=== PATIENT | female | born 1965 | race Caucasian/White ===

== ENCOUNTER 2024-09-11 14:14 | Inpatient (IN) | payer BC, SELFPAY ==
[2024-09-11 14:38] VITALS: BP 150/80; PULSE 87; RESP 18; TEMP 37.1; O2SAT 97; BMI 34.3
--- NOTE | 2024-09-11 16:43 | ED.ABDPAIN ---
HPI - Abdominal Pain General Time Seen by Provider: 16:43 Date Seen: 09/11/24 Chief Complaint: Abdominal Pain Stated Complaint: L side abdominal/back pain Time Seen by Provider: 09/11/24 16:42 Source: patient and RN notes reviewed Mode of arrival: ambulatory Limitations: no limitations History of Present Illness HPI narrative: This 58-year-old female is coming in with complaint of left lower quadrant abdominal pain that has worsened since yesterday. She feels bloated, feels like it is gas but is not really passing any gas. She has been able to produce some small amount of stool but not normal caliber as she usually would. She had a colonoscopy at age 51, was given a 10 year interval. She has tried Gas-X, Excedrin, none of these have provided any relief. She feels nauseated but no vomiting, only had a banana today. Her appetite is definitely diminished. She has felt chills at times but is not had any fever. Has had normal urination. She did Google her symptoms and diverticulitis did come up. She has no history of kidney stones. MD elicited complaint: abdominal pain Related Data Home Medications ?Medication ?Instructions ?Recorded ?Confirmed atorvastatin .ROUTE 09/11/24 exemestane 25 mg tablet (Aromasin) 25 mg PO DAILY 09/11/24 09/11/24 omeprazole .ROUTE 09/11/24 sertraline 100 mg tablet 100 mg PO DAILY 09/11/24 09/11/24 Allergies Allergy/AdvReac Type Severity Reaction Status Date / Time No Known Drug Allergies Allergy Verified 09/11/24 19:10 Review of Systems Status of ROS Reports: 6 or more systems reviewed and unremarkable except as noted in History and below [facility] Medical History (Updated 09/11/24 @ 21:10 by Francia Isabel MD) Hyperlipidemia ?E78.5 - Hyperlipidemia, unspecified (ICD-10) Morbid obesity ?E66.01 - Morbid (severe) obesity due to excess calories (ICD-10) Pre-diabetes ?R73.03 - Prediabetes (ICD-10) Metabolic syndrome ?E88.810 - Metabolic syndrome (ICD-10) Social History What is your current living situation?: I presently have a place to live Problems where you live: no known problems Problems where you live details: none In the past 12 months, utilities in danger of being shut off: no In past 12 months, lack of transportation kept you from medical appts, meetings, work, or getting things needed for daily living: no In the past 12 mos, have been you worried that your food would run out before you had money to buy more?: never true In the past 12 mos, the food you bought just didn't last and you didn't have money to buy more?: never true Highest level of school completed/degree received: Master's degree Smoking Status: Never smoker How often do you have a drink containing alcohol: monthly or less AUDIT-C Alcohol total score: 1 Non-prescribed substance use: denies use Caffeine: Yes (a cup a day) How often does anyone, including family, friends and others, physically hurt you: never How often does anyone, including family, friends and others, insult or talk down to you: never How often does anyone, including family, friends and others, threaten you with harm: never How often does anyone, including family, friends and others, scream or curse at you: never service: No Exam Const: Vital Signs, click to edit/add: Vital Signs - 24 hr 09/11/24 14:38 09/11/24 17:00 09/11/24 18:00 Temperature 98.7 F Pulse Rate 98 Pulse Rate [Right Pulse Oximeter] 87 Pulse Rate [Right Radial] Respiratory Rate 18 16 Blood Pressure 115/69 Blood Pressure [Le ft Arm] Blood Pressure [Ri ght Upper Arm] 150/80 H Pulse Oximetry 97 98 89 Oxygen Delivery Me thod Room Air Room Air 09/11/24 19:05 Temperature Pulse Rate Pulse Rate [Right Pulse Oximeter] Pulse Rate [Right Radial] 82 Respiratory Rate 20 Blood Pressure Blood Pressure [Le ft Arm] 127/67 Blood Pressure [Ri ght Upper Arm] Pulse Oximetry 93 Oxygen Delivery Me thod Room Air This 58-year-old female is alert and interactive, does seem uncomfortable. She is lying on her right side, is able to roll over onto her back. Sclera clear, able to speak in complete sentences. Lungs clear to auscultation, no wheezing or crackles. CV regular rate and rhythm, no murmur. Abdomen does seem distended, do hear an occasional bowel sounds but are certainly sounds hypoactive. She has left lower quadrant tenderness with some rebound and guarding but do not feel underlying mass. No inguinal mass or adenopathy noted. Documenting provider has reviewed patient's vital signs: yes Course Course ED Course: Patient is having left lower quadrant abdominal pain, diminished bowel output, nausea and decreased appetite. I agree that diverticulitis is high on the differential. Will place an IV, give her Zofran and Toradol for symptom control. Will proceed with CT abdomen pelvis with IV contrast and full complement of labs. Will also include urinalysis. Reevaluation(s) Time of Reevaluation #1: 18:21 Reevaluation #1: Have reviewed with patient this CT findings and discussion was surgeon. Pain is improved but she still has some discomfort. We discussed using morphine. She is aware antibiotics will be ordered. Will have her NPO, will start IV fluids. Consultations Consultation #1: General surgeon Dr. Davis has been consulted on this patient, she did review images and chart. Is requesting patient be admitted to the hospitalist service, she will see the patient in the morning. We agreed on ertapenem. She would like patient NPO at this time. Will order IV fluids. Time: 18:02 Consultation #2: Have let Dr. Isabel know about this patient. She will need to call me back as she was it in with another patient. Time: 18:23 Vital Signs Vital signs: Initial Vital Signs Temperature 98.7 F 09/11/24 14:38 Temperature Source Temporal Artery Scan 09/11/24 14:38 Pulse Rate 87 09/11/24 14:38 Pulse Rhythm Regular 09/11/24 14:38 Respiratory Rate 18 09/11/24 14:38 Blood Pressure 150/80 H 09/11/24 14:38 Blood Pressure Mean 103 09/11/24 14:38 Blood Pressure Position Sitting 09/11/24 14:38 Pulse Oximetry 97 09/11/24 14:38 Oxygen Delivery Method Room Air 09/11/24 14:38 Vital Signs Temperature 98.7 F 09/11/24 14:38 Pulse Rate 87 09/11/24 14:38 Respiratory Rate 18 09/11/24 14:38 Blood Pressure 150/80 H 09/11/24 14:38 Pulse Oximetry 97 09/11/24 14:38 Oxygen Delivery Method Room Air 09/11/24 14:38 Temperature 99.1 F 09/12/24 00:10 Pulse Rate 93 09/12/24 00:10 Respiratory Rate 20 09/11/24 19:05 Blood Pressure 103/69 09/12/24 00:10 Pulse Oximetry 89 09/12/24 00:10 Oxygen Delivery Method Room Air 09/12/24 00:10 Medications Administered Medications: Generic Name Dose Route Start Last Admin Trade Name Freq PRN Reason Stop Dose Admin Enoxaparin Sodium 40 mg 09/11/24 21:00 09/11/24 21:40 Enoxaparin 40 Mg/0.4 Ml Inj SUBCUT Not Given HS LEON Lactated Ringer's 1,000 mls @ 125 mls/hr 09/11/24 18:25 09/11/24 23:34 Lactated Ringers 1000 Ml IV 125 mls/hr .Q8H LEON Administration Ketorolac Tromethamine 30 mg 09/11/24 20:07 09/11/24 23:34 Ketorolac 30 Mg/Ml Inj IVP 09/16/24 20:06 30 mg Q6H PRN Administration Abdominal Distention Sodium Chloride 5 ml 09/11/24 21:00 09/11/24 21:40 Sodium Chloride 0.9 % (Flush) 10 Ml Syringe IVF Not Given BID LEON Discontinued Medications Generic Name Dose Route Start Last Admin Trade Name Freq PRN Reason Stop Dose Admin Ertapenem 1 gm/ Sodium 100 mls @ 200 mls/hr 09/11/24 18:17 09/11/24 22:48 Chloride IVPB 09/11/24 18:18 Infused ONCE ONE Infusion Ketorolac Tromethamine 15 mg 09/11/24 16:49 09/11/24 17:12 Ketorolac 15 Mg/Ml Inj IVP 09/11/24 16:50 15 mg ONCE ONE Administration Morphine Sulfate 2 mg 09/11/24 18:24 09/11/24 18:34 Morphine 2 Mg/Ml Inj IVP 09/11/24 18:25 2 mg ONCE ONE Administration Ondansetron HCl 4 mg 09/11/24 16:49 09/11/24 17:12 Ondansetron 2 Mg/Ml Inj IVP 09/11/24 16:50 4 mg ONCE ONE Administration MDM - Abdominal Pain Lab Data Attestation: I reviewed the patient's lab results. Labs: Lab Results 09/11/24 09/11/24 Range/Units 17:20 18:00 WBC 16.09 H (4.50-11.00) K/uL RBC 4.76 (4.00-5.20) m/uL Hgb 13.7 (12.0-16.0) gm/dL Hct 42.6 (33.0-51.0) % MCV 90 (80-100) fL MCH 29 (26-34) pg MCHC 32 (32-36) gm/dL RDW Coeff of Roberta 14.2 (11.5-15.5) % Plt Count 221 (140-440) K/uL Neut % (Auto) 85.4 H (42.0-72.0) % Lymph % (Auto) 8.1 L (20-44) % [place] % (Auto) 5.7 (0.0-11.0) % Eos % (Auto) 0.5 (0.0-7.0) % Baso % (Auto) 0.1 (0.0-3.0) % Neut # (Auto) 13.70 H (1.7-7.0) K/uL Lymph # (Auto) 1.30 (0.90-2.90) K/uL [place] # (Auto) 0.90 (0.00-0.90) K/UL Eos # (Auto) 0.10 (0.00-0.50) K/uL Baso # (Auto) 0.00 (0.00-0.30) K/uL Abs Immat Gran (auto) 0.00 (0.00-0.30) K/uL Imm/Tot Granulo (auto) 0.2 % Sodium 134 L (135-149) mmol/L Potassium 4.3 (3.6-5.1) mmol/L Chloride 103 (96-114) mmol/L Carbon Dioxide 22 (20-32) mmol/L Anion Gap 9 (7-15) mEq/L BUN 16 (7-30) mg/dL Creatinine 0.8 (0.5-1.5) mg/dL Estimated Creat Clear 67.00 Estimated GFR 86 ml/min Glucose 111 (60-115) mg/dL Lactate 1.5 (0.5-1.9) mmol/L Calcium 9.4 (8.4-10.6) mg/dL Total Bilirubin 1.3 (0.1-1.5) mg/dL AST 28 (12-35) U/L ALT 45 H (4-35) U/L Alkaline Phosphatase 101 (40-150) U/L C-Reactive Protein 4.2 H (0.5-1.0) mg/dL Total Protein 7.5 (6.0-8.3) g/dL Albumin 4.5 (3.3-5.0) g/dL Triglycerides 412 H (40-149) mg/dL Cholesterol 186 (90-199) mg/dL LDL Cholesterol, Calc 69 (<100) mg/dL HDL Cholesterol 35 L (>=50) mg/dL Urine Color Yellow (Yellow) Urine Appearance Clear (Clear) Urine pH 5.0 (5.0-8.5) Ur Specific [place] <= 1.005 (1.000-1.030) Urine Protein Negative (Negative) Urine Glucose (UA) Negative (Negative) Urine Ketones Negative (Negative) Urine Blood Negative (Negative) Urine Nitrite Negative (Negative) Urine Bilirubin Negative (Negative) Urine Urobilinogen 0.2 (0.2-1.0) Ur Leukocyte Esterase Negative (Negative) Urine RBC 0-2 (0-2) Urine WBC 0-2 (0-5) Ur Squamous Epith Cells None (None-Few) Urine Bacteria None (None) Imaging Data CT scan - abdomen: Attestation: I have reviewed the pertinent imaging results. Radiologist's impression: Patient: DESHAUN CINTRON Facility:?[facility] Patient ID:?[id number] Site Patient ID:?[id number]. Site :?[id number] Study:?CT-Abdomen/Pelvis W/ 98CC ISOVUE 370-09/11/2024 5:27:45 PM Ordering Physician:?Andry Louie Final Report: INDICATION: Left lower quadrant pain. History of breast cancer.. COMPARISON: None. TECHNIQUE: CT of the abdomen and pelvis with intravenous contrast. Multiplanar axial, coronal, and sagittal reformats were reconstructed. Contrast: 98 mL Isovue 370. FINDINGS: Lung bases: Normal. Liver: Hepatic steatosis and hepatomegaly. The right lobe of the liver measures 23 centimeters in length. Gallbladder and bile ducts: Normal gallbladder. No bile duct dilation. Pancreas: Normal. Spleen: Well-circumscribed macrolobular low-dose density splenic lesion without any adjacent hyperemia. Measures about 5 x 5 x 5 cm. Adrenal glands: Normal. Kidneys: Normal parenchyma. No cyst or solid mass. No calculi. No urinary tract dilation. Urinary bladder: Normal. Pelvis: No cyst or mass. Vessels: Widely patent mesenteric arteries and veins. Bowel: Severely inflamed diverticulum in the proximal sigmoid colon. There is segmental wall thickening. There is substantial adjacent edema and peritoneal thickening without phlegmon or abscess. There is an immediately adjacent free air without intraperitoneal free air. Overall the diverticular burden is moderate to heavy no other dilated or inflamed small bowel or colon. There is a moderate hiatal hernia without any inflammation. Normal appendix. Moderate stool burden. Lymph nodes: No adenopathy. Peritoneum: No ascites. Abdominal wall: Diastasis recti with small fat containing umbilical hernia. No bowel containing hernia. Bones: No fractures. No focal worrisome bone lesions. IMPRESSION: 1. Acute diverticulitis of the proximal sigmoid colon with micro perforation and no abscess. 2. Hepatic steatosis and hepatomegaly. 3. There is a splenic lesion without any features of an abscess or primary / metastatic malignancy. Further imaging workup is generally not fruitful. Please note that all CT scans at this facility use dose modulation, iterative reconstruction, and/or weight-based dosing when appropriate to reduce radiation dose to as low as reasonably achievable. Dictated by Kim Isidro MD @ 09/11/2024 5:53:26 PM (Electronic Signature) Discharge Plan Discharge Clinical Impression: Perforation of sigmoid colon due to diverticulitis Patient Disposition: Admitted As Observation
--- NOTE | 2024-09-11 16:49 | CRLHL7_ITS ---
For Patients: As a result of the Century Cures Act, medical imaging exams and procedure reports are released immediately into your electronic medical record. You may view this report before your referring provider. If you have questions, please contact your health care provider. INDICATION: Left lower quadrant pain. History of breast cancer.. COMPARISON: None. TECHNIQUE: CT of the abdomen and pelvis with intravenous contrast. Multiplanar axial, coronal, and sagittal reformats were reconstructed. Contrast: 98 mL Isovue 370. FINDINGS: Lung bases: Normal. Liver: Hepatic steatosis and hepatomegaly. The right lobe of the liver measures 23 centimeters in length. Gallbladder and bile ducts: Normal gallbladder. No bile duct dilation. Pancreas: Normal. Spleen: Well-circumscribed macrolobular low-dose density splenic lesion without any adjacent hyperemia. Measures about 5 x 5 x 5 cm. Adrenal glands: Normal. Kidneys: Normal parenchyma. No cyst or solid mass. No calculi. No urinary tract dilation. Urinary bladder: Normal. Pelvis: No cyst or mass. Vessels: Widely patent mesenteric arteries and veins. Bowel: Severely inflamed diverticulum in the proximal sigmoid colon. There is segmental wall thickening. There is substantial adjacent edema and peritoneal thickening without phlegmon or abscess. There is an immediately adjacent free air without intraperitoneal free air. Overall the diverticular burden is moderate to heavy no other dilated or inflamed small bowel or colon. There is a moderate hiatal hernia without any inflammation. Normal appendix. Moderate stool burden. Lymph nodes: No adenopathy. Peritoneum: No ascites. Abdominal wall: Diastasis recti with small fat containing umbilical hernia. No bowel containing hernia. Bones: No fractures. No focal worrisome bone lesions. IMPRESSION: 1. Acute diverticulitis of the proximal sigmoid colon with micro perforation and no abscess. 2. Hepatic steatosis and hepatomegaly. 3. There is a splenic lesion without any features of an abscess or primary / metastatic malignancy. Further imaging workup is generally not fruitful. Please note that all CT scans at this facility use dose modulation, iterative reconstruction, and/or weight-based dosing when appropriate to reduce radiation dose to as low as reasonably achievable. Dictated by Kim Isidro MD @ 09/11/2024 5:53:26 PM (Electronically Signed)
[2024-09-11 17:00] VITALS: O2SAT 98
[2024-09-11] MEDS: KETOROLAC 15 MG/ML inj IVP (17:12)
[2024-09-11] MEDS: ONDANSETRON 2 MG/ML inj 4 MG IVP (17:12)
[2024-09-11 17:26] LABS: Lactate* 1.5 mmol/L (0.5-1.9)
[2024-09-11 17:35] LABS: Basophils Percent Auto 0.1 % (0.0-3.0); Eosinophils Percent Auto 0.5 % (0.0-7.0); Hematocrit 42.6 % (33.0-51.0); Hemoglobin* 13.7 gm/dL (12.0-16.0); Immature Granulocytes Pct Auto 0.2 %; Lymphocytes Percent Auto 8.1 % (20-44); Mean Corpuscular HGB Conc 32 gm/dL (32-36); Mean Corpuscular Hemoglobin 29 pg (26-34); Mean Corpuscular Volume 90 fL (80-100); Monocytes Percent Auto 5.7 % (0.0-11.0); Neutrophils Percent Auto 85.4 % (42.0-72.0); Platelet Count* 221 K/uL (140-440); RDW Coefficient of Variation % 14.2 % (11.5-15.5); Red Blood Count 4.76 m/uL (4.00-5.20); White Blood Count* 16.09 K/uL (4.50-11.00)
[2024-09-11 18:00] VITALS: BP 115/69; PULSE 98; RESP 16; O2SAT 89
[2024-09-11 18:06] LABS: Slide Review Reflex No
[2024-09-11 18:14] LABS: Albumin* 4.5 g/dL (3.3-5.0); Chloride* 103 mmol/L (96-114); Sodium* 134 mmol/L (135-149)
[2024-09-11 18:15] LABS: Potassium* 4.3 mmol/L (3.6-5.1)
[2024-09-11 18:17] LABS: Anion Gap 9 mEq/L (7-15); Bilirubin Total* 1.3 mg/dL (0.1-1.5); Carbon Dioxide* 22 mmol/L (20-32); Creatinine* 0.8 mg/dL (0.5-1.5); Estimated Glomerular Filt Rate 86 ml/min; Total Protein* 7.5 g/dL (6.0-8.3)
[2024-09-11 18:18] LABS: Alanine Aminotransferase* 45 U/L (4-35); Alkaline Phosphatase* 101 U/L (40-150); Aspartate Amino Transferase* 28 U/L (12-35); Blood Urea Nitrogen* 16 mg/dL (7-30); Calcium* 9.4 mg/dL (8.4-10.6); Glucose* 111 mg/dL (60-115)
[2024-09-11 18:20] LABS: C Reactive Protein* 4.2 mg/dL (0.5-1.0)
[2024-09-11 18:33] LABS: Appearance Urine Clear (Clear); Bilirubin Urine Negative (Negative); Blood Urine Negative (Negative); Color Urine Yellow (Yellow); Glucose Urine Negative (Negative); Ketones Urine Negative (Negative); Leukocyte Esterase Urine Negative (Negative); Nitrite Urine Negative (Negative); Protein Urine Negative (Negative); Specific Gravity Urine <= 1.005 (1.000-1.030); Urobilinogen Urine 0.2 (0.2-1.0)
[2024-09-11] MEDS: LACTATED RINGERS 1000 ML 1,000 ML 125 ML IV ×2 (18:33→23:34)
[2024-09-11] MEDS: MORPHINE 2 MG/ML inj IVP (18:34)
[2024-09-11] MEDS: ERTAPENEM 1 GM in 0.9 % SODIUM CHLORIDE Mini-bag 100 ML IVPB (18:34)
[2024-09-11 18:59] LABS: RBC Urine 0-2 (0-2); WBC Urine 0-2 (0-5)
[2024-09-11 19:05] VITALS: BP 127/67; PULSE 82; RESP 20; O2SAT 93
--- NOTE | 2024-09-11 20:11 | P.IMHP_ITS ---
Hospitalist- H&P: HPI History of Present Illness Date Seen: 09/11/24 Chief complaint: L side abdominal/back pain Narrative: ADMISSION HISTORY AND PHYSICAL - HOSPITALIST Chief Complaint: 2 days of abdominal pain HPI: 58-year-old white female presents with 2 days of abdominal pain. It started as a generalized gas discomfort and has increased to the point of unable to stay at home or alleviate her pain with [id number] products. She denies fever, reports chills. No vomiting. Mild nausea. Denies blood in her stool. She has had a history of breast cancer, prediabetes, hyperlipidemia, obesity. She had a colonoscopy about 7 years ago and this was negative and she was told she was good for 10 years. The ER called after her CT revealed severely inflamed diverticulum in the proximal sigmoid colon. There is segmental wall thickening and substantial adjacent edema and peritoneal thickening without phlegmon or abscess. There is an immediately adjacent free air without intraperitoneal free air. She is seen and [facility] and followed by [facility] ER COURSE: CT. Labs. Antiemetic. Pain control. Lactated Ringer's. Surgery consult. Ertapenem 1 g. CODE STATUS: FULL CODE EMERGENCY CONTACT PLAN: Max Collazo Rel To Pat Cell I've updated the PFSH, medications and allergies in the Expanse tabs. INVESTIGATIONS: LABS/MICRO/ECG/IMAGING Hemodynamically stable. On room air. Afebrile. White blood cell count is 16.09, 85% neutrophils. Sodium is 134, glucose is 111. Renal function is normal. Liver function appears normal with only a mild bump in her ALT. Bilirubin is normal. C reactive protein is elevated at 4.2 Urine shows a well-hydrated specimen. No evidence of infection. IMPRESSION: 1. Acute diverticulitis of the proximal sigmoid colon with micro perforation and no abscess. 2. Hepatic steatosis and hepatomegaly. 3. There is a splenic lesion without any features of an abscess or primary metastatic malignancy. Further imaging workup is generally not fruitful. REVIEW OF SYSTEMS: 12-point ROS completed with patient and negative unless otherwise stated in HPI or below. PHYSICAL EXAM: CONSTITUTIONAL: Conversive, good historian. A/O. Knows setting and context. GENERAL: Well-developed and above ideal body weight, in no respiratory distress. VITAL SIGNS: see record. HEENT: Sclerae are anicteric. No petechiae. CARDIAC: rhythm is regular. There is no S3 or rub. No harsh murmurs. Extremities show trace edema with symmetrical pulses. PULM: good air entry with no wheeze. ABDOMEN: Obese. Mildly tender to palpation in the left lower quadrant. NEURO: Speech is fluent. A brief neurologic exam is negative. SKIN: No rashes, petechiae, concerning changes PSYCHIATRIC: Euthymic. ADMIT TO MEDSURG: FLOOR CARE DVT: Lovenox GI: PO intake Time spent: Today I spent 75 minutes seeing the patient, discussing the patient with ER staff, reviewing Expanse and EPIC notes/diagnostics, discussing the care plan with our care time that includes social work, PT/OT, pharmacy, RT, senior care and documenting my impressions and plan in the medical record. MEDICAL NECESSITY FOR HOSPITALIZATION Anticipated midnights in the hospital: 2 Admitting diagnosis: Severe sigmoid diverticulitis, microperforation without abscess Risk of morbidity and mortality: high Acuity is characterized as high and reflected in: The severity of her presentation with pain, chills, elevated white blood cell count and evidence of microperforation. She will be kept NPO and have a surgery consult in the morning. She will require IV antibiotics for 7-10 days. Given her history of cancer, obesity, pre diabetes/metabolic syndrome this often leads to increased healing time and risk of complication if surgery is indicated. This patient will require hospital services as outlined in the assessment and plan in order to stabilize and be safely discharged to a lower level of care. Because of the risk and acuity as described above, this patient cannot be managed at a lower level of care. LENGTH OF STAY: 2 IP ? Anticipated LOS>2 midnights due to acuity of clinical presentation requiring inpatient level of care [facility] Medical History (Updated 09/11/24 @ 21:10 by Francia Isabel MD) Hyperlipidemia ?E78.5 - Hyperlipidemia, unspecified (ICD-10) Morbid obesity ?E66.01 - Morbid (severe) obesity due to excess calories (ICD-10) Pre-diabetes ?R73.03 - Prediabetes (ICD-10) Metabolic syndrome ?E88.810 - Metabolic syndrome (ICD-10) Social History What is your current living situation?: I presently have a place to live Problems where you live: no known problems Problems where you live details: none In the past 12 months, utilities in danger of being shut off: no In past 12 months, lack of transportation kept you from medical appts, meetings, work, or getting things needed for daily living: no In the past 12 mos, have been you worried that your food would run out before you had money to buy more?: never true In the past 12 mos, the food you bought just didn't last and you didn't have money to buy more?: never true Highest level of school completed/degree received: Master's degree Smoking Status: Never smoker How often do you have a drink containing alcohol: monthly or less AUDIT-C Alcohol total score: 1 Non-prescribed substance use: denies use Caffeine: Yes (a cup a day) How often does anyone, including family, friends and others, physically hurt you : never How often does anyone, including family, friends and others, insult or talk down to you: never How often does anyone, including family, friends and others, threaten you with harm: never How often does anyone, including family, friends and others, scream or curse at you: never service: No Meds Home Medications and Allergies Home Medications ?Medication ?Instructions ?Recorded ?Confirmed ?Type atorvastatin .ROUTE 09/11/24 History exemestane 25 mg tablet (Aromasin) 25 mg PO DAILY 09/11/24 09/11/24 History omeprazole .ROUTE 09/11/24 History sertraline 100 mg tablet 100 mg PO DAILY 09/11/24 09/11/24 History Allergies Allergy/AdvReac Type Severity Reaction Status Date / Time No Known Drug Allergies Allergy Verified 09/11/24 19:10 Exam Const: Vital Signs, click to edit/add: Vital Signs - 24 hr 09/11/24 14:38 09/11/24 17:00 09/11/24 18:00 Temperature 98.7 F Pulse Rate 98 Pulse Rate [Right Pulse Oximeter] 87 Pulse Rate [Right Radial] Respiratory Rate 18 16 Blood Pressure 115/69 Blood Pressure [Le ft Arm] Blood Pressure [Ri ght Upper Arm] 150/80 H Pulse Oximetry 97 98 89 Oxygen Delivery Me thod Room Air Room Air 09/11/24 19:05 Temperature Pulse Rate Pulse Rate [Right Pulse Oximeter] Pulse Rate [Right Radial] 82 Respiratory Rate 20 Blood Pressure Blood Pressure [Le ft Arm] 127/67 Blood Pressure [Ri ght Upper Arm] Pulse Oximetry 93 Oxygen Delivery Me thod Room Air Hospitalist - H&P: Result Labs Labs: Short CBC 09/11/24 Range/Units 17:20 WBC 16.09 H (4.50-11.00) K/uL Hgb 13.7 (12.0-16.0) gm/dL Hct 42.6 (33.0-51.0) % Plt Count 221 (140-440) K/uL BMP 09/11/24 17:20 Sodium 134 L Potassium 4.3 Chloride 103 Carbon Dioxide 22 BUN 16 Creatinine 0.8 Glucose 111 Calcium 9.4 Liver Function 09/11/24 Range/Units 17:20 Total Bilirubin 1.3 (0.1-1.5) mg/dL AST 28 (12-35) U/L ALT 45 H (4-35) U/L Alkaline Phosphatase 101 (40-150) U/L Albumin 4.5 (3.3-5.0) g/dL Urine 09/11/24 Range/Units 18:00 Urine Color Yellow (Yellow) Urine Appearance Clear (Clear) Urine pH 5.0 (5.0-8.5) Ur Specific [place] <= 1.005 (1.000-1.030) Urine Protein Negative (Negative) Urine Glucose (UA) Negative (Negative) Assessment and Plan Assessment and plan (1) Perforation of sigmoid colon due to diverticulitis: Problem comment: -1st dose of ertapenem 6:30 p.m. 09/11 in the ED -Dr. Davis to evaluate in the morning -NPO with LR at 125 mL an hour -antiemetics and pain management Status: Acute (2) Metabolic syndrome: Problem comment: -checking A1c and lipid profile -have not ordered but could consider bedside glucose monitoring -metabolic syndrome does confer increased healing time and risk of complication if surgery is indicated. Status: Acute (3) Pre-diabetes: Problem comment: -as above Status: Acute (4) Hyperlipidemia: Problem comment: -can continue low-dose atorvastatin Status: Acute (5) Morbid obesity: Problem comment: -as above Status: Acute
[2024-09-11 21:16] LABS: Cholesterol* 186 mg/dL (90-199)
[2024-09-11 21:17] LABS: HDL Cholesterol* 35 mg/dL (>=50); LDL Cholesterol Calculated 69 mg/dL (<100)
[2024-09-11 21:21] LABS: Triglycerides* 412 mg/dL (40-149)
[2024-09-11] MEDS: KETOROLAC 30 MG/ML inj IVP (23:34)
[2024-09-12] VITALS (8 sets, daily range): BP systolic 96–118; BP diastolic 53–73; PULSE 82–93; RESP 16–18; TEMP 36.5–37.3; O2SAT 89–93
[2024-09-12 04:33] LABS: Hemoglobin A1C* 6.1 % (0-5.6)
[2024-09-12 06:39] LABS: Basophils Absolute Auto 0.01 K/uL (0.00-0.30); Basophils Percent Auto 0.1 % (0.0-3.0); Eosinophils Absolute Auto 0.09 K/uL (0.00-0.50); Eosinophils Percent Auto 0.9 % (0.0-7.0); Hematocrit 37.6 % (33.0-51.0); Hemoglobin* 12.1 gm/dL (12.0-16.0); Immature Granulocytes Abs Auto 0.01 K/uL (0.00-0.30); Immature Granulocytes Pct Auto 0.1 %; Lymphocytes Percent Auto 14.2 % (20-44); Mean Corpuscular HGB Conc 32 gm/dL (32-36); Mean Corpuscular Hemoglobin 29 pg (26-34); Mean Corpuscular Volume 91 fL (80-100); Monocytes Percent Auto 7.2 % (0.0-11.0); Neutrophils Percent Auto 77.5 % (42.0-72.0); Platelet Count* 189 K/uL (140-440); RDW Coefficient of Variation % 14.4 % (11.5-15.5); Red Blood Count 4.13 m/uL (4.00-5.20); White Blood Count* 9.56 K/uL (4.50-11.00)
[2024-09-12 06:47] LABS: Slide Review Reflex No
--- NOTE | 2024-09-12 06:52 | PC.NURSE ---
End of shift [id number] ? Pt alert, oriented, pleasant. Up independent in room. Reported pain in abdomen as 3/10, given medication per MAR with pt reporting pain to be well managed. Observed to sleep during shift. Tolerating RA and NPO diet. Appears to be resting comfortably at end of shift in bed with call light within reach. ?
[2024-09-12 06:56] LABS: Albumin* 3.6 g/dL (3.3-5.0); Chloride* 104 mmol/L (96-114)
[2024-09-12 06:57] LABS: Potassium* 4.2 mmol/L (3.6-5.1); Sodium* 136 mmol/L (135-149)
[2024-09-12 06:59] LABS: Estimated Glomerular Filt Rate 66 ml/min
[2024-09-12 07:00] LABS: Alanine Aminotransferase* 36 U/L (4-35); Alkaline Phosphatase* 74 U/L (40-150); Anion Gap 6 mEq/L (7-15); Aspartate Amino Transferase* 21 U/L (12-35); Bilirubin Total* 1.2 mg/dL (0.1-1.5); Blood Urea Nitrogen* 16 mg/dL (7-30); Calcium* 8.4 mg/dL (8.4-10.6); Carbon Dioxide* 26 mmol/L (20-32); Glucose* 118 mg/dL (60-115); Lipase* 64 U/L (23-300); Total Protein* 6.3 g/dL (6.0-8.3)
[2024-09-12 07:07] LABS: INR 1.19 (0.91-1.10); Prothrombin Time 15.8 Seconds
[2024-09-12 07:15] LABS: C Reactive Protein* 12.7 mg/dL (0.5-1.0)
[2024-09-12] MEDS: LACTATED RINGERS 1000 ML 1,000 ML 125 ML IV (08:14)
--- NOTE | 2024-09-12 09:07 | CRLHL7_ITS ---
For Patients: As a result of the Century Cures Act, medical imaging exams and procedure reports are released immediately into your electronic medical record. You may view this report before your referring provider. If you have questions, please contact your health care provider. INDICATION: PICC line. TECHNIQUE: Chest 1 views. COMPARISON: None. FINDINGS: Cardiovascular and mediastinum: Heart size and vasculature are normal in caliber and appearance. Right PICC with tip in the superior cavoatrial junction. Lungs and pleural spaces: Low lung volumes. No sign of infiltrate or mass. No sign of pleural effusion. No pneumothorax. Bones and soft tissues: No significant findings. IMPRESSION: Right PICC with tip in the superior cavoatrial junction. Dictated by Azar Flores MD @ 09/12/2024 6:54:23 PM (Electronically Signed)
[2024-09-12] MEDS: SERTRALINE 100 MG TABLET 200 MG PO (09:20)
--- NOTE | 2024-09-12 10:12 | PM.IMPN1 ---
Progress Note: A&P Assessment and plan (1) Perforation of sigmoid colon due to diverticulitis: Problem details: - 1st dose of ertapenem 1830 09/11 in the ED - Dr. Davis of general surgery following - slowly advancing diet on 09/12 - continue antiemetics and pain management, increase ambulation Status: Acute (2) Metabolic syndrome: Problem details: - hyperlipidemia, BMI 34 - A1C 6.1 c/w prediabetes, increasing risk of complication if surgery was indicated Status: Acute (3) Hyperlipidemia: Problem details: - continue low-dose atorvastatin Status: Acute Plan - slowly advance diet, continue to monitor for any worsening symptoms while advancing po intake - follow BP closely (lower than baseline this morning) - if tolerating p.o. intake with stable labs, possibly home tomorrow with a PICC line and IV ertapenem, close general surgery follow-up - patient agrees to plan of care, updated at bedside, questions answered Subjective Date Seen: 09/12/24 Interval history: Conchis was admitted last night with severe diverticulitis and microperforation on imaging. She had severe pain with guarding on exam, white blood count of 16 with 85% PMNs. IV ertapenem initiated. Overnight, her pain has improved. Her white count has improved to 9, continues to have a significant PMN predominance (77%). Tmax 99.1, BP on the lower side (98/71 this morning). Dr. Davis of general surgery is also following. Initiating liquids and will advance to a soft low-fiber diet if tolerated. Comorbidities include metabolic syndrome, A1c this morning of 6.1 Exam Narrative: Exam Narrative: GEN: Alert HEENT: EOMIs bilaterally, no scleral icterus CV: RRR, No concerning murmurs R: LCTA bilaterally without concerning wheezing Ab: Mild distention, + tenderness to palpation without guarding, hypoactive bowel sounds Ext: wwp, no concerning edema Skin: No concerning skin lesions or rashes on exposed skin Neuro: Nonfocal Psych: Appropriate Const: Vital Signs, click to edit/add: Vital Signs - 24 hr 09/11/24 14:38 09/11/24 17:00 09/11/24 18:00 Temperature 98.7 F Pulse Rate 98 Pulse Rate [Right Pulse Oximeter] 87 Pulse Rate [Right Radial] Respiratory Rate 18 16 Blood Pressure 115/69 Blood Pressure [Le ft Arm] Blood Pressure [Ri ght Upper Arm] 150/80 H Pulse Oximetry 97 98 89 Oxygen Delivery Me thod Room Air Room Air 09/11/24 19:05 09/12/24 00:10 09/12/24 05:57 Temperature 99.1 F 98.4 F Pulse Rate Pulse Rate [Right Pulse Oximeter] Pulse Rate [Right Radial] 82 93 86 Respiratory Rate 20 16 Blood Pressure Blood Pressure [Le ft Arm] 127/67 103/69 112/73 Blood Pressure [Ri ght Upper Arm] Pulse Oximetry 93 89 89 Oxygen Delivery Me thod Room Air Room Air Room Air 09/12/24 08:45 Temperature 97.7 F Pulse Rate Pulse Rate [Right Pulse Oximeter] Pulse Rate [Right Radial] 86 Respiratory Rate 18 Blood Pressure Blood Pressure [Le ft Arm] 98/71 Blood Pressure [Ri ght Upper Arm] Pulse Oximetry 93 Oxygen Delivery Me thod Room Air Labs Labs: Laboratory Results - last 24 hr 09/11/24 09/11/24 09/11/24 17:20 18:00 21:01 WBC 16.09 H RBC 4.76 Hgb 13.7 Hct 42.6 MCV 90 MCH 29 MCHC 32 RDW Coeff of Roberta 14.2 Plt Count 221 Neut % (Auto) 85.4 H Lymph % (Auto) 8.1 L Daniels % (Auto) 5.7 Eos % (Auto) 0.5 Baso % (Auto) 0.1 Neut # (Auto) 13.70 H Lymph # (Auto) 1.30 Daniels # (Auto) 0.90 Eos # (Auto) 0.10 Baso # (Auto) 0.00 Abs Immat Gran (auto) 0.00 Imm/Tot Granulo (auto) 0.2 INR Sodium 134 L Potassium 4.3 Chloride 103 Carbon Dioxide 22 Anion Gap 9 BUN 16 Creatinine 0.8 Estimated Creat Clear 67.00 Estimated GFR 86 Glucose 111 Hemoglobin A1c 6.1 H Lactate 1.5 Calcium 9.4 Total Bilirubin 1.3 AST 28 ALT 45 H Alkaline Phosphatase 101 C-Reactive Protein 4.2 H Total Protein 7.5 Albumin 4.5 Triglycerides 412 H Cholesterol 186 LDL Cholesterol, Calc 69 HDL Cholesterol 35 L Lipase Urine Color Yellow Urine Appearance Clear Urine pH 5.0 Ur Specific Wilber <= 1.005 Urine Protein Negative Urine Glucose (UA) Negative Urine Ketones Negative Urine Blood Negative Urine Nitrite Negative Urine Bilirubin Negative Urine Urobilinogen 0.2 Ur Leukocyte Esterase Negative Urine RBC 0-2 Urine WBC 0-2 Ur Squamous Epith Cells None Urine Bacteria None Lab Acknowledgement Test Added 09/12/24 06:27 WBC 9.56 RBC 4.13 Hgb 12.1 Hct 37.6 MCV 91 MCH 29 MCHC 32 RDW Coeff of Roberta 14.4 Plt Count 189 Neut % (Auto) 77.5 H Lymph % (Auto) 14.2 L Daniels % (Auto) 7.2 Eos % (Auto) 0.9 Baso % (Auto) 0.1 Neut # (Auto) 7.40 H Lymph # (Auto) 1.40 Daniels # (Auto) 0.70 Eos # (Auto) 0.09 Baso # (Auto) 0.01 Abs Immat Gran (auto) 0.01 Imm/Tot Granulo (auto) 0.1 INR 1.19 H Sodium 136 Potassium 4.2 Chloride 104 Carbon Dioxide 26 Anion Gap 6 L BUN 16 Creatinine 1.0 Estimated Creat Clear 53.60 Estimated GFR 66 Glucose 118 H Hemoglobin A1c Lactate Calcium 8.4 Total Bilirubin 1.2 AST 21 ALT 36 H Alkaline Phosphatase 74 C-Reactive Protein 12.7 H Total Protein 6.3 Albumin 3.6 Triglycerides Cholesterol LDL Cholesterol, Calc HDL Cholesterol Lipase 64 Urine Color Urine Appearance Urine pH Ur Specific Wilber Urine Protein Urine Glucose (UA) Urine Ketones Urine Blood Urine Nitrite Urine Bilirubin Urine Urobilinogen Ur Leukocyte Esterase Urine RBC Urine WBC Ur Squamous Epith Cells Urine Bacteria Lab Acknowledgement
[2024-09-12] MEDS: ACETAMINOPHEN 325 MG TABLET PO (10:38)
--- NOTE | 2024-09-12 11:00 | P.GSCN_ITS ---
History of Present Illness Consult details Date Seen: 09/12/24 Consult date: 09/12/24 Narrative: Patient presented to the emergency department last night with worsening left- sided abdominal pain. She says that the pain started about 2 days ago, but then increased in severity to where she felt like she needed to come in. She has never had pain like this before. She has never had surgery in her abdomen before. Since being admitted her pain is improved, ?but she still feels a dull ache?. She is feeling hungry this morning. She denies any nausea or vomiting. She has continued to pass gas. Her last bowel movement was yesterday. She had a colonoscopy last 7 years ago, which was normal with recommended follow-up in 10 years. Denies a family history of colon cancer. She does state that a great grandmother had a history of diverticulitis. No fevers at home. She does have a vacation to [place] planned for this Thursday. She is going with her and kids for 1 week. Review of Systems Status of ROS: Reports: 10 or more systems reviewed and unremarkable except as noted in History and below [facility] Medical History (Updated 09/11/24 @ 21:10 by Francia Isabel MD) Hyperlipidemia ?E78.5 - Hyperlipidemia, unspecified (ICD-10) Morbid obesity ?E66.01 - Morbid (severe) obesity due to excess calories (ICD-10) Pre-diabetes ?R73.03 - Prediabetes (ICD-10) Metabolic syndrome ?E88.810 - Metabolic syndrome (ICD-10) Social History What is your current living situation?: I presently have a place to live Problems where you live: no known problems Problems where you live details: none In the past 12 months, utilities in danger of being shut off: no In past 12 months, lack of transportation kept you from medical appts, meetings, work, or getting things needed for daily living: no In the past 12 mos, have been you worried that your food would run out before you had money to buy more?: never true In the past 12 mos, the food you bought just didn't last and you didn't have money to buy more?: never true Highest level of school completed/degree received: Master's degree Smoking Status: Never smoker How often do you have a drink containing alcohol: monthly or less AUDIT-C Alcohol total score: 1 Non-prescribed substance use: denies use Caffeine: Yes (a cup a day) How often does anyone, including family, friends and others, physically hurt you : never How often does anyone, including family, friends and others, insult or talk down to you: never How often does anyone, including family, friends and others, threaten you with harm: never How often does anyone, including family, friends and others, scream or curse at you: never service: No Meds Home Medications and Allergies Home Medications ?Medication ?Instructions ?Recorded ?Confirmed ?Type atorvastatin .ROUTE 09/11/24 History exemestane 25 mg tablet (Aromasin) 25 mg PO DAILY 09/11/24 09/11/24 History omeprazole .ROUTE 09/11/24 History sertraline 100 mg tablet 100 mg PO DAILY 09/11/24 09/11/24 History Allergies Allergy/AdvReac Type Severity Reaction Status Date / Time No Known Drug Allergies Allergy Verified 09/11/24 19:10 Exam Narrative: Exam Narrative: General: Alert and oriented, no acute distress. Nontoxic Respiratory: Equal breath rise bilaterally, maintained on room air CV: Regular rhythm and rate Abdomen: Soft, some tenderness to deep palpation left side with no guarding or rebound. Nondistended. Const: Vital Signs, click to edit/add: Vital Signs - 24 hr 09/11/24 14:38 09/11/24 17:00 09/11/24 18:00 Temperature 98.7 F Pulse Rate 98 Pulse Rate [Right Pulse Oximeter] 87 Pulse Rate [Right Radial] Respiratory Rate 18 16 Blood Pressure 115/69 Blood Pressure [Le ft Arm] Blood Pressure [Ri ght Upper Arm] 150/80 H Pulse Oximetry 97 98 89 Oxygen Delivery Me thod Room Air Room Air 09/11/24 19:05 09/12/24 00:10 09/12/24 05:57 Temperature 99.1 F 98.4 F Pulse Rate Pulse Rate [Right Pulse Oximeter] Pulse Rate [Right Radial] 82 93 86 Respiratory Rate 20 16 Blood Pressure Blood Pressure [Le ft Arm] 127/67 103/69 112/73 Blood Pressure [Ri ght Upper Arm] Pulse Oximetry 93 89 89 Oxygen Delivery Me thod Room Air Room Air Room Air 09/12/24 08:45 09/12/24 09:00 Temperature 97.7 F Pulse Rate Pulse Rate [Right Pulse Oximeter] Pulse Rate [Right Radial] 86 86 Respiratory Rate 18 18 Blood Pressure Blood Pressure [Le ft Arm] 98/71 Blood Pressure [Ri ght Upper Arm] Pulse Oximetry 93 Oxygen Delivery Me thod Room Air Results Labs Labs: Abnormal lab results 09/11/24 09/12/24 Range/Units 17:20 06:27 WBC 16.09 H (4.50-11.00) K/uL Neut % (Auto) 85.4 H 77.5 H (42.0-72.0) % Lymph % (Auto) 8.1 L 14.2 L (20-44) % Neut # (Auto) 13.70 H 7.40 H (1.7-7.0) K/uL INR 1.19 H (0.91-1.10) Sodium 134 L (135-149) mmol/L Anion Gap 6 L (7-15) mEq/L Glucose 118 H (60-115) mg/dL Hemoglobin A1c 6.1 H (0-5.6) % ALT 45 H 36 H (4-35) U/L C-Reactive Protein 4.2 H 12.7 H (0.5-1.0) mg/dL Triglycerides 412 H (40-149) mg/dL HDL Cholesterol 35 L (>=50) mg/dL Diabetes panel 09/11/24 09/12/24 Range/Units 17:20 06:27 Sodium 134 L 136 (135-149) mmol/L Potassium 4.3 4.2 (3.6-5.1) mmol/L Chloride 103 104 (96-114) mmol/L Carbon Dioxide 22 26 (20-32) mmol/L BUN 16 16 (7-30) mg/dL Creatinine 0.8 1.0 (0.5-1.5) mg/dL Glucose 111 118 H (60-115) mg/dL Hemoglobin A1c 6.1 H (0-5.6) % Calcium 9.4 8.4 (8.4-10.6) mg/dL AST 28 21 (12-35) U/L ALT 45 H 36 H (4-35) U/L Alkaline Phosphatase 101 74 (40-150) U/L Total Protein 7.5 6.3 (6.0-8.3) g/dL Albumin 4.5 3.6 (3.3-5.0) g/dL Triglycerides 412 H (40-149) mg/dL HDL Cholesterol 35 L (>=50) mg/dL Calcium panel 09/11/24 09/12/24 Range/Units 17:20 06:27 Calcium 9.4 8.4 (8.4-10.6) mg/dL Albumin 4.5 3.6 (3.3-5.0) g/dL Pituitary panel 09/11/24 09/12/24 Range/Units 17:20 06:27 Sodium 134 L 136 (135-149) mmol/L Potassium 4.3 4.2 (3.6-5.1) mmol/L Chloride 103 104 (96-114) mmol/L Carbon Dioxide 22 26 (20-32) mmol/L BUN 16 16 (7-30) mg/dL Creatinine 0.8 1.0 (0.5-1.5) mg/dL Glucose 111 118 H (60-115) mg/dL Calcium 9.4 8.4 (8.4-10.6) mg/dL Adrenal panel 09/11/24 09/12/24 Range/Units 17:20 06:27 Sodium 134 L 136 (135-149) mmol/L Potassium 4.3 4.2 (3.6-5.1) mmol/L Chloride 103 104 (96-114) mmol/L Carbon Dioxide 22 26 (20-32) mmol/L BUN 16 16 (7-30) mg/dL Creatinine 0.8 1.0 (0.5-1.5) mg/dL Glucose 111 118 H (60-115) mg/dL Calcium 9.4 8.4 (8.4-10.6) mg/dL Total Bilirubin 1.3 1.2 (0.1-1.5) mg/dL AST 28 21 (12-35) U/L ALT 45 H 36 H (4-35) U/L Alkaline Phosphatase 101 74 (40-150) U/L Total Protein 7.5 6.3 (6.0-8.3) g/dL Albumin 4.5 3.6 (3.3-5.0) g/dL All other labs normal. Imaging Abdomen CT scan report/results: report reviewed and image reviewed Progress Note:A&P Assessment and plan (1) Perforation of sigmoid colon due to diverticulitis: Status: Acute Assessment and Plan: Patient presents with 1st episode of diverticulitis, complicated by local perforation of the sigmoid colon. She was admitted and started on IV ertapenem. Today she reports some improvement in her symptoms. Her leukocytosis has normalized (16--9). Vital signs stable overnight, afebrile. Okay to advance diet as tolerated to soft, low-fiber. Recommend patient continue on IV ertapenem. This will likely be continued as an outpatient, so okay for PICC line placement today. I did nutrition counselor the patient regarding her upcoming trip to [place] on Thursday, would recommend rescheduling. At this time the patient is still deciding what to do. At this time no recommendations for emergent surgical intervention. Patient will need a colonoscopy done as an outpatient. Surgery to continue to follow, please call with any acute clinical changes.
--- NOTE | 2024-09-12 16:00 | PC.NURSE ---
End of Shift: Patient pleasant and cooperative, A&O. VSS, afebrile. SpO2 maintained above 90% on RA. Patient reports pain in her abdomen and a headache this shift, managed with PRN medication, see MAR. ADAT, tolerating well. Independent in room.
[2024-09-12] MEDS: ERTAPENEM 1 GM in 0.9 % SODIUM CHLORIDE Mini-bag 100 ML IVPB (18:21)
[2024-09-12] MEDS: SODIUM CHLORIDE 0.9 % (FLUSH) 10 ML SYRINGE 5 ML IVF (18:22)
--- NOTE | 2024-09-12 22:44 | PC.NURSE ---
Pt alert and oriented. VS WNL. Pt had complaints of pain at a 1; no intervention at this time. Pt up independently in room. Pt on a regular diet and tolerating well. Pt had a PIIC line placed this evening.?
[2024-09-13 03:40] VITALS: BP 101/50; PULSE 86; RESP 16; TEMP 36.5; O2SAT 90
[2024-09-13] MEDS: OMEPRAZOLE 20 MG CAPSULE DR PO (06:24)
--- NOTE | 2024-09-13 06:46 | PC.NURSE ---
End of shift summary: Pt has been A&O, afebrile and VSS with exception to softer BPs (90s/50s to low 100s/50s). Pt is asymptomatic and independent with a steady gait. Denies any abd pain but reports a mild headache, declined pain meds overnight. RUE PICC is C/D/I. PIV removed from right hand. She denies nausea or dizziness. Pt was advanced to a low fiber diet yesterday & tolerating it well. She is hoping to discharge home today. On IV Ertapenem. ?
[2024-09-13 07:20] LABS: Albumin* 3.9 g/dL (3.3-5.0); Chloride* 106 mmol/L (96-114)
[2024-09-13 07:21] LABS: Potassium* 4.1 mmol/L (3.6-5.1); Sodium* 139 mmol/L (135-149)
[2024-09-13 07:23] LABS: Bilirubin Total* 0.8 mg/dL (0.1-1.5); Creatinine* 0.9 mg/dL (0.5-1.5); Est. Creatinine Clearance* 59.55; Estimated Glomerular Filt Rate 75 ml/min
[2024-09-13 07:24] LABS: Alanine Aminotransferase* 36 U/L (4-35); Alkaline Phosphatase* 77 U/L (40-150); Anion Gap 7 mEq/L (7-15); Aspartate Amino Transferase* 23 U/L (12-35); Basophils Absolute Auto 0.02 K/uL (0.00-0.30); Basophils Percent Auto 0.2 % (0.0-3.0); Blood Urea Nitrogen* 13 mg/dL (7-30); Calcium* 8.6 mg/dL (8.4-10.6); Carbon Dioxide* 26 mmol/L (20-32); Eosinophils Absolute Auto 0.15 K/uL (0.00-0.50); Eosinophils Percent Auto 1.6 % (0.0-7.0); Glucose* 116 mg/dL (60-115); Hematocrit 39.7 % (33.0-51.0); Hemoglobin* 12.6 gm/dL (12.0-16.0); Immature Granulocytes Abs Auto 0.02 K/uL (0.00-0.30); Immature Granulocytes Pct Auto 0.2 %; Lymphocytes Percent Auto 18.6 % (20-44); Mean Corpuscular HGB Conc 32 gm/dL (32-36); Mean Corpuscular Hemoglobin 29 pg (26-34); Mean Corpuscular Volume 92 fL (80-100); Monocytes Percent Auto 6.3 % (0.0-11.0); Neutrophils Percent Auto 73.1 % (42.0-72.0); Platelet Count* 210 K/uL (140-440); RDW Coefficient of Variation % 14.5 % (11.5-15.5); Red Blood Count 4.33 m/uL (4.00-5.20); White Blood Count* 9.38 K/uL (4.50-11.00)
[2024-09-13 07:26] LABS: Slide Review Reflex No
[2024-09-13 08:00] VITALS: BP 115/62; PULSE 87; PULSE 89; RESP 16; TEMP 36.7; O2SAT 92
[2024-09-13 08:05] LABS: C Reactive Protein* 16.4 mg/dL (0.5-1.0)
[2024-09-13] MEDS: SERTRALINE 100 MG TABLET 200 MG PO (09:02)
--- NOTE | 2024-09-13 09:20 | PM.DS1 ---
DS: Providers Provider Date Seen: 09/13/24 Date of admission: 09/11/24 19:55 Primary care physician: Not a Local Provider Admitting Clinician: Francia Isabel MD Attending Physician on discharge: Meagan Mota MD Date of Discharge: 09/13/24 DS: Diagnosis Discharge Diagnosis (1) Perforation of sigmoid colon due to diverticulitis: Status: Acute Problem details: - 1st dose of ertapenem 09/11 in the ED - Dr. Davis of General Surgery followed during stay - slowly advanced diet during stay - was able to tolerate a soft diet well on hospital day 2, WBC stable - mild elevation in CRP but overall feeling better and requesting d/c home - will return to hospital for daily IV Ertapenem and repeat labs later this week (2) Metabolic syndrome: Status: Acute Problem details: - hyperlipidemia, BMI 34 - A1C 6.1 c/w prediabetes, increasing risk of complications (3) Hyperlipidemia: Status: Acute Problem details: - continue low-dose atorvastatin DS: Summary Hospital Course Hospital Course: Yesenia was admitted to the hospital on 09/11/2024 for 1st presentation of diverticulitis, + microperforation on admission CT. Admitted for IVFs, IV abx, and bowel rest. Slowly advanced diet and requesting d/c home on hospital day 2; will return for daily IV antibiotics. Seen by Dr. Davis of General Surgery during stay, did not require any surgical intervention. She will see Dr. Davis in outpatient f/u. Comorbidities (above), stable. Appropriate for d/c home on 09/13/24. Status at Discharge Functional status at discharge: independent ambulation Overall status at discharge: patient is progressing back to baseline Time Spent with Patient Time attestation: Total time spent providing and/or coordinating discharge services: Time spent: Greater than 30 minutes Exam Narrative: Exam Narrative: GEN: Alert and oriented, walking in room and breathing comfortably, speaking in full sentences HEENT: EOMIs bilaterally, no scleral icterus Ab: Less tenderness to palpation, less distension Skin: No concerning skin lesions or rashes on exposed skin Neuro: Nonfocal Psych: Appropriate Const: Vital Signs, click to edit/add: Vital Signs - 24 hr 09/12/24 11:49 09/12/24 15:27 09/12/24 18:56 Temperature 98.8 F 98.2 F 99.2 F Pulse Rate [Pulse Oximeter] 82 91 90 Respiratory Rate 18 18 18 Blood Pressure [Le ft Arm] 104/60 109/72 118/60 Pulse Oximetry 90 92 91 Oxygen Delivery Me thod Room Air Room Air Room Air 09/12/24 23:50 09/12/24 23:50 09/13/24 03:40 Temperature 98.6 F 97.7 F Pulse Rate [Pulse Oximeter] 90 90 86 Respiratory Rate 16 16 16 Blood Pressure [Le ft Arm] 96/53 L 101/50 L Pulse Oximetry 92 90 Oxygen Delivery Me thod Room Air Room Air DS: Data Data Completed and Pending Labs on day of discharge: Labs from last 24 hours 09/13/24 06:42 WBC 9.38 RBC 4.33 Hgb 12.6 Hct 39.7 MCV 92 MCH 29 MCHC 32 RDW Coeff of Roberta 14.5 Plt Count 210 Neut % (Auto) 73.1 H Lymph % (Auto) 18.6 L [place] % (Auto) 6.3 Eos % (Auto) 1.6 Baso % (Auto) 0.2 Neut # (Auto) 6.90 Lymph # (Auto) 1.70 [place] # (Auto) 0.60 Eos # (Auto) 0.15 Baso # (Auto) 0.02 Abs Immat Gran (auto) 0.02 Imm/Tot Granulo (auto) 0.2 Sodium 139 Potassium 4.1 Chloride 106 Carbon Dioxide 26 Anion Gap 7 BUN 13 Creatinine 0.9 Estimated Creat Clear 59.55 Estimated GFR 75 Glucose 116 H Calcium 8.6 Total Bilirubin 0.8 AST 23 ALT 36 H Alkaline Phosphatase 77 C-Reactive Protein 16.4 H Total Protein 7.0 Albumin 3.9 Discharge Plan Discharge Disposition: Home, Self-Care Date of Admission: 09/11/24 19:55 Attending Provider on Discharge: Meagan Mota Primary Care Provider: Provider,Not a Local Condition: Improved Anticipated Discharge Date/Time: 09/13/24 08:25 Discharge Medications: New ertapenem 1 gram Recon Soln 1 g IVPB Q24H Qty: 5 0RF amoxicillin-pot clavulanate 875-125 mg tablet 1 tab PO Q12H 15 Days Qty: 30 0RF Continued sertraline 100 mg tablet 100 mg PO DAILY exemestane [Aromasin] 25 mg tablet 25 mg PO DAILY Rx Instructions: must administer after a meal atorvastatin 20 mg tablet 20 mg PO DAILY alendronate 70 mg tablet 70 mg PO omeprazole 20 mg capsule,delayed release(DR/EC) 20 mg PO DAILY Held metformin 500 mg tablet extended release 24 hr 500 mg PO DAILY Hold Instructions: restart when eating and drinking normally (likely one week) Discharge Orders: Discharge Order (Routine); Ordered 09/13/24 Ordered By: Meagan Mota Patient Education: Amoxicillin/Clavulanate Potassium (By mouth), Ertapenem (By injection) Additional Instructions: IV antibiotics until Thursday, start oral antibiotics (Amoxicillin-Clavulanate, brand name Augmentin) twice/day on Thursday. Make sure you are taking a probiotic daily (Lithuanian yogurt, Kombucha, sauerkraut, probiotic powder or pill are good options) while on antibiotics. Blood will be done with your infusion or Thursday. Low fiber/soft diet for the next 1-2 weeks, slowly advance and add in more fiber as tolerated. Infusion times/locations Thursday Med/Surg @10:00 [facility] @ 8:30 with Lab draw Thursday [facility] @8:30 Thursday Med/Surg @0600 with PICC removal Activity Level: Activity as Tolerated Discharge Diet: Low Fiber Follow Up Appointments: Latricia Davis MD [Staff Physician] - 09/29/24 1:00 pm ([facility] for follow-up.) Provider,Not a Local [Primary Care Provider] - Forms: Cash Check Card Info Instructions
[2024-09-13] MEDS: SODIUM CHLORIDE 0.9 % (FLUSH) 10 ML SYRINGE 5 ML IVF (09:31)
--- NOTE | 2024-09-13 10:08 | NUTR.NU ---
RDN with diet education related to new diverticulitis. Patient admitted with abdominal pain in the setting of Perforation of sigmoid colon due to diverticulitis. Current weight 200lb 4..8oz; height 5ft 4in; BMI 34.4 kg/m2. Current diet is low fiber/surgical soft. Patient has been able to tolerated solid foods. Anticipating discharge home later today. RDN visited with patient and . Offered diet education related to diverticulitis, patient and accepted. Patient was provided diet education on a low fiber diet. Discussed foods to include and foods to avoid until MD recommends advancing to high fiber diet. Education also provided on gradually increasing fiber and following a high fiber diet (25-35 grams/day) long-term. Recommended she follow a high-fiber diet life-long. Verbal and written information as well as sample menus provided on both diets from [facility]. Patient verbalized understanding. RDN's contact information was provided and patient was encouraged to contact RDN with questions.
--- NOTE | 2024-09-13 10:29 | P.GSPN_ITS ---
Subjective Subjective Date Seen: 09/13/24 Interval history: Patient says she is doing well this morning. Pain is much improved, but still present when she pushes on the area. She has not needed pain medicine since the night of her admission. No nausea. She is tolerating a diet without difficulty. Passing gas and had a small bowel movement. She is planning on going to [place] on Thursday for vacation for a week with her family. Exam Narrative: Exam Narrative: General: Alert and oriented, no acute distress Abdomen: Soft, nondistended, tender to palpation left lower quadrant with some mild guarding, no rebound. No signs of peritonitis. Const: Vital Signs, click to edit/add: Vital Signs - 24 hr 09/12/24 11:49 09/12/24 15:27 09/12/24 18:56 Temperature 98.8 F 98.2 F 99.2 F Pulse Rate [Pulse Oximeter] 82 91 90 Respiratory Rate 18 18 18 Blood Pressure [Le ft Arm] 104/60 109/72 118/60 Pulse Oximetry 90 92 91 Oxygen Delivery Me thod Room Air Room Air Room Air 09/12/24 23:50 09/12/24 23:50 09/13/24 03:40 Temperature 98.6 F 97.7 F Pulse Rate [Pulse Oximeter] 90 90 86 Respiratory Rate 16 16 16 Blood Pressure [Le ft Arm] 96/53 L 101/50 L Pulse Oximetry 92 90 Oxygen Delivery Me thod Room Air Room Air Labs/Imaging Labs Labs: No leukocytosis. CRP is trending up (12-16) Imaging Imaging: No new imaging Progress Note:A&P Assessment and plan (1) Perforation of sigmoid colon due to diverticulitis: Status: Acute Assessment and Plan: Patient presents with 1st episode of diverticulitis, complicated by local perforation of the sigmoid colon. Patient has had improvement of her symptoms and is tolerating a soft, low-fiber diet. Her leukocytosis has resolved. Her CRP has been trending up (7--12--16). Vital signs stable and afebrile. On examination she still has some tenderness left lower quadrant but no signs of peritonitis. Patient is okay to discharge today with a plan for continued IV antibiotics. She is unfortunately planning on leaving for [place] this Thursday. Would recommend she continue with IV antibiotics leading up to her trip and then transition to oral antibiotics. Will have her follow up with me at the [facility] on 09/29/2023, once she is back. Would also recommend that she have a check of her CRP this or Thursday to ensure that it is trending down. Patient does understand the risks of travel including, but not limited to worsening of her symptoms and possible need for emergency evaluation.
[2024-09-13 11:00] VITALS: BP 115/62; PULSE 79; RESP 18; TEMP 36.7; O2SAT 94
[2024-09-13] MEDS: ERTAPENEM 1 GM in 0.9 % SODIUM CHLORIDE Mini-bag 100 ML IVPB (12:55)
== END 2024-09-13 14:03 | disposition home or self-care (01) | DRG 244 ==
LOC: ED 18:54 → MEDSURG 19:00
PROVIDERS: Family Medicine; Admitting Provider Family Medicine; Emergency Provider Family Medicine; Visit Provider Family Medicine
DX: K57.20 Diverticulitis of large intestine with perforation and abscess without bleeding (principal); E66.01 Morbid (severe) obesity due to excess calories; E88.810 Metabolic syndrome; Z68.34 Body mass index [BMI] 34.0-34.9, adult; E78.5 Hyperlipidemia, unspecified; Z85.3 Personal history of malignant neoplasm of breast; K76.0 Fatty (change of) liver, not elsewhere classified; Z79.84 Long term (current) use of oral hypoglycemic drugs
CPT/HCPCS: 36415; 36573; 74177; 80053; 80061; 81001; 82962; 83036; 83605; 83690; 85025; 85610; 86140; 93005; 94761; 99284; 99285; A4221; A9270; C1751; J1335; J1885; J2270; J2405; J7120; Q9967

== ENCOUNTER 2024-09-17 04:57 | Outpatient (RCR) | payer BC, SELFPAY ==
[2024-09-14 10:04] VITALS: BP 104/60; PULSE 77; RESP 16; TEMP 36.6; O2SAT 96
[2024-09-14] MEDS: ERTAPENEM 1 GM in 0.9 % SODIUM CHLORIDE 100 ml 100 ML IVPB (10:13)
--- OUTSIDE RECORDS SUMMARY | 2024-09-15 08:29 | XMS_ITS | Clinical Summary ---
Author Organization [facility] Address [address] [place] [address]. [place] [address] Care Team Providers Care Delivery Person Name Role Phone Cassidy Lindo MD Primary Care Provider [phone] Cassidy Lindo MD Unavailable [phone] Tracy Hsieh RN Unavailable [phone] Constance Henry PA-C Unavailable Allergies Active Allergy Reactions Criticality Noted Date Comments No Known Drug Allergy 12/25/2003 Medications multivitamin w/minerals (THERA-VIT-M) tablet Take 1 tablet by mouth daily Active aspirin 81 MG tablet Take 81 mg by mouth daily Active cetirizine (ZYRTEC) 10 MG tabletIndicatio ns:Allergic state, sequela Take 1 tablet (10 mg) by mouth daily 0 Active azelastine (ASTELIN) 0.1 % nasal sprayIndication s:Seasonal allergic rhinitis due to other allergic trigger Purcell 1 spray into both nostrils 2 times daily 30 mL 11 3 Active olopatadine (PATANOL) 0.1 % ophthalmic solutionIndicat ions:Allergic conjunctivitis, bilateral Place 1 drop into both eyes 2 times daily 5 mL 3 3 Active omeprazole (PRILOSEC) [address] capsuleIndicati ons:Esophageal dysphagia TAKE 1 CAPSULE DAILY 90 capsule 3 4 Active atorvastatin (LIPITOR) 20 MG tabletIndicatio ns:Hyperlipidem ia LDL goal <130 TAKE 1 TABLET DAILY (LAST REFILL UNTIL VISIT) 90 tablet 3 4 Active alendronate (FOSAMAX) 70 MG tabletIndicatio ns:Ductal carcinoma in situ of left breast Take 1 tablet (70 mg) by mouth every 7 days. 24 tablet 3 4 Active metFORMIN (GLUCOPHAGE XR) 500 MG 24 hr tabletIndicatio ns:Prediabetes Take 1 tablet (500 mg) by mouth daily (with dinner). 90 tablet 4 4 Active exemestane (AROMASIN) 25 MG tabletIndicatio ns:Ductal carcinoma in situ of left breast Take 1 tablet (25 mg) by mouth daily. 90 tablet 2 4 Active sertraline (ZOLOFT) 100 MG tabletIndicatio ns:Anxiety Take 1 tablet (100 mg) by mouth daily. TAKE 1 TABLET DAILY (LAST REFILL UNTIL VISIT) 90 tablet 2 4 Active sertraline (ZOLOFT) 100 MG tabletIndicatio ns:Anxiety Take 1 tablet (100 mg) by mouth daily. TAKE 1 TABLET DAILY (LAST REFILL UNTIL VISIT) 90 tablet 2 4 08/30/20 24 Discontinu ed(Reorder (No AVS)) exemestane (AROMASIN) 25 MG tabletIndicatio ns:Ductal carcinoma in situ of left breast Take 1 tablet (25 mg) by mouth daily. 30 tablet 4 08/23/20 24 Discontinu ed(Reorder (No AVS)) Active Problems Problem Noted Date Diagnosed Date Morbid obesity 02/18/2023 Hyperlipidemia LDL goal <130 08/20/2020 Family history of diabetes mellitus 08/20/2020 Esophageal dysphagia 08/20/2020 Ductal carcinoma in situ (DCIS) of left breast 0 10/21/2019 Overview (10/21/2019): Added automatically from request for surgery [id number] DCIS (ductal carcinoma in situ) 10/19/2019 Overview (07/17/2020): joshua Sandoval-SHIMA- Darryl- 08/15 Anxiety 06/16/2018 Fatty liver 09/14/2017 Splenic cyst, acquired 09/14/2017 Overview (12/29/2018): 3 cm GERD (gastroesophageal reflux disease) 1 CARDIOVASCULAR SCREENING; LDL GOAL LESS THAN 160 10/24/2009 Allergic state Overview (06/14/2015): Problem list name updated by automated process. 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 [place] [address] [facility] [facility] [address] [place] [address] Constance Henry PA-C Encounter for screening mammogram for breast cancer Discharge Disposition: Home or Self Care 09/05/2024 Travel 09/04/2024 Travel 08/30/2024 10:00 AM DIRECTOR ATHLETIC Virtual Visit [address] [address] Cassidy Lindo MD Anxiety 08/23/2024 3:30 PM DIRECTOR ATHLETIC Oncology Visit [address] [facility] [place] [address] Constance Henry PA-C Ductal carcinoma in situ of left breast (Primary Dx); Aromatase inhibitor use; Encounter for screening mammogram for breast cancer 08/23/2024 Travel 07/22/2024 MyC Medical Advice [address] [address] Cassidy Lindo MD 07/22/2024 MyC Refill [address] [address] Cassidy Lindo MD Refill Request 07/19/2024 Refill [facility] [address] [place] [address] [facility] [place] [address] Constance Henry PA-C Medication Refill 07/12/2024 6:10 PM CDT E-Visit [address] [address] Cassidy Lindo MD Depression (Entered automatically based on... 07/12/2024 MyC Medical Advice [address] [address] Cassidy Lindo MD Medication Question 06/29/2024 1:30 PM CDT Office Visit [address] [address] Cassidy Lindo MD Routine general medical examination at a health care facility (Primary Dx); Hyperlipidemia LDL goal <130; Morbid obesity (H); Anxiety; Ductal carcinoma in situ (DCIS) of left breast; Fatty liver; Prediabetes; Ductal carcinoma in situ of left breast 06/29/2024 Travel from Last 3 Months Immunizations Name Administration Dates Next Due COVID-19 12+ (Pfizer) 06/29/2024,09/30/2023 COVID-19 Bivalent 18+ (Moderna) 02/18/2023 COVID-19 Monovalent 18+ (Moderna) 12/06/2020, COVID-19 Monovalent Booster 18+ (Moderna) 09/09/2021 Influenza Vaccine 18-64 (Flublok) 2020,08/13/2020,10/24/2019, 018 Influenza Vaccine >6 months,quad, PF 09/30/2023 Influenza Vaccine Trivalent (FluBlok) 06/29/2024 Influenza,INJ,MDCK,PF,Quad >6mo(Flucelvax) 08/02/2022,09/09/2021 TD,PF 7+ (Tenivac) 12/13/2002 TDAP Vaccine (Adacel) 05/15/2017 Td (Adult), Adsorbed 12/13/2002,07/28/1994 Family History Medical History Relation Comments Hyperlipidemia Father Hypertension Father Lipids Father Diabetes Maternal Grandmother Hypertension Mother Lipids Mother Colon Cancer No family hx of Relation Status Comments Brother Alive Daughter Alive Father Alive Maternal Grandfather Maternal Grandmother Mother Alive Paternal Grandfather Paternal Grandmother Sister Alive Son Alive Social History Tobacco Use Types Packs/Day Years Used Date Smoking Tobacco: Never Smokeless Tobacco: Never Tobacco Cessation:Counseling Given: Not Answered Alcohol Use Standard Drinks/Week Comments Yes 0 (1 standard drink = 0.6 oz pur e alcohol) couple per month Social Connection and Isolation Panel [NHANES] A nswer Date Recorded Frequency of Communication with Friends and Fami ly Not on file 06/29/2024 How often do you get together with friends or re latives? Once a week 06/29/2024 Attends [employer] Services Not on file 06/29 Active Member of Clubs or Organizations Not on f ile 06/29/2024 Attends Club or Organization Meetings Not on angela e 06/29/2024 Marital Status Not on file 06/29/2024 AUDIT-C Answer Date Recorded Q1: How often do you have a drink containing alc ohol? Monthly or less 02/18/2023 Q2: How many drinks containi ng alcohol do you have on a typical day when you are drinking? 1 or 2 02/18/2023 Q3: How often do you have si x or more drinks on one occasion? Never 02/18/2023 PHQ-2 Answer Date Recorded PHQ-2 Score 0 06/29/2024 [facility] [place] of Occupat ional Health - Occupational Stress Questionnaire Answer Date Recorded Do you feel stress - tense, restless, nervous, or anxious, or unable to sleep at night because your mind is troubled all the time - these days? To some extent 06/29/2024 Exercise Vital Sign Answer Date Recorde d On average, how many days pe r week do you engage in moderate to strenuous exercise (like a brisk walk)? 3 days 06/29/2024 On average, how many minutes do you engage in exercise at this level? 30 min 06/29/2024 Adolescent Education Answer Date Record ed Getting School Help Needed Not on file 06/12 Food Insecurity Answer Date Recorded Within the past 12 months, d id you worry that your food would run out before you got money to buy more? No 06/29/2024 Within the past 12 months, d id the food you bought just not last and you didn t have money to get more? No 06/29/2024 Housing Stability Answer Date Recorded Do you have housing? (Yuliana encinas is defined as stable permanent housing and does not include staying ouside in a car, in a tent, in an abandoned building, in an overnight care home, or couch-surfing.) Yes 06/29/2024 Are you worried about losing your housing? No 06/29/2024 Financial Resource Strain Answer Date R ecorded Within the past 12 months, h ave you or your family members you live with been unable to get utilities (heat, electricity) when it was really needed? No 06/29/2024 Transportation Needs Answer Date Record ed Within the past 12 months, h as lack of transportation kept you from medical appointments, getting your medicines, non-medical meetings or appointments, work, or from getting things that you need? No 06/29/2024 Interpersonal Safety Answer Date Record ed Do you feel physically and e motionally safe where you currently live? Yes 06/29/2024 Within the past 12 months, h ave you been hit, slapped, kicked or otherwise physically hurt by someone? No 06/29/2024 Within the past 12 months, h ave you been humiliated or emotionally abused in other ways by your partner or ex-partner? No 06/29/2024 Education Answer Date Recorded What is the highest level of school you have completed or the highest degree you have received? 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 Not on file Last Filed Vital Signs Vital Sign Reading Time Taken Comments Blood Pressure 130/84 08/23/2024 3:33 PM DIRECTOR ATHLETIC Pulse 88 08/23/2024 3:33 PM DIRECTOR ATHLETIC Temperature 36.4 C (97.6 F) 08/23/2024 3:33 PM DIRECTOR ATHLETIC Respiratory Rate 16 08/23/2024 3:33 PM DIRECTOR ATHLETIC Oxygen Saturation 96% 08/23/2024 3:33 PM DIRECTOR ATHLETIC Inhaled Oxygen Concentration - - Weight 91 kg (200 lb 9.6 oz) 08/23/2024 3:33 PM DIRECTOR ATHLETIC Height 162.6 cm (5' 4) 08/23/2024 3:33 PM DIRECTOR ATHLETIC Body Mass Index 34.43 08/23/2024 3:33 PM DIRECTOR ATHLETIC Plan of Treatment Upcoming Encounters Date Type Department Care Team (Late st Contact Info) Description 10/24/2024 5:00 PM DIRECTOR ATHLETIC Ancillary Procedure [facility] [address] [facility] [address] [place] [address] Constance Henry PA-C [address] [place] [address] 02/17/2025 8:15 AM CDT Lab [facility] [address] [place] [phone] 02/21/2025 11:20 AM CDT Oncology Visit [facility] [id number] [place] [address] [address] [facility] [place] [phone] Chata Mosqueda MD [address] [place] [address] Health Maintenance Due Date Last Done Comments CT COLONOGRAPHY 1966 FIT 1966 FLEX SIG 1966 sDNA (Cologuard) 1966 Pneumococcal Vaccine: 50+ Years (1 of 1 - PCV) 2016 ZOSTER IMMUNIZATION (1 of 2) 2016 PHQ-2 (once per calendar year) 2024 06/29/2024, 06/29/2024, 09/30/2023, Additional history exists ANNUAL REVIEW OF HM ORDERS 06/29/202506/29, 02/18/2023, 05/15/2021, Additional history exists LIPID 06/29/2025 06/29/2024, 06/0 03/2023, 01/01/2022, Additional history exists YEARLY PREVENTIVE VISIT 06/29/2025 06/29/20, 02/18/2023, 01/01/2022, Additional history exists MAMMO SCREENING 09/05/2026 09/05/2024, 07/16, 10/25/2021, Additional history exists DTAP/TDAP/TD IMMUNIZATION (2 - Td or Tdap) 05/15/2027 05/15/2017, 12/13/2002, 12/13/2002, Additional history exists GLUCOSE 06/29/2027 06/29/2024, 06/0 03/2023, 01/01/2022, Additional history exists HPV TEST 02/19/2028 02/18/2023, 100 11/2017, 12/30/2013 PAP 02/19/2028 02/18/2023, 100 11/2017, 12/30/2013, Additional history exists COLONOSCOPY 07/13/2028 07/13/2018, 07/13/2018 COLORECTAL CANCER SCREENING 07/13/2028 ADVANCE CARE PLANNING 06/29/2029 06/29/2024, 022 RSV VACCINE (1 - 1-dose 75+ series) 2041 HEPATITIS C SCREENING Completed 01/01/2022 HIV SCREENING Completed 01/01/2022 COVID-19 Vaccine Completed 06/29/2024, , 02/18/2023, Additional history exists INFLUENZA VACCINE Completed 06/29/2024, , 08/02/2022, Additional history exists HEPATITIS B IMMUNIZATION Discontinued HPV IMMUNIZATION Aged Out No longer e ligible based on patient's age to complete this topic MENINGITIS IMMUNIZATION Aged Out No l onger eligible based on patient's age to complete this topic RSV MONOCLONAL ANTIBODY Aged Out No l onger eligible based on patient's age to complete this topic Procedures Procedure Name Priority Date/Time Associated Diagnosis Comments MA SCREENING BILATERAL W/ SAÚL Routine 09/05/2024 10:09 AM DIRECTOR ATHLETIC Encounter for screening mammogram for breast cancer LDL CHOLESTEROL DIRECT Routine 06/29/2024 2:39 PM CDT Hyperlipidemia LDL goal <130 CBC WITH PLATELETS Routine 06/29/2024 2: 39 PM CDT Morbid obesity (H) COMPREHENSIVE METABOLIC PANEL Routine 06/29/2024 2:39 PM CDT Morbid obesity (H) Anxiety Ductal carcinoma in situ (DCIS) of left breast Fatty liver Prediabetes Ductal carcinoma in situ of left breast HEMOGLOBIN A1C Routine 06/29/2024 2:39 PM CDT Prediabetes LIPID REFLEX TO DIRECT LDL PANEL Routine 06/29/2024 2:39 PM CDT Hyperlipidemia LDL goal <130 GYNECOLOGIC CYTOLOGY Routine 02/18/2023 8:45 AM CDT Cervical cancer screening HPV HIGH RISK TYPES DNA CERVICAL Routine 02/18/2023 8:45 AM CDT Cervical cancer screening HIV ANTIGEN ANTIBODY COMBO Routine 01/01/2022 9:40 AM CDT Screening for HIV (human immunodeficiency virus) HEPATITIS C SCREEN REFLEX TO HCV RNA QUANT AND GENOTYPE Routine 01/01/2022 9:40 AM CDT Need for hepatitis C screening test COLONOSCOPY Routine 07/13/2018 11:53 AM CDT from Last 3 Months or Most Recently Relevant to Health Maintenance Results * MA Screen Bilateral w/Saúl (09/05/2024 10:09 AM DIRECTOR ATHLETIC) Anatomical Region Laterality Modality Breast Bilateral Mammography Impressions 09/05/2024 10:21 AM DIRECTOR ATHLETIC IMPRESSION: ACR BI-RADS Category 2: Benign BREAST CANCER SCREENING RECOMMENDATION: Routine yearly mammography beginning at age 40 or as discussed with your provider. The results and recommendations of this examination will be communicated to the patient. Todd Blanc MD Narrative 09/05/2024 10:21 AM DIRECTOR ATHLETIC BILATERAL FULL FIELD DIGITAL SCREENING MAMMOGRAM WITH TOMOSYNTHESIS Performed on: 09/05/24 Compared to: 08/04/2023, 10/25/2021, and 10/05/2020 Technique: This study was evaluated with the assistance of Computer-Aided Detection. Breast Tomosynthesis was used in interpretation. Findings: There are scattered areas of fibroglandular density. There are post-surgical changes in the left breast. There is no radiographic evidence of malignancy. Constance Chappell PA-C [facility] MAMMOGRAPHY ORDERABLES Final Result * (ABNORMAL) Lipid panel reflex to direct LDL Non-fasting (06/29/2024 2:39 PM CDT) Cholesterol 167 <200 mg/dL 06/30/2024 4:06 AM CDT [facility] Triglycerides 402(H) <150 mg/dL 06/30/2024 4:06 AM CDT [facility] Direct Measure HDL 30(L) >=50 mg/dL 06/30/2024 4:06 AM CDT [facility] LDL Cholesterol Calculated 06/30/2024 4:06 AM CDT [facility] Comment:Cannot estimate LDL when triglyceride exceeds 400 mg/dL Non HDL Cholesterol 137(H) <130 mg/dL 06/30/2024 4:06 AM CDT [facility] Patient Fasting > 8hrs? Unknown 06/30/2024 4:06 AM CDT [facility] Blood STRUCTURE OF RIGHT HAND / Unknown Venipuncture / Unknown 06/29/2024 2:39 PM CDT 06/29/2024 2:45 PM CDT Narrative [facility] - 06/30/2024 4:06 AM CDT Cholesterol Desirable: < 200 mg/dL Borderline High: 200 - 239 mg/dL High: >= 240 mg/dL Triglycerides Normal: < 150 mg/dL Borderline High: 150 - 199 mg/dL High: 200-499 mg/dL Very High: >= 500 mg/dL Direct Measure HDL Female: >= 50 mg/dL Male: >= 40 mg/dL LDL Cholesterol Desirable: < 100 mg/dL Above Desirable: 100 - 129 mg/dL Borderline High: 130 - 159 mg/dL High: 160 - 189 mg/dL Very High: >= 190 mg/dL Non HDL Cholesterol Desirable: < 130 mg/dL Above Desirable: 130 - 159 mg/dL Borderline High: 160 - 189 mg/dL High: 190 - 219 mg/dL Very High: >= 220 mg/dL Cassidy Lindo MD LAB - BLOOD ORDERABLES Final Re sult Performing Organization Address City/[facility] Co de Phone Number LABORATORY [facility] [address] [facility], [address] [place] [address] * LDL cholesterol direct (06/29/2024 2:39 PM CDT) LDL Cholesterol Direct 87 <100 mg/dL 06/30/2024 4:19 AM CDT [facility] Comment: Age 2-19 years: Desirable: < 110 mg/dL Borderline High: 110-129 mg/dL High: >= 130 mg/dL Age 20 years and older: Desirable: < 100 mg/dL Above Desirable: 100-129 mg/dL Borderline High: 130-159 mg/dL High: 160-189 mg/dL Very High: >= 190 mg/dL Blood STRUCTURE OF RIGHT HAND / Unknown Venipuncture / Unknown 06/29/2024 2:39 PM CDT 06/29/2024 2:45 PM CDT Cassidy Lindo MD LAB - BLOOD ORDERABLES Final Re sult Performing Organization Address City/[facility]/ZIP Co de Phone Number LABORATORY [facility] [address] [facility], [address] [place] [address] * (ABNORMAL) Hemoglobin A1c (06/29/2024 2:39 PM CDT) Estimated Average Glucose 137(H) <117 mg/dL 06/29/2024 2:50 PM CDT [facility] Hemoglobin A1C 6.4(H) 0.0 - 5.6 % 06/29/2024 2:50 PM CDT [facility] Comment: Normal <5.7% Prediabetes 5.7-6.4% Diabetes 6.5% or higher Note: Adopted from ADA consensus guidelines. Blood STRUCTURE OF RIGHT HAND / Unknown Venipuncture / Unknown 06/29/2024 2:39 PM CDT 06/29/2024 2:45 PM CDT us Cassidy Lindo MD LAB - BLOOD ORDERABLES Final Re sult [facility]ORATORY [facility] [place] [facility] [address] [facility] (no room number, 1st floor of clinic) [place] [address], [facility] * (ABNORMAL) Comprehensive metabolic panel (BMP + Alb, Alk Phos, ALT, AST, Total. Bili, TP) (06/29/2024 2:39 PM CDT) Sodium 137 135 - 145 mmol/L 06/30/2024 4:06 AM CDT [facility] Potassium 4.1 3.4 - 5.3 mmol/L 06/30/2024 4:06 AM CDT [facility] Carbon Dioxide (CO2) 21(L) 22 - 29 mmol/L 06/30/2024 4:06 AM CDT [facility] Anion Gap 13 7 - 15 mmol/L 06/30/2024 4:06 AM CDT [facility] Urea Nitrogen 17.1 6.0 - 20.0 mg/dL 06/30/2024 4:06 AM CDT [facility] Creatinine 0.92 0.51 - 0.95 mg/dL 06/30/2024 4:06 AM CDT [facility] GFR Estimate 72 >60 mL/min/1.7 3m2 06/30/2024 4:06 AM CDT [facility] Comment:eGFR calculated usin 2020 CKD-EPI equation. Calcium 9.5 8.8 - 10.4 mg/dL 06/30/2024 4:06 AM CDT [facility] Comment:Reference intervals for this test were updated on 03/29/2024 to reflect our healthy population more accurately. There may be differences in the flagging of prior results with similar values performed with this method. Those prior results can be interpreted in the context of the updated reference intervals. Chloride 103 98 - 107 mmol/L 06/30/2024 4:06 AM CDT [facility] Glucose 91 70 - 99 mg/dL 06/30/2024 4:06 AM CDT [facility] Alkaline Phosphatase 96 40 - 150 U/L 06/30/2024 4:06 AM CDT [facility] AST 32 0 - 45 U/L 06/30/2024 4:06 AM CDT [facility] ALT 51(H) 0 - 50 U/L 06/30/2024 4:06 AM CDT [facility] Protein Total 7.3 6.4 - 8.3 g/dL 06/30/2024 4:06 AM CDT [facility] Albumin 4.4 3.5 - 5.2 g/dL 06/30/2024 4:06 AM CDT [facility] Bilirubin Total 0.8 <=1.2 mg/dL 06/30/2024 4:06 AM CDT [facility] Patient Fasting > 8hrs? Unknown 06/30/2024 4:06 AM CDT [facility] Blood STRUCTURE OF RIGHT HAND / Unknown Venipuncture / Unknown 06/29/2024 2:39 PM CDT 06/29/2024 2:45 PM CDT us Cassidy Lindo MD LAB - BLOOD ORDERABLES Final Re sult [facility] [address] [facility], [address] [place] [address], [facility] * CBC with platelets (06/29/2024 2:39 PM CDT) WBC Count 8.7 4.0 - 11.0 10e3/uL 06/29/2024 2:47 PM CDT [facility] RBC Count 4.65 3.80 - 5.20 10e6/uL 06/29/2024 2:47 PM CDT [facility] Hemoglobin 14.0 11.7 - 15.7 g/dL 06/29/2024 2:47 PM CDT [facility] Hematocrit 42.5 35.0 - 47.0 % 06/29/2024 2:47 PM CDT [facility] MCV 91 78 - 100 fL 06/29/2024 2:47 PM CDT [facility] MCH 30.1 26.5 - 33.0 pg 06/29/2024 2:47 PM CDT [facility] MCHC 32.9 31.5 - 36.5 g/dL 06/29/2024 2:47 PM CDT [facility] RDW 14.1 10.0 - 15.0 % 06/29/2024 2:47 PM CDT [facility] Platelet Count 227 150 - 450 10e3/uL 06/29/2024 2:47 PM CDT [facility] Blood STRUCTURE OF RIGHT HAND / Unknown Venipuncture / Unknown 06/29/2024 2:39 PM CDT 06/29/2024 2:45 PM CDT us Cassidy Lindo MD LAB - BLOOD ORDERABLES Final Re sult CR LABORATORY [facility] [place] [facility] [address] [facility] (no room number, 1st floor of clinic) [place] [address], [facility] * Pap Screen with HPV - recommended age 30 - 65 years (02/18/2023 8:45 AM CDT) Interpretation Negative for Intraepithelial Lesion or Malignancy (NILM) 02/23/2023 9:16 AM CDT [facility] Comment Papanicolaou Test Limitations: Cervical cytology is a screening test with limited sensitivity, and regular screening is critical for cancer prevention. Pap tests are primarily effective for the diagnosis/prevent ion of squamous cell carcinoma, not adenocarcinoma or other cancers. 02/23/2023 9:16 AM CDT [facility] Specimen Adequacy Satisfactory for evaluation, endocerv/transfor mation zone component absent, atrophy 02/23/2023 9:16 AM CDT [facility] Clinical Information post-menopausal 02/23/2023 9:16 AM CDT [facility] Reflex Testing Yes regardless of result 02/23/2023 9:16 AM CDT [facility] Previous Abnormal? No 02/23/2023 9:16 AM CDT [facility] Performing Labs The technical component of this testing was completed at [facility] 02/23/2023 9:16 AM CDT [facility] Brushing CERVIX UTERI STRUCTURE / Unknown 02/18/2023 8:45 AM CDT 02/18/2023 9:11 AM CDT us Cassidy Lindo MD LAB - DAVY AP Final Result [facility] Specialty Lab [address] [facility], [address] [place] [phone], [facility] [phone] * HPV High Risk Types DNA Cervical (02/18/2023 8:45 AM CDT) Other HR HPV Negative Negative 02/24/2023 3:33 PM CDT [facility] HPV16 DNA Negative Negative 02/24/2023 3:33 PM CDT [facility] HPV18 DNA Negative Negative 02/24/2023 3:33 PM CDT [facility] FINAL DIAGNOSIS This patient's sample is negative for HPV DNA. This test was developed and its performance characteristics determined by the [facility], [facility]. It has not been cleared or approved by the FDA. The laboratory is regulated under CLIA as qualified to perform high-complexity testing. This test is used for clinical purposes. It should not be regarded as investigational or for research. METHODOLOGY: The Marlene Alyssa 4800 system uses automated extraction, simultaneous amplification of HPV (L1 region) and beta-globin, followed by real time detection of fluorescent labeled HPV and beta globin using specific oligonucleotide probes. The test specifically identifies types HPV 16 DNA and HPV 18 DNA while concurrently detecting the rest of the high risk types (31, 33, 35, 39, 45, 51, 52, 56, 58, 59, 66 or 68). COMMENTS: This test is not intended for use as a screening device for woman under age 30 with normal cervical cytology. Results should be correlated with cytologic and histologic findings. Close clinical followup is recommended. 02/24/2023 3:33 PM CDT [facility] Brushing CERVIX UTERI STRUCTURE / Unknown Non-blood Collection / Unknown 02/18/2023 8:45 AM CDT 02/24/2023 8:02 AM CDT Cassidy Lindo MD LAB - BLOOD ORDERABLES Final Re sult Performing Organization Address City/[facility] [facility]/ZIP Co de Phone Number MOLECULAR DIAGNOSTICS [facility] 500 [facility], Room [address] [address], [facility] [phone] * HIV Antigen Antibody Combo (01/01/2022 9:40 AM CDT) HIV Antigen Antibody Combo Nonreactive Nonreactive 01/01/2022 11:11 PM CDT SPECIALTY CORE/PROT/EN DO Comment:HIV-1 p24 Ag & HIV-1 /HIV-2 Ab Not Detected Blood BLOOD SPECIMEN / Unknown Venipuncture / Unknown 01/01/2022 9:40 AM CDT 01/01/2022 9:40 AM CDT Cassidy Lindo MD LAB - BLOOD ORDERABLES Final Re sult Performing Organization Address City/[facility]/ZIP Co de Phone Number SPECIALTY CORE/PROT/ENDO Specialty Core/Prot/Endo 500 [facility], Room [address] [phone] * Hepatitis C Screen Reflex to HCV RNA Quant and Genotype (01/01/2022 9:40 AM CDT) Hepatitis C Antibody Nonreactive Nonreactive 01/01/2022 11:11 PM CDT UM SPECIALTY CORE/PROT/EN DO Blood BLOOD SPECIMEN / Unknown Venipuncture / Unknown 01/01/2022 9:40 AM CDT 01/01/2022 9:40 AM CDT Narrative UM SPECIALTY CORE/PROT/ENDO - 01/01/2022 11:11 PM CDT Assay performance characteristics have not been established for newborns, infants, and children. us Cassidy Lindo MD LAB - BLOOD ORDERABLES Final Re sult UM SPECIALTY CORE/PROT/ENDO UM Specialty Core/Prot/Endo 500 [facility], [address], [place] [address], [facility] [phone] * COLONOSCOPY (07/13/2018 11:53 AM CDT) COLONOSCOPY [facility] Patient Name: Yesenia Collazo Procedure Date: 07/13/2018 11:53 AM Date of : 1965 Admit Type: Outpatient Age: 52 Gender: Female Attending MD: Ramon Mascorro MD Total Sedation Time: 14_minutes continuous bedside 1:1 Instrument Name: 216 - Pediatric Colonoscope Procedure: Colonoscopy Indications: Screening for colorectal malignant neoplasm Providers: Ramon Mascorro MD (Doctor) Referring MD: Cassidy Umana MD (Referring MD) Medicines: Midazolam 2 mg IV, Fentanyl 100 micrograms IV Complications: No immediate complications. Procedure: Pre-Anesthesia Assessment: - Prior to the procedure, a History and Physical was performed, and patient medications and allergies were reviewed. The patient is competent. The risks and benefits of the procedure and the sedation options and risks were discussed with the patient. All questions were answered and informed consent was obtained. Patient identification and proposed procedure were verified by the physician in the procedure room. Mental Status Examination: alert and oriented. Airway Examination: normal oropharyngeal airway and neck mobility. Respiratory Examination: clear to auscultation. CV Examination: normal. Prophylactic Antibiotics: The patient does not require prophylactic antibiotics. Prior Anticoagulants: The patient has taken no previous anticoagulant or antiplatelet agents. ASA Grade Assessment: I - A normal, healthy patient. After reviewing the risks and benefits, the patient was deemed in satisfactory condition to undergo the procedure. The anesthesia plan was to use moderate sedation / analgesia (conscious sedation). Immediately prior to administration of medications, the patient was re-assessed for adequacy to receive sedatives. The heart rate, respiratory rate, oxygen saturations, blood pressure, adequacy of pulmonary ventilation, and response to care were monitored throughout the procedure. The physical status of the patient was re-assessed after the procedure. After obtaining informed consent, the colonoscope was passed under direct vision. Throughout the procedure, the patient's blood pressure, pulse, and oxygen saturations were monitored continuously. The Olympus Pediatric Colonoscope, Model # [id number]-H190DL, Endora # 216, SN # [id number] was introduced through the anus and advanced to the cecum, identified by appendiceal orifice and ileocecal valve. The colonoscopy was performed without difficulty. The patient tolerated the procedure well. The quality of the bowel preparation was good. Findings: The perianal and digital rectal examinations were normal. Many medium-mouthed diverticula were found in the sigmoid colon. The exam was otherwise without abnormality on direct and retroflexion views. Impression: - Diverticulosis in the sigmoid colon. - The examination was otherwise normal on direct and retroflexion views. - No specimens collected. Recommendation: - Repeat colonoscopy in 10 years for screening purposes. Procedure Code(s): --- Professional --- G0121, Colorectal cancer screening; colonoscopy on individual not meeting criteria for high risk Diagnosis Code(s): --- Professional --- Z12.11, Encounter for screening for malignant neoplasm of colon CPT copyright 2017 [employer]. All rights reserved. The codes documented in this report are preliminary and upon prosthodontist/educator review may be revised to meet current compliance requirements. Electronically signed by Ramon Mascorro MD __ Ramon Mascorro MD 07/13/2018 12:19:21 PM I was physically present for the entire viewing portion of the exam. Ramon Mascorro MD Number of Addenda: 0 Note Initiated On: 07/13/2018 11:53 AM Procedure Date: 07/13/2018 11:53:48 AM Scope Withdrawal Time: 0 hours 6 minutes 9 seconds Total Procedure Duration: 0 hours 12 minutes 5 seconds Estimated Blood Loss: Scope In: 12:03:49 PM Scope Out: 12:15:54 PM RADIOLOGY RESULTS 07/13/2018 11:5 3 AM CDT Cassidy Lindo MD PROCEDURES Final Result Performing Organization Address City/State/[facility] Co de Phone Number RADIOLOGY RESULTS from Last 3 Months or Most Recently Relevant to Health Maintenance Insurance BCBS OUT OF STATE BCBS OUT OF STATE Advance Directives For more information, please contact: [phone] * Full Code (Latest Code Status on File) Date Activated Date Inactivated Comments 10/22/2016 9:51 AM 11/02/2019 10:00 AM * Full Code Date Activated Date Inactivated Comments 10/21/2016 11:45 PM 10/22/2016 9:51 AM Care Teams Delivery Person Relationship Specialty [place] [address] [place] [address] PCP - General Family Practice 06/28/18 [place] [address] [place] [address] Assigned PCP 06/27/18 Tracy Hsieh, RN Specialty Vehicle Fuel Systems Converter Hematology & Oncology 11/02/23 Constance Henry PA-C [address] [place] [address] [phone] Assigned Cancer Care Provider 09/05/24
--- OUTSIDE RECORDS SUMMARY | 2024-09-15 08:30 | XMS_ITS | Referral Summary ---
Author Organization [place] Address [address] [place] [address] Care Team Providers Care Clinical Exercise Physiologist Name Role Phone Cassidy Lindo MD Primary Care Provider [phone] Cassidy Lindo MD Unavailable [phone] Tracy Hsieh RN Unavailable [phone] Constance Henry PA-C Unavailable Encounters Date Type Department Care Team Description 09/05/2024 Travel 09/05/2024 9:47 AM PRESS MACHINE FEEDER - 09/05/2024 11:59 PM PRESS MACHINE FEEDER Hospital Encounter [facility] [place] [address], [address] [place] [address] Constance Henry PA-C Encounter for screening mammogram for breast cancer Discharge Disposition: Home or Self Care 09/04/2024 Travel 08/30/2024 10:00 AM PRESS MACHINE FEEDER Virtual Visit [address] [phone] Cassidy Lindo MD Anxiety 08/23/2024 Travel 08/23/2024 3:30 PM PRESS MACHINE FEEDER Oncology Visit [facility] [address] 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 [address] [facility] [place] [place] [address] Constance Henry PA-C Medication Refill 07/12/2024 6:10 PM CDT E-Visit [address] [address] Cassidy Lindo MD Depression (Entered automatically based on... 07/12/2024 [facility] [address] [address] Cassidy Lindo MD Medication Question 06/29/2024 Travel 06/29/2024 1:30 PM CDT Office Visit [address] [address] Cassidy Lindo MD Routine general medical examination at a health care facility (Primary Dx); Hyperlipidemia LDL goal <130; Morbid obesity (H); Anxiety; Ductal carcinoma in situ (DCIS) of left breast; Fatty liver; Prediabetes; Ductal carcinoma in situ of left breast from Last 3 Months Allergies Active Allergy Reactions Criticality Noted Date [...] allergic rhinitis due to other allergic trigger [place] 1 spray into both nostrils 2 times [...] (10/21/2019): Added automatically from request for surgery [id number] DCIS (ductal carcinoma in situ) 10/19/2019 Overview (07/17/2020): inashleeet to LoriELOISE Andrews- 08/15 Anxiety 06/16/2018 Fatty liver 09/14/2017 Splenic [...] sciatica 07/05/2018 08/13/2018 Chest pain 10/21/2016 09/30/2023 Immunizations Name Administration Dates Next Due COVID-19 12+ (Pfizer) 06/29/2024,09/30/2023 COVID-19 Bivalent 18+ (Moderna) 02/18/2023 COVID-19 Monovalent 18+ (Moderna) 12/06/2020, COVID-19 Monovalent Booster 18+ (Moderna) 09/09/2021 Influenza Vaccine 18-64 (Flublok) 2020,08/13/2020,10/24/2019, 018 Influenza Vaccine >6 months,quad, PF 09/30/2023 Influenza Vaccine Trivalent (FluBlok) 06/29/2024 Influenza,INJ,MDCK,PF,Quad >6mo(Flucelvax) 08/02/2022,09/09/2021 TD,PF 7+ (Tenivac) 12/13/2002 TDAP Vaccine (Adacel) 05/15/2017 Td (Adult), Adsorbed 12/13/2002,07/28/1994 Social History Tobacco Use Types Packs/Day Years [...] re latives? Once a week 06/29/2024 Attends [employer] Services Not on file 06/29 Active Member [...] Answer Date Recorded PHQ-2 Score 0 06/29/2024 [facility] Occup[facility] ional [facility] - Occupational Stress [...] in an abandoned building, in an overnight fci, or couch-surfing.) Yes 06/29/2024 Are you worried [...] degree (e.g., MA, MS, Jose Guadalupe, MEd, UTILITY SPRAY OPERATOR, DENISSE) 10/24/2019 Comments No Sex and Gender Information Value Date Recorded Sex Assigned at Female 09/19/2019 11:34 AM PRESS MACHINE FEEDER Legal Sex Female 3:19 AM PRESS MACHINE FEEDER Gender Identity Female 09/19/2019 11:34 AM PRESS MACHINE FEEDER Sexual Orientation Straight 09/19/2019 11 :34 AM PRESS MACHINE FEEDER 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 Not on file Last Filed Vital Signs Vital Sign Reading Time Taken Comments Blood Pressure 130/84 08/23/2024 3:33 PM PRESS MACHINE FEEDER Pulse 88 08/23/2024 3:33 PM PRESS MACHINE FEEDER Temperature 36.4 C (97.6 F) 08/23/2024 3:33 PM PRESS MACHINE FEEDER Respiratory Rate 16 08/23/2024 3:33 PM PRESS MACHINE FEEDER Oxygen Saturation 96% 08/23/2024 3:33 PM PRESS MACHINE FEEDER Inhaled Oxygen Concentration - - Weight 91 kg (200 lb 9.6 oz) 08/23/2024 3:33 PM PRESS MACHINE FEEDER Height 162.6 cm (5' 4) 08/23/2024 3:33 PM PRESS MACHINE FEEDER Body Mass Index 34.43 08/23/2024 3:33 PM PRESS MACHINE FEEDER Plan of Treatment Upcoming Encounters Date Type Department Care Team (Late st Contact Info) Description 10/24/2024 5:00 PM PRESS MACHINE FEEDER Ancillary Procedure [facility] [address] [facility] [address] [place] [address] Constance Henry PA-C [address] [place], [place] [phone] 02/17/2025 8:15 AM CDT Lab [facility] [address] [place] [phone] 02/21/2025 11:20 AM CDT Oncology [facility] [place] [address] [place] [address] [address] [facility] [place] [phone] Chata Mosqueda MD [address] [place], [place] [phone] Procedures Procedure Name Priority Date/Time Associated Diagnosis Comments MA SCREENING BILATERAL W/ SAÚL Routine 09/05/2024 10:09 AM PRESS MACHINE FEEDER Encounter for screening mammogram for breast cancer [...] MA Screen Bilateral w/Saúl (09/05/2024 10:09 AM PRESS MACHINE FEEDER) Anatomical Region Laterality Modality Breast Bilateral Mammography Impressions 09/05/2024 10:21 AM PRESS MACHINE FEEDER IMPRESSION: ACR BI-RADS Category 2: Benign BREAST CANCER SCREENING RECOMMENDATION: Routine yearly mammography beginning at age 40 or as discussed with your provider. The results and recommendations of this examination will be communicated to the patient. Todd Blanc MD Narrative 09/05/2024 10:21 AM PRESS MACHINE FEEDER BILATERAL FULL FIELD DIGITAL SCREENING MAMMOGRAM WITH TOMOSYNTHESIS Performed on: 09/05/24 Compared to: 08/04/2023, 10/25/2021, and 10/05/2020 Technique: This study was evaluated with the assistance of Computer-Aided Detection. Breast Tomosynthesis was used in interpretation. Findings: There are scattered areas of fibroglandular density. There are post-surgical changes in the left breast. There is no radiographic evidence of malignancy. us Constance Chappell PA-C IMG MAMMOGRAPHY ORDERABLES Final Result * (ABNORMAL) Lipid [...] 219 mg/dL Very High: >= 220 mg/dL us Cassidy Lindo MD LAB - BLOOD ORDERABLES Final Re sult LABORATORY [facility] 500 [facility], [address] * LDL cholesterol direct (06/29/2024 2:39 PM CDT) Pathologist [facility] LDL Cholesterol Direct 87 <100 mg/dL 06/30/2024 [...] ORDERABLES Final Re sult Performing Organization Address [facility] de Phone Number LABORATORY [facility] [address] [facility], [address] * (ABNORMAL) Hemoglobin A1c (06/29/2024 2:39 PM CDT) [facility] Estimated Average Glucose 137(H) <117 mg/dL 06/29/2024 [...] BLOOD ORDERABLES Final Re sult CR LABORATORY [facility] [address] [facility] Lab (no room number, 1st floor of clinic) [place] [address], [facility] [[email or web address]] * (ABNORMAL) Comprehensive metabolic panel (BMP + [...] BLOOD ORDERABLES Final Re sult [facility] LABORATORY [facility] [address] [facility], [address] [place] [address] * CBC with platelets (06/29/2024 2:39 PM [...] CDT 06/29/2024 2:45 PM CDT us Cassidy Lnido MD LAB - BLOOD ORDERABLES Final Re sult CR LABORATORY [facility] [address] [facility] Lab (no room number, 1st floor of clinic) [place] [address], [facility] [[email or web address]] * Pap Screen with HPV - recommended [...] component of this testing was completed at [facility] 02/23/2023 9:16 AM CDT SPECIALTY LABS Brushing CERVIX UTERI STRUCTURE / Unknown 02/18/2023 8:45 AM CDT 02/18/2023 9:11 AM CDT us Cassidy Lindo MD LAB - BEAKER AP Final Result SPECIALTY LABS Specialty Lab [address] [facility] [address], [address] [place] [address], [facility] [[email or web address]] [phone] * HPV High Risk Types DNA Cervical (02/18/2023 8:45 AM CDT) Other HR HPV Negative Negative 02/24/2023 3:33 PM CDT MOLECULAR DIAGNOSTICS HPV16 DNA Negative Negative 02/24/2023 3:33 PM CDT MOLECULAR DIAGNOSTICS HPV18 DNA Negative Negative 02/24/2023 3:33 PM CDT MOLECULAR DIAGNOSTICS FINAL DIAGNOSIS This patient's sample is negative for HPV DNA. This test was developed and its performance characteristics determined by the [facility], Molecular Diagnostics Laboratory. It has not been [...] 8:45 AM CDT 02/24/2023 8:02 AM CDT us Cassidy Lindo MD LAB - BLOOD ORDERABLES Final Re sult MOLECULAR DIAGNOSTICS Molecular Diagnostics [address] [facility] [address], [address] [place] [address], [facility] [[email or web address]] [phone] * HIV Antigen Antibody Combo (01/01/2022 9:40 AM CDT) Pathologist [facility] HIV Antigen Antibody Combo Nonreactive Nonreactive 01/01/2022 11:11 PM CDT UM SPECIALTY CORE/PROT/EN DO Comment:HIV-1 p24 Ag & HIV-1 /HIV-2 Ab Not Detected Blood BLOOD SPECIMEN / Unknown Venipuncture / Unknown 01/01/2022 9:40 AM CDT 01/01/2022 9:40 AM CDT Cassidy Lindo MD LAB - BLOOD ORDERABLES Final Re sult UM SPECIALTY CORE/PROT/ENDO UM Specialty Core/Prot/Endo 500 [facility], Room [address] [phone] * Hepatitis C Screen Reflex to HCV RNA Quant and Genotype (01/01/2022 9:40 AM CDT) Pathologist [facility] Hepatitis C Antibody Nonreactive Nonreactive 01/01/2022 11:11 [...] UM SPECIALTY CORE/PROT/ENDO UM Specialty Core/Prot/Endo [address] [facility], Room [address] [phone] * COLONOSCOPY (07/13/2018 11:53 AM CDT) COLONOSCOPY [facility] Patient Name: Yesenia Collazo Procedure Date: 07/13/2018 [...] # [id number]-H190DL, Endora # 216, SN # [id number] was introduced through the anus and advanced [...] malignant neoplasm of colon CPT copyright 2017 [employer]. All rights reserved. The codes documented in this report are preliminary and upon flipping machine operator review may be revised to meet current [...] CDT Cassidy Lindo MD PROCEDURES Final Result RADIOLOGY RESULTS from Last 3 Months or Most Recently Relevant to Health Maintenance Insurance [facility] OUT OF STATE BCBS OUT OF STATE Advance Directives For more information, please contact: [phone] * Full Code (Latest Code Status on File) Date Activated Date Inactivated Comments 10/22/2016 9:51 AM 11/02/2019 10:00 AM * Full Code Date Activated Date Inactivated Comments 10/21/2016 11:45 PM 10/22/2016 9:51 AM Care Teams Clinical Exercise Physiologist Relationship Specialty [place] [address] [place] [address] PCP - General Family Practice 06/28/18 [place] [address] [place] [address] Assigned PCP 06/27/18 Tracy Hsieh, RN Specialty Sap Ppm Consultant Hematology & Oncology 11/02/23 Constance Henry PA-C [address] [place] [address] Assigned Cancer Care Provider 09/05/24
--- OUTSIDE RECORDS SUMMARY | 2024-09-15 08:30 | XMS_ITS | Encounter Summary ---
Author Organization [place] Address [address] [place] [address]. [place] [address] Care Team Providers Care Youth Probation Officer Name Role Phone Cassidy Lindo MD Primary Care Provider [phone] Cassidy Lindo MD Unavailable [phone] Tracy Hsieh RN Unavailable [phone] Constance HenryC Unavailable Encounter Details Date Type Department Care Team (Latest Contact Info) Description 09/05/2024 Travel Social History Tobacco Use Types Packs/Day Years Used Date Smoking Tobacco: Never Smokeless Tobacco: Never Alcohol Use Standard Drinks/Week Comments Yes 0 (1 standard drink = 0.6 oz pur e alcohol) couple per month Social Connection and Isolation Panel [NHANES] A nswer Date Recorded Frequency of Communication with Friends and Fami ly Not on file 06/29/2024 How often do you get together with friends or re latives? Once a week 06/29/2024 Attends Gnosticism Services Not on file 06/29 Active Member [...] Answer Date Recorded PHQ-2 Score 0 06/29/2024 [facility] of Occupat ional Health - Occupational Stress [...] in an abandoned building, in an overnight mcc, or couch-surfing.) Yes 06/29/2024 Are you worried [...] degree (e.g., MA, MS, Jose Guadalupe, MEd, TRAINING DIRECTOR, DENISSE) 10/24/2019 Comments No Sex and Gender Information Value Date Recorded Sex Assigned at Female 09/19/2019 11:34 AM TUCKPOINTER Legal Sex Female 3:19 AM TUCKPOINTER Gender Identity Female 09/19/2019 11:34 AM TUCKPOINTER Sexual Orientation Straight 09/19/2019 11 :34 AM TUCKPOINTER 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 [place] [address] [place] [address] [address] [facility] [place] [place] [phone] Chata Mosqueda MD [address] [place] [address] [phone] documented as of this encounter Visit Diagnoses Not on filedocumented in this encounter Additional Health Concerns Assessment Noted Time PHQ-9 Depression Total Score: 1 06/29/20 24 1:25 PM CDT documented as of this encounter Care Teams Youth Probation Officer Relationship Specialty Start Date End Date [place] [address] [place] [address] PCP - General Family Practice 06/28/18 [place] [address] [place] [address] Assigned PCP 06/27/18 Tracy Hsieh, RN Specialty Metal Base Blocker Hematology & Oncology 11/02/23 Constance Henry PA-C [address] [place] [address] Assigned Cancer Care Provider 09/05/24 documented as of this encounter
--- OUTSIDE RECORDS SUMMARY | 2024-09-15 08:30 | XMS_ITS | Encounter Summary ---
Author Organization [place] Address [address] [place] [address]. [place] [address] Care Team Providers Care Digital Retoucher Name Role Phone Cassidy Lindo MD Primary Care Provider [phone] Cassidy Lindo MD Unavailable [phone] Tracy Hsieh RN Unavailable [phone] Encounter Details Date Type Department Care Team (Latest Contact Info) Description 09/04/2024 Travel Social History Tobacco Use Types Packs/Day [...] re latives? Once a week 06/29/2024 Attends Nondenominational Services Not on file 06/29 Active Member [...] Answer Date Recorded PHQ-2 Score 0 06/29/2024 [facility] of Occupat ional Health - Occupational Stress [...] Answer Date Recorded Do you have housing? (Housin g is defined as stable permanent housing and does not include staying ouside in a car, in a tent, in an abandoned building, in an overnight custodial, or couch-surfing.) Yes 06/29/2024 Are you worried [...] degree (e.g., MA, MS, Jose Guadalupe, MEd, MANAGER INSURANCE, DENISSE) 10/24/2019 Comments No Sex and Gender Information Value Date Recorded Sex Assigned at Female 09/19/2019 11:34 AM UNIT REACTOR OPERATOR Legal Sex Female 3:19 AM UNIT REACTOR OPERATOR Gender Identity Female 09/19/2019 11:34 AM UNIT REACTOR OPERATOR Sexual Orientation Straight 09/19/2019 11 :34 AM UNIT REACTOR OPERATOR 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 Not on file documented as of this encounter Plan of Treatment Upcoming Encounters Date Type Department Care Team (Late st Contact Info) Description 10/24/2024 5:00 PM UNIT REACTOR OPERATOR Ancillary Procedure [facility] [address] [facility] [address] [place] [address] Constance Henry, PAHalC [address] [place] [address]70855 02/17/2025 8:15 AM CDT Lab [facility] [address] [place] [phone] 02/21/2025 11:20 AM CDT Oncology Visit [facility] [address] [place] [address] [facility] [place] [phone] Chata Mosqueda MD [address] [place] [phone] documented as of this encounter Visit Diagnoses Not on filedocumented in this encounter Additional Health Concerns Assessment Noted Time PHQ-9 Depression Total Score: 1 06/29/20 24 1:25 PM CDT documented as of this encounter Care Teams Digital Retoucher Relationship Specialty Start [place] [address] [place] [address] PCP - General Family Practice 06/28/18 [place] [address] [place] [address] Assigned PCP 06/27/18 Tracy Hsieh RN Specialty Corporate Receptionist Hematology & Oncology 11/02/23 documented as of this encounter
--- OUTSIDE RECORDS SUMMARY | 2024-09-15 08:30 | XMS_ITS | Encounter Summary ---
Author Organization [facility] Address [address] [place] [address] Care Team Providers Care Aerophysics Engineer Name Role Phone Cassidy Lindo MD Primary Care Provider [phone] Cassidy Lindo MD Unavailable [phone] Tracy Hsieh RN Unavailable [phone] Reason for Referral * Diagnostic Imaging Dexa (Routine) - Pending Review Specialty Diagnoses / Procedures Referred By Mika roberts Referred To Contact Radiology. Diagnoses Aromatase inhibitor use Procedures DX Bone Density Constance Henry PA-C [address] [place] [address] Phone: tel: fax: Referral ID Status Reason Start Date Expiration Date V isits Requested Visits Authorized [id number] Pending Review 08/23/2024 08/23/2025 1 1 IDING JUDGE * Diagnostic Imaging Mammo (Routine) - Pending Review Specialty Diagnoses / Procedures Referred By Mika roberts Referred To Contact Radiology. Diagnoses Encounter for screening mammogram for breast cancer Procedures MA Screen Bilateral w/Saúl Constance Henry PA-C [address] [place] [address] Phone: tel: fax: Referral ID Status Reason Start Date Expiration Date V isits Requested Visits Authorized [id number] Pending Review 08/23/2024 08/23/2025 1 1 IDING JUDGE Reason for Visit * Reason Comments Oncology Clinic Visit Ductal carcinoma i n situ (DCIS) of left breastDCIS (ductal carcinoma in situ) Encounter Details Date Type Department Care Team (Latest Contact Info) Description 08/23/2024 3:30 PM PRESIDING JUDGE Oncology Visit [facility] [address] [place] [address] [facility] [place] [phone] Constance Henry PA-C [address] [place] [address] Ductal carcinoma in situ of left breast (Primary Dx); Aromatase inhibitor use; Encounter for screening mammogram for breast cancer Social History Tobacco Use Types Packs/Day Years [...] re latives? Once a week 06/29/2024 Attends [employer] Not on file 06/29 Active Member [...] Answer Date Recorded PHQ-2 Score 0 06/29/2024 [facility] [place] of Occupat ional [facility] - Occupational Stress Questionnaire Answer Date Recorded [...] Answer Date Recorded Do you have housing? 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 Not on file documented as of this encounter Last Filed Vital Signs Vital Sign Reading Time Taken Comments Blood Pressure 130/84 08/23/2024 3:33 PM PRESIDING JUDGE Pulse 88 08/23/2024 3:33 PM PRESIDING JUDGE Temperature 36.4 C (97.6 F) 08/23/2024 3:33 PM PRESIDING JUDGE Respiratory Rate 16 08/23/2024 3:33 PM PRESIDING JUDGE Oxygen Saturation 96% 08/23/2024 3:33 PM PRESIDING JUDGE Inhaled Oxygen Concentration - - Weight 91 kg (200 lb 9.6 oz) 08/23/2024 3:33 PM PRESIDING JUDGE Height 162.6 cm (5' 4) 08/23/2024 3:33 PM PRESIDING JUDGE Body Mass Index 34.43 08/23/2024 3:33 PM PRESIDING JUDGE documented in this encounter Progress Notes * Constance Henry PA-C - 08/23/2024 3:30 PM CST Oncology/Hematology Visit Note Aug 23, 2024 Reason for visit: Follow-up DCIS Oncology HPI: Yesenia Collazo is a 58 year old female with history of left- sided DCIS, ER/GA positive, diagnosed in spring 2019. She underwent left-sided lumpectomy and radiation therapy, which finished in August 2020. She initially started on anastrozole, then switched over to exemestane. Screening mammogram in July 2023 was negative. Last DEXA scan was June 2022 with normal bone density. She has not seen her clinic in 2 years. She is here today for follow-up. Interval History: Yesenia is here unaccompanied. She continues on exemestane and she is tolerating this pretty well. She still has hot flashes, but manageable. She does not have the joint pains that she had with the anastrozole. Appetite has been okay. No headache, vision changes, vomiting or significant joint pain. She is currently being treated for sinusitis with intermittent cough, currentlyin antibiotics. No other complaints today. Review of Systems: See interval hx. Denies fevers, chills, CASTILLO, dizziness, changes in vision, CP, SOB, abdominal pain, N/V, diarrhea, changes in urination, bleeding, bruising. PMHx and Social Hx reviewed per N(i)². Medications: Current Outpatient Medications Medication Sig Dispense Refill alendronate (FOSAMAX) 70 MG tablet Take 1 tablet (70 mg) by mouth every 7 days. 24 tablet 3 aspirin 81 MG tablet Take 81 mg by mouth daily atorvastatin (LIPITOR) 20 MG tablet TAKE 1 TABLET DAILY (LAST REFILL UNTIL VISIT) 90 tablet 3 azelastine (ASTELIN) 0.1 % nasal spray [place] 1 spray into both nostrils 2 times daily 30 mL 11 cetirizine (ZYRTEC) 10 MG tablet Take 1 tablet (10 mg) by mouth daily metFORMIN (GLUCOPHAGE XR) 500 MG 24 hr tablet Take 1 tablet (500 mg) by mouth daily (with dinner). 90 tablet 4 multivitamin w/minerals (THERA-VIT-M) tablet Take 1 tablet by mouth daily olopatadine (PATANOL) 0.1 % ophthalmic solution Place 1 drop into both eyes 2 times daily 5 mL 3 omeprazole (PRILOSEC) [address] capsule TAKE 1 CAPSULE DAILY 90 capsule 3 sertraline (ZOLOFT) 100 MG tablet Take 1 tablet (100 mg) by mouth daily. TAKE 1 TABLET DAILY (LAST REFILL UNTIL VISIT) 90 tablet 2 exemestane (AROMASIN) 25 MG tablet Take 1 tablet (25 mg) by mouth daily. 30 tablet 0 Allergies Allergen Reactions No Known Drug Allergy EXAM: BP 130/84 Pulse 88 Temp 97.6 ??F (36.4 ??C) (Temporal) Resp 16 Ht 1.626 m (5' 4) Wt 91 kg (200 lb 9.6 oz) LMP 10/04/2013 SpO2 96% BMI 34.43 kg/m?? GENERAL: Female, in no acute distress. Alert and oriented x3. HEENT: Normocephalic, atraumatic. PERRL, oropharynx clear with no sores or thrush. LYMPH NODES: No palpable axillary lymphadenopathy appreciated. CV: RRR, No murmurs, gallops, or rubs. LUNGS: Clear to auscultation bilaterally. BREAST: Bilateral breasts were examined. Left breast is a little firmer, lumpectomy scar is noted. No lumps, bumps, skin changes, puckering, nipple discharge. Right breast unremarkable. ABDOMEN: Soft, nontender and nondistended. Bowel sounds heard x4. No apparent hepatosplenomegaly. EXTREMITIES: No clubbing, cyanosis, or edema. SKIN: No rash PSYCH: Calm and cooperative Labs: n/a Imaging: PENDING Impression/Plan: Yesenia Collazo is a 58 year old female with DCIS of the left breast s/p lumpectomy, radiation therapy, anastrozole, but now switched to exemestane. DCIS: Diagnosed in spring 2019, ER/GA positive, s/p left-sided lumpectomy, radiation therapy, whichfinished in August 2020. She initially started on anastrozole in March 2020, but this was discontinued due to severe joint aches. She was started on exemestane and she is tolerating this much better. She continues to have some hot flashes, but tolerable. Last mammogram was a year ago and last DEXAscan was over 2 years ago, she is due for both, I will order. No clinical concerns for recurrence on exam today. She will establish care with new breast oncologist with Dr. Andrews's departure. I reviewed labs from June 2024 and no concerns. -Continue exemestane, new Rx sent to pharmacy -Mammogram and DEXA scan next available -Dr. Mosqueda in 6 months Bone health: DEXA scan in June 2022 with normal bone density. She is overdue, this is now ordered. She is on Fosamax. Chart documentation with [employer] Voice recognition Software. Although reviewed after completion, some words and grammatical errors may remain. 20 minutes spent on the date of the encounter doing chart review, review of test results, interpretation of tests, patient visit, and documentation Constance Cohen PA-C Hematology/Oncology [facility] IDING JUDGE documented in this encounter Nursing Notes * Selin Harper CMA - 08/23/2024 3:30 PM CST Oncology Rooming Note August 23, 2024 3:36 PM Yesenia Collazo is a 58 year old female who presents for: Chief Complaint Patient presents with Oncology Clinic Visit Ductal carcinoma in situ (DCIS) of left breast DCIS (ductal carcinoma in situ) Initial Vitals: BP 130/84 Pulse 88 Temp 97.6 ??F (36.4 ??C) (Temporal) Resp 16 Ht 1.626 m (5' 4) Wt 91 kg (200 lb 9.6 oz) LMP 10/04/2013 SpO2 96% BMI 34.43 kg/m?? Estimated body massindex is 34.43 kg/m?? as calculated from the following: Height as of this encounter: 1.626 m (5' 4). Weight as of this encounter: 91 kg (200 lb 9.6 oz). Body surface area is 2.03 meters squared. No Pain (0) Comment: Data Unavailable Patient's last menstrual period was 10/04/2013. Allergies reviewed: Yes Medications reviewed: Yes Medications: MEDICATION REFILLS NEEDED TODAY. Provider was notified. Pharmacy name entered into N(i)²: [id number] - [place], [place] - [address] [facility] [address] [facility] - [facility], [place] - [address] [place] [address] Frailty Screening: Is the patient here for a new oncology consult visit in cancer care? 2. No Clinical concerns: f/u Selin Harper CMA IDING JUDGE documented in this encounter Plan of Treatment Upcoming Encounters Date Type Department Care Team (Late st Contact Info) Description 10/24/2024 5:00 PM PRESIDING JUDGE Ancillary Procedure [address] [place] [address] Constance Henry, PAHalC [address] [place] [phone] 02/17/2025 8:15 AM CDT Lab [facility] [address] [place] [address] 02/21/2025 11:20 AM CDT Oncology Visit [facility] [address] [address] [facility] [place] [place] [phone] Chata Mosqueda MD [address] [place] [address] Scheduled Orders Name Type Priority Associated Diagnoses Orde r Schedule DX Bone Density Imaging Routine Aromatase inhibitor use Expected: 09/06/2024 (Approximate), Expires: 08/22/2025 documented as of this encounter Results * MA Screen Bilateral w/Saúl (09/05/2024 10:09 AM PRESIDING JUDGE) Anatomical Region Laterality Modality Breast Bilateral Mammography Impressions 09/05/2024 10:21 AM PRESIDING JUDGE IMPRESSION: ACR BI-RADS Category 2: Benign BREAST CANCER SCREENING RECOMMENDATION: Routine yearly mammography beginning at age 40 or as discussed with your provider. The results and recommendations of this examination will be communicated to the patient. Todd Blanc MD Narrative 09/05/2024 10:21 AM PRESIDING JUDGE BILATERAL FULL FIELD DIGITAL SCREENING MAMMOGRAM WITH [...] Chappell PA-C [facility] MAMMOGRAPHY ORDERABLES Final Result documented in this encounter Visit Diagnoses Diagnosis Ductal carcinoma in situ of left breast- Primary Carcinoma in situ of breast Aromatase inhibitor use Use of aromatase inhibitors Encounter for screening mammogram for breast cancer Encounter for screening mammogram for breast cancer documented in this encounter Additional Health Concerns Assessment Noted Time PHQ-9 Depression Total Score: 1 06/29/20 24 1:25 PM CDT documented as of this encounter Care Teams Aerophysics Engineer Relationship Specialty [place] [address] [place] [address] PCP - General Family Practice 06/28/18 [place] [address] [place] [address] Assigned PCP 06/27/18 Tracy Hsieh, RN Specialty Recreational Specialist Hematology & Oncology 11/02/23 documented as of this encounter
--- OUTSIDE RECORDS SUMMARY | 2024-09-15 08:30 | XMS_ITS | Encounter Summary ---
Author Organization [facility] Address [address] [place] [address]. [place] [address] Care Team Providers Care Transport Aide Name Role Phone Cassidy Lindo MD Primary Care Provider [phone] Cassidy Lindo MD Unavailable [phone] Tracy Hsieh RN Unavailable [phone] Reason for Visit * Reason Comments Recheck Medication Encounter Details Date Type Department Care Team (Late st Contact Info) Description 08/30/2024 10:00 AM ENDODONTICS DENTIST Virtual Visit [address] [phone] Cassidy Lindo MD [address] [place] [phone] Anxiety Social History Tobacco Use Types Packs/Day Years [...] re latives? Once a week 06/29/2024 Attends Denominational Services Not on file 06/29 Active Member [...] Answer Date Recorded PHQ-2 Score 0 06/29/2024 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 How would you like to obtain your AVS? MyChart If the video visit is dropped, the invitation should be resent by: Text to cell phone: [phone] Will anyone else be joining your video visit? No Assessment & Plan Anxiety Refills per epicare Continue - sertraline (ZOLOFT) 100 MG tablet Dispense: 90 tablet; Refill: 2 FUTURE APPOINTMENTS: - Follow-up visit in 4 months for diabetic check See Patient Instructions Subjective Yesenia is a 58 year old, presenting for the following health issues: she was seen for her annualvisit in June and her stress and anxiety were not well controlled with 50 mg of sertraline. She had this increased to 100 mg per day and had some side effects initially but feels now that those are gone and she is doing well. Her anxiety is better controlled. She would like to continue with this. Recheck Medication 08/30/2024 9:53 AM Additional Questions Roomed by Apoorva History of Present Illness Mental Health Follow-up: Patient presents to follow-up on Anxiety. Patient's anxiety since last visit has been: Better The patient is not having other symptoms associated with anxiety. Any significant life events: No Patient is not feeling anxious or having panic attacks. Patient has no concerns about alcohol or drug use. She eats 2-3 servings of fruits and vegetables daily.She consumes 0 sweetened beverage(s) daily.Sheexercises with enough effort to increase her heart rate 30 to 60 minutes per day. She exercises with enough effort to increase her heart rate 3 or less days per week. She is taking medications regularly. Past Medical History: Diagnosis Date Allergy, unspecified not elsewhere classified Benign mole 1966 left breast mole - about 2 by 3 cm and dark brown and rough ( no change since ) Cancer (H) 09/17/2019 DCIS Ductal carcinoma in situ (DCIS) of left breast 10/19/2019 Fatty liver 2017 FIB-4 score 2022 1.03 Gastro-oesophageal reflux disease omeprazole better than famotidine Osteopenia 2021 fosamax started at this time Splenic cyst, acquired 2018 3 cm Past Surgical History: Procedure Laterality Date COLONOSCOPY N/A 07/13/2018 rpt 10 yrs. Surgeon: Ramon Mascorro MD; Location: GI DILATION AND CURETTAGE, HYSTEROSCOPY DIAGNOSTIC, COMBINED 11/09/2013 Procedure: COMBINED DILATION AND CURETTAGE, HYSTEROSCOPY DIAGNOSTIC; HYSTEROSCOPY, DILATION, CURETTAGE; Surgeon: Whitney Stevens MD; Location: [facility] ESOPHAGOSCOPY, GASTROSCOPY, DUODENOSCOPY (EGD), COMBINED N/A 04/16/2021 Procedure: ESOPHAGOGASTRODUODENOSCOPY, WITH biopsies; Surgeon: Ramon Mascorro MD; Location: GI LUMPECTOMY BREAST Left 11/16/2019 Procedure: REEXCISION LEFT BREAST LUMPECTOMY MARGIN; Surgeon: Xena Camara MD; Location: RHOR LUMPECTOMY BREAST WITH SEED LOCALIZATION Left 11/02/2019 Procedure: LEFT BREAST SEED LOCALIZED LUMPECTOMY; Surgeon: Xena Camara MD; Location: OR MEDICATIONS: Current Outpatient Medications Medication Sig Dispense Refill alendronate (FOSAMAX) 70 MG tablet Take 1 tablet (70 mg) by mouth every 7 days. 24 tablet 3 aspirin 81 MG tablet Take 81 mg by mouth daily atorvastatin (LIPITOR) 20 MG tablet TAKE 1 TABLET DAILY (LAST REFILL UNTIL VISIT) 90 tablet 3 azelastine (ASTELIN) 0.1 % nasal spray [place] 1 spray into both nostrils 2 times daily 30 mL 11 cetirizine (ZYRTEC) 10 MG tablet Take 1 tablet (10 mg) by mouth daily exemestane (AROMASIN) 25 MG tablet Take 1 tablet (25 mg) by mouth daily. 90 tablet 2 metFORMIN (GLUCOPHAGE XR) 500 MG 24 hr [...] (LAST REFILL UNTIL VISIT) 90 tablet 2 No current facility-administered medications for this visit. SOCIAL HISTORY: Social History Tobacco Use Smoking status: Never Smokeless tobacco: Never Substance Use Topics Alcohol use: Yes Comment: couple per month Family History Problem Relation Age of Onset Hypertension Mother Lipids Mother Hypertension Father Lipids Father Hyperlipidemia Father Diabetes Maternal Grandmother Colon Cancer No family hx of Review of Systems Constitutional, HEENT, cardiovascular, pulmonary, gi and gu systems are negative, except as otherwise noted. Objective Vitals: No vitals were obtained today due to virtual visit. Physical Exam GENERAL: alert and no distress EYES: Eyes grossly normal to inspection. No discharge or erythema, or obvious scleral/conjunctival abnormalities. RESP: No audible wheeze, cough, or visible cyanosis. SKIN: Visible skin clear. No significant rash, abnormal pigmentation or lesions. NEURO: Cranial nerves grossly intact. Mentation and speech appropriate for age. PSYCH: Appropriate affect, tone, and pace of words Office Visit on 06/29/2024 Component Date Value Ref Range Status Cholesterol 06/29/2024 167 <200 mg/dL Final Triglycerides 06/29/2024 402 (H) <150 mg/dL Final Direct Measure HDL 06/29/2024 30 (L) >=50 mg/dL Final LDL Cholesterol Calculated 06/29/2024 Final Cannot estimate LDL when triglyceride exceeds 400 mg/dL Non HDL Cholesterol 06/29/2024 137 (H) <130 mg/dL Final Patient Fasting > 8hrs? 06/29/2024 Unknown Final Estimated Average Glucose 06/29/2024 137 (H) <117 mg/dL Final Hemoglobin A1C 06/29/2024 6.4 (H) 0.0 - 5.6 % Final Normal <5.7% Prediabetes 5.7-6.4% Diabetes 6.5% or higher Note: Adopted from ADA consensus guidelines. Sodium 06/29/2024 137 135 - 145 mmol/L Final Potassium 06/29/2024 4.1 3.4 - 5.3 mmol/L Final Carbon Dioxide (CO2) 06/29/2024 21 (L) 22 - 29 mmol/L Final Anion Gap 06/29/2024 13 7 - 15 mmol/L Final Urea Nitrogen 06/29/2024 17.1 6.0 - 20.0 mg/dL Final Creatinine 06/29/2024 0.92 0.51 - 0.95 mg/dL Final GFR Estimate 06/29/2024 72 >60 mL/min/1.73m2 Final eGFR calculated using 2020 CKD-EPI equation. Calcium 06/29/2024 9.5 8.8 - 10.4 mg/dL Final Reference intervals for this test were updated on 03/29/2024 to reflect our healthy population more accurately. There may be differences in the flagging of prior results with similar values performed with this method. Those prior results can be interpreted in the context of the updated reference intervals. Chloride 06/29/2024 103 98 - 107 mmol/L Final Glucose 06/29/2024 91 70 - 99 mg/dL Final Alkaline Phosphatase 06/29/2024 96 40 - 150 U/L Final AST 06/29/2024 32 0 - 45 U/L Final ALT 06/29/2024 51 (H) 0 - 50 U/L Final Protein Total 06/29/2024 7.3 6.4 - 8.3 g/dL Final Albumin 06/29/2024 4.4 3.5 - 5.2 g/dL Final Bilirubin Total 06/29/2024 0.8 <=1.2 mg/dL Final Patient Fasting > 8hrs? 06/29/2024 Unknown Final WBC Count 06/29/2024 8.7 4.0 - 11.0 10e3/uL Final RBC Count 06/29/2024 4.65 3.80 - 5.20 10e6/uL Final Hemoglobin 06/29/2024 14.0 11.7 - 15.7 g/dL Final Hematocrit 06/29/2024 42.5 35.0 - 47.0 % Final MCV 06/29/2024 91 78 - 100 fL Final MCH 06/29/2024 30.1 26.5 - 33.0 pg Final MCHC 06/29/2024 32.9 31.5 - 36.5 g/dL Final RDW 06/29/2024 14.1 10.0 - 15.0 % Final Platelet Count 06/29/2024 227 150 - 450 10e3/uL Final LDL Cholesterol Direct 06/29/2024 87 <100 mg/dL Final Age 2-19 years: Desirable: < 110 mg/dL Borderline High: 110-129 mg/dL High: >= 130 mg/dL Age 20 years and older: Desirable: < 100 mg/dL Above Desirable: 100-129 mg/dL Borderline High: 130-159 mg/dL High: 160-189 mg/dL Very High: >= 190 mg/dL Video-Visit Details Type of service: Video Visit Originating Location (pt. Location): Home Distant Location (provider location): On-site Platform used for Video Visit: [facility] Signed Electronically by: Cassidy Lindo MD DONTICS DENTIST documented in this encounter Plan of Treatment Upcoming Encounters Date Type Department Care Team (Late st Contact Info) Description 10/24/2024 5:00 PM ENDODONTICS DENTIST Ancillary Procedure [address] [place] [address] Constance Henry, PASumit [address] [place] [address] 02/17/2025 8:[address] [facility] [address] [place] [phone] 02/21/2025 11:20 AM CDT Oncology Visit [facility] [place] [address] [facility] [place] [address] Chata Mosqueda MD [address] [place] [address] documented as of this encounter Visit Diagnoses Diagnosis Anxiety Anxiety state, unspecified documented in this encounter Additional Health Concerns Assessment Noted Time PHQ-9 Depression Total Score: 1 06/29/20 1:25 PM CDT documented as of this encounter Care Teams Transport Aide Relationship Specialty [place] [address] [place] [address] PCP - General Family Practice 06/28/18 [place] [address] [place] [address] Assigned PCP 06/27/18 Tracy Hsieh RN Specialty Environmental Engineering Intern Hematology & Oncology 11/02/23 documented as of this encounter
--- OUTSIDE RECORDS SUMMARY | 2024-09-15 08:30 | XMS_ITS | Encounter Summary ---
Author Organization [facility] Address [address] [place] [address] Care Team Providers Care Dynamite Cartridge Crimper Name Role Phone Cassidy Lindo MD Primary Care Provider [phone] Cassidy Lindo MD Unavailable [phone] Tracy Hsieh RN Unavailable [phone] Constance Henry PA-C Unavailable Reason for Referral * Diagnostic Imaging Mammo (Routine) - Pending Review Specialty Diagnoses / Procedures Referred By Mika roberts Referred To Contact Radiology. Diagnoses Encounter for screening mammogram for breast cancer Procedures MA Screen Bilateral w/Saúl Constance Henry PA-C [address] [place] [address] Phone: tel: fax: Referral ID Status Reason Start Date Expiration Date V isits Requested Visits Authorized [id number] Pending Review 08/23/2024 08/23/2025 1 1 ETICS DEMONSTRATOR Reason for Visit * Diagnostic Imaging Mammo (Routine) - Pending Review Specialty Diagnoses / Procedures Referred By Contmykel roberts Referred To Contact Radiology. Diagnoses Encounter for screening mammogram for breast cancer Procedures MA Screen Bilateral w/Saúl Constance Henry PA-C [address] [place] [address] Phone: tel: fax: Referral ID Status Reason Start Date Expiration Date V isits Requested Visits Authorized [id number] Pending Review 08/23/2024 08/23/2025 1 1 Encounter Details Date Type Department Care Team (Latest Contact Info) Description 09/05/2024 9:47 AM COSMETICS DEMONSTRATOR - 09/05/2024 11:59 PM [facility] Hospital Encounter [facility] [address], [address] [place] [address] Constance Henry PA-C [address] [place], [place] [phone] Encounter for screening mammogram for breast cancer Discharge Disposition: Home or Self Care Social History Tobacco Use Types Packs/Day Years [...] re latives? Once a week 06/29/2024 Attends Mosque Services Not on file 06/29 Active Member [...] Answer Date Recorded PHQ-2 Score 0 06/29/2024 [facility] Occupat ional Health - Occupational Stress [...] in an abandoned building, in an overnight detention, or couch-surfing.) Yes 06/29/2024 Are you worried [...] degree (e.g., MA, MS, Jose Guadalupe, MEd, LUMBER TYING MACHINE OPERATOR, DENISSE) 10/24/2019 Comments No Sex and Gender Information Value Date Recorded Sex Assigned at Female 09/19/2019 11:34 AM COSMETICS DEMONSTRATOR Legal Sex Female 3:19 AM COSMETICS DEMONSTRATOR Gender Identity Female 09/19/2019 11:34 AM COSMETICS DEMONSTRATOR Sexual Orientation Straight 09/19/2019 11 :34 AM COSMETICS DEMONSTRATOR 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 24 tablet 3 06/29/2024 aspirin 81 MG tablet Take 81 mg by mouth daily atorvastatin (LIPITOR) 20 MG tabletIndications :Hyperlipidemia LDL goal <130 TAKE 1 TABLET DAILY (LAST REFILL UNTIL VISIT) 90 tablet 3 05/03/2024 azelastine (ASTELIN) 0.1 % nasal sprayIndications: Seasonal allergic rhinitis due to other allergic trigger [place] 1 spray into both nostrils 2 times daily 30 mL 11 02/18/2023 cetirizine (ZYRTEC) 10 MG tabletIndications :Allergic state, sequela Take 1 tablet (10 mg) by mouth daily 10/24/2019 exemestane (AROMASIN) 25 MG tabletIndications :Ductal carcinoma in situ of left breast Take 1 tablet (25 mg) by mouth daily. 90 tablet 2 08/23/2024 metFORMIN (GLUCOPHAGE XR) 500 MG 24 hr tabletIndications :Prediabetes Take 1 tablet (500 mg) by mouth daily (with dinner). 90 tablet 4 06/29/2024 multivitamin w/minerals (THERA-VIT-M) tablet Take 1 tablet by mouth daily olopatadine (PATANOL) 0.1 % ophthalmic solutionIndicatio ns:Allergic conjunctivitis, bilateral Place 1 drop into both eyes 2 times daily 5 mL 3 02/18/2023 omeprazole (PRILOSEC) [address] capsuleIndication s:Esophageal dysphagia TAKE 1 CAPSULE DAILY 90 capsule 3 05/03/2024 sertraline (ZOLOFT) 100 MG tabletIndications :Anxiety Take 1 tablet (100 mg) by mouth daily. TAKE 1 TABLET DAILY (LAST REFILL UNTIL VISIT) 90 tablet 2 08/30/2024 documented as of this encounter Plan of Treatment Upcoming Encounters Date Type Department Care Team (Late st Contact Info) Description 10/24/2024 5:00 PM COSMETICS DEMONSTRATOR Ancillary Procedure [facility] [address] [place] [address] Constance Henry PA-C [address] [place] [address] 02/17/2025 8:15 AM CDT Lab [facility] [address] [place] [address] 02/21/2025 11:20 AM CDT Oncology Visit [facility] [place] [address] [facility] [address] [facility] [place] [phone] Chata Mosqueda MD [address] [place] [address] documented as of this encounter Procedures Procedure Name Priority Date/Time Associated Diagnosis Comments MA SCREENING BILATERAL W/ SAÚL Routine 09/05/2024 10:09 AM COSMETICS DEMONSTRATOR Encounter for screening mammogram for breast cancer documented in this encounter Results * MA Screen Bilateral w/Saúl (09/05/2024 10:09 AM COSMETICS DEMONSTRATOR) Anatomical Region Laterality Modality Breast Bilateral Mammography Impressions 09/05/2024 10:21 AM COSMETICS DEMONSTRATOR IMPRESSION: ACR BI-RADS Category 2: Benign BREAST CANCER SCREENING RECOMMENDATION: Routine yearly mammography beginning at age 40 or as discussed with your provider. The results and recommendations of this examination will be communicated to the patient. Todd Blanc MD Narrative 09/05/2024 10:21 AM COSMETICS DEMONSTRATOR BILATERAL FULL FIELD DIGITAL SCREENING MAMMOGRAM WITH [...] documented in this encounter Visit Diagnoses Diagnosis Encounter for screening mammogram for breast cancer documented in this encounter Additional Health Concerns Assessment Noted Time PHQ-9 Depression Total Score: 1 06/29/20 24 1:25 PM CDT documented as of this encounter Care Teams Dynamite Cartridge Crimper Relationship Specialty [place] [address] [place] [address] PCP - General Family Practice 06/28/18 [place] [address] [place] [address] Assigned PCP 06/27/18 Tracy Hsieh, RN Specialty Configuration Management Architect Hematology & Oncology 11/02/23 Constance Henry PA-C [address] [place] [phone] Assigned Cancer Care Provider 09/05/24 documented as of this encounter
--- OUTSIDE RECORDS SUMMARY | 2024-09-15 08:30 | XMS_ITS | Encounter Summary ---
Author Organization [facility] Address [address] [place] [address]. [place] [address] Care Team Providers Care Bit Setter Name Role Phone Cassidy Lindo MD Primary Care Provider [phone] Cassidy Lindo MD Unavailable [phone] Renetta Lal Unavailable Unavailable Berlin Andrews MD Unavailable Unav ailable Xena Camara MD Unavailable [phone] Tracy Hsieh RN Unavailable [phone] Constance Henry PA-C Unavailable Encounter Details Date Type Department Care Team (Late st Contact Info) Description 01/09/2020 MyC Medical Advice [facility] [address] [place] [address] [address] [facility] [place] [phone] Jailene Aggarwal Social History Tobacco Use Types Packs/Day Years Used Date Smoking Tobacco: Never Smokeless Tobacco: Never Alcohol Use Standard Drinks/Week Comments Yes 0 (1 standard drink = 0.6 oz pur e alcohol) couple per month Social Connection and Isolat ion Panel [NHANES] Answer Date Recorded Frequency of Communication w ith Friends and Family Twice a week 10/24/2019 Frequency of Social Gatherin gs with Friends and Family Once a week 10/24/2019 Attends Congregation Services More than 4 times per year 10/24/2019 Active Member of Clubs or Organizations Yes 10/24/2019 Attends Club or Organization Meetings More than 4 times per year 10/24/2019 Marital Status 10/24/2019 AUDIT-C Answer Date Recorded Q1: How often do you have a drink containing alc ohol? Monthly or less 10/24/2019 Q2: How many drinks containi ng alcohol do you have on a typical day when you are drinking? 1 or 2 10/24/2019 Q3: How often do you have si x or more drinks on one occasion? Never 10/24/2019 Overall Financial Resource Strain (CARDIA) Answe r Date Recorded How hard is it for you to pa y for the very basics like food, housing, medical care, and heating? Not hard at all 10/24/2019 PHQ-2 Answer Date Recorded PHQ-2 Score 0 09/21/2018 [facility] [place] of Occupat ional Health - Occupational Stress Questionnaire Answer Date Recorded Feeling of Stress Only a little 10/24/2019 Exercise Vital Sign Answer Date Recorde d Days of Exercise per Week 2 days 2019 Minutes of Exercise per Session 30 min 10/24/2019 Hunger Vital Sign Answer Date Recorded Within the past 12 months, y ou worried that your food would run out before you got the money to buy more. Never true 10/24/19 20 Within the past 12 months, t he food you bought just didn't last and you didn't have money to get more. Never true 10/24/2019 PRAPARE - Transportation Answer Date Re corded In the past 12 months, has l ack of transportation kept you from medical appointments or from getting medications? No 10/15 In the past 12 months, has l ack of transportation kept you from meetings, work, or from getting things needed for daily living? No 10/24/2019 Education Answer Date Recorded What is the highest level of school you have completed or the highest degree you have received? 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 No / Unsure 01/11/2020 8:24 AM CDT documented as of this encounter Plan of Treatment Upcoming Encounters Date Type Department Care Team (Late st Contact Info) Description 10/24/2024 5:00 PM PRESIDENT Ancillary Procedure [facility] [address] [facility] [address] [place] [address] Constance Henry PA-C [address] [place] [address] 02/17/2025 8:15 AM CDT Lab [facility] [address] [place] [address] 02/21/2025 11:20 AM CDT Oncology Visit [facility] [address] [facility] [address] [facility] [place] [phone] Chata Mosqueda MD [address] [place] [address] documented as of this encounter Visit Diagnoses Not on filedocumented in this encounter Additional Health Concerns Infection Onset Date Last Indicated Resolved Time Rule Out COVID-19 06/11/2020 06/11/2020 06/12/2020 3:31 PM CDT documented as of this encounter Care Teams Bit Setter Relationship Specialty [place] [address] [place] [address] PCP - General Family Practice 06/28/18 [place] [address] [place] [address] Assigned PCP 06/27/18 Renetta Lal Personal Advocate & Liaison (PAL) Family Practice 10/24/19 08/13/20 Berlin Andrews MD Assigned Cancer Care Provider 07/06/20 01/04/24 Xena Camara MD [facility] [address] [facility] [address] [place] [address] Assigned Surgical Provider 07/06/20 04/20/21 Tracy Hsieh, RN Specialty Miller Supervisor Hematology & Oncology 11/02/23 Constance Henry, MARITZAC [address] [place] [phone] Assigned Cancer Care Provider 09/05/24 documented as of this encounter
--- OUTSIDE RECORDS SUMMARY | 2024-09-15 08:30 | XMS_ITS | Encounter Summary ---
Author Organization [facility] Address [address] [place] [address]. [place] [address] Care Team Providers Care Spareribs Trimmer Name Role Phone Clinic - [facility] Primary Care Provider Cassidy Lindo MD Primary Care Provider [phone] Cassidy Lindo MD Unavailable Cassidy Lindo MD Unavailable [phone] Renetta Lal Unavailable Unavailable Berlin Andrews MD Unavailable Unav ailable Xena Camara MD Unavailable [phone] Tracy Hsieh RN Unavailable [phone] Constance Henry PA-C Unavailable Reason for Visit * Reason Onset Date Comments MyChart Communication 06/22/2018 Encounter Details Date Type Department Care Team (Latest Contact Info) Description 06/22/2018 MyC Medical Advice [facility] [address] [place] [phone] [place] [address] [place] [address] MyChart Communication Social History Tobacco Use Types Packs/Day Years Used Date Smoking Tobacco: Never Smokeless Tobacco: Never Alcohol Use Standard Drinks/Week Comments Yes 0 (1 standard drink = 0.6 oz pur e alcohol) couple per month Comments No Sex and Gender Information Value Date Recorded Sex Assigned at Female 09/19/2019 11:34 AM BUTCHER ALL ROUND Legal Sex Female 3:19 AM BUTCHER ALL ROUND Gender Identity Female 09/19/2019 11:34 AM BUTCHER ALL ROUND Sexual Orientation Straight 09/19/2019 11 :34 AM BUTCHER ALL ROUND 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 Not on file documented as of this encounter Plan of Treatment Upcoming Encounters Date Type Department Care Team (Late st Contact Info) Description 10/24/2024 5:00 PM BUTCHER ALL ROUND Ancillary Procedure [facility] [address] [facility] [address] [place] [address] Constance Henry PA-C [address] [place] [address] 02/17/2025 8:15 AM CDT Lab [facility] [address] [place] [phone] 02/21/2025 11:20 AM CDT Oncology Visit [facility] [address] [facility] [place] [address] Chata Mosqueda MD [address] [place] [address] documented as of this encounter Visit Diagnoses Not on filedocumented in this encounter Additional Health Concerns Infection Onset Date Last Indicated Resolved Time Rule Out COVID-19 06/11/2020 06/11/2020 06/12/2020 3:31 PM CDT documented as of this encounter Care Teams Spareribs Trimmer Relationship Specialty Start Date End Date Clinic - [facility] [address] [place] [address] PCP - General 05/14/17 06/27/18 [place] [address] [place] [address] PCP - General Family Practice 06/28/18 [place] [address] [place] [address] PCP - Assigned PCP 06/27/18 11/16/18 [place] [address] [place] [address] Assigned PCP 06/27/18 Renetta Lal Personal Advocate & Liaison (PAL) [facility] 10/24/19 08/13/20 Berlin Andrews MD Assigned Cancer Care Provider 07/06/20 01/04/24 Xena Camara MD [facility], [place] [address] [facility] [address] [place], [place] [address] Assigned Surgical Provider 07/06/20 04/20/21 Tracy Hsieh, RN Specialty Ditching Machine Operator Hematology & Oncology 11/02/23 Constance Henry, PAHalC [address] [place] [address] Assigned Cancer Care Provider 09/05/24 documented as of this encounter
--- OUTSIDE RECORDS SUMMARY | 2024-09-15 08:30 | XMS_ITS ---
Author Organization [place] Address [address] [place] [address]. [place] [address] Care Team Providers Care Spring Coiler Name Role Phone Cassidy Lindo MD Primary Care Provider [phone] Cassidy Lindo MD Unavailable [phone] Tracy Hsieh RN Unavailable [phone] Constance Henry PA-C Unavailable Active Problems Problem Noted Date Diagnosed Date Morbid obesity 02/18/2023 Hyperlipidemia LDL goal <130 08/20/2020 Family history of diabetes mellitus 08/20/2020 Esophageal dysphagia 08/20/2020 Ductal carcinoma in situ (DCIS) of left breast 0 10/21/2019 Overview (10/21/2019): Added automatically from request for surgery [id number] DCIS (ductal carcinoma in situ) 10/19/2019 Overview (07/17/2020): joshua Andrews- 08/15 Anxiety 06/16/2018 Fatty liver 09/14/2017 Splenic cyst, acquired 09/14/2017 Overview (12/29/2018): 3 cm GERD (gastroesophageal reflux disease) 1 CARDIOVASCULAR SCREENING; LDL GOAL LESS THAN 160 10/24/2009 Allergic state Overview (06/14/2015): Problem list name updated by automated process. Provider to review Current Oncology Plans No current plan information found. Past Plans No past plan information found. Radiation Treatments * No radiation treatments are documented for this patient in [facility]. Treatments may have been administered in another system. Treatment Summaries DCIS (ductal carcinoma in situ)* Cancer Treatment Plan and Summary - Breast Provided by [facility] [place] General Information Patient Name Yesenia Collazo Patient 1965 Patient phone [phone] (home) [phone] (work) Email [email or web address] Care Team Primary Care Provider Cassidy Lindo Surgeon Dr. Alonzo Camara MD Radiation Oncologist Dr. Collette Arriaga DO Medical Oncologist Dr. Joshua Andrews MD Other Providers Cancer Diagnosis Information Diagnosis DCIS (ductal carcinoma in situ) Diagnosis Date 10/18/2019- Core biopsy left breast Staging Information pTis (DCIS) pNX pM Estrogen POSITIVE Progesterone POSITIVE HER2 N/A Familial Cancer Risk Assessment Genetic Counseling Not indicated Treatment Summary Surgery 11/02/2019- Left breast lumpectomy 11/16/2019- Re-excision lumpectomy Pathology Ductal carcinoma in situ. Size (Extent) of DCIS (Millimeters): Estimated size 15 mm. Nuclear Grade: Intermediate and focal high nuclear grade. Margins: Negative. Distance to closest margins if negative (millimeters): 1 mm from posterior margin, 9 mm from inferior margin, and 10 mm or greater from remaining margins. Regional Lymph Nodes: No regional lymph nodes found or submitted Final pathology after re-excision- Breast, left, new posterior margin: Negative for residual intraductal carcinoma. [facility] Radiation Therapy [place] 5256 cGy in 20 of 20 fractions 01/24/2020- 02/22/2020 Treatment Ongoing Anastrozole 1 mg oral daily Calcium/Vitamin D-1200 mg/1000 international unit(s) daily while on Anastrozole Bone density 04/09/2020- Normal bone density Follow-up Care Plan Persistent symptoms or side effects at completion of treatment These symptoms may include, but not limited to: fatigue, numbness/tingling, psychosocial, menopause symptoms, pain, memory/concentrationissues. Additional provider notes, if applicable Your follow up care plan is designed to inform you and your primary care provider the recommended and suggested follow up, cancer screening and routine health maintenance that is needed to maintain optimal health. Possible late and/or prison effects that someone with this type of cancer and treatment may experience: bone effects heart effects fertility effects memory and concentration pain lymphedema nervous system changes If you would like to discuss specific late and/or watermelon harvesting supervisor effects related to your treatment, please use the following website to make an appointment in the Cancer Survivor Program: [email or web address]-services OR call These symptoms should be brought to the attention of your provider: 1. Anything that represents a brand new symptom; 2. Anything that represents a persistent symptom; 3. Anything that you are worried about that might be related to your cancer coming back. Coordinating Provider When/How Often Primary Care Provider Please continue to see your primary care provider for all general health carerecommended for a patient your age, including cancer screening tests. Any symptoms should be brought to the attention of your provider. Medical Oncologist Every 3 to 6 months for the first 3 years, every 6 months for years 4 and 5, andannually thereafter Radiation Oncologist As directed Surgeon As directed Other See eye doctor and dentist routinely Cancer Surveillance or Other Recommended Related Tests Test What/When/How Often Mammogram Once a year; not indicated routinely for patients with bilateral mastectomies Bone Density Every 2 years if on an aromatase inhibitor or as indicated by your provider Breast MRI As indicated by provider Pelvic exam Yearly Cancer survivors may experience issues with the areas listed below. If you have any concerns in these or other areas, please speak with your providers or nurses to find out how you can get help with them. Anxiety or depression Emotional and mental health Fatigue Fertility Financial advice or assistance Insurance Lymphedema Memory or concentration loss Parenting Physical functioning School or work Sexual functioning Stopping smoking Weight changes Other A number of lifestyle/behaviors can affect your ongoing health, including the risk for the cancer coming back or developing another cancer. Discuss these recommendations with your provider or nurse: Alcohol use Diet Physical activity Sun screen use Tobacco use/cessation Weight management (loss/gain) For those unpredictable events in life: Advanced Directive- Link to the short form https://www.honoringchoices.org/auxvvv-bzth-duagkiwepb/nepali/16-azlcwxpmgi-gdn kjeseu-6-xlptj-fillable/file Here are some resources in survivorship that I hope you find helpful, as well as your Treatment Summary. I will follow up in a week or 2 for discussion/review. Thank you, Yesenia, I appreciate yourtime and look forward to our discussion. Best regards, Julien Camara RN, OCN, CBCN Getting support One of the keys to moving forward after cancer is getting the support you and your family need as you adjust to the changes cancer brings. Talk with your healthcare team, get the help you need. You can also connect with other cancer survivors and find support from groups like these: [place] Cancer Society, . CancerCare, 714-012-LGLU (4673) National Cancer Drexel, 275-1-PVEOKV (864-427-6843) Online Resources [place] Association for Cancer Research: www.aacr.org [place] for Cancer Research- Food Facts Association of Cancer Online Resources: www.acor.org Breast Cancer specific: fireflysisterhood.org Cancer Care, Inc.: www.cancercare.org [place] Society of Clinical Oncologists (ASCO): www.cancer.net Cancer Survivors Network ([place] Cancer Society): www.acscsn.org From Cancer Patient to Cancer Survivor: Lost in Transition Life After Cancer Treatment (National Cancer Drexel): www.cancer.gov/cancertopics/coping/xxlh-diobi-ovrufugqq Live Strong: www.livestrong.org [facility] Cancer Center: mskcc.org (herbal facts) National Coalition for Cancer Survivorship: www.canceradvocacy.org Patient Advocate Foundation: www.patientadvocate.org People Living With Cancer: www.uicc.org/membership/zkompa-cvudww-koyrsg-plwc MHealth www.mhealth.org/care/overarching-care/bqjbgl-ukhg-jieze/support-services Phone Resources [place] Cancer Society: National Cancer D[place]el: National Coalition for Cancer Survivorship: 9-416-GBPE-YES (697-985-4652) Patient Advocate Foundation: Books After Cancer Treatment: Heal Faster, Better, Stronger (2006, 2nd Ed. 2015) by Tracy Gray Cancer Fitness: Exercise Programs for Patients and Survivors (2003) by Ashlie Adame Eating Well, Staying Well During and After Cancer (2003, 2nd Ed. 2010) by the [place] Cancer Society LiveStrong: Inspirational Stories from Cancer Survivors-from Diagnosis to Treatment and Beyond (2004) by Jens Penn Picking up the Pieces: Moving Forward After Surviving Cancer (2006) by Kyra Lucero and Ce Emmanuel The Cancer Survivor's Guide: The Essential Handbook to Life After Cancer (2005) by Zachary Hurtado and Rianna Morillo Nutrition After Cancer: The Role of Diet in Cancer Survivorship (2001) by the [place] for Cancer Research Anticancer: A New Way of Life (2007, 2nd Ed. 2011) by Jeffery Gardner Everyone's guide to Cancer Survivorship: A Road Map to Better Health (2010) by Stevie Kumari Teach only Love: Twelve Principles of Attitudinal Healing (1999) by Ja Grider MD Happiness in a Storm (2004) by Kelsea Nagel MD Hope in the Face of Cancer (2002) by Le Coates MD Healing Hope: Through and Beyond Cancer (2018) by Kelsea Nagel MD A number of lifestyle/behaviors can affect your ongoing health, including the risk for the cancer coming back or developing another cancer. Discuss these recommendations with your provider or nurse: Alcohol use: No more than 1 alcoholic beverage/day for women and no more than 2 alcoholic beverages/day for men. Diet: Recommend diet high in fruits, vegetables, whole grains and low in fats, sugars, and red and processed meats. Physical activity: Recommend 150 minutes of moderate intensity exercise per week and strength/resistance exercise at least 2 times per week. Sun safety: Recommend sunscreen with a minimum SPF of 30, reapply every 2 hours when outside for prolonged periods of time. Consider using hats, shirts with sleeves, and avoiding direct sun during peak times (generally 10 am- 2 pm). Avoid tanning beds. Tobacco use/cessation: Recommend avoiding tobacco use. Weight management (loss/gain): Recommend a body mass index (BMI) of 18.5-24.9. If not within this range, recommend seeing a ed physicians to discuss way to get into this range with diet changes. This Survivorship Care Plan is a cancer treatment summary and follow up plan and is provided to youto keep with your health care records and to share with your primary care provider or any of your other providers. 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
--- OUTSIDE RECORDS SUMMARY | 2024-09-15 08:30 | XMS_ITS | Encounter Summary ---
Author Organization [facility] Address [address] [place] [address]. [place] [address] Care Team Providers Care Email Marketing Coordinator Name Role Phone Cassidy Lindo MD Primary Care Provider [phone] Cassidy Lindo MD Unavailable [phone] [place] Andrews MD Unavailable Unav ailable Tracy Hsieh RN Unavailable [phone] Constance Henry PA-C Unavailable Encounter Details Date Type Department Care Team (Late st Contact Info) Description 11/28/2022 [facility] Medical Advice [facility] [address] [facility] [place] [place] [address] Tracy Hsieh, RN Social History Tobacco Use Types Packs/Day Years Used Date Smoking Tobacco: Never Smokeless Tobacco: Never Alcohol Use Standard Drinks/Week Comments Yes 0 (1 standard drink = 0.6 oz pur e alcohol) couple per month Humiliation, Afraid, Rape, and Kick questionnair e Answer Date Recorded Within the last year, have y ou been afraid of your partner or ex-partner? No 08/06/2021 Within the last year, have y ou been humiliated or emotionally abused in other ways by your partner or ex-partner? No Within the last year, have y ou been kicked, hit, slapped, or otherwise physically hurt by your partner or ex-partner? No 08/06/2021 Within the last year, have y ou been raped or forced to have any kind of sexual activity by your partner or ex-partner? No 08/06/2021 Social Connection and Isolat ion Panel [NHANES] Answer Date Recorded In a typical week, how many times do you talk on the phone with family, friends, or neighbors? Once a week 01/01/2022 How often do you get togethe r with friends or relatives? Once a week 01/01/2022 How often do you attend [facility] or adventist services? More than 4 times per year 01/01/2022 Do you belong to any clubs o r organizations such as mormonism groups, unions, fraternal or athletic groups, or school groups? No 01/01/2022 Attends Club or Organization Meetings Not on angela e 01/01/2022 Are you , , di vorced, , never , or living with a partner? 01/01/2022 AUDIT-C Answer Date Recorded Q1: How often do you have a drink containing alc ohol? Monthly or less 01/01/2022 Q2: How many drinks containi ng alcohol do you have on a typical day when you are drinking? 1 or 2 01/01/2022 Q3: How often do you have si x or more drinks on one occasion? Never 01/01/2022 Overall Financial Resource Strain (CARDIA) Answe r Date Recorded How hard is it for you to pa y for the very basics like food, housing, medical care, and heating? Not hard at all 01/01/2022 PHQ-2 Answer Date Recorded PHQ-2 Score 0 01/01/2022 [facility] of Occupat ional Health - Occupational Stress Questionnaire Answer Date Recorded Do you feel stress - tense, restless, nervous, or anxious, or unable to sleep at night because your mind is troubled all the time - these days? Not at all 01/01/2022 Exercise Vital Sign Answer Date Recorde d On average, how many days pe r week do you engage in moderate to strenuous exercise (like a brisk walk)? 4 days 01/01/2022 On average, how many minutes do you engage in exercise at this level? 30 min 01/01/2022 Hunger Vital Sign Answer Date Recorded Within the past 12 months, y ou worried that your food would run out before you got the money to buy more. Never true 01/02/20 22 Within the past 12 months, t he food you bought just didn't last and you didn't have money to get more. Never true 01/01/2022 PRAPARE - Transportation Answer Date Re corded In the past 12 months, has l ack of transportation kept you from medical appointments or from getting medications? No 12/14 In the past 12 months, has l ack of transportation kept you from meetings, work, or from getting things needed for daily living? No 01/01/2022 Housing Stability Vital Sign Answer Luis e Recorded In the last 12 months, was t here a time when you were not able to pay the mortgage or rent on time? No 01/01/2022 In the last 12 months, how many places have you lived? 1 01/01/2022 In the last 12 months, was t here a time when you did not have a steady place to sleep or slept in a mcfp (including now)? No 01/01/2022 Education Answer Date Recorded What is the highest level of school you have completed or the highest degree you have received? 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 [address] [place] [address] [facility] [place] [place] [address] Chata Mosqueda MD [address] [place] [address] [phone] documented as of this encounter Visit Diagnoses Not on filedocumented in this encounter Additional Health Concerns Assessment Noted Time PHQ-9 Depression Total Score: 1 08/14/20 20 7:02 AM ASSOCIATE PROFESSOR OF MUSICOLOGY documented as of this encounter Care Teams Email Marketing Coordinator Relationship Specialty [place] [address] [place] [address] PCP - General Family Practice 06/28/18 [place] [address] [place] [address] Assigned PCP 06/27/18 [place] [address] [place] [address] Assigned Cancer Care Provider 07/06/20 01/04/24 Tracy Hsieh, RN Specialty Stitch Bonder Machine Operator Helper Hematology & Oncology 11/02/23 Constance Henry PA-C [address] [place] [address] Assigned Cancer Care Provider 09/05/24 documented as of this encounter
--- OUTSIDE RECORDS SUMMARY | 2024-09-15 08:30 | XMS_ITS | Encounter Summary ---
Author Organization [facility] Address [address] [place] [address]. [place] [address] Care Team Providers Care Risk Advisor Name Role Phone Cassidy Lindo MD Primary Care Provider [phone] Cassidy Lindo MD Unavailable Tracy Hsieh RN Unavailable [phone] Encounter Details Date Type Department Care Team (Latest Contact Info) Description 08/23/2024 Travel Social History Tobacco Use Types Packs/Day [...] re latives? Once a week 06/29/2024 Attends [employer] Services Not on file 06/29 Active Member [...] Answer Date Recorded PHQ-2 Score 0 06/29/2024 [facility] of Occupat ional Health - Occupational Stress [...] in an abandoned building, in an overnight group home, or couch-surfing.) Yes 06/29/2024 Are you [...] degree (e.g., MA, MS, Jose Guadalupe, MEd, STEAM FINISHER, DENISSE) 10/24/2019 Comments No Sex and Gender Information Value Date Recorded Sex Assigned at Female 09/19/2019 11:34 AM PRODUCTION HARDENER Legal Sex Female 3:19 AM PRODUCTION HARDENER Gender Identity Female 09/19/2019 11:34 AM PRODUCTION HARDENER Sexual Orientation Straight 09/19/2019 11 :34 AM PRODUCTION HARDENER 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 Not on file documented as of this encounter Plan of Treatment Upcoming Encounters Date Type Department Care Team (Late st Contact Info) Description 10/24/2024 5:00 PM PRODUCTION HARDENER Ancillary Procedure [facility] [address] [facility] [address] [place] [address] Constance Henry, PAHalC [address] [place] [address] 418195 02/17/2025 8:15 AM CDT Lab [facility] [address] [place] [phone] 02/21/2025 11:20 AM CDT Oncology Visit [facility] [place] [address] [place] [address] [facility] [place] [phone] Chata Mosqueda MD [address] [place] [address] 038005 documented as of this encounter Visit Diagnoses Not on filedocumented in this encounter Additional Health Concerns Assessment Noted Time PHQ-9 Depression Total Score: 1 06/29/20 24 1:25 PM CDT documented as of this encounter Care Teams Risk Advisor Relationship Specialty [place] [address] [place] [address] PCP - General Family Practice 06/28/18 [place] [address] [place] [address] Assigned PCP 06/27/18 Tracy Hsieh RN Specialty Wirer Maintenance Hematology & Oncology 11/02/23 documented as of this encounter
--- OUTSIDE RECORDS SUMMARY | 2024-09-15 08:30 | XMS_ITS | Encounter Summary ---
Author Organization [place] Address [address] [place] [address]. [place] [address] Care Team Providers Care Airborne Operations Manager Name Role Phone Cassidy Lindo MD Primary Care Provider [phone] Cassidy Lindo MD Unavailable [phone] Renetta Lal Unavailable Unavailable [place] Andrews MD Unavailable Unav ailable Xena Camara MD Unavailable [phone] Tracy Hsieh RN Unavailable [phone] Constance Henry PA-C Unavailable Encounter Details Date Type Department Care Team (Late st Contact Info) Description 11/10/2019 [facility] Medical Advice [facility] [address] [place] [address] [place] [address] [place] [address] Social History Tobacco Use Types Packs/Day Years [...] and Family Once a week 10/24/2019 Attends Sabianist Services More than 4 times per year [...] Answer Date Recorded PHQ-2 Score 0 09/21/2018 [facility] of Occupat ional Health - Occupational Stress [...] degree (e.g., MA, MS, Jose Guadalupe, MEd, VISUAL MANAGER, DENISSE) 10/24/2019 Comments No Sex and Gender Information Value Date Recorded Sex Assigned at Female 09/19/2019 11:34 AM AIRCRAFT TECHNICIAN Legal Sex Female 3:19 AM AIRCRAFT TECHNICIAN Gender Identity Female 09/19/2019 11:34 AM AIRCRAFT TECHNICIAN Sexual Orientation Straight 09/19/2019 11 :34 AM AIRCRAFT TECHNICIAN 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 Dinora Morrison CMA RAFT TECHNICIAN documented in this encounter Plan of Treatment Upcoming Encounters Date Type Department Care Team (Late st Contact Info) Description 10/24/2024 5:00 PM AIRCRAFT TECHNICIAN Ancillary Procedure [facility] [address] [facility] [address] [place] [address] Constance Henry PA-C [address] [place] [address] [phone] 02/17/2025 8:15 AM CDT Lab [facility] [address] [place] [phone] 02/21/2025 11:20 AM CDT Oncology Visit [facility] [place] [address] [place] [address] [facility] [place] [place] [phone] Chata Mosqueda MD [address] [place] [address] 069245 documented as of this encounter Visit Diagnoses Not on filedocumented in this encounter Additional Health Concerns Infection Onset Date Last Indicated Resolved Time Rule Out COVID-19 06/11/2020 06/11/2020 06/12/2020 3:31 PM CDT documented as of this encounter Care Teams Airborne Operations Manager Relationship Specialty [place] [address] [place] [address] PCP - General Family Practice 06/28/18 [place] [address] [place] [address] Assigned PCP 06/27/18 Renetta Lal Personal Advocate & Liaison (PAL) Family Practice 10/24/19 08/13/20 Berlin Andrews MD Assigned Cancer Care Provider 07/06/20 01/04/24 Xena Camara MD [facility] [address] [address] Assigned Surgical Provider 07/06/20 04/20/21 Tracy Hsieh, RN Specialty Mailing Manager Hematology & Oncology 11/02/23 Constance Henry, PAHalC [address] [place], [place] 7[address] Assigned Cancer Care Provider 09/05/24 documented as of this encounter
--- OUTSIDE RECORDS SUMMARY | 2024-09-15 08:30 | XMS_ITS | Encounter Summary ---
Author Organization [facility] Address [address] [place] [address]. [place] [address] Care Team Providers Care International Trade Specialist Name Role Phone Cassidy Lindo MD Primary Care Provider [phone] Cassidy Lindo MD Unavailable [phone] Renetta Lal Unavailable Unavailable Berlin Andrews MD Unavailable Unav ailable Xena Camara MD Unavailable [phone] Tracy Hsieh RN Unavailable [phone] Constance Henry PA-C Unavailable Encounter Details Date Type Department Care Team (Late st Contact Info) Description 08/03/2020 MyC Medical Advice [facility] [address] [place] [phone] Lamar Buchanan, RN Social History Tobacco Use Types Packs/Day [...] and Family Once a week 10/24/2019 Attends Synagogue Services More than 4 times per year [...] Answer Date Recorded PHQ-2 Score 0 09/21/2018 [facility] of Occupat ional Health - Occupational Stress [...] degree (e.g., MA, MS, Jose Guadalupe, MEd, CHIEF MEDICAL DIRECTOR, DENISSE) 10/24/2019 Comments No Sex and Gender Information Value Date Recorded Sex Assigned at Female 09/19/2019 11:34 AM FIELD CARE ADVOCATE Legal Sex Female 3:19 AM FIELD CARE ADVOCATE Gender Identity Female 09/19/2019 11:34 AM FIELD CARE ADVOCATE Sexual Orientation Straight 09/19/2019 11 :34 AM FIELD CARE ADVOCATE 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 [address] [place] [address] Constance Henry PA-C [address] [place] [address] 02/17/2025 8:15 AM CDT Lab [facility] [address] [place] [phone] 02/21/2025 11:20 AM CDT Oncology [facility] [place] [address] [place] [address] [facility] [place] [phone] Chata Mosqueda MD [address] [place] [address] documented as of this encounter Visit Diagnoses Not on filedocumented in this encounter Care Teams International Trade Specialist Relationship Specialty [place] [address] [place] [address] PCP - General Family Practice 06/28/18 [place] [address] [place] [address] Assigned PCP 06/27/18 Renetta Lal Personal Advocate & Liaison (PAL) Family Practice 10/24/19 08/13/20 Berlin Andrews MD Assigned Cancer Care Provider 07/06/20 01/04/24 Xena Camara MD [facility] [address] [facility] [address] [place] [address] Assigned Surgical Provider 07/06/20 04/20/21 Tracy Hsieh RN Specialty Commercial Center Manager Hematology & Oncology 11/02/23 Constance Henry, MARITZAC [address] [place] [id number] Assigned Cancer Care Provider 09/05/24 documented as of this encounter
[2024-09-15 08:40] VITALS: BP 102/66; PULSE 79; RESP 16; TEMP 36.2; O2SAT 96
[2024-09-15] MEDS: ERTAPENEM 1 GM in 0.9 % SODIUM CHLORIDE Mini-bag 100 ML IVPB (08:50)
[2024-09-15] MEDS: SODIUM CHLORIDE 0.9 % (FLUSH) 10 ML SYRINGE IVF ×2 (08:50→09:22)
--- OUTSIDE RECORDS SUMMARY | 2024-09-16 07:35 | XMS_ITS | Clinical Summary ---
Author Organization [facility] Address [address] [place] [address]. [place] [address] Care Team Providers Care Net Applications Developer Name Role Phone Cassidy Lindo MD Primary Care Provider [phone] Cassidy Lindo MD Unavailable [phone] Tracy Hsieh RN Unavailable [phone] Constance Henry PA-C Unavailable Allergies Active Allergy [...] allergic rhinitis due to other allergic trigger [place] 1 spray into both nostrils 2 times [...] (10/21/2019): Added automatically from request for surgery [id number] DCIS (ductal carcinoma in situ) 10/19/2019 Overview [...] Department Care Team Description 09/05/2024 9:47 AM PARKING WORKER - 09/05/2024 11:59 PM PARKING WORKER Hospital Encounter [facility] [address] [facility] [place] [address] Constance Henry PA-C Encounter for screening mammogram for breast cancer Discharge Disposition: Home or Self Care 09/05/2024 Travel 09/04/2024 Travel 08/30/2024 10:00 AM PARKING WORKER Virtual Visit [address] [address] Cassidy Lindo MD Anxiety 08/23/2024 3:30 PM PARKING WORKER Oncology Visit [address] [facility] [place] [address] Constance Henry PA-C 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 07/12/2024 MyC Medical Advice [address] [address] Cassidy Lindo MD Medication Question 06/29/2024 1:30 PM CDT Office Visit [address] [address] Cassidy Lindo MD Routine general medical examination [...] re latives? Once a week 06/29/2024 Attends Congregational Services Not on file 06/29 Active Member [...] Answer Date Recorded PHQ-2 Score 0 06/29/2024 [facility] of Occupat ional Health - Occupational Stress [...] in an abandoned building, in an overnight fpc, or couch-surfing.) Yes 06/29/2024 Are you worried [...] degree (e.g., MA, MS, Jose Guadalupe, MEd, BRUSHER MACHINE, DENISSE) 10/24/2019 Comments No Sex and Gender Information Value Date Recorded Sex Assigned at Female 09/19/2019 11:34 AM PARKING WORKER Legal Sex Female 3:19 AM PARKING WORKER Gender Identity Female 09/19/2019 11:34 AM PARKING WORKER Sexual Orientation Straight 09/19/2019 11 :34 AM PARKING WORKER 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 Not on file Last Filed Vital Signs Vital Sign Reading Time Taken Comments Blood Pressure 130/84 08/23/2024 3:33 PM PARKING WORKER Pulse 88 08/23/2024 3:33 PM PARKING WORKER Temperature 36.4 C (97.6 F) 08/23/2024 3:33 PM PARKING WORKER Respiratory Rate 16 08/23/2024 3:33 PM PARKING WORKER Oxygen Saturation 96% 08/23/2024 3:33 PM PARKING WORKER Inhaled Oxygen Concentration - - Weight 91 kg (200 lb 9.6 oz) 08/23/2024 3:33 PM PARKING WORKER Height 162.6 cm (5' 4) 08/23/2024 3:33 PM PARKING WORKER Body Mass Index 34.43 08/23/2024 3:33 PM PARKING WORKER Plan of Treatment Upcoming Encounters Date Type Department Care Team (Late st Contact Info) Description 10/24/2024 5:00 PM PARKING WORKER Ancillary Procedure [facility] [address] [facility] [address] [place] [address] Constance Henry PA-C [address] [place] [address] 02/17/2025 8:15 AM CDT Lab [facility] [address] [place] [phone] 02/21/2025 11:20 AM CDT Oncology Visit [facility] [place] [address] [place] [address] [address] [facility] [place] [phone] Chata Mosqueda MD [address] [place] [address] Health Maintenance Due Date Last Done [...] BILATERAL W/ SAÚL Routine 09/05/2024 10:09 AM PARKING WORKER Encounter for screening mammogram for breast cancer [...] MA Screen Bilateral w/Saúl (09/05/2024 10:09 AM PARKING WORKER) Anatomical Region Laterality Modality Breast Bilateral Mammography Impressions 09/05/2024 10:21 AM PARKING WORKER IMPRESSION: ACR BI-RADS Category 2: Benign BREAST CANCER SCREENING RECOMMENDATION: Routine yearly mammography beginning at age 40 or as discussed with your provider. The results and recommendations of this examination will be communicated to the patient. Todd Blanc MD Narrative 09/05/2024 10:21 AM PARKING WORKER BILATERAL FULL FIELD DIGITAL SCREENING MAMMOGRAM WITH [...] ORDERABLES Final Re sult Performing Organization Address City/[facility] Co de Phone Number LABORATORY [facility] [address] [facility], [address] [place] [address] * LDL cholesterol direct (06/29/2024 2:39 [...] ORDERABLES Final Re sult Performing Organization Address City/[facility]/ZIP Co de Phone Number LABORATORY [facility] [address] [facility], [address] [place] [address] * (ABNORMAL) Hemoglobin A1c (06/29/2024 2:39 [...] BLOOD ORDERABLES Final Re sult CR LABORATORY [facility] [address] [facility] Lab (no room number, 1st floor of clinic) [place] [address], [facility] * (ABNORMAL) Comprehensive metabolic panel (BMP + [...] BLOOD ORDERABLES Final Re sult [facility] LABORATORY [facility] [address] [facility], [address] [place] [address], [facility] * CBC with platelets (06/29/2024 2:39 PM [...] BLOOD ORDERABLES Final Re sult CR LABORATORY [facility] [place] [facility] [address] [facility] (no room number, 1st floor of clinic) [place] [address], [facility] * Pap Screen with HPV - recommended [...] component of this testing was completed at [facility] 02/23/2023 9:16 AM CDT SPECIALTY LABS Brushing CERVIX UTERI STRUCTURE / Unknown 02/18/2023 8:45 AM CDT 02/18/2023 9:11 AM CDT us Cassiyd Lindo MD LAB - DAVY AP Final Result SPECIALTY LABS Specialty Lab [address] [facility], Room [address] [place] [address], [facility] [phone] * HPV High Risk Types DNA Cervical (02/18/2023 8:45 AM CDT) Other HR HPV Negative Negative 02/24/2023 3:33 PM CDT [facility] DIAGNOSTICS HPV16 DNA Negative Negative 02/24/2023 3:33 PM CDT MOLECULAR DIAGNOSTICS HPV18 DNA Negative Negative 02/24/2023 3:33 PM CDT MOLECULAR DIAGNOSTICS FINAL DIAGNOSIS This patient's sample is negative for HPV DNA. This test was developed and its performance characteristics determined by the [facility], Molecular Diagnostics Laboratory. It has not [...] ORDERABLES Final Re sult Performing Organization Address City/[facility]/ZIP Co de Phone Number MOLECULAR DIAGNOSTICS [facility] [address] [facility], [address] [address], [facility] [phone] * HIV Antigen Antibody Combo (01/01/2022 9:40 AM CDT) HIV Antigen Antibody Combo Nonreactive Nonreactive 01/01/2022 11:11 PM CDT SPECIALTY CORE/PROT/EN DO Comment:HIV-1 p24 Ag & HIV-1 /HIV-2 Ab Not Detected Blood BLOOD SPECIMEN / Unknown Venipuncture / Unknown 01/01/2022 9:40 AM CDT 01/01/2022 9:40 AM CDT Cassidy Lindo MD LAB - BLOOD ORDERABLES Final Re sult Performing Organization Address City/[facility]/ZIP Co de Phone Number SPECIALTY CORE/PROT/ENDO Specialty Core/Prot/Endo [address] [facility], Room [address] [phone] * Hepatitis C Screen Reflex to HCV [...] UM SPECIALTY CORE/PROT/ENDO [facility] Specialty Core/Prot/Endo [address] [facility], [address] [address], [facility] [phone] * COLONOSCOPY (07/13/2018 11:53 AM CDT) COLONOSCOPY [...] # [id number], [place] # [id number], SN # [id number] was introduced through the anus and advanced [...] malignant neoplasm of colon CPT copyright 2017 [employer]. All rights reserved. The codes documented in this report are preliminary and upon frame table operator review may be revised to meet [...] MD PROCEDURES Final Result Performing Organization Address City/State/[facility] Co de Phone Number RADIOLOGY RESULTS from Last 3 Months or Most Recently Relevant to Health Maintenance Insurance BCBS OUT OF STATE BCBS OUT OF STATE Advance Directives For more information, please contact: [phone] * Full Code (Latest Code Status on File) Date Activated Date Inactivated Comments 10/22/2016 9:51 AM 11/02/2019 10:00 AM * Full Code Date Activated Date Inactivated Comments 10/21/2016 11:45 PM 10/22/2016 9:51 AM Care Teams Net Applications Developer Relationship Specialty [place] [address] [place] [address] PCP - General Family Practice 06/28/18 [place] [address] [place] [address] Assigned PCP 06/27/18 Tracy Hsieh, RN Specialty Casting And Pasting Supervisor Hematology & Oncology 11/02/23 Constance Henry PA-C [address] [place] [address] [phone] Assigned Cancer Care Provider 09/05/24
--- OUTSIDE RECORDS SUMMARY | 2024-09-16 07:36 | XMS_ITS | Encounter Summary ---
Author Organization [facility] Address [address] [place] [address]. [place] [address] Care Team Providers Care Office 365 Consultant Name Role Phone Cassidy Lindo MD Primary Care Provider [phone] Cassidy Lindo MD Unavailable [phone] Tracy Hsieh RN Unavailable [phone] Constance HenryC Unavailable Encounter Details Date Type [...] re latives? Once a week 06/29/2024 Attends [employer] Not on file 06/29 Active Member [...] Answer Date Recorded PHQ-2 Score 0 06/29/2024 [facility] of Occupat ional Health - Occupational [...] in an abandoned building, in an overnight senior living, or couch-surfing.) Yes 06/29/2024 Are you worried [...] degree (e.g., MA, MS, Jose Guadalupe, MEd, SIGNAL WORKER HELPER, DENISSE) 10/24/2019 Comments No Sex and Gender Information Value Date Recorded Sex Assigned at Female 09/19/2019 11:34 AM FAGOT HEATER Legal Sex Female 3:19 AM FAGOT HEATER Gender Identity Female 09/19/2019 11:34 AM FAGOT HEATER Sexual Orientation Straight 09/19/2019 11 :34 AM FAGOT HEATER 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 Not on file documented as of this encounter Plan of Treatment Upcoming Encounters Date Type Department Care Team (Late st Contact Info) Description 10/24/2024 5:00 PM FAGOT HEATER Ancillary Procedure [facility] [address] [facility] [address] [place] [address] Constance Henry PA-C [address] [place] [address] 02/17/2025 8:15 AM CDT Lab [facility] [address] [place] [phone] 02/21/2025 11:20 AM CDT Oncology Visit [facility] [place] [address] [place] [address] [address] [facility] [place] [phone] Chata Mosqueda MD [address] [place] [phone] documented as of this encounter Visit Diagnoses Not on filedocumented in this encounter Additional Health Concerns Assessment Noted Time PHQ-9 Depression Total Score: 1 06/29/20 24 1:25 PM CDT documented as of this encounter Care Teams Office 365 Consultant Relationship Specialty Start Date End [place] [address] [place] [address] PCP - General Family Practice 06/28/18 [place] [address] [place] [address] Assigned PCP 06/27/18 Tracy Hsieh, RN Specialty Windshield Technician Hematology & Oncology 11/02/23 Constance Henry PA-C [address] [place] [address] Assigned Cancer Care Provider 09/05/24 documented as of this encounter
--- OUTSIDE RECORDS SUMMARY | 2024-09-16 07:36 | XMS_ITS | Encounter Summary ---
Author Organization [facility] Address [address] [place] [address] Care Team Providers Care Diesel Engine Operator Name Role Phone Cassidy Lindo MD Primary Care Provider [phone] Cassidy Lindo MD Unavailable [phone] Tracy Hsieh RN Unavailable [phone] Constance Henry PA-C Unavailable Reason for Referral * Diagnostic Imaging Mammo (Routine) - Pending Review Specialty Diagnoses / Procedures Referred By Mika roberts Referred To Contact Radiology. Diagnoses Encounter for screening mammogram for breast cancer Procedures MA Screen Bilateral w/Saúl Constance Henry PA-C [address] [place] [address] Phone: tel: fax: Referral ID Status Reason Start Date Expiration Date V isits Requested Visits Authorized [id number] Pending Review 08/23/2024 08/23/2025 1 1 S CATALOGUER Reason for Visit * Diagnostic Imaging Mammo (Routine) - Pending Review Specialty Diagnoses / Procedures Referred By Contmykel roberts Referred To Contact Radiology. Diagnoses Encounter for screening mammogram for breast cancer Procedures MA Screen Bilateral w/Saúl Constance Henry PA-C [address] [place] [address] Phone: tel: fax: Referral ID Status Reason Start Date Expiration Date V isits Requested Visits Authorized [id number] Pending Review 08/23/2024 08/23/2025 1 1 Encounter Details Date Type Department Care Team (Latest Contact Info) Description 09/05/2024 9:47 AM PARTS CATALOGUER - 09/05/2024 11:59 PM [facility] Hospital Encounter [facility] [address] [place] [address] Constance Henry PA-C [address] [place], [place] [address] Encounter for screening mammogram for breast cancer [...] re latives? Once a week 06/29/2024 Attends [employer] Services Not on file 06/29 Active Member [...] Date Recorded PHQ-2 Score 0 06/29/2024 [facility] of Occupat ional Health - Occupational Stress [...] an abandoned building, in an overnight senior care, or couch-surfing.) Yes 06/29/2024 Are you worried [...] degree (e.g., MA, MS, Jose Guadalupe, MEd, CARTOGRAPHY/MAPPING TECHNICIAN, DENISSE) 10/24/2019 Comments No Sex and Gender Information Value Date Recorded Sex Assigned at Female 09/19/2019 11:34 AM PARTS CATALOGUER Legal Sex Female 3:19 AM PARTS CATALOGUER Gender Identity Female 09/19/2019 11:34 AM PARTS CATALOGUER Sexual Orientation Straight 09/19/2019 11 :34 AM PARTS CATALOGUER Occupation Industry Job Start Date Job End [...] allergic rhinitis due to other allergic trigger [place] 1 spray into both nostrils 2 times [...] st Contact Info) Description 10/24/2024 5:00 PM PARTS CATALOGUER Ancillary Procedure [facility] [address] [place] [address] Constance Henry PA-C [address] [place] [address] 02/17/2025 8:15 AM CDT Lab [facility] [address] [place] [address] 02/21/2025 11:20 AM CDT Oncology Visit [facility] [place] [address] [place] [address] [facility] [place] [phone] Chata Mosqueda MD [address] [place] [address] documented as of this encounter Procedures Procedure Name Priority Date/Time Associated Diagnosis Comments MA SCREENING BILATERAL W/ SAÚL Routine 09/05/2024 10:09 AM PARTS CATALOGUER Encounter for screening mammogram for breast cancer documented in this encounter Results * MA Screen Bilateral w/Saúl (09/05/2024 10:09 AM PARTS CATALOGUER) Anatomical Region Laterality Modality Breast Bilateral Mammography Impressions 09/05/2024 10:21 AM PARTS CATALOGUER IMPRESSION: ACR BI-RADS Category 2: Benign BREAST CANCER SCREENING RECOMMENDATION: Routine yearly mammography beginning at age 40 or as discussed with your provider. The results and recommendations of this examination will be communicated to the patient. Todd Blanc MD Narrative 09/05/2024 10:21 AM PARTS CATALOGUER BILATERAL FULL FIELD DIGITAL SCREENING MAMMOGRAM WITH [...] documented as of this encounter Care Teams Diesel Engine Operator Relationship Specialty [place] [address] [place] [address] PCP - General Family Practice 06/28/18 [place] [address] [place] [address] Assigned PCP 06/27/18 Tracy Hsieh, RN Specialty Emergency Planning And Response Manager Hematology & Oncology 11/02/23 Constance Henry PA-C [address] [place] [address] Assigned Cancer Care Provider 09/05/24 documented as of this encounter
--- OUTSIDE RECORDS SUMMARY | 2024-09-16 07:36 | XMS_ITS | Encounter Summary ---
Author Organization [facility] Address [address] [place] [address]. [place] [address] Care Team Providers Care Housekeeping And Laundry Team Leader Name Role Phone Cassidy Lindo MD Primary Care Provider [phone] Cassidy Lindo MD Unavailable [phone] Renetta Lal Unavailable Unavailable Berlin Andrews MD Unavailable Unav ailable Xena Camara MD Unavailable [phone] Tracy Hsieh RN Unavailable [phone] Constance Henry PA-C Unavailable Encounter Details Date Type Department Care Team (Late st Contact Info) Description 01/09/[address] [facility] [place] [address] [place] [address] [address] [facility] [place] [phone] Jailene Aggarwal Social History Tobacco Use Types [...] and Family Once a week 10/24/2019 Attends Worship Services More than 4 times per year [...] Answer Date Recorded PHQ-2 Score 0 09/21/2018 [facility] [place] of Occupat ional Health - Occupational Stress [...] degree (e.g., MA, MS, Jose Guadalupe, MEd, WHOLESALE ACCOUNT EXECUTIVE, DENISSE) 10/24/2019 Comments No Sex and Gender Information Value Date Recorded Sex Assigned at Female 09/19/2019 11:34 AM COTTON BUYER Legal Sex Female 3:19 AM COTTON BUYER Gender Identity Female 09/19/2019 11:34 AM COTTON BUYER Sexual Orientation Straight 09/19/2019 11 :34 AM COTTON BUYER Occupation Industry Job Start Date Job End [...] st Contact Info) Description 10/24/2024 5:00 PM COTTON BUYER Ancillary Procedure [facility] [address] [facility] [address] [place] [address] Constance Henry PA-C [address] [place] [phone] 02/17/2025 8:15 AM CDT Lab [facility] Laboratory [address] [place] [address] 02/21/2025 11:20 AM CDT Oncology Visit [facility] [place] [address] [place] [address] [facility] [place] [address] Chata Mosqueda MD [address] [place] [address] documented as of this encounter Visit Diagnoses Not on filedocumented in this encounter Additional Health Concerns Infection Onset Date Last Indicated Resolved Time Rule Out COVID-19 06/11/2020 06/11/2020 06/12/2020 3:31 PM CDT documented as of this encounter Care Teams Housekeeping And Laundry Team Leader Relationship Specialty [place] [address] [place] [address] PCP - General Family Practice 06/28/18 [place] [address] [place] [address] Assigned PCP 06/27/18 Renetta Lal Personal Advocate & Liaison (PAL) Family Practice 10/24/19 08/13/20 [place] Andrews MD Assigned Cancer Care Provider 07/06/20 01/04/24 Xena Camara MD [facility] [address] [facility] [address] [place] [address] Assigned Surgical Provider 07/06/20 04/20/21 Tracy Hsieh, RN Specialty Sausage Tier Hematology & Oncology 11/02/23 Constance Henry, MARITZAC [address] [place] [address] [phone] Assigned Cancer Care Provider 09/05/24 documented as of this encounter
--- OUTSIDE RECORDS SUMMARY | 2024-09-16 07:36 | XMS_ITS | Encounter Summary ---
Author Organization [facility] Address [address] [place] [address]. [place] [address] Care Team Providers Care Field Mechanic/Site Lead Name Role Phone Clinic - [facility] Primary Care Provider Cassidy Lindo MD Primary Care Provider [phone] Cassidy Lindo MD Unavailable [phone] Cassidy Lindo MD Unavailable [phone] Renetta Lal Unavailable Unavailable Berlin Andrews MD Unavailable Unav ailable Xena Camara MD Unavailable [phone] Tracy Hsieh RN Unavailable [phone] Constance Henry PA-C Unavailable Reason for Visit * Reason Onset Date Comments MyChart Communication 06/22/2018 Encounter Details Date Type Department Care Team (Latest Contact Info) Description 06/22/2018 MyC Medical Advice [facility] [address] [place] [phone] [place] [address] [place] [address] MyChart Communication Social History Tobacco Use Types Packs/Day Years Used Date Smoking Tobacco: Never Smokeless Tobacco: Never Alcohol Use Standard Drinks/Week Comments Yes 0 (1 standard drink = 0.6 oz pur e alcohol) couple per month Comments No Sex and Gender Information Value Date Recorded Sex Assigned at Female 09/19/2019 11:34 AM INSTRUMENT TECHNOLOGIST Legal Sex Female 3:19 AM INSTRUMENT TECHNOLOGIST Gender Identity Female 09/19/2019 11:34 AM INSTRUMENT TECHNOLOGIST Sexual Orientation Straight 09/19/2019 11 :34 AM INSTRUMENT TECHNOLOGIST 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 Not on file documented as of this encounter Plan of Treatment Upcoming Encounters Date Type Department Care Team (Late st Contact Info) Description 10/24/2024 5:00 PM INSTRUMENT TECHNOLOGIST Ancillary Procedure [facility] [address] [facility] [address] [place] [address] Constance Henry PA-C [address] [place] [address] 02/17/2025 8:15 AM CDT Lab [facility] [address] [place] [phone] 02/21/2025 11:20 AM CDT Oncology Visit [facility] [address] [facility] [place] [address] Chata Mosqueda MD [address] [place] [address] documented as of this encounter Visit Diagnoses Not on filedocumented in this encounter Additional Health Concerns Infection Onset Date Last Indicated Resolved Time Rule Out COVID-19 06/11/2020 06/11/2020 06/12/2020 3:31 PM CDT documented as of this encounter Care Teams Field Mechanic/Site Lead Relationship Specialty Start Date End Date Clinic - [facility] [address] [place] [address] PCP - General 05/14/17 06/27/18 [place] [address] [place] [address] PCP - General Family Practice 06/28/18 [place] [address] [place] [address] PCP - Assigned PCP 06/27/18 11/16/18 [place] [address] [place] [address] Assigned PCP 06/27/18 Renetta Lal Personal Advocate & Liaison (PAL) [facility] Practice 10/24/19 08/13/20 Berlin Andrews MD Assigned Cancer Care Provider 07/06/20 01/04/24 Xena Camara MD SURGICAL CONSULTS, [place] [address] [facility] [address] [place], [place] [address] Assigned Surgical Provider 07/06/20 04/20/21 Tracy Hsieh, RN Specialty Escrow Clerk Hematology & Oncology 11/02/23 Constance Henry, PAHalC [address] [place] [address] Assigned Cancer Care Provider 09/05/24 documented as of this encounter
--- OUTSIDE RECORDS SUMMARY | 2024-09-16 07:36 | XMS_ITS | Referral Summary ---
Author Organization [facility] Address [address] [place] [address] Care Team Providers Care Finished Cloth Checker Name Role Phone Cassidy Lindo MD Primary Care Provider [phone] Cassidy Lindo MD Unavailable [phone] Tracy Hsieh RN Unavailable [phone] Constance Henry PA-C Unavailable Encounters Date Type Department Care Team Description 09/05/2024 Travel 09/05/2024 9:47 AM PRODUCT MGR - 09/05/2024 11:59 PM PRODUCT MGR Hospital Encounter [facility] Breast [place] [address] [facility], [address] [place] [phone] Constance Henry PA-C Encounter for screening mammogram for breast cancer Discharge Disposition: Home or Self Care 09/04/2024 Travel 08/30/2024 10:00 AM PRODUCT MGR Virtual Visit [address] [phone] Cassidy Lindo MD Anxiety 08/23/2024 Travel 08/23/2024 3:30 PM PRODUCT MGR Oncology Visit [facility] [address] [facility] [place] [place] [address] Constance Henry PA-C 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 07/12/2024 [facility] Advice [address] [address] Cassidy Lindo MD Medication Question 06/29/2024 Travel 06/29/2024 1:30 PM CDT Office Visit [address] [address] Cassidy Lindo MD Routine general medical examination [...] allergic rhinitis due to other allergic trigger [place] 1 spray into both nostrils 2 times [...] (10/21/2019): Added automatically from request for surgery [id number] DCIS (ductal carcinoma in situ) 10/19/2019 Overview [...] re latives? Once a week 06/29/2024 Attends [employer] Not on file 06/29 Active Member [...] Answer Date Recorded PHQ-2 Score 0 06/29/2024 [facility] Occupat ional Health - Occupational [...] in an abandoned building, in an overnight jail, or couch-surfing.) Yes 06/29/2024 Are you worried [...] degree (e.g., MA, MS, Jose Guadalupe, MEd, MARINE ENGINEER [employer], DENISSE) 10/24/2019 Comments No Sex and Gender Information Value Date Recorded Sex Assigned at Female 09/19/2019 11:34 AM PRODUCT MGR Legal Sex Female 3:19 AM PRODUCT MGR Gender Identity Female 09/19/2019 11:34 AM PRODUCT MGR Sexual Orientation Straight 09/19/2019 11 :34 AM PRODUCT MGR 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 Not on file Last Filed Vital Signs Vital Sign Reading Time Taken Comments Blood Pressure 130/84 08/23/2024 3:33 PM PRODUCT MGR Pulse 88 08/23/2024 3:33 PM PRODUCT MGR Temperature 36.4 C (97.6 F) 08/23/2024 3:33 PM PRODUCT MGR Respiratory Rate 16 08/23/2024 3:33 PM PRODUCT MGR Oxygen Saturation 96% 08/23/2024 3:33 PM PRODUCT MGR Inhaled Oxygen Concentration - - Weight 91 kg (200 lb 9.6 oz) 08/23/2024 3:33 PM PRODUCT MGR Height 162.6 cm (5' 4) 08/23/2024 3:33 PM PRODUCT MGR Body Mass Index 34.43 08/23/2024 3:33 PM PRODUCT MGR Plan of Treatment Upcoming Encounters Date Type Department Care Team (Late st Contact Info) Description 10/24/2024 5:00 PM PRODUCT MGR Ancillary Procedure [facility] [address] [facility] [address] [place] [address] Constance Henry PA-C [address] [place], [place] [address] 02/17/2025 8:15 AM CDT Lab [facility] [address] [place] [phone] 02/21/2025 11:20 AM CDT Oncology Visit [facility] [place] [id number] [place] [address] [address] [facility] [place] [phone] Chata Mosqueda MD [address] [place], [place] [phone] Procedures Procedure Name Priority Date/Time Associated Diagnosis Comments MA SCREENING BILATERAL W/ SAÚL Routine 09/05/2024 10:09 AM PRODUCT MGR Encounter for screening mammogram for breast cancer [...] MA Screen Bilateral w/Saúl (09/05/2024 10:09 AM PRODUCT MGR) Anatomical Region Laterality Modality Breast Bilateral Mammography Impressions 09/05/2024 10:21 AM PRODUCT MGR IMPRESSION: ACR BI-RADS Category 2: Benign BREAST CANCER SCREENING RECOMMENDATION: Routine yearly mammography beginning at age 40 or as discussed with your provider. The results and recommendations of this examination will be communicated to the patient. Todd Blanc MD Narrative 09/05/2024 10:21 AM PRODUCT MGR BILATERAL FULL FIELD DIGITAL SCREENING MAMMOGRAM WITH [...] - BLOOD ORDERABLES Final Re sult LAB[facility]ORY [facility] [address] [facility], [address] * LDL cholesterol direct (06/29/2024 2:39 PM CDT) Pathologist [facility] LDL Cholesterol Direct 87 <100 mg/dL 06/30/2024 [...] ORDERABLES Final Re sult Performing Organization Address [facility] de Phone Number [facility] [address] [facility], [address] * (ABNORMAL) Hemoglobin A1c (06/29/2024 2:39 PM CDT) [facility] Estimated Average Glucose 137(H) <117 mg/dL 06/29/2024 [...] BLOOD ORDERABLES Final Re sult CR LABORATORY [facility] [address] [facility] (no room number, 1st floor of clinic) [place] [address], [facility] * (ABNORMAL) Comprehensive metabolic panel (BMP + [...] BLOOD ORDERABLES Final Re sult [facility] LABORATORY [facility] [address] [facility], Room [address] [place] [address] * CBC with platelets (06/29/2024 2:39 PM [...] BLOOD ORDERABLES Final Re sult CR LAB[facility]ATORY [facility] [address] [facility] (no room number, 1st floor of clinic) [place] [address], [facility] * Pap Screen with HPV - recommended [...] component of this testing was completed at [facility] 02/23/2023 9:16 AM CDT SPECIALTY LABS Brushing CERVIX UTERI STRUCTURE / Unknown 02/18/2023 8:45 AM CDT 02/18/2023 9:11 AM CDT us Cassidy Lindo MD LAB - BEAKER AP Final Result SPECIALTY LABS Specialty Lab [address] [facility] [address], Room [address] [place] [address], [facility] [phone] * HPV High Risk Types DNA Cervical (02/18/2023 8:45 AM CDT) Other HR HPV Negative Negative 02/24/2023 3:33 PM CDT MOLE[facility] DIAGNOSTICS HPV16 DNA Negative Negative 02/24/2023 3:33 PM CDT MOLECULAR DIAGNOSTICS HPV18 DNA Negative Negative 02/24/2023 3:33 PM CDT MOLECULAR DIAGNOSTICS FINAL DIAGNOSIS This patient's sample is negative for HPV DNA. This test was developed and its performance characteristics determined by the [facility] Molecular Diagnostics Laboratory. It has not [...] Re sult MOLECULAR DIAGNOSTICS Molecular Diagnostics [address] [facility] [address], [address] [place] [address], [facility] [phone] * HIV Antigen Antibody Combo (01/01/2022 9:40 AM CDT) Pathologist [facility] HIV Antigen Antibody Combo Nonreactive Nonreactive 01/01/2022 11:11 PM CDT [facility] SPECIALTY CORE/PROT/EN DO Comment:HIV-1 p24 Ag & HIV-1 /HIV-2 Ab Not Detected Blood BLOOD SPECIMEN / Unknown Venipuncture / Unknown 01/01/2022 9:40 AM CDT 01/01/2022 9:40 AM CDT Cassidy Lindo MD LAB - BLOOD ORDERABLES Final Re sult [facility] SPECIALTY CORE/PROT/ENDO [facility] Specialty Core/Prot/Endo [address] [facility], Room [address] [phone] * Hepatitis C Screen Reflex to HCV RNA Quant and Genotype (01/01/2022 9:40 AM CDT) Pathologist [facility] Hepatitis C Antibody Nonreactive Nonreactive 01/01/2022 11:11 [...] UM SPECIALTY CORE/PROT/ENDO [facility] Specialty Core/Prot/Endo [address] [facility], Room [address] [phone] * COLONOSCOPY (07/13/2018 11:53 AM CDT) COLONOSCOPY [facility] Patient Name: Yesenia Collazo Procedure Date: [...] # [id number], [place] # [id number], SN # [id number] was introduced through the anus and advanced [...] malignant neoplasm of colon CPT copyright 2017 [employer]. All rights reserved. The codes documented in this report are preliminary and upon examining officer review may be revised to meet current [...] Most Recently Relevant to Health Maintenance Insurance [facility] [place] [place] [address] [place] [address] Advance Directives For more information, please contact: [phone] * Full Code (Latest Code Status on File) Date Activated Date Inactivated Comments 10/22/2016 9:51 AM 11/02/2019 10:00 AM * Full Code Date Activated Date Inactivated Comments 10/21/2016 11:45 PM 10/22/2016 9:51 AM Care Teams Finished Cloth Checker Relationship Specialty [place] [address] [place] [address] PCP - General Family Practice 06/28/18 [place] [address] [place] [address] Assigned PCP 06/27/18 Tracy Hsieh, RN Specialty Gas Turbine Powerplant Mechanic Helper Hematology & Oncology 11/02/23 Constance Henry PA-C [address] [place] [address] Assigned Cancer Care Provider 09/05/24
--- OUTSIDE RECORDS SUMMARY | 2024-09-16 07:36 | XMS_ITS | Encounter Summary ---
Author Organization [facility] Address [address] [place] [address]. [place] [address] Care Team Providers Care Temporary Staff Accountant Name Role Phone Cassidy Lindo MD Primary Care Provider [phone] Cassidy Lindo MD Unavailable [phone] Tracy Hsieh RN Unavailable [phone] Reason for Visit * Reason Comments Recheck Medication Encounter Details Date Type Department Care Team (Late st Contact Info) Description 08/30/2024 10:00 AM COLLOID MILL OPERATOR Virtual Visit [address] [phone] Cassidy Lindo MD [address] [place] [phone] Anxiety Social History Tobacco Use Types Packs/Day [...] re latives? Once a week 06/29/2024 Attends [employer] Not on file 06/29 Active Member [...] Answer Date Recorded PHQ-2 Score 0 06/29/2024 [facility] of Occupat ional Health - Occupational Stress [...] in an abandoned building, in an overnight chcf, or couch-surfing.) Yes 06/29/2024 Are you worried [...] degree (e.g., MA, MS, Jose Guadalupe, MEd, MELTER SUPERVISOR OPEN HEARTH FURNACE, DENISSE) 10/24/2019 Comments No Sex and Gender Information Value Date Recorded Sex Assigned at Female 09/19/2019 11:34 AM COLLOID MILL OPERATOR Legal Sex Female 3:19 AM COLLOID MILL OPERATOR Gender Identity Female 09/19/2019 11:34 AM COLLOID MILL OPERATOR Sexual Orientation Straight 09/19/2019 11 :34 AM COLLOID MILL OPERATOR Occupation Industry Job Start Date Job [...] be resent by: Text to cell phone: [phone] Will anyone else be joining your video [...] DILATION, CURETTAGE; Surgeon: Whitney Stevens MD; Location: [facility] ESOPHAGOSCOPY, GASTROSCOPY, DUODENOSCOPY (EGD), COMBINED N/A [...] 3 azelastine (ASTELIN) 0.1 % nasal spray [place] 1 spray into both nostrils 2 times [...] location): On-site Platform used for Video Visit: [facility] Signed Electronically by: Cassidy Lindo MD OID MILL OPERATOR documented in this encounter Plan of Treatment Upcoming Encounters Date Type Department Care Team (Late st Contact Info) Description 10/24/2024 5:00 PM COLLOID MILL OPERATOR Ancillary Procedure [address] [place] [address] Constance Henry, PASumit [address] [place] [address] 02/17/2025 8:15 AM CDT Lab [facility] [address] [place] [address] 02/21/2025 11:20 AM CDT Oncology Visit [facility] [place] [address] [facility] [place] [address] Chata Mosqueda MD 9 [place] [address] documented as of this encounter Visit Diagnoses Diagnosis Anxiety Anxiety state, unspecified documented in this encounter Additional Health Concerns Assessment Noted Time PHQ-9 Depression Total Score: 1 06/29/20 1:25 PM CDT documented as of this encounter Care Teams Temporary Staff Accountant Relationship Specialty Start [place] [address] [place] [address] PCP - General Family Practice 06/28/18 [place] [address] [place] [address] Assigned PCP 06/27/18 Tracy Hsieh RN Specialty Press Operator Helper Hematology & Oncology 11/02/23 documented as of this encounter
--- OUTSIDE RECORDS SUMMARY | 2024-09-16 07:36 | XMS_ITS | Continuity of Care Document ---
Author Name [facility] User [facility] Address Unknown Organization Unknown Address Unknown Encounters FILTER APPLIED:Only known Encounters with Admission Date within the last 5 years Encounter Location Admission Discharge Billing Code Design Transferrer Bryce vera Outpatient [facility] Outpatient [facility] Outpatient [facility] Outpatient [facility] Outpatient [facility]
--- OUTSIDE RECORDS SUMMARY | 2024-09-16 07:36 | XMS_ITS ---
Author Organization [facility] Address [address] [place] [address]. [place] [address] Care Team Providers Care Sculpture Conservator Name Role Phone Cassidy Lindo MD Primary Care Provider [phone] Cassidy Lindo MD Unavailable [phone] Tracy Hsieh RN Unavailable [phone] Constance Henry PA-C Unavailable Active Problems Problem Noted Date Diagnosed Date Morbid obesity 02/18/2023 Hyperlipidemia LDL goal <130 08/20/2020 Family history of diabetes mellitus 08/20/2020 Esophageal dysphagia 08/20/2020 Ductal carcinoma in situ (DCIS) of left breast 0 10/21/2019 Overview (10/21/2019): Added automatically from request for surgery [id number] DCIS (ductal carcinoma in situ) 10/19/2019 Overview [...] treatments are documented for this patient in [facility]. Treatments may have been administered in another system. Treatment Summaries DCIS (ductal carcinoma in situ)* Cancer Treatment Plan and Summary - Breast Provided by [facility] General Information Patient Name Yesenia Collazo Patient 1965 Patient phone [phone] (home) [phone] (work) Email [email or web address] Care Team Primary Care Provider Cassidy Lindo [...] posterior margin: Negative for residual intraductal carcinoma. [facility] Radiation Therapy [place] 5256 cGy in 20 of 20 fractions [...] to maintain optimal health. Possible late and/or long-term effects that someone with this type of cancer and treatment may experience: bone effects heart effects fertility effects memory and concentration pain lymphedema nervous system changes If you would like to discuss specific late and/or superintendent terminal effects related to your treatment, please use the following website to make an appointment in the Cancer Survivor Program: www.rockefeller war demonstration [email or web address] [email or web address]/[email or web address]-phsc-npskv/support-services OR call These symptoms should be brought [...] Advanced Directive- Link to the short form https://www.honoringchoices.org/rifdoh-gigf-lejpiuonrq/romanian/11-puozeowurc-oze qyfaay-7-ykrdq-fillable/file Here are some resources in survivorship that [...] and find support from groups like these: [place] Cancer Society, . CancerCare, 044-580-TQUI (4673) National Cancer [place], 579-3-GVYHEP (966-895-1186) Online Resources [place] Association for Cancer Research: www.aacr.org [place] for Cancer Research- Food Facts Association of Cancer Online Resources: www.acor.org Breast Cancer specific: fireflysisterhood.org Cancer Care, Inc.: www.cancercare.org [place] Society of Clinical Oncologists (ASCO): www.cancer.net Cancer Survivors Network ([place] Cancer Society): www.acscsn.org From Cancer Patient to Cancer Survivor: Lost in Transition Life After Cancer Treatment (National Cancer [place]): www.cancer.gov/cancertopics/coping/ogws-bulgj-pajfavmeq Live Strong: www.livestrong.org [facility]: mskcc.org (herbal facts) National Coalition for Cancer Survivorship: www.canceradvocacy.org Patient Advocate Foundation: www.patientadvocate.org People Living With Cancer: www.uicc.org/membership/cyhmeg-axcaox-fjdndq-plwc MHealth www.mhealth.org/care/overarching-care/qzrizm-nohq-qympm/support-services Phone Resources [place] Cancer Society: National Cancer [place]: National Coalition for Cancer Survivorship: 4-178-PCAK-YES (070-632-0827) Patient Advocate Foundation: Books After Cancer Treatment: Heal Faster, Better, Stronger (2006, 2nd Ed. 2015) by Tracy Gray Cancer Fitness: Exercise Programs for Patients and Survivors (2003) by Ashlie Adame Eating Well, Staying Well During and After Cancer (2003, 2nd Ed. 2010) by the [place] Cancer Society LiveStrong: Inspirational Stories from Cancer [...] Diet in Cancer Survivorship (2001) by the [place] for Cancer Research Anticancer: A New Way [...] not within this range, recommend seeing a machine bender to discuss way to get into this [...]
--- OUTSIDE RECORDS SUMMARY | 2024-09-16 07:36 | XMS_ITS | Encounter Summary ---
Author Organization [place] Address [address] [place] [address]. [place] [address] Care Team Providers Care Clinical Nurse Name Role Phone Cassidy Lindo MD Primary Care Provider [phone] Cassidy Lindo MD Unavailable [phone] Renetta Lal Unavailable Unavailable Berlin Andrews MD Unavailable Unav ailable Xena Camara MD Unavailable [phone] Tracy Hsieh RN Unavailable [phone] Constance Henry PA-C Unavailable Encounter Details Date Type Department Care Team (Late st Contact Info) Description 08/03/2020 MyC Medical Advice [facility] [address] [place] [phone] Lamar Buchanan, RN Social History Tobacco Use [...] and Family Once a week 10/24/2019 Attends Jehovah'S Witness Services More than 4 times per year [...] Answer Date Recorded PHQ-2 Score 0 09/21/2018 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 [address] [place] [phone] 02/21/2025 11:20 AM CDT Oncology Visit [facility] [place] [address] [place] [address] [facility] [place] [phone] Chata Mosqueda MD [address] [place] [address] documented as of this encounter Visit Diagnoses Not on filedocumented in this encounter Care Teams Clinical Nurse Relationship Specialty [place] [address] [place] [address] PCP - General Family Practice 06/28/18 [place] [address] [place] [address] Assigned PCP 06/27/18 Renetta Lal Personal Advocate & Liaison (PAL) Family Practice 10/24/19 08/13/20 Berlin Andrews MD Assigned Cancer Care Provider 07/06/20 01/04/24 Xean Camara MD [facility] [address] [facility] [address] [place] [address] Assigned Surgical Provider 07/06/20 04/20/21 Tracy Hsieh RN Specialty Demolition Crane Operator Hematology & Oncology 11/02/23 Constance Henry, MARITZAC [address] [place] [address] [id number] Assigned Cancer Care Provider 09/05/24 documented as of this encounter
--- OUTSIDE RECORDS SUMMARY | 2024-09-16 07:36 | XMS_ITS | Encounter Summary ---
Author Organization [facility] Address [address] [place] [address]. [place] [address] Care Team Providers Care Mold Swabber Name Role Phone Cassidy Lindo MD Primary Care Provider [phone] Cassidy Lindo MD Unavailable [phone] Berlin Andrews MD Unavailable Unav ailable Tracy Hsieh RN Unavailable [phone] Constance Henry PA-C Unavailable Encounter Details Date Type Department Care Team (Late st Contact Info) Description 11/28/2022 [facility] Medical Advice [facility] [address] [facility] [place] [address] Tracy Hsieh, RN Social History [...] week 01/01/2022 How often do you attend [facility] or hol[facility] services? More than 4 times per year 01/01/2022 Do you belong to any clubs o r organizations such as hinduism groups, unions, fraternal or athletic groups, or [...] Answer Date Recorded PHQ-2 Score 0 01/01/2022 [facility] [place] of Occupat ional Health - Occupational Stress [...] place to sleep or slept in a [place] health care facility (including now)? No 01/01/2022 Education Answer Date Recorded What is the highest level of school you have completed or the highest degree you have received? 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 [address] [place] [address] 02/21/2025 11:20 AM CDT Oncology Visit [facility] [address] [place] [address] [facility] [place] [address] Chata Mosqueda MD [address] [place] [address] [phone] documented as of this encounter Visit Diagnoses Not on filedocumented in this encounter Additional Health Concerns Assessment Noted Time PHQ-9 Depression Total Score: 1 08/14/20 20 7:02 AM MANAGER INTEGRITY documented as of this encounter Care Teams Mold Swabber Relationship Specialty [place] [address] [place] [address] PCP - General Family Practice 06/28/18 [place] [address] [place] [address] Assigned PCP 06/27/18 [place] [address] [place] [address] Assigned Cancer Care Provider 07/06/20 01/04/24 Tracy Hsieh, RN Specialty Supervisor Forming And Tempering Hematology & Oncology 11/02/23 Constance Henry PA-C [address] [place] [address] Assigned Cancer Care Provider 09/05/24 documented as of this encounter
--- OUTSIDE RECORDS SUMMARY | 2024-09-16 07:36 | XMS_ITS | Encounter Summary ---
Author Organization [facility] Address [address] [place] [address]. [place] [address] Care Team Providers Care Software Architect Name Role Phone Cassidy Lindo MD Primary Care Provider [phone] Cassidy Lindo MD Unavailable [phone] Tracy Hsieh RN Unavailable [phone] Encounter Details Date Type Department Care Team [...] re latives? Once a week 06/29/2024 Attends Hoahaoism Services Not on file 06/29 Active Member [...] Answer Date Recorded PHQ-2 Score 0 06/29/2024 [facility] of Occupat ional Health - Occupational Stress [...] in an abandoned building, in an overnight long-term, or couch-surfing.) Yes 06/29/2024 Are you worried [...] degree (e.g., MA, MS, Jose Guadalupe, MEd, SLASHER HAND, DENISSE) 10/24/2019 Comments No Sex and Gender Information Value Date Recorded Sex Assigned at Female 09/19/2019 11:34 AM BRUSH MAKER Legal Sex Female 3:19 AM BRUSH MAKER Gender Identity Female 09/19/2019 11:34 AM BRUSH MAKER Sexual Orientation Straight 09/19/2019 11 :34 AM BRUSH MAKER 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 [place] [phone] Chata Mosqueda MD [address] [place] [address] 235385 documented as of this encounter Visit Diagnoses Not on filedocumented in this encounter Additional Health Concerns Assessment Noted Time PHQ-9 Depression Total Score: 1 06/29/20 24 1:25 PM CDT documented as of this encounter Care Teams Software Architect Relationship Specialty [place] [address] [place] [address] PCP - General Family Practice 06/28/18 [place] [address] [place] [address] Assigned PCP 06/27/18 Tracy Hsieh RN Specialty Bee Rancher Hematology & Oncology 11/02/23 documented as of this encounter
--- OUTSIDE RECORDS SUMMARY | 2024-09-16 07:36 | XMS_ITS | Encounter Summary ---
Author Organization [facility] Address [address] [place] [address]. [place] [address] Care Team Providers Care Airline Pilot Name Role Phone Cassidy Lindo MD Primary Care Provider [phone] Cassidy Lindo MD Unavailable [phone] Renetta Lal Unavailable Unavailable Berlin Andrews MD Unavailable Unav ailable Xena Camara MD Unavailable [phone] Tracy Hsieh RN Unavailable [phone] Constance Henry PA-C Unavailable Encounter Details Date Type Department Care Team (Late st Contact Info) Description 11/10/2019 MyC Medical Advice [facility] [address] [place] [address] [place] [address] [place] [address] Social History Tobacco Use Types [...] and Family Once a week 10/24/2019 Attends [employer] Services More than 4 times per year [...] Answer Date Recorded PHQ-2 Score 0 09/21/2018 [facility] of Occupat ional Health - [...] degree (e.g., MA, MS, Jose Guadalupe, MEd, ENGINEERING AND SCIENTIFIC PROGRAMMER, DENISSE) 10/24/2019 Comments No Sex and Gender Information Value Date Recorded Sex Assigned at Female 09/19/2019 11:34 AM ASSISTANT DEAN Legal Sex Female 3:19 AM ASSISTANT DEAN Gender Identity Female 09/19/2019 11:34 AM ASSISTANT DEAN Sexual Orientation Straight 09/19/2019 11 :34 AM ASSISTANT DEAN 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 Dinora Morrison CMA STANT DEAN documented in this encounter Plan of Treatment Upcoming Encounters Date Type Department Care Team (Late st Contact Info) Description 10/24/2024 5:00 PM ASSISTANT DEAN Ancillary Procedure [facility] [address] [facility] [address] [place] [address] Constance Henry PA-C [address] [place] [address] [phone] 02/17/2025 8:15 AM CDT Lab [facility] [address] [place] [address] 02/21/2025 11:20 AM CDT Oncology Visit [facility] [place] [address] [facility] [place] [address] Chata Mosqueda MD [address] [place] [address] [phone] documented as of this encounter Visit Diagnoses Not on filedocumented in this encounter Additional Health Concerns Infection Onset Date Last Indicated Resolved Time Rule Out COVID-19 06/11/2020 06/11/2020 06/12/2020 3:31 PM CDT documented as of this encounter Care Teams Airline Pilot Relationship Specialty [place] [address] [place] [address] PCP - General Family Practice 06/28/18 [place] [address] [place] [address] Assigned PCP 06/27/18 Renetta Lal Personal Advocate & Liaison (PAL) Family Practice 10/24/19 08/13/20 Berlin Andrews MD Assigned Cancer Care Provider 07/06/20 01/04/24 Xena Camara MD [facility] [address] [address] Assigned Surgical Provider 07/06/20 04/20/21 Tracy Hsieh, RN Specialty Travel Registered Nurse Oncology Hematology & Oncology 11/02/23 Constance Henry, PAHalC [address] [place], [place] 885815 Assigned Cancer Care Provider 09/05/24 documented as of this encounter
--- OUTSIDE RECORDS SUMMARY | 2024-09-16 07:36 | XMS_ITS | Encounter Summary ---
Author Organization [facility] Address [address] [place] [address]. [place] [address] Care Team Providers Care Grant Writer Name Role Phone Cassidy Lindo MD Primary Care Provider [phone] Cassidy Lindo MD Unavailable [phone] Tracy Hsieh RN Unavailable [phone] Encounter Details Date Type Department Care Team [...] re latives? Once a week 06/29/2024 Attends [employer] Not on file 06/29 Active Member [...] Answer Date Recorded PHQ-2 Score 0 06/29/2024 [facility] of Occupat ional Health - Occupational [...] in an abandoned building, in an overnight half-way, or couch-surfing.) Yes 06/29/2024 Are you worried [...] degree (e.g., MA, MS, Jose Guadalupe, MEd, SENIOR MANUFACTURING TEST ENGINEER, DENISSE) 10/24/2019 Comments No Sex and Gender Information Value Date Recorded Sex Assigned at Female 09/19/2019 11:34 AM ARTS AND SCIENCES DEAN Legal Sex Female 3:19 AM ARTS AND SCIENCES DEAN Gender Identity Female 09/19/2019 11:34 AM ARTS AND SCIENCES DEAN Sexual Orientation Straight 09/19/2019 11 :34 AM ARTS AND SCIENCES DEAN 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 [address] [place] [phone] 02/21/2025 11:20 AM CDT Oncology Visit [facility] [place] [address] [place] [address] [facility] [place] [phone] Chata Mosqueda MD [address] [place] [phone] documented as of this encounter Visit Diagnoses Not on filedocumented in this encounter Additional Health Concerns Assessment Noted Time PHQ-9 Depression Total Score: 1 06/29/20 24 1:25 PM CDT documented as of this encounter Care Teams Grant Writer Relationship Specialty [place] [address] [place] [address] PCP - General Family Practice 06/28/18 [place] [address] [place] [address] Assigned PCP 06/27/18 Tracy Hsieh RN Specialty Concert Pianist Hematology & Oncology 11/02/23 documented as of this encounter
--- OUTSIDE RECORDS SUMMARY | 2024-09-16 07:36 | XMS_ITS | Encounter Summary ---
Author Organization [place] Address [address] [place] [address] Care Team Providers Care Health Promotion Officer Name Role Phone Cassidy Lindo MD Primary Care Provider [phone] Cassidy Lindo MD Unavailable [phone] Tracy Hsieh RN Unavailable [phone] Reason for Referral * Diagnostic Imaging Dexa (Routine) - Pending Review Specialty Diagnoses / Procedures Referred By Mika roberts Referred To Contact Radiology. Diagnoses Aromatase inhibitor use Procedures DX Bone Density Constance Henry PA-C [address] [place] [address] Phone: tel: fax: Referral ID Status Reason Start Date Expiration Date V isits Requested Visits Authorized [id number] Pending Review 08/23/2024 08/23/2025 1 1 RVISOR PRE WAVE * Diagnostic Imaging Mammo (Routine) - Pending Review Specialty Diagnoses / Procedures Referred By Mika roberts Referred To Contact Radiology. Diagnoses Encounter for screening mammogram for breast cancer Procedures MA Screen Bilateral w/Saúl Constance Henry PA-C [address] [place] [address] Phone: tel: fax: Referral ID Status Reason Start Date Expiration Date V isits Requested Visits Authorized [id number] Pending Review 08/23/2024 08/23/2025 1 1 RVISOR PRE WAVE Reason for Visit * Reason Comments Oncology Clinic Visit Ductal carcinoma i n situ (DCIS) of left breastDCIS (ductal carcinoma in situ) Encounter Details Date Type Department Care Team (Latest Contact Info) Description 08/23/2024 3:30 PM SUPERVISOR PRE WAVE Oncology Visit [facility] [address] [place] [address] [facility] [place] [phone] Constance Henry PA-C [address] [place] [address] Ductal carcinoma in situ of left breast [...] Answer Date Recorded PHQ-2 Score 0 06/29/2024 [facility] [place] of Occupat ional [facility] - Occupational Stress Questionnaire Answer Date Recorded [...] degree (e.g., MA, MS, Jose Guadalupe, MEd, BOAT RENTAL CLERK, DENISSE) 10/24/2019 Comments No Sex and Gender Information Value Date Recorded Sex Assigned at Female 09/19/2019 11:34 AM SUPERVISOR PRE WAVE Legal Sex Female 3:19 AM SUPERVISOR PRE WAVE Gender Identity Female 09/19/2019 11:34 AM SUPERVISOR PRE WAVE Sexual Orientation Straight 09/19/2019 11 :34 AM SUPERVISOR PRE WAVE 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 Not on file documented as of this encounter Last Filed Vital Signs Vital Sign Reading Time Taken Comments Blood Pressure 130/84 08/23/2024 3:33 PM SUPERVISOR PRE WAVE Pulse 88 08/23/2024 3:33 PM SUPERVISOR PRE WAVE Temperature 36.4 C (97.6 F) 08/23/2024 3:33 PM SUPERVISOR PRE WAVE Respiratory Rate 16 08/23/2024 3:33 PM SUPERVISOR PRE WAVE Oxygen Saturation 96% 08/23/2024 3:33 PM SUPERVISOR PRE WAVE Inhaled Oxygen Concentration - - Weight 91 kg (200 lb 9.6 oz) 08/23/2024 3:33 PM SUPERVISOR PRE WAVE Height 162.6 cm (5' 4) 08/23/2024 3:33 PM SUPERVISOR PRE WAVE Body Mass Index 34.43 08/23/2024 3:33 PM SUPERVISOR PRE WAVE documented in this encounter Progress Notes * Constance Henry PA-C - 08/23/2024 3:30 PM CST Oncology/Hematology Visit Note Aug 23, 2024 Reason for visit: Follow-up DCIS Oncology HPI: Yesenia Collazo is a 58 year old female with history of left- sided DCIS, ER/WY positive, diagnosed in spring 2019. She underwent [...] bruising. PMHx and Social Hx reviewed per [employer]. Medications: Current Outpatient Medications Medication Sig Dispense Refill alendronate (FOSAMAX) 70 MG tablet Take 1 tablet (70 mg) by mouth every 7 days. 24 tablet 3 aspirin 81 MG tablet Take 81 mg by mouth daily atorvastatin (LIPITOR) 20 MG tablet TAKE 1 TABLET DAILY (LAST REFILL UNTIL VISIT) 90 tablet 3 azelastine (ASTELIN) 0.1 % nasal spray [place] 1 spray into both nostrils 2 times [...] to exemestane. DCIS: Diagnosed in spring 2019, ER/WY positive, s/p left-sided lumpectomy, radiation therapy, whichfinished [...] She is on Fosamax. Chart documentation with [employer] Voice recognition Software. Although reviewed after completion, some words and grammatical errors may remain. 20 minutes spent on the date of the encounter doing chart review, review of test results, interpretation of tests, patient visit, and documentation Constance Cohen PA-C Hematology/Oncology [facility] RVISOR PRE WAVE documented in this encounter Nursing Notes * [...] Provider was notified. Pharmacy name entered into [employer]: [id number] - [place], [place] - [address] [facility] [address] [facility] - [place], [place] - [address] [place] [address] Frailty Screening: Is the patient here for a new oncology consult visit in cancer care? 2. No Clinical concerns: f/u Selin Harper CMA RVISOR PRE WAVE documented in this encounter Plan of Treatment Upcoming Encounters Date Type Department Care Team (Late st Contact Info) Description 10/24/2024 5:00 PM SUPERVISOR PRE WAVE Ancillary Procedure [address] [place] [address] Constance Henry, PAHalC [address] [place] [address] [phone] 02/17/2025 8:15 AM CDT Lab [facility] [address] [place] [address] 02/21/2025 11:20 AM CDT Oncology Visit [facility] [address] [place] [address] [facility] [place] [phone] Chata Mosqueda MD [address] [place] [address] Scheduled Orders Name Type Priority Associated Diagnoses Orde r Schedule DX Bone Density Imaging Routine Aromatase inhibitor use Expected: 09/06/2024 (Approximate), Expires: 08/22/2025 documented as of this encounter Results * MA Screen Bilateral w/Saúl (09/05/2024 10:09 AM SUPERVISOR PRE WAVE) Anatomical Region Laterality Modality Breast Bilateral Mammography Impressions 09/05/2024 10:21 AM SUPERVISOR PRE WAVE IMPRESSION: ACR BI-RADS Category 2: Benign BREAST CANCER SCREENING RECOMMENDATION: Routine yearly mammography beginning at age 40 or as discussed with your provider. The results and recommendations of this examination will be communicated to the patient. Todd Blanc MD Narrative 09/05/2024 10:21 AM SUPERVISOR PRE WAVE BILATERAL FULL FIELD DIGITAL SCREENING MAMMOGRAM WITH [...] documented as of this encounter Care Teams Health Promotion Officer Relationship Specialty [place] [address] [place] [address] PCP - General Family Practice 06/28/18 [place] [address] [place] [address] Assigned PCP 06/27/18 Tracy Hsieh, RN Specialty Head Still Operator Hematology & Oncology 11/02/23 documented as of this encounter
[2024-09-16 08:35] VITALS: BP 104/69; PULSE 84; RESP 16; TEMP 36.4; O2SAT 96
[2024-09-16] MEDS: ERTAPENEM 1 GM in 0.9 % SODIUM CHLORIDE Mini-bag 100 ML IVPB (08:51)
[2024-09-16] MEDS: SODIUM CHLORIDE 0.9 % (FLUSH) 10 ML SYRINGE IVF ×2 (08:51→09:25)
[2024-09-17 05:00] VITALS: BP 127/76; PULSE 90; RESP 18; TEMP 36.4; O2SAT 93
[2024-09-17] MEDS: ERTAPENEM 1 GM in 0.9 % SODIUM CHLORIDE Mini-bag 100 ML IVPB (05:09)
[2024-09-17] MEDS: SODIUM CHLORIDE 0.9 % (FLUSH) 10 ML SYRINGE IVF (05:53)
--- NOTE | 2024-09-17 05:59 | PC.NURSE ---
Pt presented for IV Ertapenem bag 11/14. She was VSS, afebrile and denies pain. PICC in RUE is patent & C/D/I. She tolerated IV infusion well with no complaints. PICC removed with ease and patient laid flat for the removal and for 30 minutes post with no complications. She was discharged from the unit via ambulatory, accompanied by her .
== END 2024-09-17 06:30 | disposition home or self-care (01) ==
LOC: CCIC 04:57
PROVIDERS: Visit Provider Clinical Nurse Specialist
DX: K57.20 Diverticulitis of large intestine with perforation and abscess without bleeding (principal)
CPT/HCPCS: 96365; G0463; A4221; J1335

== ENCOUNTER 2024-12-11 14:56 | Emergency (ER) | payer BC, SELFPAY ==
[2024-12-11] VITALS (7 sets, daily range): BP systolic 105–117; BP diastolic 51–81; PULSE 75–82; RESP 16; TEMP 36.6; O2SAT 89–95; BMI 34.3
--- OUTSIDE RECORDS SUMMARY | 2024-12-11 14:58 | XMS_ITS ---
Author Organization [facility] Address [address] [place] [address]. [place] [address] Care Team Providers Care Service Writer Name Role Phone Cassidy Lindo MD Primary Care Provider [phone] Cassidy Lindo MD Unavailable [phone] Tracy Hsieh RN Unavailable [phone] Constance Henry PA-C Unavailable Active Problems Problem Noted Date Diagnosed Date Morbid obesity 02/18/2023 Hyperlipidemia LDL goal <130 08/20/2020 Family history of diabetes mellitus 08/20/2020 Esophageal dysphagia 08/20/2020 Ductal carcinoma in situ (DCIS) of left breast 0 10/21/2019 Overview (10/21/2019): Added automatically from request for surgery [id number] DCIS (ductal carcinoma in situ) 10/19/2019 Overview [...] treatments are documented for this patient in [facility]. Treatments may have been administered in another system. Treatment Summaries DCIS (ductal carcinoma in situ)* Cancer Treatment Plan and Summary - Breast Provided by [facility] General Information Patient Name Yesenia Collazo Patient 1965 Patient phone [phone] (home) [phone] (work) Email [email or web address] Care Team Primary Care Provider Cassidy Lindo [...] posterior margin: Negative for residual intraductal carcinoma. [facility] 5256 cGy in 20 of 20 fractions [...] to maintain optimal health. Possible late and/or intermodal dispatcher effects that someone with this type of cancer and treatment may experience: bone effects heart effects fertility effects memory and concentration pain lymphedema nervous system changes If you would like to discuss specific late and/or intermodal dispatcher effects related to your treatment, please use the following website to make an appointment in the Cancer Survivor Program: www.[facility] psychiatric centerConcept Inbox.org/c are/[facility]/gwmucb-fzut-qyztv/support-services OR call These symptoms should be brought [...] Advanced Directive- Link to the short form https://www.honoringchoices.org/boheca-tknb-gygoyenhst/yi/30-xcvspuqyeo-onr byuoxw-9-mwtrh-fillable/file Here are some resources in survivorship that [...] and find support from groups like these: [place] Cancer Society, . CancerCare, 729-921-EARL ([phone]) National Cancer [place], 373-4-XCETSX (159-013-6611) Online Resources [place] Association for Cancer Research: www.aacr.org [place] for Cancer Research- Food Facts Association of Cancer Online Resources: www.acor.org Breast Cancer specific: fireflysisterhood.org Cancer Care, Inc.: www.cancercare.org [place] Society of Clinical Oncologists (ASCO): www.cancer.net Cancer Survivors Network ([place] Cancer Society): www.acscsn.org From Cancer Patient to Cancer Survivor: Lost in Transition Life After Cancer Treatment (National Cancer [place]): www.cancer.gov/cancertopics/coping/wdnl-evvym-epcoummeg Live Strong: www.livestrong.org [facility] Center: [facility]st. [facility].org (herbal facts) National Coalition for Cancer Survivorship: www.canceradvocacy.org Patient Advocate Foundation: www.patientadvocate.org People Living With Cancer: www.uicc.org/membership/urlbbi-bfoabj-guggvi-plwc MHealth www.mhealth.org/care/overarching-care/gguaax-enmk-ofxsm/support-services Phone Resources [place] Cancer Society: National Cancer [place]: National Coalition for Cancer Survivorship: 0-594-KYDO-YES (138-255-7316) Patient Advocate Foundation: Books After Cancer Treatment: Heal Faster, Better, Stronger (2006, 2nd Ed. 2015) by Tracy Gray Cancer Fitness: Exercise Programs for Patients and Survivors (2004) by Ashlie Adame Eating Well, Staying Well During and After Cancer (2004, 2nd Ed. 2010) by the [place] Cancer Society LiveStrong: Inspirational Stories from Cancer [...] Diet in Cancer Survivorship (2001) by the [place] for Cancer Research Anticancer: A New Way [...] not within this range, recommend seeing a warehouse distribution specialist to discuss way to get into this [...]
--- OUTSIDE RECORDS SUMMARY | 2024-12-11 14:58 | XMS_ITS | Encounter Summary ---
Author Organization [facility] Address [address] [place] [address]. [place] [address] Care Team Providers Care Mine Engineering Superintendent Name Role Phone Cassidy Lindo MD Primary Care Provider [phone] Cassidy Lindo MD Unavailable Renetta Lal Unavailable Unavailable Berlin Andrews MD Unavailable Xena Camara MD Unavailable [phone] Tracy Hsieh RN Unavailable [phone] Constance Henry PA-C Unavailable Encounter Details Date Type Department Care Team (Late st Contact Info) Description 01/09/2020 [facility] Medical Advice [facility] [address] [facility] [place] [phone] Jailene Aggarwal Social History Tobacco Use Types [...] and Family Once a week 10/24/2019 Attends Buddhist Services More than 4 times per year [...] Answer Date Recorded PHQ-2 Score 0 09/21/2018 [facility] - Occupational [...] degree (e.g., MA, MS, Jose Guadalupe, MEd, SKIP MINER BLASTING, DENISSE) 10/24/2019 Comments No Sex and Gender Information Value Date Recorded Sex Assigned at Female 09/19/2019 11:34 AM INGOT BUGGY OPERATOR Legal Sex Female 3:19 AM INGOT BUGGY OPERATOR Gender Identity Female 09/19/2019 11:34 AM INGOT BUGGY OPERATOR Sexual Orientation Straight 09/19/2019 11 :34 AM INGOT BUGGY OPERATOR Occupation Industry Job Start Date Job [...] Care Team (Late st Contact Info) Description 12/13/2024 8:00 AM CDT Ancillary Procedure [facility] [address] [facility] [address] [place] [address] Constance Henry, PASumit [address] [place] [address] 02/17/2025 8:15 AM CDT Lab [facility] [address] [place] [phone] 03/14/2025 3:40 PM CDT Oncology Visit [facility] [place] [address] [facility] [place] [phone] Constance Henry, PASumit [address] [place] [address] Chata Mosqueda MD [address] [place] [phone] 07/05/2025 9:00 AM CDT Office Visit [facility] [address] [place] [phone] [place] [address] [place], [place] [phone] documented as of this encounter Visit Diagnoses Not on filedocumented in this encounter Additional Health Concerns Infection Onset Date Last Indicated Resolved Time Rule Out COVID-19 06/11/2020 06/11/2020 06/12/2020 3:31 PM CDT documented as of this encounter Care Teams Mine Engineering Superintendent Relationship Specialty [place] [address] [place] [address] PCP - General Family Practice 06/28/18 [place] [address] [place] [address] Assigned PCP 06/27/18 Renetta Lal Personal Advocate & Liaison (PAL) Family Practice 10/24/19 08/13/20 Berlin Andrews MD Assigned Cancer Care Provider 07/06/20 01/04/24 Xena Camara MD [facility] [address] [facility] [address] [place], [place] [phone] Assigned Surgical Provider 07/06/20 04/20/21 Tracy Hsieh RN Specialty Softlines Supervisor Hematology & Oncology 11/02/23 Constance Henry, PAHalC [address] [facility] [address] [place], [place] [address] Assigned Cancer Care Provider 09/05/24 documented as of this encounter
--- OUTSIDE RECORDS SUMMARY | 2024-12-11 14:58 | XMS_ITS | Clinical Summary ---
Author Organization [facility] Address [address] [place] [address]. [place] [address] Care Team Providers Care Inspector And Clipper Name Role Phone Cassidy Lindo MD Primary Care Provider [phone] Cassidy Lindo MD Unavailable [phone] Tracy Hsieh RN Unavailable [phone] Constance Henry PA-C Unavailable Allergies Active Allergy Reactions Criticality Noted Date Comments No Known Drug Allergy 12/25/2003 Medications multivitamin w/minerals (THERA-VIT-M) tablet Take 1 tablet by mouth daily Active aspirin 81 MG tablet Take 81 mg by mouth daily Active cetirizine (ZYRTEC) 10 MG tabletIndicatio ns:Allergic state, sequela Take 1 tablet (10 mg) by mouth daily 10/24/2019 Active azelastine (ASTELIN) 0.1 % nasal sprayIndication s:Seasonal allergic rhinitis due to other allergic trigger Collins 1 spray into both nostrils 2 times daily 30 mL 11 02/18/2023 Active olopatadine (PATANOL) 0.1 % ophthalmic solutionIndicat ions:Allergic conjunctivitis, bilateral Place 1 drop into both eyes 2 times daily 5 mL 3 02/18/2023 Active omeprazole (PRILOSEC) [address] capsuleIndicati ons:Esophageal dysphagia TAKE 1 CAPSULE DAILY 90 capsule 3 05/03/2024 Active atorvastatin (LIPITOR) 20 MG tabletIndicatio ns:Hyperlipidem ia LDL goal <130 TAKE 1 TABLET DAILY (LAST REFILL UNTIL VISIT) 90 tablet 3 05/03/2024 Active alendronate (FOSAMAX) 70 MG tabletIndicatio ns:Ductal carcinoma in situ of left breast Take 1 tablet (70 mg) by mouth every 7 days. 24 tablet 3 06/29/2024 Active metFORMIN (GLUCOPHAGE XR) 500 MG 24 hr tabletIndicatio ns:Prediabetes Take 1 tablet (500 mg) by mouth daily (with dinner). 90 tablet 4 06/29/2024 Active exemestane (AROMASIN) 25 MG tabletIndicatio ns:Ductal carcinoma in situ of left breast Take 1 tablet (25 mg) by mouth daily. 90 tablet 2 08/23/2024 Active sertraline (ZOLOFT) 100 MG tabletIndicatio ns:Anxiety Take 1 tablet (100 mg) by mouth daily. TAKE 1 TABLET DAILY (LAST REFILL UNTIL VISIT) 90 tablet 2 08/30/2024 Active Active Problems Problem Noted Date Diagnosed Date Morbid obesity 02/18/2023 Hyperlipidemia LDL goal <130 08/20/2020 Family history of diabetes mellitus 08/20/2020 Esophageal dysphagia 08/20/2020 Ductal carcinoma in situ (DCIS) of left breast 0 10/21/2019 Overview (10/21/2019): Added automatically from request for surgery [id number] DCIS (ductal carcinoma in situ) 10/19/2019 Overview (07/17/2020): joshua Andrews- 12/ Anxiety 06/16/2018 Fatty liver 09/14/2017 Splenic cyst, [...] re latives? Once a week 06/29/2024 Attends Jainism Services Not on file 06/29 Active Member [...] Recorded PHQ-2 Score 0 06/29/2024 [facility] - Occupational [...] Date Recorded Do you have housing? (Yuliana g is defined as stable permanent housing and does not include staying ouside in a car, in a tent, in an abandoned building, in an overnight mcfp, or couch-surfing.) Yes 06/29/2024 Are you worried [...] degree (e.g., MA, MS, Jose Guadalupe, MEd, DIRECTOR OF HOTEL OPERATIONS, DENISSE) 10/24/2019 Comments No Sex and Gender Information Value Date Recorded Sex Assigned at Female 09/19/2019 11:34 AM OIL REFINERY PROCESS TECHNICIAN Legal Sex Female 3:19 AM OIL REFINERY PROCESS TECHNICIAN Gender Identity Female 09/19/2019 11:34 AM OIL REFINERY PROCESS TECHNICIAN Sexual Orientation Straight 09/19/2019 11 :34 AM OIL REFINERY PROCESS TECHNICIAN 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 Not on file Last Filed Vital Signs Vital Sign Reading Time Taken Comments Blood Pressure 130/84 08/23/2024 3:33 PM OIL REFINERY PROCESS TECHNICIAN Pulse 88 08/23/2024 3:33 PM OIL REFINERY PROCESS TECHNICIAN Temperature 36.4 C (97.6 F) 08/23/2024 3:33 PM OIL REFINERY PROCESS TECHNICIAN Respiratory Rate 16 08/23/2024 3:33 PM OIL REFINERY PROCESS TECHNICIAN Oxygen Saturation 96% 08/23/2024 3:33 PM OIL REFINERY PROCESS TECHNICIAN Inhaled Oxygen Concentration - - Weight 91 kg (200 lb 9.6 oz) 08/23/2024 3:33 PM OIL REFINERY PROCESS TECHNICIAN Height 162.6 cm (5' 4) 08/23/2024 3:33 PM OIL REFINERY PROCESS TECHNICIAN Body Mass Index 34.43 08/23/2024 3:33 PM OIL REFINERY PROCESS TECHNICIAN Plan of Treatment Upcoming Encounters Date Type Department Care Team (Late st Contact Info) Description 12/13/2024 8:00 AM CDT Ancillary Procedure [address] [place] [address] Constance Henry, PA-C [address] [place], [place] [address] 02/17/2025 8:15 AM CDT Lab [facility] [address] [place] [phone] 03/14/2025 3:40 PM CDT Oncology [facility] [place] [address] [facility] [address] [facility] [place] [address] Constance Henry PA-C [address] [place] [address] Chata Mosqueda MD [address] [place], [place] [phone] 07/05/2025 9:00 AM CDT Office Visit [facility] [address] [place] [phone] [place] [id number] [place] [address] [phone] Health Maintenance Due Date Last Done Comments [...] Additional history exists YEARLY PREVENTIVE VISIT 06/29/2025 06/29/20 24, 02/18/2023, 01/01/2022, Additional history exists MAMMO SCREENING 09/05/2026 09/05/2024, 07/16, 10/25/2021, Additional history exists DTAP/TDAP/TD IMMUNIZATION (2 - Td or Tdap) 05/15/2027 05/15/2017, 12/13/2002, 12/13/2002, Additional history exists DIABETES SCREENING 06/29/2027 06/29/2024, 1 , 07/23/2023, Additional history exists HPV TEST 02/19/2028 02/18/2023, 11/2017, 12/30/2013 PAP 02/19/2028 02/18/2023, 11/2017, 12/30/2013, Additional history exists COLONOSCOPY 07/13/2028 07/13/2018, 07/13/2018 COLORECTAL CANCER SCREENING 07/13/2028 ADVANCE CARE PLANNING 06/29/2029 06/29/2024, 022 HEPATITIS C SCREENING Completed 01/01/2022 HIV SCREENING [...] BILATERAL W/ SAÚL Routine 09/05/2024 10:09 AM OIL REFINERY PROCESS TECHNICIAN Encounter for screening mammogram for breast cancer COMPREHENSIVE METABOLIC PANEL Routine 06/29/2024 2:39 PM CDT Morbid obesity (H) Anxiety Ductal carcinoma in situ (DCIS) of left breast Fatty liver Prediabetes Ductal carcinoma in situ of left breast LIPID REFLEX TO DIRECT LDL PANEL Routine [...] MA Screen Bilateral w/Saúl (09/05/2024 10:09 AM OIL REFINERY PROCESS TECHNICIAN) Anatomical Region Laterality Modality Breast Bilateral Mammography Impressions 09/05/2024 10:21 AM OIL REFINERY PROCESS TECHNICIAN IMPRESSION: ACR BI-RADS Category 2: Benign BREAST CANCER SCREENING RECOMMENDATION: Routine yearly mammography beginning at age 40 or as discussed with your provider. The results and recommendations of this examination will be communicated to the patient. Todd Blanc MD Narrative 09/05/2024 10:21 AM OIL REFINERY PROCESS TECHNICIAN BILATERAL FULL FIELD DIGITAL SCREENING MAMMOGRAM WITH TOMOSYNTHESIS Performed on: 09/05/24 Compared to: 08/04/2023, 10/25/2021, and 10/05/2020 Technique: This study was evaluated with the assistance of Computer-Aided Detection. Breast Tomosynthesis was used in interpretation. Findings: There are scattered areas of fibroglandular density. There are post-surgical changes in the left breast. There is no radiographic evidence of malignancy. us Constance Chappell PA-C IM MAMMOGRAPHY ORDERABLES Final Result * (ABNORMAL) Lipid [...] BLOOD ORDERABLES Final Re sult [facility] [address] [place] [address], [facility] * (ABNORMAL) Comprehensive metabolic panel (BMP + [...] 4:06 AM CDT [facility] Comment:eGFR calculated us2020 CKD-EPI equation. Calcium 9.5 8.8 - 10.4 [...] BLOOD ORDERABLES Final Re sult [facility] [address] [facility] [address], [address] [place] [address], [facility] * Pap Screen with HPV - recommended [...] component of this testing was completed at [facility] 02/23/2023 9:16 AM CDT [facility] Brushing CERVIX UTERI STRUCTURE / Unknown 02/18/2023 8:45 AM CDT 02/18/2023 9:11 AM CDT us Cassidy Lindo MD LAB - BEAKER AP Final Result [facility] [address] [facility] [address], [address] [place] [address], [place] [phone] * HPV High Risk Types DNA Cervical (02/18/2023 8:45 AM CDT) Other HR HPV Negative Negative 02/24/2023 3:33 PM CDT [facility] HPV16 DNA Negative Negative 02/24/2023 3:33 PM CDT [facility] HPV18 DNA Negative Negative 02/24/2023 3:33 PM CDT [facility] FINAL DIAGNOSIS This patient's sample is negative for HPV DNA. This test was developed and its performance characteristics determined by the [facility], [facility] Diagnostics Laboratory. It has not been [...] followup is recommended. 02/24/2023 3:33 PM CDT [facility] Brushing CERVIX UTERI STRUCTURE / Unknown Non-blood Collection / Unknown 02/18/2023 8:45 AM CDT 02/24/2023 8:02 AM CDT us Cassidy Lindo MD LAB - BLOOD ORDERABLES Final Re sult [facility] [address], [address] [place] [address], [facility] [phone] * HIV Antigen Antibody Combo (01/01/2022 9:40 AM CDT) HIV Antigen Antibody Combo Nonreactive Nonreactive 01/01/2022 11:11 PM CDT [facility] DO Comment:HIV-1 p24 Ag & HIV-1 /HIV-2 Ab Not Detected Blood BLOOD SPECIMEN / Unknown Venipuncture / Unknown 01/01/2022 9:40 AM CDT 01/01/2022 9:40 AM CDT Cassidy Lindo MD LAB - BLOOD ORDERABLES Final Re sult Performing Organization Address [facility] Co de Phone Number [facility]ENDO [facility]Prot[facility]Endo [address] [facility], [address] [place] [address] * Hepatitis C Screen Reflex to HCV [...] ORDERABLES Final Re sult Performing Organization Address [facility] Co de Phone Number [facility]Prot[facility]Endo [address] [facility], [place] [address] [address], [facility] [phone] * COLONOSCOPY (07/13/2018 11:53 AM CDT) COLONOSCOPY [facility] Patient Name: Yesenia Collazo Procedure Date: [...] # [id number], [place] # [id number], SN # [id number] was introduced through the anus and advanced [...] malignant neoplasm of colon CPT copyright 2017 [employer]. All rights reserved. The codes documented in this report are preliminary and upon relay telegrapher review may be revised to meet current [...] RADIOLOGY RESULTS 07/13/2018 11:5 3 AM CDT us Cassidy Lindo MD PROCEDURES Final Result RADIOLOGY RESULTS from Last 3 Months or Most Recently Relevant to Health Maintenance Insurance BCBS OUT OF [facility] BCBS OUT OF STATE Advance Directives For more information, please contact: [phone] * Full Code (Latest Code Status on File) Date Activated Date Inactivated Comments 10/22/2016 9:51 AM 11/02/2019 10:00 AM * Full Code Date Activated Date Inactivated Comments 10/21/2016 11:45 PM 10/22/2016 9:51 AM Care Teams Inspector And Clipper Relationship Specialty [place] [address] [place] [address] PCP - General Family Practice 06/28/18 [place] [address] [place] [address] Assigned PCP 06/27/18 Tracy Hsieh, RN Specialty Oem Sales Manager Hematology & Oncology 11/02/23 Constance Henry, PAHalC [address] [place] [place] [address] Assigned Cancer Care Provider 09/05/24
--- OUTSIDE RECORDS SUMMARY | 2024-12-11 14:59 | XMS_ITS | Encounter Summary ---
Author Organization [facility] Address [address] [place] [address]. [place] [address] Care Team Providers Care Network Operations Center Technician Name Role Phone Cassidy Lindo MD Primary Care Provider [phone] Cassidy Lindo MD Unavailable [phone] Renetta Lal Unavailable Unavailable Berlin Andrews MD Unavailable Xena Camara MD Unavailable [phone] Tracy Hsieh RN Unavailable [phone] Constance Henry PA-C Unavailable Encounter Details Date Type Department Care Team (Late st Contact Info) Description 08/03/2020 [facility] Medical Advice [facility] [address] [place] [phone] Lamar Buchanan, MINDY Social History Tobacco Use Types Packs/Day Years [...] and Family Once a week 10/24/2019 Attends Confucianist Services More than 4 times per year [...] Date Recorded PHQ-2 Score 0 09/21/2018 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 Not on file documented as of this encounter Plan of Treatment Upcoming Encounters Date Type Department Care Team (Late st Contact Info) Description 12/13/2024 8:00 AM CDT Ancillary Procedure [address] [place] [address] Constance Henry PA-C [address] [place] [address] 02/17/2025 8:15 AM CDT Lab [facility] [address] [place] [phone] 03/14/2025 3:40 PM CDT Oncology Visit [facility] [place] [address] [place] [address] [facility] [place] [address] Constance Henry PA-C [address] [place], [place] [address] Chata Mosqueda MD [address] [place] [address] 07/05/2025 9:00 AM CDT Office Visit [facility] [address] [place] [phone] [place] [address] [place], [place] [phone] documented as of this encounter Visit Diagnoses Not on filedocumented in this encounter Care Teams Network Operations Center Technician Relationship Specialty Start Date [place] [id number] [place] [address] [phone] PCP - General Family Practice 06/28/18 [place] [address] [place] [address] Assigned PCP 06/27/18 Renetta Lal Personal Advocate & Liaison (PAL) Family Practice 10/24/19 08/13/20 Berlin Andrews MD Assigned Cancer Care Provider 07/06/20 01/04/24 Xena Camara MD SURGICAL CONSULTS, ELV[place] [address] [facility] [address] [place] [address] Assigned Surgical Provider 07/06/20 04/20/21 Tracy Hsieh, RN Specialty Inker Machine Hematology & Oncology 11/02/23 Constance Henry, PAHalC [address] [facility] [address] [place] [address] Assigned Cancer Care Provider 09/05/24 documented as of this encounter
--- OUTSIDE RECORDS SUMMARY | 2024-12-11 14:59 | XMS_ITS | Encounter Summary ---
Author Organization [facility] Address [address] [place] [address]. [place] [address] Care Team Providers Care Strap Setter Name Role Phone Cassidy Lindo MD Primary Care Provider [phone] Cassidy Lindo MD Unavailable [phone] Berlin Andrews MD Unavailable Tracy Hsieh RN Unavailable [phone] Constance Henry PA-C Unavailable Encounter Details Date Type Department Care Team (Late st Contact Info) Description 11/28/2022 [facility] [address] [facility] [place] [phone] Tracy Hsieh, RN Social History Tobacco Use [...] week 01/01/2022 How often do you attend [facility] or buddhist services? More than 4 times per year 01/01/2022 Do you belong to any clubs o r organizations such as quaker groups, unions, fraternal or athletic groups, or [...] Answer Date Recorded PHQ-2 Score 0 01/01/2022 [facility] [place] of Occupat ional Health - Occupational Stress [...] place to sleep or slept in a snf (including now)? No 01/01/2022 Education Answer Date Recorded What is the highest level of school you have completed or the highest degree you have received? 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 Not on file documented as of this encounter Plan of Treatment Upcoming Encounters Date Type Department Care Team (Late st Contact Info) Description 12/13/2024 8:00 AM CDT Ancillary Procedure [address] [place] [address] Constance Henry PA-C [address] [place] [address] 02/17/2025 8:15 AM CDT Lab [facility] [address] [place] [phone] 03/14/2025 3:40 PM CDT Oncology Visit [facility] [place] [address] [place] [address] [address] [facility] [place] [address] Constance Henry PA-C [address] [place] [address] Chata Mosqueda MD [address] [place] [address] 07/05/2025 9:00 AM CDT Office Visit [facility] [address] [place] [phone] Cassidy Lindo MD [address] [place] [address] [phone] documented as of this encounter Visit Diagnoses Not on filedocumented in this encounter Additional Health Concerns Assessment Noted Time PHQ-9 Depression Total Score: 1 08/14/20 20 7:02 AM VIAL GAUGER documented as of this encounter Care Teams Strap Setter Relationship Specialty Start Date [place]o [place] [id number] [place] [address] [phone] PCP - General Family Practice 06/28/18 Cass[place] Lindo [place] [id number] [place] [address] [phone] Assigned PCP 06/27/18 [place] [address] [place] [address] Assigned Cancer Care Provider 07/06/20 01/04/24 Tracy Hsieh, RN Specialty Business Mgr Hematology & Oncology 11/02/23 Constance Henry, PAHalC [address] [address] Assigned Cancer Care Provider 09/05/24 documented as of this encounter
--- OUTSIDE RECORDS SUMMARY | 2024-12-11 14:59 | XMS_ITS | Encounter Summary ---
Author Organization [facility] Address [address] [place] [address]. [place] [address] Care Team Providers Care Weaver [employer] Name Role Phone Clinic - [facility] Primary Care Provider Cassidy Lindo MD Primary Care Provider [phone] Cassidy Lindo MD Unavailable [phone] Cassidy Lindo MD Unavailable [phone] Renetta Lal Unavailable Unavailable Berlin Andrews MD Unavailable [phone] Xena Camara MD Unavailable [phone] Tracy Hsieh RN Unavailable [phone] Constance Henry PA-C Unavailable Reason for Visit * Reason Onset Date Comments MyChart Communication 06/22/2018 Encounter Details Date Type Department Care Team (Latest Contact Info) Description 06/22/2018 [facility] Medical Advice [facility] [address] [place] [address] [place] [address] [place] [address] MyChart Communication Social History Tobacco Use Types Packs/Day Years Used Date Smoking Tobacco: Never Smokeless Tobacco: Never Alcohol Use Standard Drinks/Week Comments Yes 0 (1 standard drink = 0.6 oz pur e alcohol) couple per month Comments No Sex and Gender Information Value Date Recorded Sex Assigned at Female 09/19/2019 11:34 AM UNDER CUTTER Legal Sex Female 3:19 AM UNDER CUTTER Gender Identity Female 09/19/2019 11:34 AM UNDER CUTTER Sexual Orientation Straight 09/19/2019 11 :34 AM UNDER CUTTER 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 Not on file documented as of this encounter Plan of Treatment Upcoming Encounters Date Type Department Care Team (Late st Contact Info) Description 12/13/2024 8:00 AM CDT Ancillary Procedure [address] [place] [address] Constance Henry, PA-C [address] [place] [address] 02/17/2025 8:15 AM CDT Lab [facility] [address] [place] [phone] 03/14/2025 3:40 PM CDT Oncology Visit [facility] [place] [address] [place] [address] [facility] [place] [phone] Constance Henry, PA-C [address] [facility] [address] [place] [address] Chata Mosqueda MD [address] [place], [place] [address] 07/05/2025 9:00 AM CDT Office Visit [facility] [address] [place] [phone] [place] [id number] [place] [address] documented as of this encounter Visit Diagnoses Not on filedocumented in this encounter Additional Health Concerns Infection Onset Date Last Indicated Resolved Time Rule Out COVID-19 06/11/2020 06/11/2020 06/12/2020 3:31 PM CDT documented as of this encounter Care Teams [employer] Relationship Specialty Start Date End Date [facility] [address] [place] [address] [phone] PCP - General 05/14/17 06/27/18 [place] Lindo [place] [id number] [place] [address] PCP - General Family Practice 06/28/18 [place] [address] [place] [address] PCP - Assigned PCP 06/27/18 11/16/18 [place] [address] [place] [address] Assigned PCP 06/27/18 Renetta Lal Personal Advocate & Liaison (PAL) Family Practice 10/24/19 08/13/20 Berlin Andrews MD Assigned Cancer Care Provider 07/06/20 01/04/24 Xena Camara MD SURGICAL CONSULTS, ELVIN Cardona [address] [place], [place] [address] Assigned Surgical Provider 07/06/20 04/20/21 Tracy Hsieh RN Specialty Animal Eviscerator Hematology & Oncology 11/02/23 Constance Henry PA-C [address] [place] [address] [phone] Assigned Cancer Care Provider 09/05/24 documented as of this encounter
--- OUTSIDE RECORDS SUMMARY | 2024-12-11 14:59 | XMS_ITS | Encounter Summary ---
Author Organization [facility] Address [address] [place] [address]. [place] [address] Care Team Providers Care Sterile Instrument Technician Name Role Phone Cassidy Lindo MD Primary Care Provider [phone] Cassidy Lindo MD Unavailable [phone] Renetta Lal Unavailable Unavailable Berlin Andrews MD Unavailable Xena Camara MD Unavailable [phone] Tracy Hsieh RN Unavailable [phone] Constance Henry PA-C Unavailable Encounter Details Date Type Department Care Team (Late st Contact Info) Description 11/10/2019 [facility] Medical Advice [facility] [address] [place] [address] [place] [address] [place] [address] Social History Tobacco Use Types [...] and Family Once a week 10/24/2019 Attends [employer] Services More than 4 times per year [...] Answer Date Recorded PHQ-2 Score 0 09/21/2018 [facility] of Occupat ional Health - Occupational Stress [...] degree (e.g., MA, MS, Jose Guadalupe, MEd, MASTER SHEET CLERK, DENISSE) 10/24/2019 Comments No Sex and Gender Information Value Date Recorded Sex Assigned at Female 09/19/2019 11:34 AM TIER TRUCK DRIVER Legal Sex Female 3:19 AM TIER TRUCK DRIVER Gender Identity Female 09/19/2019 11:34 AM TIER TRUCK DRIVER Sexual Orientation Straight 09/19/2019 11 :34 AM TIER TRUCK DRIVER 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 Dinora Morrison CMA TRUCK DRIVER documented in this encounter Plan of Treatment Upcoming Encounters Date Type Department Care Team (Late st Contact Info) Description 12/13/2024 8:00 AM CDT Ancillary Procedure [facility] [address] [facility] [address] [place] [address] Constance Henry, PASumit [address] [place] [address] 02/17/2025 8:[address] [facility] [address] [place] [phone] 03/14/2025 3:40 PM CDT Oncology Visit [facility] [place] [address] [address] [facility] [place] [phone] Constance Henry, PASumit [address] [place] [address] Chata Mosqueda MD [address] [place] [address] 07/05/2025 9:00 AM CDT Office Visit [facility] [address] [place] [phone] [place] [address] [place] [address] [phone] documented as of this encounter Visit Diagnoses Not on filedocumented in this encounter Additional Health Concerns Infection Onset Date Last Indicated Resolved Time Rule Out COVID-19 06/11/2020 06/11/2020 06/12/2020 3:31 PM CDT documented as of this encounter Care Teams Sterile Instrument Technician Relationship Specialty Start Date End Date Cassidy Lindo MD [address] [place] [address] PCP - General Family Practice 06/28/18 Cass[place] Lindo [place] [id number] [place] [address] [phone] Assigned PCP 06/27/18 Renetta Lal Personal Advocate & Liaison (PAL) Family Practice 10/24/19 08/13/20 Berlin Andrews MD Assigned Cancer Care Provider 07/06/20 01/04/24 Xena Camara MD SURGICAL CONSULTS, ELVIN KING [address] [address] Assigned Surgical Provider 07/06/20 04/20/21 Tracy Hsieh, RN Specialty Stewarding Supervisor Hematology & Oncology 11/02/23 Constance Henry, PAHalC [address] [place] [address] Assigned Cancer Care Provider 09/05/24 documented as of this encounter
--- NOTE | 2024-12-11 15:45 | CRLHL7_ITS ---
For Patients: As a result of the Century Cures Act, medical imaging exams and procedure reports are released immediately into your electronic medical record. You may view this report before your referring provider. If you have questions, please contact your health care provider. INDICATION: LLQ PAIN, LEFT LOW BACK PAIN, HX DIVERTICULITIS. TECHNIQUE: CT abdomen and pelvis acquired with 98 cc Isovue 370 IV contrast. COMPARISON: None. FINDINGS: Lower chest: Redemonstrated moderate hiatal hernia. Liver: Diffuse hepatic hypodensity, compatible with steatosis. Gallbladder and bile ducts: Unremarkable. No stones or inflammation. No biliary dilatation. Pancreas: Unremarkable. No mass or inflammation. Spleen: Unchanged multi-cystic splenic focus measuring approximately 4.9 cm. Adrenal glands: Unremarkable. No nodules. Kidneys: Redemonstrated duplicated left urinary collecting system. No suspicious masses, stones, or hydronephrosis. GI tract: Redemonstrated left colonic diverticulosis with minimal fat stranding about the proximal sigmoid colon, at the same location relative to prior. Bowel is normal caliber. Normal appendix. Vasculature: Abdominal aorta is normal in caliber. Mesenteric arteries are patent. Lymph nodes: No lymphadenopathy. Peritoneum/Abdominal Wall: Small to moderate fat containing umbilical hernia. No sign of mass or infiltration. No free air or significant free fluid. Pelvis: Unremarkable. Bones: No acute or suspicious osseous abnormalities. Redemonstrated severe intervertebral disc height loss at L5-S1. IMPRESSION: Recurrent mild acute proximal sigmoid diverticulitis. No evident complication. Please note that all CT scans at this facility use dose modulation, iterative reconstruction, and/or weight-based dosing when appropriate to reduce radiation dose to as low as reasonably achievable. Dictated by Ernie Amador MD @ 12/11/2024 4:39:32 PM (Electronically Signed)
[2024-12-11 15:56] LABS: Appearance Urine Clear (Clear); Bilirubin Urine Negative (Negative); Blood Urine Negative (Negative); Color Urine Yellow (Yellow); Glucose Urine Negative (Negative); Ketones Urine Negative (Negative); Leukocyte Esterase Urine Trace (Negative); Nitrite Urine Negative (Negative); Protein Urine Negative (Negative); Specific Gravity Urine <= 1.005 (1.000-1.030); Urobilinogen Urine 0.2 (0.2-1.0)
--- OUTSIDE RECORDS SUMMARY | 2024-12-11 15:58 | XMS_ITS | Encounter Summary ---
Author Organization [facility] Address [address] [place] [address]. [place] [address] Care Team Providers Care Field Talent Qualification Specialist Name Role Phone Cassidy Lindo MD Primary Care Provider [phone] Cassidy Lindo MD Unavailable [phone] Renetta Lal Unavailable Unavailable Berlin Andrews MD Unavailable [phone] Xena Camara MD Unavailable [phone] Tracy Hsieh RN Unavailable [phone] Constance Henry PA-C Unavailable Encounter Details Date Type Department Care Team (Late st Contact Info) Description 11/10/2019 [facility] [address] [place] [address] [place] [address] [place] [address] Social History Tobacco Use Types [...] and Family Once a week 10/24/2019 Attends [employer] Services More than 4 times per year [...] Answer Date Recorded PHQ-2 Score 0 09/21/2018 [facility] of Occupat ional Health - [...] degree (e.g., MA, MS, Jose Guadalupe, MEd, CENTRAL SUPPLY AIDE, DENISSE) 10/24/2019 Comments No Sex and Gender Information Value Date Recorded Sex Assigned at Female 09/19/2019 11:34 AM FISHING MANAGER Legal Sex Female 3:19 AM FISHING MANAGER Gender Identity Female 09/19/2019 11:34 AM FISHING MANAGER Sexual Orientation Straight 09/19/2019 11 :34 AM FISHING MANAGER 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 Dinora Morrison CMA ING MANAGER documented in this encounter Plan of Treatment Upcoming Encounters Date Type Department Care Team (Late st Contact Info) Description 12/13/2024 8:00 AM CDT Ancillary Procedure [facility] [address] [facility] [address] [place] [address] Constance Henry, PASumit [address] [place] [address] 02/17/2025 8:15 AM CDT Lab [facility] [address] [place] [phone] 03/14/2025 3:40 PM CDT Oncology Visit [facility] [place] [address] [address] [facility] [place] [phone] Constance Henry, PASumit [address] [address] [place] [address] Chata Mosqueda MD [address] [place] [address] 07/05/2025 9:00 AM CDT Office Visit [facility] [address] [place] [phone] [place]o [place] [id number] [place] [address] [phone] documented as of this encounter Visit Diagnoses Not on filedocumented in this encounter Additional Health Concerns Infection Onset Date Last Indicated Resolved Time Rule Out COVID-19 06/11/2020 06/11/2020 06/12/2020 3:31 PM CDT documented as of this encounter Care Teams Field Talent Qualification Specialist Relationship Specialty Start Date End Date Cassidy Lindo MD [address] [place] [address] PCP - General Family Practice 06/28/18 Cassidy Lindo [place] [id number] [place] [address] [phone] Assigned PCP 06/27/18 Renetta Lal Personal Advocate & Liaison (PAL) Family Practice 10/24/19 08/13/20 Berlin Andrews MD Assigned Cancer Care Provider 07/06/20 01/04/24 Xena Camara MD SURGICAL CONSULTS, ELVIN KING [address] [id number] Assigned Surgical Provider 07/06/20 04/20/21 Tracy Hsieh, RN Specialty Exhibits Curator Hematology & Oncology 11/02/23 Constance Henry, PAHalC [address] [place] [address] Assigned Cancer Care Provider 09/05/24 documented as of this encounter
--- OUTSIDE RECORDS SUMMARY | 2024-12-11 15:58 | XMS_ITS | Clinical Summary ---
Author Organization [facility] Address [address] [place] [address]. [place] [address] Care Team Providers Care Bill Adjuster Name Role Phone Cassidy Lindo MD Primary Care Provider [phone] Cassidy Lindo MD Unavailable [phone] Tracy Hsieh RN Unavailable [phone] Constance Henry PA-C Unavailable Allergies Active Allergy [...] allergic rhinitis due to other allergic trigger Keiser 1 spray into both nostrils 2 times [...] (10/21/2019): Added automatically from request for surgery [id number] DCIS (ductal carcinoma in situ) 10/19/2019 Overview [...] re latives? Once a week 06/29/2024 Attends [employer] Not on file 06/29 Active Member [...] Answer Date Recorded PHQ-2 Score 0 06/29/2024 [facility]at ional [facility] [...] in an abandoned building, in an overnight fdc, or couch-surfing.) Yes 06/29/2024 Are you worried [...] degree (e.g., MA, MS, Jose Guadalupe, MEd, COMMERCIAL LOAN CLOSER, DENISSE) 10/24/2019 Comments No Sex and Gender Information Value Date Recorded Sex Assigned at Female 09/19/2019 11:34 AM JAVA TECHNICAL MANAGER Legal Sex Female 3:19 AM JAVA TECHNICAL MANAGER Gender Identity Female 09/19/2019 11:34 AM JAVA TECHNICAL MANAGER Sexual Orientation Straight 09/19/2019 11 :34 AM JAVA TECHNICAL MANAGER 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 Not on file Last Filed Vital Signs Vital Sign Reading Time Taken Comments Blood Pressure 130/84 08/23/2024 3:33 PM JAVA TECHNICAL MANAGER Pulse 88 08/23/2024 3:33 PM JAVA TECHNICAL MANAGER Temperature 36.4 C (97.6 F) 08/23/2024 3:33 PM JAVA TECHNICAL MANAGER Respiratory Rate 16 08/23/2024 3:33 PM JAVA TECHNICAL MANAGER Oxygen Saturation 96% 08/23/2024 3:33 PM JAVA TECHNICAL MANAGER Inhaled Oxygen Concentration - - Weight 91 kg (200 lb 9.6 oz) 08/23/2024 3:33 PM JAVA TECHNICAL MANAGER Height 162.6 cm (5' 4) 08/23/2024 3:33 PM JAVA TECHNICAL MANAGER Body Mass Index 34.43 08/23/2024 3:33 PM JAVA TECHNICAL MANAGER Plan of Treatment Upcoming Encounters Date Type Department Care Team (Late st Contact Info) Description 12/13/2024 8:00 AM CDT Ancillary Procedure [address] [place] [address] Constance Henry, PA-C [address] [place], [place] [phone] 02/17/2025 8:15 AM CDT Lab [facility] [address] [place] [address] [phone] 03/14/2025 3:40 PM CDT Oncology Visit [facility] [address] [facility] [place] [address] Constance Henry PA-C [address] [place] [address] Chata Mosqueda MD 9 [place], [place] [address] 07/05/2025 9:00 AM CDT Office Visit [facility] [address] [place] [address] [phone] [place]idy Lindo MD [id number] [place] [address] [phone] Health Maintenance Due Date Last Done Comments [...] BILATERAL W/ SAÚL Routine 09/05/2024 10:09 AM JAVA TECHNICAL MANAGER Encounter for screening mammogram for breast cancer [...] MA Screen Bilateral w/Saúl (09/05/2024 10:09 AM JAVA TECHNICAL MANAGER) Anatomical Region Laterality Modality Breast Bilateral Mammography Impressions 09/05/2024 10:21 AM JAVA TECHNICAL MANAGER IMPRESSION: ACR BI-RADS Category 2: Benign BREAST CANCER SCREENING RECOMMENDATION: Routine yearly mammography beginning at age 40 or as discussed with your provider. The results and recommendations of this examination will be communicated to the patient. Todd Blanc MD Narrative 09/05/2024 10:21 AM JAVA TECHNICAL MANAGER BILATERAL FULL FIELD DIGITAL SCREENING MAMMOGRAM WITH [...] BLOOD ORDERABLES Final Re sult [facility] [place] [facility] [address] [facility], [address] [place] [address], [facility] * (ABNORMAL) Comprehensive metabolic panel (BMP + [...] BLOOD ORDERABLES Final Re sult [facility] [place] [facility] [address] [facility] [address], [address] [place] [address], [facility] * Pap Screen with HPV - recommended [...] component of this testing was completed at [facility] 02/23/2023 9:16 AM CDT SPECIALTY LABS Brushing CERVIX UTERI STRUCTURE / Unknown 02/18/2023 8:45 AM CDT 02/18/2023 9:11 AM CDT us Cassidy Lindo MD LAB - BEAKER AP Final Result SPECIAL[facility] [address] [facility] [address], [address] [place] [address], [place] [phone] * HPV High Risk Types DNA Cervical (02/18/2023 8:45 AM CDT) Other HR HPV Negative Negative 02/24/2023 3:33 PM CDT [facility] HPV16 DNA Negative Negative 02/24/2023 3:33 PM CDT [facility] HPV18 DNA Negative Negative 02/24/2023 3:33 PM CDT [facility] FINAL DIAGNOSIS This patient's sample is negative for HPV DNA. This test was developed and its performance characteristics determined by the [facility], Molecular Diagnostics Laboratory. It has not been [...] followup is recommended. 02/24/2023 3:33 PM CDT [facility] Brushing CERVIX UTERI STRUCTURE / Unknown Non-blood Collection / Unknown 02/18/2023 8:45 AM CDT 02/24/2023 8:02 AM CDT us Cassidy Lindo MD LAB - BLOOD ORDERABLES Final Re sult [facility] [address], [address] [place] [address], [facility] [phone] * HIV Antigen Antibody Combo (01/01/2022 9:40 AM CDT) HIV Antigen Antibody Combo Nonreactive Nonreactive 01/01/2022 11:11 PM CDT [facility]/PROT/EN DO Comment:HIV-1 p24 Ag & HIV-1 /HIV-2 Ab Not Detected Blood BLOOD SPECIMEN / Unknown Venipuncture / Unknown 01/01/2022 9:40 AM CDT 01/01/2022 9:40 AM CDT Cassidy Lindo MD LAB - BLOOD ORDERABLES Final Re sult Performing Organization Address [facility] Co de Phone Number [facility] SPECIALTY CORE/PROT/ENDO [facility] Specialty Core/Prot/Endo [address] [facility], Room [address] [place] [address] * Hepatitis C Screen Reflex to HCV [...] ORDERABLES Final Re sult Performing Organization Address [facility] Co de Phone Number [facility] SPECIALTY CORE/PROT/ENDO [facility] Specialty Core/Prot/Endo [address] [facility], [address] [address], [facility] [phone] * COLONOSCOPY (07/13/2018 11:53 AM CDT) COLONOSCOPY [facility] Patient Name: Yesenia Collazo Procedure Date: [...] # [id number], Endora # [id number], SN # [id number] was introduced through the anus and advanced [...] malignant neoplasm of colon CPT copyright 2017 [employer]. All rights reserved. The codes documented in this report are preliminary and upon stitch bonding machine drawer in review may be revised to meet current [...] to Health Maintenance Insurance BCBS OUT OF [facility] BCBS OUT OF STATE Advance Directives For more information, please contact: [phone] * Full Code (Latest Code Status on File) Date Activated Date Inactivated Comments 10/22/2016 9:51 AM 11/02/2019 10:00 AM * Full Code Date Activated Date Inactivated Comments 10/21/2016 11:45 PM 10/22/2016 9:51 AM Care Teams Bill Adjuster Relationship Specialty [place] [address] [place] [address] PCP - General Family Practice 06/28/18 [place] [address] [place] [address] Assigned PCP 06/27/18 Tracy Hsieh, RN Specialty Manager Home Healthcare Hematology & Oncology 11/02/23 Constance Henry, PAHalC [address] [place] [address] Assigned Cancer Care Provider 09/05/24
--- OUTSIDE RECORDS SUMMARY | 2024-12-11 15:58 | XMS_ITS | Encounter Summary ---
Author Organization [facility] Address [address] [place] [address]. [place] [address] Care Team Providers Care Emt B Name Role Phone Cassidy Lindo MD Primary Care Provider [phone] Cassidy Lindo MD Unavailable [phone] Renetta Lal Unavailable Unavailable Berlin Andrews MD Unavailable Xena Camara MD Unavailable [phone] Tracy Hsieh RN Unavailable [phone] Constance Henry PA-C Unavailable Encounter Details Date Type Department Care Team (Late st Contact Info) Description 08/03/2020 [facility] [place] [address] [place] [phone] Lamar Buchanan, MINDY Social History Tobacco Use [...] and Family Once a week 10/24/2019 Attends [employer] More than 4 times per year [...] Answer Date Recorded PHQ-2 Score 0 09/21/2018 [facility] - [...] received? 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 Not on file documented as of this encounter Plan of Treatment Upcoming Encounters Date Type Department Care Team (Late st Contact Info) Description 12/13/2024 8:00 AM CDT Ancillary Procedure [address] [place] [address] Constance Henry PA-C [address] [place] [address] 02/17/2025 8:15 AM CDT Lab [facility] [address] [place] [phone] 03/14/2025 3:40 PM CDT Oncology Visit [facility] [place] [address] [facility] [place] [address] Constance Henry PA-C [address] [place], [place] [address] Chata Mosqueda MD 9 [place] [address] 07/05/2025 9:00 AM CDT Office Visit [facility] [address] [place] [phone] [place] [address] [place], [place] [phone] documented as of this encounter Visit Diagnoses Not on filedocumented in this encounter Care Teams Emt B Relationship Specialty Start [place] [id number] [place] [address] [phone] PCP - General Family Practice 06/28/18 [place] [address] [place] [address] Assigned PCP 06/27/18 Renetta Lal Personal Advocate & Liaison (PAL) Family Practice 10/24/19 08/13/20 Berlin Andrews MD Assigned Cancer Care Provider 07/06/20 01/04/24 Xena Camara MD SURGICAL CONSULTS, ELVIN Cardona E FELIPE KING [facility] [address] [place] [address] Assigned Surgical Provider 07/06/20 04/20/21 Tracy Hsieh, RN Specialty Sap Payroll Consultant Hematology & Oncology 11/02/23 Constance Henry, PAHalC [address] [facility] 200 [place] [address] Assigned Cancer Care Provider 09/05/24 documented as of this encounter
--- OUTSIDE RECORDS SUMMARY | 2024-12-11 15:58 | XMS_ITS | Encounter Summary ---
Author Organization [facility] Address [address] [place] [address]. [place] [address] Care Team Providers Care Purchasing Administrator Name Role Phone Cassidy Lindo MD Primary Care Provider [phone] Cassidy Lindo MD Unavailable [phone] Berlin Andrews MD Unavailable Tracy Hsieh RN Unavailable [phone] Constance Henry PA-C Unavailable Encounter Details Date Type Department Care Team (Late st Contact Info) Description 11/28/2022 [facility] [place] [facility] [address] [facility] [place] [phone] Tracy Hsieh, RN Social History Tobacco Use [...] often do you attend [facility] or worship services? More than 4 times per year 01/01/2022 Do you belong to any clubs o r organizations such as taoist groups, unions, fraternal or athletic groups, or [...] Answer Date Recorded PHQ-2 Score 0 01/01/2022 [facility] of Occupat ional Health - Occupational Stress [...] place to sleep or slept in a long term (including now)? No 01/01/2022 Education Answer Date Recorded What is the highest level of school you have completed or the highest degree you have received? 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 file documented as of this encounter Plan of Treatment Upcoming Encounters Date Type Department Care Team (Late st Contact Info) Description 12/13/2024 8:00 AM CDT Ancillary Procedure [address] [place] [address] Constance Henry PA-C [address] [place] [address] 02/17/2025 8:15 AM CDT Lab [facility] [address] [place] [phone] 03/14/2025 3:40 PM CDT Oncology Visit [facility] [address] [place] [address] [address] [facility] [place] [address] Constance Henry PA-C [address] [place] [address] Chata Mosqueda MD [address] [place] [address] 07/05/2025 9:00 AM CDT Office [facility] [address] [place] [phone] Cassidy Lindo MD [address] [place] [address] [phone] documented as of this encounter Visit Diagnoses Not on filedocumented in this encounter Additional Health Concerns Assessment Noted Time PHQ-9 Depression Total Score: 1 08/14/20 20 7:02 AM MANAGER SOCIAL documented as of this encounter Care Teams Purchasing Administrator Relationship Specialty Start Date [place] [id number] [place] [address] [phone] PCP - General Family Practice 06/28/18 Cassidy Lindo [place] [id number] [place] [address] [phone] Assigned PCP 06/27/18 [place] [address] [place] [address] Assigned Cancer Care Provider 07/06/20 01/04/24 Tracy Hsieh, RN Specialty Target Worker Hematology & Oncology 11/02/23 Constance Henry, PAHalC [address] [address] Assigned Cancer Care Provider 09/05/24 documented as of this encounter
--- OUTSIDE RECORDS SUMMARY | 2024-12-11 15:58 | XMS_ITS | Encounter Summary ---
Author Organization [facility] Address [address] [place] [address]. [place] [address] Care Team Providers Care Info Analyst Name Role Phone Clinic - [facility] Primary Care Provider Cassidy Lindo MD Primary Care Provider [phone] Cassidy Lindo MD Unavailable [phone] Cassidy Lindo MD Unavailable [phone] Renetta Lal Unavailable Unavailable Berlin Andrews MD Unavailable Xena Camara MD Unavailable [phone] Tracy Hsieh RN Unavailable [phone] Constance Henry PA-C Unavailable Reason for Visit * Reason Onset Date Comments MyChart Communication 06/22/2018 Encounter Details Date Type Department Care Team (Latest Contact Info) Description 06/22/2018 [facility] Medical Advice [facility] [address] [place] [address] [place] [address] [place] [address] MyChart Communication Social History Tobacco Use Types Packs/Day Years Used Date Smoking Tobacco: Never Smokeless Tobacco: Never Alcohol Use Standard Drinks/Week Comments Yes 0 (1 standard drink = 0.6 oz pur e alcohol) couple per month Comments No Sex and Gender Information Value Date Recorded Sex Assigned at Female 09/19/2019 11:34 AM SENIOR COMMISSIONS ANALYST Legal Sex Female 3:19 AM SENIOR COMMISSIONS ANALYST Gender Identity Female 09/19/2019 11:34 AM SENIOR COMMISSIONS ANALYST Sexual Orientation Straight 09/19/2019 11 :34 AM SENIOR COMMISSIONS ANALYST 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 [place] [address] [facility] [place] [phone] Constance Henry, PA-C [address] [place] [address] Chata Mosqueda MD 9 [place], [place] [address] 07/05/2025 9:00 AM CDT Office Visit [facility] [address] [place] [phone] [place] [address] [place] [address] documented as of this encounter Visit Diagnoses Not on filedocumented in this encounter Additional Health Concerns Infection Onset Date Last Indicated Resolved Time Rule Out COVID-19 06/11/2020 06/11/2020 06/12/2020 3:31 PM CDT documented as of this encounter Care Teams Info Analyst Relationship Specialty Start Date End Date [facility] [address] [place] [address] [phone] PCP - General 05/14/17 06/27/18 Cassidy [place]o [place] [id number] [place] [address] PCP - General Family Practice 06/28/18 [place] [address] [place] [address] PCP - Assigned PCP 06/27/18 11/16/18 [place] [address] [place] [address] Assigned PCP 06/27/18 Renetta Lal Personal Advocate & Liaison (PAL) Family Practice 10/24/19 08/13/20 Berlin Andrews MD Assigned Cancer Care Provider 07/06/20 01/04/24 Xena Camara MD SURGICAL CONSULTS, ELVIN Cardona E FELIPE KING [address] [place], [place] [address] Assigned Surgical Provider 07/06/20 04/20/21 Tracy Hsieh RN Specialty Clinical Resource Director Hematology & Oncology 11/02/23 Constance Henry PA-C [address] [place] [address] [phone] Assigned Cancer Care Provider 09/05/24 documented as of this encounter
--- OUTSIDE RECORDS SUMMARY | 2024-12-11 15:58 | XMS_ITS ---
Author Organization [facility] Address [address] [place] [address]. [place] [address] Care Team Providers Care Student Records Coordinator Name Role Phone Cassidy Lindo MD Primary Care Provider [phone] Cassidy Lindo MD Unavailable [phone] Tracy Hsieh RN Unavailable [phone] Constance Henry PA-C Unavailable Active Problems Problem Noted Date Diagnosed Date Morbid obesity 02/18/2023 Hyperlipidemia LDL goal <130 08/20/2020 Family history of diabetes mellitus 08/20/2020 Esophageal dysphagia 08/20/2020 Ductal carcinoma in situ (DCIS) of left breast 0 10/21/2019 Overview (10/21/2019): Added automatically from request for surgery [id number] DCIS (ductal carcinoma in situ) 10/19/2019 Overview [...] treatments are documented for this patient in [facility]. Treatments may have been administered in another system. Treatment Summaries DCIS (ductal carcinoma in situ)* Cancer Treatment Plan and Summary - Breast Provided by [facility] General Information Patient Name Yesenia Collazo Patient 1965 Patient phone [phone] (home) [phone] (work) Email [email or web address] Care Team Primary Care Provider Cassidy Lindo [...] posterior margin: Negative for residual intraductal carcinoma. [facility] 5256 cGy in 20 [...] to maintain optimal health. Possible late and/or intermediate teacher effects that someone with this type of cancer and treatment may experience: bone effects heart effects fertility effects memory and concentration pain lymphedema nervous system changes If you would like to discuss specific late and/or intermediate teacher effects related to your treatment, please use the following website to make an appointment in the Cancer Survivor Program: www.[facility]uga medical centerPurplu.[email or web address]/c are/[facility]/stwiyv-pcoi-jfjuv/support-services OR call These symptoms should be brought [...] Advanced Directive- Link to the short form https://www.honoringchoices.org/aiyyyn-sxwj-hufqwdfvic/urdu/26-psvwgedvrj-vuq zzpstz-4-jnngc-fillable/file Here are some resources in survivorship that [...] and find support from groups like these: [place] [employer] Society, . CancerCare, 884-093-TUAO (4673) National Cancer [place], 624-9-YYNRIU (186-628-9117) Online Resources [place] [employer] for Cancer Research: www.aacr.org [place] for Cancer Research- Food Facts Association of Cancer Online Resources: www.acor.org Breast Cancer specific: fireflysisterhood.org Cancer Care, Inc.: www.cancercare.org [place] Society of Clinical Oncologists (ASCO): www.cancer.net Cancer Survivors Network ([place] Cancer Society): www.acscsn.org From Cancer Patient to Cancer Survivor: Lost in Transition Life After Cancer Treatment (National Cancer [place]): www.cancer.gov/cancertopics/coping/uwsm-armrw-nvzdlmsdi Live Strong: www.livestrong.org [facility]: [facility].org (herbal facts) National Coalition for Cancer Survivorship: www.canceradvocacy.org Patient Advocate Foundation: www.patientadvocate.org People Living With Cancer: www.uicc.org/membership/pmjjke-ctrzuu-xarnbq-plwc MHealth www.mhealth.org/care/overarching-care/nbvhdc-ytvj-tqvfq/support-services Phone Resources [place] Cancer Society: National Cancer [place]: National Coalition for Cancer Survivorship: 2-825-PNAW-YES (455-217-0003) Patient Advocate Foundation: Books After Cancer Treatment: Heal Faster, Better, Stronger (2006, 2nd Ed. 2015) by Tracy Gray Cancer Fitness: Exercise Programs for Patients and Survivors (2004) by Ashlie Adame Eating Well, Staying Well During and After Cancer (2004, 2nd Ed. 2010) by the [place] Cancer Society LiveStrong: Inspirational Stories from Cancer [...] Diet in Cancer Survivorship (2001) by the [place] for Cancer Research Anticancer: A New Way [...] not within this range, recommend seeing a stereo operator to discuss way to get into this [...]
--- OUTSIDE RECORDS SUMMARY | 2024-12-11 15:58 | XMS_ITS | Encounter Summary ---
Author Organization [facility] Address [address] [place] [address]. [place] [address] Care Team Providers Care Manager Physical Name Role Phone Cassidy Lindo MD Primary Care Provider [phone] Cassidy Lindo MD Unavailable [phone] Renetta Lal Unavailable Unavailable Berlin Andrews MD Unavailable Xena Camara MD Unavailable [phone] Tracy Hsieh RN Unavailable [phone] Constance Henry PA-C Unavailable Encounter Details Date Type Department Care Team (Late st Contact Info) Description 01/09/2020 [facility] [place] Advice [facility] [address] [facility] [place] [phone] Jailene Aggarwal Social History Tobacco Use Types [...] and Family Once a week 10/24/2019 Attends [employer] More than 4 times per year [...] Answer Date Recorded PHQ-2 Score 0 09/21/2018 [facility] - [...] degree (e.g., MA, MS, Jose Guadalupe, MEd, PARENT COACH, DENISSE) 10/24/2019 Comments No Sex and Gender Information Value Date Recorded Sex Assigned at Female 09/19/2019 11:34 AM SPINNER HAND Legal Sex Female 3:19 AM SPINNER HAND Gender Identity Female 09/19/2019 11:34 AM SPINNER HAND Sexual Orientation Straight 09/19/2019 11 :34 AM SPINNER HAND Occupation Industry Job Start Date Job End [...] Description 12/13/2024 8:00 AM CDT Ancillary Procedure [facility] [address] [facility] [address] [place] [address] Constance Henry, PASumit [address] [place] [address] 02/17/2025 8:15 AM CDT Lab [facility] [id number] [place] [phone] 03/14/2025 3:40 PM CDT Oncology Visit [facility] [place] [address] [place] [address] [facility] [place] [phone] Constance Henry, PASumit [address] [place] [address] Chata Mosqueda MD [address] [place] [phone] 07/05/2025 9:00 AM CDT Office Visit [facility] [address] [place] [phone] [place] [address] [place], [place] [phone] documented as of this encounter Visit Diagnoses Not on filedocumented in this encounter Additional Health Concerns Infection Onset Date Last Indicated Resolved Time Rule Out COVID-19 06/11/2020 06/11/2020 06/12/2020 3:31 PM CDT documented as of this encounter Care Teams Manager Physical Relationship Specialty [place] [address] [place] [address] PCP - General Family Practice 06/28/18 [place] [address] [place] [address] Assigned PCP 06/27/18 Renetta Lal Personal Advocate & Liaison (PAL) Family Practice 10/24/19 08/13/20 Berlin Andrews MD Assigned Cancer Care Provider 07/06/20 01/04/24 Xena Camara MD [facility] [address] [facility] [address] [place], [place] [id number] Assigned Surgical Provider 07/06/20 04/20/21 Tracy Hsieh RN Specialty Renderer Hematology & Oncology 11/02/23 Constance Henry, PAHalC [address] [facility] [address] [place], [place] [address] Assigned Cancer Care Provider 09/05/24 documented as of this encounter
--- NOTE | 2024-12-11 15:59 | ED.GENADULT ---
HPI - General Adult General Date Seen: 12/11/24 Chief complaint: Abdominal Pain Stated complaint: diverticulitis symptoms Time Seen by Provider: 12/11/24 14:58 History of Present Illness HPI narrative: Patient is a 59-year-old woman who presents for evaluation of left lower quadrant and left low back pain. She says symptoms started about 4 days ago with left lower quadrant pain. She has a history of diverticulitis, admitted to the hospital for a small perforation in August of 2024. She says that the symptoms felt similar so she decreased fiber in her diet, and waited to see if it would get better, but instead it seems to gotten worse. The abdominal pain is actually not as bad as it was but now she has left low back pain which is more significant. She denies any urinary symptoms. She has not had fever but has felt significantly nauseated. No vomiting. No black or bloody stools. No prior abdominal surgeries. She had a colonoscopy at age 51 which she says was unremarkable, she did see Dr. Davis in follow-up after her hospitalization and has a repeat colonoscopy scheduled for January 05. Related Data Home Medications ?Medication ?Instructions ?Recorded ?Confirmed exemestane 25 mg tablet (Aromasin) 25 mg PO DAILY 09/11/24 12/11/24 sertraline 100 mg tablet 100 mg PO DAILY 09/11/24 12/11/24 alendronate 70 mg tablet 70 mg PO 09/12/24 09/29/24 atorvastatin 20 mg tablet 20 mg PO DAILY 09/12/24 12/11/24 metformin 500 mg tablet,extended 500 mg PO DAILY 09/12/24 12/11/24 release 24 hr omeprazole 20 mg capsule,delayed 20 mg PO DAILY 09/12/24 12/11/24 release Previous Rx's ?Medication ?Instructions ?Recorded amoxicillin 875 mg-potassium 1 tab PO Q12H 15 days #30 tabs 09/13/24 clavulanate 125 mg tablet Allergies Allergy/AdvReac Type Severity Reaction Status Date / Time No Known Drug Allergies Allergy Verified 12/11/24 15:11 Review of Systems Status of ROS: Reports: 10 or more systems reviewed and unremarkable except as noted in History and below [facility] Medical History Hyperlipidemia ?E78.5 - Hyperlipidemia, unspecified (ICD-10) Morbid obesity ?E66.01 - Morbid (severe) obesity due to excess calories (ICD-10) Pre-diabetes ?R73.03 - Prediabetes (ICD-10) Metabolic syndrome ?E88.810 - Metabolic syndrome (ICD-10) Social History What is your current living situation?: I presently have a place to live Problems where you live: no known problems Problems where you live details: none In the past 12 months, utilities in danger of being shut off: no In past 12 months, lack of transportation kept you from medical appts, meetings, work, or getting things needed for daily living: no In the past 12 mos, have been you worried that your food would run out before you had money to buy more?: never true In the past 12 mos, the food you bought just didn't last and you didn't have money to buy more?: never true Highest level of school completed/degree received: Master's degree Smoking Status: Never smoker How often do you have a drink containing alcohol: monthly or less AUDIT-C Alcohol total score: 1 Non-prescribed substance use: denies use Caffeine: Yes (a cup a day) How often does anyone, including family, friends and others, physically hurt you: never How often does anyone, including family, friends and others, insult or talk down to you: never How often does anyone, including family, friends and others, threaten you with harm: never How often does anyone, including family, friends and others, scream or curse at you: never service: No Exam Narrative: Exam Narrative: Vital signs reviewed In general, alert, nontoxic Head: Normocephalic, atraumatic. Eyes: Sclera clear. Pupils equal and reactive. ENT: Mucous membranes moist. Neck: Supple without adenopathy. Heart: Regular rate and rhythm without murmur. Lungs: Clear. No increased work of breathing, crackles or wheezes. Abdomen: Abdomen is soft, mildly distended with diffuse tenderness greatest in the left lower quadrant. She has little bit of guarding there, no other rebound or rigidity. Extremities: Well perfused, pulses intact. No significant edema. Neurologic: Alert, conversant. Speech fluent, face symmetric. Moves all extremities equally. Skin: Warm, dry well perfused. Affect: Normal. Const: Vital Signs, click to edit/add: Vital Signs - 24 hr 12/11/24 15:06 12/11/24 16:34 12/11/24 16:35 Temperature 97.8 F Pulse Rate 75 77 Pulse Rate [Left P ulse Oximeter] 80 Respiratory Rate 16 16 Blood Pressure 105/51 L Blood Pressure [Ri ght Upper Arm] 117/81 Pulse Oximetry 95 90 93 Oxygen Delivery Me thod Room Air Room Air 12/11/24 16:45 12/11/24 17:00 12/11/24 17:02 Temperature Pulse Rate 76 80 80 Pulse Rate [Left P ulse Oximeter] Respiratory Rate 16 Blood Pressure 108/63 Blood Pressure [Ri ght Upper Arm] Pulse Oximetry 91 90 89 Oxygen Delivery Me thod Room Air 12/11/24 17:15 Temperature Pulse Rate 82 Pulse Rate [Left P ulse Oximeter] Respiratory Rate Blood Pressure Blood Pressure [Ri ght Upper Arm] Pulse Oximetry 93 Oxygen Delivery Me thod Course Course ED Course: Old records are reviewed, will obtain a CT scan to look for recurrent diverticulitis and rule out any possible complications. Other diagnostic considerations would be colitis, bowel obstruction, urinary tract infection, ovarian pathology, pyelonephritis, perforated viscus among others. Will give Toradol and Zofran for pain and nausea, 500 mL of normal saline IV ordered as well. Routine labs pending, UA obtained and the urine dip is negative for blood, trace leukocytes. micro is pending. Lab tests are all reviewed and essentially normal she has mild elevations in her transaminases with an AST of 48 and an ALT of 56. I doubt this is of clinical significance. Urine micro shows 2-5 red cells 2-[address] scanRead by Radiology showing mild left colonic diverticulosis with minimal fat stranding around the proximal sigmoid colon, same location as prior. No evident complications. At this time, I think it is reasonable to let her go home on oral antibiotics, reviewed with her the difference between why we can not to home today versus admission last time. Also reviewed that despite antibiotics it is possible for this to get worse. Reviewed reasons to return. I prescribed Augmentin, oxycodone, Zofran. She can use ibuprofen for baseline pain. Return for fevers, worsening or severe pain, vomiting, bloody stools. Otherwise, primary care follow-up for recheck, follow-up for colonoscopy later in the month as planned. Vital Signs Vital signs: Initial Vital Signs Temperature 97.8 F 12/11/24 15:06 Temperature Source Temporal Artery Scan 12/11/24 15:06 Pulse Rate 80 12/11/24 15:06 Respiratory Rate 16 12/11/24 15:06 Blood Pressure 117/81 12/11/24 15:06 Blood Pressure Mean 93 12/11/24 15:06 Blood Pressure Position Sitting 12/11/24 15:06 Pulse Oximetry 95 12/11/24 15:06 Oxygen Delivery Method Room Air 12/11/24 15:06 Vital Signs Temperature 97.8 F 12/11/24 15:06 Pulse Rate 80 12/11/24 15:06 Respiratory Rate 16 12/11/24 15:06 Blood Pressure 117/81 12/11/24 15:06 Pulse Oximetry 95 12/11/24 15:06 Oxygen Delivery Method Room Air 12/11/24 15:06 Temperature 97.8 F 12/11/24 15:06 Pulse Rate 82 12/11/24 17:15 Respiratory Rate 16 12/11/24 17:02 Blood Pressure 108/63 12/11/24 17:02 Pulse Oximetry 93 12/11/24 17:15 Oxygen Delivery Method Room Air 12/11/24 17:02 Medications Administered Medications: Discontinued Medications Generic Name Dose Route Start Last Admin Trade Name Freq PRN Reason Stop Dose Admin Sodium Chloride 500 mls @ 500 mls/hr 12/11/24 15:45 12/11/24 17:10 0.9 % Sodium Chloride 500 Ml IV 12/11/24 16:44 Infused .Q1H ONE Infusion Ketorolac Tromethamine 15 mg 12/11/24 15:45 12/11/24 16:13 Ketorolac 15 Mg/Ml Inj IVP 12/11/24 15:46 15 mg ONCE ONE Administration Ondansetron HCl 4 mg 12/11/24 15:45 12/11/24 16:12 Ondansetron 2 Mg/Ml Inj IVP 12/11/24 15:46 4 mg ONCE ONE Administration Medical Decision Making Lab Data Labs: Lab Results 12/11/24 12/11/24 Range/Units 15:50 15:55 Sodium 141 (135-149) mmol/L Potassium 4.2 (3.6-5.1) mmol/L Chloride 109 (96-114) mmol/L Carbon Dioxide 21 (20-32) mmol/L Anion Gap 11 (7-15) mEq/L BUN 17 (7-30) mg/dL Creatinine 0.9 (0.5-1.5) mg/dL Estimated Creat Clear 58.84 Estimated GFR 74 ml/min Glucose 102 (60-115) mg/dL Lactate 1.2 (0.5-1.9) mmol/L Calcium 9.5 (8.4-10.6) mg/dL Total Bilirubin 0.9 (0.1-1.5) mg/dL AST 48 H (12-35) U/L ALT 56 H (4-35) U/L Alkaline Phosphatase 91 (40-150) U/L C-Reactive Protein 1.1 H (0.5-1.0) mg/dL Total Protein 7.9 (6.0-8.3) g/dL Albumin 4.8 (3.3-5.0) g/dL Urine Color Yellow (Yellow) Urine Appearance Clear (Clear) Urine pH 5.0 (5.0-8.5) Ur Specific [place] <= 1.005 (1.000-1.030) Urine Protein Negative (Negative) Urine Glucose (UA) Negative (Negative) Urine Ketones Negative (Negative) Urine Blood Negative (Negative) Urine Nitrite Negative (Negative) Urine Bilirubin Negative (Negative) Urine Urobilinogen 0.2 (0.2-1.0) Ur Leukocyte Esterase Trace A (Negative) Urine RBC 2-5 A (0-2) Urine WBC 2-5 (0-5) Ur Squamous Epith Cells Few (None-Few) Urine Bacteria Few A (None) Imaging Data CT scan - abdomen: Attestation: I have reviewed the pertinent imaging results. Radiologist's impression: Patient: DESHAUN CINTRON Facility: [facility] Site . Site : 1965 Study: CT-Abdomen/Pelvis W/ 98CC [id number]/30/2025 4:09:22 PM Ordering Physician: Sallie Anderson Final Report: INDICATION: LLQ PAIN, LEFT LOW BACK PAIN, HX DIVERTICULITIS. TECHNIQUE: CT abdomen and pelvis acquired with 98 cc Isovue 370 IV contrast. COMPARISON: None. FINDINGS: Lower chest: Redemonstrated moderate hiatal hernia. Liver: Diffuse hepatic hypodensity, compatible with steatosis. Gallbladder and bile ducts: Unremarkable. No stones or inflammation. No biliary dilatation. Pancreas: Unremarkable. No mass or inflammation. Spleen: Unchanged multi-cystic splenic focus measuring approximately 4.9 cm. Adrenal glands: Unremarkable. No nodules. Kidneys: Redemonstrated duplicated left urinary collecting system. No suspicious masses, stones, or hydronephrosis. GI tract: Redemonstrated left colonic diverticulosis with minimal fat stranding about the proximal sigmoid colon, at the same location relative to prior. Bowel is normal caliber. Normal appendix. Vasculature: Abdominal aorta is normal in caliber. Mesenteric arteries are patent. Lymph nodes: No lymphadenopathy. Peritoneum/Abdominal Wall: Small to moderate fat containing umbilical hernia. No sign of mass or infiltration. No free air or significant free fluid. Pelvis: Unremarkable. Bones: No acute or suspicious osseous abnormalities. Redemonstrated severe intervertebral disc height loss at L5-S1. IMPRESSION: Recurrent mild acute proximal sigmoid diverticulitis. No evident complication. Please note that all CT scans at this facility use dose modulation, iterative reconstruction, and/or weight-based dosing when appropriate to reduce radiation dose to as low as reasonably achievable. Dictated by Ernie Amador MD @ 12/11/2024 4:39:32 PM Discharge Plan Discharge Clinical Impression: Diverticulitis Patient Disposition: Home, Self-Care Condition: Improved Instructions: Diverticulitis (DC) Additional Instructions: Augmentin as prescribed. Appearance is milder on CT this time and you do not need to stay in the hospital. Usually this will get better over the next few days, but sometimes even with treatment it may get worse. If so, you should come back to the ER. Diet clear liquids to bland as tolerated. If you improve, you can follow up for your colonoscopy as planned. Ibuprofen 400 mg as needed for pain. For more severe uncontrolled pain, I prescribed oxycodone. I also prescribe Zofran if needed for nausea or vomiting. Prescriptions: No Action sertraline 100 mg tablet 100 mg PO DAILY exemestane [Aromasin] 25 mg tablet 25 mg PO DAILY Rx Instructions: must administer after a meal atorvastatin 20 mg tablet 20 mg PO DAILY alendronate 70 mg tablet 70 mg PO omeprazole 20 mg capsule,delayed release(DR/EC) 20 mg PO DAILY metformin 500 mg tablet extended release 24 hr 500 mg PO DAILY amoxicillin-pot clavulanate 875-125 mg tablet 1 tab PO Q12H 15 Days Qty: 30 0RF Patient Comments: starting on 09/18/2024 Follow Up/Referrals: Provider,Not a Local [Primary Care Provider] - Stand Alone Forms: [employer] Info Instructions
[2024-12-11 16:03] LABS: Lactate Sepsis w/Reflex* 1.2 mmol/L (0.5-1.9)
[2024-12-11] MEDS: ONDANSETRON 2 MG/ML inj 4 MG IVP (16:12)
[2024-12-11] MEDS: 0.9 % SODIUM CHLORIDE 500 ML 500 ML IV (16:12)
[2024-12-11] MEDS: KETOROLAC 15 MG/ML inj IVP (16:13)
[2024-12-11 16:21] LABS: Albumin* 4.8 g/dL (3.3-5.0); Chloride* 109 mmol/L (96-114); Potassium* 4.2 mmol/L (3.6-5.1); Sodium* 141 mmol/L (135-149)
[2024-12-11 16:23] LABS: Blood Urea Nitrogen* 17 mg/dL (7-30); Creatinine* 0.9 mg/dL (0.5-1.5); Est. Creatinine Clearance* 58.84; Estimated Glomerular Filt Rate 74 ml/min
[2024-12-11 16:24] LABS: Alanine Aminotransferase* 56 U/L (4-35); Alkaline Phosphatase* 91 U/L (40-150); Anion Gap 11 mEq/L (7-15); Aspartate Amino Transferase* 48 U/L (12-35); Bilirubin Total* 0.9 mg/dL (0.1-1.5); Carbon Dioxide* 21 mmol/L (20-32); Total Protein* 7.9 g/dL (6.0-8.3)
[2024-12-11 16:25] LABS: Bacteria Urine Few; Squamous Epithelial Cell Urine Few (None-Few)
[2024-12-11 16:25] LABS: Calcium* 9.5 mg/dL (8.4-10.6); Glucose* 102 mg/dL (60-115)
[2024-12-11 16:27] LABS: C Reactive Protein* 1.1 mg/dL (0.5-1.0)
== END 2024-12-11 17:22 | disposition home or self-care (01) ==
PROVIDERS: Emergency Provider Emergency Medicine
DX: K57.92 Diverticulitis of intestine, part unspecified, without perforation or abscess without bleeding (principal)
CPT/HCPCS: 36415; 74177; 80053; 81001; 83605; 86140; 87086; 96374; 99284; 99285; J1885; J2405; J7030; Q9967

== ENCOUNTER 2025-01-24 07:48 | Outpatient (CLI) | payer BC, SELFPAY ==
--- NOTE | 2025-01-24 09:19 | P.ANES_ITS ---
Anesthesia Charges Start Date/Time Anesthesia Start Date: 01/24/25 Anesthesia Start Time: 08:44 Stop Date/Time Anesthesia Stop Date: 01/24/25 Anesthesia Stop Time: 09:17 Coding CPT Codes CPT Codes: CYNTHIA LWR INTST NDSC NOS - 64434 ([id number]) P2 - PATIENT W/MILD SYST DISEASE, QK - CUPOLA REPAIRER 2-4 CNCRNT ANES PROC, QX - INSPECTOR PROCESS SVC W/ MD MED DIRECTION
--- NOTE | 2025-01-24 09:19 | W.ANESCHARGE ---
Anesthesia Charges Start Date/Time Anesthesia Start Date: 01/24/25 Anesthesia Start Time: 08:44 Stop Date/Time Anesthesia Stop Date: 01/24/25 Anesthesia Stop Time: 09:17 Coding CPT Codes CPT Codes: CYNTHIA LWR INTST NDSC NOS - 92160 ([id number]) P2 - PATIENT W/MILD SYST DISEASE, QK - UPPER CUTTER MACHINE 2-4 CNCRNT ANES PROC, QX - SINGING TELEGRAM PERFORMER SVC W/ MD MED DIRECTION
--- NOTE | 2025-01-24 09:31 | P.ANES_ITS ---
Anesthesia Charges Start Date/Time Anesthesia Start Date: 01/24/25 Anesthesia Start Time: 08:44 Stop Date/Time Anesthesia Stop Date: 01/24/25 Anesthesia Stop Time: 09:17 Coding CPT Codes CPT Codes: CYNTHIA LWR INTST NDSC NOS - 16789 ([id number]) P2 - PATIENT W/MILD SYST DISEASE, QK - CORRECTIONAL SUPERVISING COOK 2-4 CNCRNT ANES PROC, QX - REEL REPAIRER SVC W/ MD MED DIRECTION
--- NOTE | 2025-01-24 09:31 | W.ANESCHARGE ---
Anesthesia Charges Start Date/Time Anesthesia Start Date: 01/24/25 Anesthesia Start Time: 08:44 Stop Date/Time Anesthesia Stop Date: 01/24/25 Anesthesia Stop Time: 09:17 Coding CPT Codes CPT Codes: CYNTHIA LWR INTST NDSC NOS - 90519 ([id number]) P2 - PATIENT W/MILD SYST DISEASE, QK - DISINTEGRATOR OPERATOR 2-4 CNCRNT ANES PROC, QX - TELEVISION NEWS VIDEO EDITOR SVC W/ MD MED DIRECTION
== END 2025-01-24 07:49 | disposition home or self-care (01) ==
LOC: OP CLINIC 07:49
PROVIDERS: Visit Provider Surgery
DX: K57.32 Diverticulitis of large intestine without perforation or abscess without bleeding (principal); K57.30 Diverticulosis of large intestine without perforation or abscess without bleeding; D12.0 Benign neoplasm of cecum; D12.2 Benign neoplasm of ascending colon; D12.3 Benign neoplasm of transverse colon; D12.8 Benign neoplasm of rectum
CPT/HCPCS: 00811; 45380; 45385; 88305; J2704

== ENCOUNTER 2025-03-02 07:36 | Inpatient (IN) | payer BC, SELFPAY ==
[2025-03-02] VITALS (18 sets, daily range): BP systolic 105–130; BP diastolic 54–81; PULSE 71–95; RESP 12–16; TEMP 36.4–37.2; O2SAT 90–96; BMI 35.0
[2025-03-02] MEDS: SODIUM CHLORIDE 0.9 % (FLUSH) 10 ML SYRINGE IVF ×2 (08:15→23:34)
--- NOTE | 2025-03-02 08:15 | W.PM.H&PU ---
History & Physical Update History & Physical Update H&P Reviewed and patient assessed: No changes noted
[2025-03-02] MEDS: ACETAMINOPHEN 500 MG TABLET 1000 MG PO (08:20)
[2025-03-02] MEDS: SCOPOLAMINE 1 MG/3 DAY PATCH 1 PATCH TRANSDERMA (08:20)
[2025-03-02] MEDS: CELECOXIB 200 MG CAPSULE 400 MG PO (08:23)
[2025-03-02] MEDS: LACTATED RINGERS 1000 ML 1,000 ML 100 ML IV ×5 (08:35→22:17)
--- NOTE | 2025-03-02 09:43 | W.PM.NB ---
Nerve Block Nerve Block Time Seen by Provider: 09:24 Date Seen: 03/02/25 Type of block requested by surgeon for post-operative analgesia: TAP Side: bilateral Time out performed: Yes Verification of patient name: Yes Verification of date of : Yes Site marking: site marked Name of person performing procedure: Kiran Continuous monitoring Was continuous monitoring of O2 sat, B/P, monitoring specialist, recorded every 15 minutes?: Yes Procedure Checklist: sterile prep, needles and gloves Ultrasound guided. Images saved: Yes Medications given in 5ml increments after negative aspiration: Marcaine %: 0.25 mL: 30 Needle gauge: 20 and Exparel mL: 10 Patient tolerated procedure well: Yes Additional comments: Needle noted between internal oblique and transversus abdominus. Local spread visualized Block Charges Block Charge (with Pro Fee): TAP Bilateral Use of Ultrasound Machine for Block: Yes- US Guidance/pain block
[2025-03-02] MEDS: BUPIVACAINE 0.25% 30 ML 5 ML INJECTION (10:12)
--- NOTE | 2025-03-02 10:18 | P.ANES_ITS ---
Anesthesia Charges Start Date/Time Anesthesia Start Date: 03/02/25 Anesthesia Start Time: 09:11 Stop Date/Time Anesthesia Stop Date: 03/02/25 Anesthesia Stop Time: 16:01 Coding CPT Codes CPT Codes: ANESTH SURG LOWER ABDOMEN - 69868 ([id number]) P2 - PATIENT W/MILD SYST DISEASE, QK - SENIOR SECURITY ARCHITECT 2-4 CNCRNT ANES PROC, QX - FLY FINISHER SVC W/ MD MED DIRECTION
--- NOTE | 2025-03-02 10:18 | W.ANESCHARGE ---
Anesthesia Charges Start Date/Time Anesthesia Start Date: 03/02/25 Anesthesia Start Time: 09:11 Stop Date/Time Anesthesia Stop Date: 03/02/25 Anesthesia Stop Time: 16:01 Coding CPT Codes CPT Codes: ANESTH SURG LOWER ABDOMEN - 77607 ([id number]) P2 - PATIENT W/MILD SYST DISEASE, QK - LICENSING DIRECTOR 2-4 CNCRNT ANES PROC, QX - MANAGER SALES SUPPORT SVC W/ MD MED DIRECTION
--- NOTE | 2025-03-02 10:18 | SUR.OPER ---
PATIENT QUESTIONS ANSWERED SATISFACTORILY PREOPERATIVELY. PATIENT BROUGHT TO OR #4 PER CART. Patient positioned supine on OR #4 bed for the intubation. The perioperative team supported arms bilaterally on arm boards, then bilateral arms tucked at the patient sides in a padded/neutral position. Final approval of positioning by surgeon.
--- NOTE | 2025-03-02 13:50 | SUR.OPER ---
PATIENT FAMILY UPDATED BY PHONE CALL AT 13:50.
--- NOTE | 2025-03-02 15:06 | P.GSOP_ITS ---
Operative Note Date of procedure: 03/02/25 Pre-op diagnosis: Sigmoid diverticulitis with history of perforation Post-op diagnosis: Same Type of Procedure: 1. Laparoscopic assisted sigmoidectomy 2. Laparoscopic complete mobilization of the splenic flexure Indications: Patient is a 59-year-old female who has had several documented attacks of diverticulitis, with 1 attack complicated by a micro perforation. Please see Dr. Davis's documentation for preoperative discussion and decision-making. Procedure Description: I arrived to the operating room with the patient under general anesthesia, the ports in place. Dr. Davis was identifying the inferior mesenteric pedicle. I grasped the sigmoid colon and reflected this anteriorly. Dr. Davis then dissected out the inferior mesenteric artery circumferentially. Once this was dissected out, this was divided with a laparoscopic NORIS stapler, vascular load. An additional small vessel posterior to this was clipped proximally and distally prior to dividing. A small bleeding vessel near the staple line was controlled with a clip. The ureter with its lighted stent that had been placed by Dr. Davis was visible posterior to our area of dissection. The colon was fairly adherent to the lateral pelvic sidewall and so prior to the pelvic dissection, we mobilized the sigmoid colon laterally. We continued our dissection laterally, incising the lateral pelvic attachments of the sigmoid colon as well as the lateral peritoneal attachments. I reflected the colon medially, while Dr. Davis used the LigaSure to divide the attachments and the wispy fibers between the mesentery while Dr. Davis divided the peritoneal attachments and wispy fibers between the colon and the retroperitoneum, heading up toward the splenic flexure. Once we had mobilized as far laterally as was possible, I then grasped the omentum and retracted the omentum cephalad while Dr. Davis entered the lesser sac by dividing the gastro colic ligament. I continued to provide retraction of the superior aspect of the omentum until Dr. Davis had reached the point of lateral dissection. There were a few more fibers in the lesser sac, between the colon and retroperitoneum that were divided by Dr. Davis. Now that the colon was freely mobile, it fell easily into the pelvis. We then directed our attention toward the pelvic dissection, I reflected the colon anteriorly while Dr. Davis divided the mesentery of the rectum with the LigaSure. This was taken down to the superior rectum. The lateral peritoneal attachments on the rectum were divided with LigaSure to mobilize the rectum. The perirectal fat was cleared at the planned area of division. Once this was done, the colon used a purple load Endo-NORIS stapler to transect the rectum at the rectosigmoid junction. Dr. Davis then created a Pfannenstiel incision with the scalpel and then dissected down to the rectus fascia using cautery. She entered the rectus fascia transversely and I provided retraction while she dissected this off of the rectus muscles superiorly and inferiorly. She then grasped peritoneum in the midline and divided this. Peritoneal cavity was entered. Eligio wound protector was then placed into the wound. The distal end of the colon was then pulled into view. This came easily out of the incision. The firm area of likely prior perforation was identified in the sigmoid colon. A healthy area of bowel proximal to this was chosen as our point of dissection. A clamp was pl aced across the distal bowel and Dr. Davis then divided the bowel at the junction of the descending and sigmoid colon using a scalpel. The specimen was passed off to pathology. I then position the distal descending colon so that Dr. Davis could place the anvil of the EEA stapler as well as the pursestring suture. Sizers were use to choose the correct size of stapler. A 25 stapler was chosen as the 28 dilator did not pass into the descending colon easily. Dr. Davis then placed a running 2-0 Prolene pursestring. I then dissected the pericolonic fat off of the distal aspect of the colon and Dr. Davis divided this using cautery. A diverticulum on the distal aspect of the colon was then pulled into a 2nd 2-0 Vicryl pursestring that was placed. We were able to pull this snugly onto the anvil using suture. This was then dropped back into the abdomen. then closed the peritoneum and fascia. At this point scrubbed out to perform the proctoscopy. Please see her note for details. She then advanced stapler into the rectal stump with the trocar exactly at the midportion just posterior to the staple line. I attached the anvil of the stapler onto the trocar. Care was taken to ensure the small bowel was out of the way and the colon was not twisted. Dr. Davis then closed the stapler and fired. The stapler was removed. The pursestring anastomotic ring was robust and intact, however the rectal stump anastomotic ring while intact, was thinned at what appeared to be the posterior aspect. A leak test was then performed. Initially there was a large bubble which was seen which was felt to be gas escaping from the inferior aspect of the colon as the colon was manipulated, however there was an additional large bubble coming from behind. This was unable to be reproduced however, given the thin inferior ring and the finding of a bubble during the leak test, after discussing options, it was decided to perform a diverting ileostomy. This portion was then completed by Dr. Davis. Findings: 1. Thin rectal stump anastomotic ring 2. Questionably positive leak test Anesthesia: GETA Surgeon: Latricia Davis MD Co-Surgeon: Dayanara Hammond MD Estimated blood loss (mL): 50 Specimen: Other Additional Specimen Information: Sigmoid colon and anastomotic rings, staple line distal Condition: stable Disposition: PACU
--- NOTE | 2025-03-02 16:01 | PM.GSPRC ---
Operative Note Date of procedure: 03/02/25 Pre-op diagnosis: Sigmoid diverticulitis Post-op diagnosis: Same Type of Procedure: 1. Placement of left ureteral lighted stent 2. Cystoscopy 3. Laparoscopic sigmoidectomy 4. Laparoscopic mobilization of the splenic flexure 5. Diverting loop ileostomy Indications: Patient is a 59-year-old female who has had several documented attacks of diverticulitis, with 1 attack complicated by a micro perforation. Patient was recently seen in clinic for nagging, persistent symptoms over the last several months. Different treatment options were discussed with the patient including continued conservative management with observation versus surgical intervention. Risks and benefits of operative intervention were discussed at length with the patient. Risks included but was not limited to: Bleeding, infection, risk of damage to surrounding structures, possible need for additional procedures, possible need to convert to an open operation, possible need for a stoma and postoperative complications such as pneumonia, pulmonary emboli or [place]. All questions and concerns were addressed with the patient agreeing to proceed. Procedure Description: After discussing the risks and benefits of the procedure, the patient signed informed consent.? The operative site was marked and the patient was brought to the operating room and placed in semi lithotomy position on a pink pad.? The arms were tucked. Care was taken to pad the patient's pressure points.?? The patient was then intubated by anesthesia.?? The operative site was then prepped and draped in the usual sterile fashion.? A time-out was then performed. A 5 mm 30 degree scope was used to perform the cystoscopy. The bladder was instilled with saline solution. A brief survey of the bladder showed no masses or lesions. The right and left ureteral opening were identified. Attention was 1st directed to the left ureteral opening. A guidewire was used to intubate the ureter. Using Seldinger technique a stent was placed into the left ureter at 20 cm. I then identified the right ureteral opening. A guidewire was used to intubate the ureter. An attempt was made to place a stent into the right ureter, however the ureteral opening was small and it was difficult to thread the catheter. The decision was made to only leave the left ureteral stent in place for the procedure. The cystoscope was removed and the internal lighted wire placed in the left stent. A Womack was placed under sterile conditions. The left ureteral stent was then secured to the Womack with a Vicryl tie and Tegaderm. The drapes were removed and the abdomen prepped and draped in sterile fashion. A 5 mm Visiport was used to enter the abdomen in the left upper quadrant. CO2 insufflation was instilled. The abdomen was briefly surveyed with no evidence of injury. Additional 5 mm ports were placed supraumbilical and in the right lower quadrant. An additional 12 mm port was placed just inferior to the 5 mm port on the right side. Patient was then placed in Trendelenburg position with left side up. The small bowel was moved out of the pelvis to the right upper quadrant of the abdomen and away from the operative field. There was evidence of diverticular disease within the sigmoid colon. A small area was identified as the likely site of the micro perforation. An food and nutrition services assistant helped with retraction of the sigmoid colon to the anterior abdominal wall. A point of tension on the mesentery was identified as a likely location for the WILY pedicle. The mesentery was scored with the LigaSure device. At this point in the procedure Dr. Hammond entered and took over retraction of the sigmoid colon. The WILY pedicle was identified and circumferentially dissected free from the mesenteric fat. A window was made through the mesentery to the lateral abdominal wall and the lighted left ureteral stent was identified outside of the operative field. A laparoscopic stapler was used to transect the artery with a 30 mm vascular staple load. There was some bleeding on the staple line. This was controlled with a single 5 mm clip. A small vessel was identified just posterior to the WILY pedicle. Two clips were placed proximal and 1 distal before being transected with the LigaSure device. We continued with our dissection laterally. Dr. Hammond helped with retraction of the colon medially. I identified the white line of Toldt and dissected the sigmoid colon away from the lateral abdominal wall. I continued with the dissection superiorly towards the splenic flexure. The patient was repositioned head up at this portion of the procedure. The splenocolic attachments were identified and carefully dissected free. The mesentery of the descending colon was also dissected away from the retroperitoneum. A point of dissection was identified in the mid transverse colon. The omentum was grasped and Dr. Hammond assisted with retraction towards the anterior abdominal wall. I dissected the omentum with the LigaSure device and entered the lesser sac. The dissection was then carried towards the splenic flexure, meeting the previously dissected area. With the splenic flexure completely mobilize the descending colon fell easily into the pelvis. Attention was then directed to mobilization of the distal sigmoid colon into the pelvis. Patient again was placed Trendelenburg. The lateral peritoneal attachments of the sigmoid colon were dissected down into the pelvic rim. Posteriorly the mesentery of the superior rectum was cleared away from the colon with the LigaSure device. A small bleeding vessel was controlled with 5 mm clips. A point of distal transection was then identified on the superior rectum. The mesentery and epiploic fat was cleared off to allow for transection with the stapler. A 60 mm purple load was used to transect the superior rectum laparoscopically. The staple line was inspected, appeared well perfused and hemostatic. A grasper was placed on the transected portion of the colon. At this point in the procedure the laparoscopic equipment was moved off of the operative field. The patient was placed in a neutral position. A lower Pfannenstiel incision was made with a 15 blade scalpel. Dissection was carried down through subcutaneous tissue with cautery. The anterior fascia was identified and incised. The fascia was taken off partially from the underlying rectus muscle superiorly and inferiorly. The rectus muscles were retracted to the side and the underlying peritoneum sharply incised to enter the abdomen. The peritoneal incision was extended superiorly and inferiorly. A small Eligio wound retractor was placed to protect the incision. The grasper with the stapled end of the colon was brought through the Pfannenstiel incision and grasped with Omaha's. The colon was easily brought up through the incision site and a proximal point of transection identified. The mesentery and surrounding fat was carefully dissected away from the colon. A Jameson was placed on the proximal point of transection and the colon sharply transected with a 10 blade scalpel. The specimen was then passed off of the operative field to be sent to pathology. Babcocks were used to hold the descending colon. Rectal sizers were used to choose the EEA stapler size. A 25 mm EEA stapler was chosen. The anvil was placed into the descending colon. The colon was secured around the anvil with a 2 0 Prolene baseball stitch. A pursestring suture was used with 3 0 Vicryl to secure the tissue around the anvil. A small amount of epiploic fat was cleared off of this portion of the colon. There was a large diverticulum that was present within the pursestring suture. This was further cinched to the anvil with an additional 3-0 Vicryl stitch. The colon with the anvil in place was then placed back into the abdomen. I then closed the peritoneum with running 2 0 Vicryl suture. The fascia was closed with two 0 PDS sutures. A wet lap was placed within the incision and the abdomen insufflated with CO2. Patient was then repositioned Trendelenburg with left side up. The small bowel was moved out of the pelvis. The rectal stump staple line was identified. Everything appeared hemostatic. I moved to the patient's rectum to perform the proctoscopy while Dr. Hammond stayed sterile for the laparoscopic portion. I placed both the 25 mm and 28 mm rectal Sizer into the rectal stump and was able to easily get to the end. The 25 mm EEA stapler was then placed into the rectal stump and laparoscopically I was able to identify it at the staple line. The pin was deployed just below the staple line. Dr. Hammond then placed the anvil onto the pin, clicking it into place. Care was taken to ensure that the mesentery was not twisted and small bowel was out of the way. I then closed the anvil into the pin and deployed the stapler. The stapler was then removed and the anastomotic rings examined on the back table. The descending colon ring was intact. The rectal ring was intact, but thin on the posterior aspect. Dr. Hammond then put saline into the pelvis, submerging the anastomosis. She applied pressure proximally with her laparoscopic tools. I then performed a proctoscopy. There was some blood within the rectal canal. I insufflated the colon. Dr. Hammond saw a single bubble come to the surface during the leak test. An additional leak test was performed, again a single bubble was seen. With further insufflation and manipulation of the colon no further bubbles were identified. Due to the thin tissue on the posterior aspect of the distal ring and the presence of a bubble during the initial leak test the decision was made to divert the patient with a loop ileostomy. Prior to creation of the loop ileostomy the 12 mm port was closed with an 0 Vicryl stitch via the Herman-Alda. Patient was placed right side Trendelenburg. I laparoscopically identified the terminal ileum and I picked a point for the diverting ileostomy approximately 20 cm proximal. A grasper was placed onto this portion of small bowel. The patient was placed flat in a neutral position. A circular incision was made on the right side of the abdomen medial and superior to the umbilicus. Dissection was carried down to the anterior fascia. A cruciate incision was made. The underlying muscles were dissected lateral and medial. The underlying posterior fascia was identified and sharply incised. The fascial opening was made wide enough to freely fit 2 of my fingers. The previously identified portion of small bowel and the grasper was placed through the incision and grasped with a [place]. Both ends of the small bowel were secured to the fascia with interrupted 3 0 Vicryl. I then proceeded to close all of the incision sites with 4-0 Monocryl suture on the laparoscopic incisions and several layers of interrupted 3-0 Vicryl with an overlying running 4-0 Monocryl stitch on the Pfannenstiel incision. Steri-Strips were applied over the closed incisions. The abdomen was then draped with green towels. The small bowel was partially transected on the anti mesenteric portion. Both limbs of the small bowel were brooked and everted with interrupted 3-0 Vicryl. Several interrupted 3-0 Vicryl was used to secure the proximal and distal limb to the epidermal edge. The initial skin incision was made slightly larger than what was needed. Approximately 1 cm of the lateral side of the incision was closed with 4-0 Monocryl stitch. I was able to easily intubate both limbs of the small bowel with my finger below the fascia. A stoma appliance was then applied. The left ureteral stent was removed at the end of the procedure. The Womack was left in place. ? The patient was then woken and transported to the recovery area in stable condition. ? The patient tolerated the procedure well. Findings: Diverticular disease of the sigmoid colon. Laparoscopic mobilization of the splenic flexure. Sigmoidectomy with end to end anastomosis. Creation of a diverting loop ileostomy. Anesthesia: GETA Surgeon: Latricia Davis MD Estimated blood loss (mL): 50 Additional Specimen Information: Sigmoid colon, anastomotic rings Condition: stable Disposition: PACU
--- NOTE | 2025-03-02 16:07 | P.ANES_ITS ---
Anesthesia Charges Start Date/Time Anesthesia Start Date: 03/02/25 Anesthesia Start Time: 09:11 Stop Date/Time Anesthesia Stop Date: 03/02/25 Anesthesia Stop Time: 16:01 Coding CPT Codes CPT Codes: ANESTH SURG UPPER ABDOMEN - 24846 ([id number]) QK - BIOFUELS PRODUCTION MANAGER 2-4 CNCRNT ANES PROC, QX - COMPOSING ROOM MACHINIST APPRENTICE SVC W/ MD MED DIRECTION, P2 - PATIENT W/MILD SYST DISEASE
--- NOTE | 2025-03-02 16:07 | W.ANESCHARGE ---
Anesthesia Charges Start Date/Time Anesthesia Start Date: 03/02/25 Anesthesia Start Time: 09:11 Stop Date/Time Anesthesia Stop Date: 03/02/25 Anesthesia Stop Time: 16:01 Coding CPT Codes CPT Codes: ANESTH SURG UPPER ABDOMEN - 46597 ([id number]) QK - POCKET SETTER 2-4 CNCRNT ANES PROC, QX - OPTOMETRIC TECHNICIAN SVC W/ MD MED DIRECTION, P2 - PATIENT W/MILD SYST DISEASE
--- NOTE | 2025-03-02 16:08 | P.ANES_ITS ---
Anesthesia Charges Start Date/Time Anesthesia Start Date: 03/02/25 Anesthesia Start Time: 09:11 Stop Date/Time Anesthesia Stop Date: 03/02/25 Anesthesia Stop Time: 16:01 Coding CPT Codes CPT Codes: ANESTH SURG UPPER ABDOMEN - 70107 ([id number]) P2 - PATIENT W/MILD SYST DISEASE, QK - PROGRAM REVIEW DIRECTOR 2-4 CNCRNT ANES PROC, QX - MAINTENANCE TRAINER SVC W/ MD MED DIRECTION
--- NOTE | 2025-03-02 16:08 | W.ANESCHARGE ---
Anesthesia Charges Start Date/Time Anesthesia Start Date: 03/02/25 Anesthesia Start Time: 09:11 Stop Date/Time Anesthesia Stop Date: 03/02/25 Anesthesia Stop Time: 16:01 Coding CPT Codes CPT Codes: ANESTH SURG UPPER ABDOMEN - 18118 ([id number]) P2 - PATIENT W/MILD SYST DISEASE, QK - BACK TENDER PULP DRIER 2-4 CNCRNT ANES PROC, QX - SHEET TURNER SVC W/ MD MED DIRECTION
[2025-03-02] MEDS: ONDANSETRON 2 MG/ML inj IVP ×3 (17:36→23:33)
[2025-03-02] MEDS: HYDROmorphone 0.5 mg/0.5 ml inj IVP (17:36)
[2025-03-03] VITALS (11 sets, daily range): BP systolic 109–128; BP diastolic 53–76; PULSE 78–93; RESP 16; TEMP 36.5–36.8; O2SAT 86–97
[2025-03-03] MEDS: HYDROmorphone 0.5 mg/0.5 ml inj IVP ×3 (01:13→10:55)
[2025-03-03 06:45] LABS: Basophils Absolute Auto 0.01 K/uL (0.00-0.30); Basophils Percent Auto 0.1 % (0.0-3.0); Hematocrit 33.8 % (33.0-51.0); Hemoglobin* 10.7 gm/dL (12.0-16.0); Immature Granulocytes Abs Auto 0.01 K/uL (0.00-0.30); Immature Granulocytes Pct Auto 0.1 %; Lymphocytes Percent Auto 10.6 % (20-44); Mean Corpuscular HGB Conc 32 gm/dL (32-36); Mean Corpuscular Hemoglobin 29 pg (26-34); Mean Corpuscular Volume 91 fL (80-100); Monocytes Percent Auto 5.2 % (0.0-11.0); Platelet Count* 204 K/uL (140-440); RDW Coefficient of Variation % 15.1 % (11.5-15.5); Red Blood Count 3.73 m/uL (4.00-5.20); White Blood Count* 10.85 K/uL (4.50-11.00)
[2025-03-03 06:48] LABS: Slide Review Reflex No
[2025-03-03 06:59] LABS: Chloride* 106 mmol/L (96-114); Potassium* 4.2 mmol/L (3.6-5.1); Sodium* 137 mmol/L (135-149)
[2025-03-03 07:02] LABS: Anion Gap 6 mEq/L (7-15); Blood Urea Nitrogen* 9 mg/dL (7-30); Carbon Dioxide* 25 mmol/L (20-32); Creatinine* 0.9 mg/dL (0.5-1.5); Est. Creatinine Clearance* 58.84; Estimated Glomerular Filt Rate 74 ml/min
[2025-03-03 07:03] LABS: Calcium* 8.2 mg/dL (8.4-10.6); Glucose* 115 mg/dL (60-115)
--- NOTE | 2025-03-03 08:32 | PC.NURSE ---
Arrived to find the patient alert and oriented and vitally stable while on 1 L nasal canula. When I asked her how she felt she described feeling groggy and tired, but she was able to speak articulately and I have no concerns for her neuro status after my assessment. Appeared fully alert with time. Legs both have lower leg compression stockings on and intermittent compression devices in place around her calves. Womack in place producing light fide urine, however cloudy. Lung sounds clear. Abdomen has been painful off and one. Hypoactive bowel noises in all quadrants with the exception of the upper right quadrant, which was absent. Abdominal incisions are covered and appear to have recently been producing a serosanguineous fluid; appears to me as oozing rather than bleeding. Continuing to monitor. No further output overnight. The ostomy site itself appeared to be producing very scant amounts of bright red fluid on shift start. By shift end there was none. Ostomy is producing clear to yellow, green fluid with bits of soft solids. Ostomy tissue appears healthy. A red, fleshy coloration. Lactated ringers running as IV maintenance fluid. Chewing ice chips for dry mouth. Episodes of nausea and emesis noted overnight. No ambulation on my shift. Patient appeared to be in a state of stability on transfer of care.?
[2025-03-03] MEDS: LACTATED RINGERS 1000 ML 1,000 ML 100 ML IV ×2 (08:37→23:30)
[2025-03-03] MEDS: ONDANSETRON 2 MG/ML inj IVP ×2 (08:40→23:50)
--- NOTE | 2025-03-03 12:31 | P.GSPN_ITS ---
Subjective Subjective Date Seen: 03/03/25 Interval history: Patient is doing Well today. She did have difficulty sleeping overnight. She had some nausea and vomited once. She felt like she over did it with water during the night. Denies any nausea today. She has been able to get up and walk the halls once. Her Womack was just removed. She has had a lot of liquid and gas out of her stoma. Pain in the abdomen, especially in the lower incision. Currently well controlled. Exam Narrative: Exam Narrative: General: Alert and oriented, no acute distress. Sitting in a chair. Abdomen: Soft, mild distention, incisions with Steri-Strips in place clean/dry /intact. Lower Pfannenstiel incision with some tenderness to palpation. No guarding or rebound. Right-sided ileostomy in place. Gas and liquid within bag. Stoma is pink in appearance. Const: Vital Signs, click to edit/add: Vital Signs - 24 hr 03/02/25 16:00 03/02/25 16:05 03/02/25 16:10 Temperature 98.8 F Pulse Rate 95 93 88 Pulse Rate [Right Pulse Oximeter] Respiratory Rate 12 12 12 Blood Pressure 113/74 112/63 114/64 Blood Pressure [Le ft Arm] Pulse Oximetry 90 95 95 Oxygen Delivery Me thod Nasal Cannula Non Rebreather Mas k Non Rebreather Mas k Oxygen Flow Rate 3 8 8 03/02/25 16:15 03/02/25 16:20 03/02/25 16:25 Temperature Pulse Rate 93 94 91 Pulse Rate [Right Pulse Oximeter] Respiratory Rate 12 12 12 Blood Pressure 108/70 109/54 L 111/66 Blood Pressure [Le ft Arm] Pulse Oximetry 94 95 96 Oxygen Delivery Me thod Non Rebreather Mas k Non Rebreather Mas k Nasal Cannula Oxygen Flow Rate 8 8 3 03/02/25 16:30 03/02/25 16:40 03/02/25 17:00 Temperature 99 F 97.5 F L 97.5 F L Pulse Rate 93 71 85 Pulse Rate [Right Pulse Oximeter] Respiratory Rate 12 14 16 Blood Pressure 111/65 126/78 130/81 Blood Pressure [Le ft Arm] Pulse Oximetry 91 92 91 Oxygen Delivery Me thod Nasal Cannula Nasal Cannula Nasal Cannula Oxygen Flow Rate 3 2 2 03/02/25 17:15 03/02/25 17:20 03/02/25 17:30 Temperature 97.8 F Pulse Rate 84 86 Pulse Rate [Right Pulse Oximeter] Respiratory Rate 14 14 Blood Pressure 126/73 125/76 Blood Pressure [Le ft Arm] Pulse Oximetry 92 90 Oxygen Delivery Me thod Nasal Cannula Nasal Cannula Nasal Cannula Oxygen Flow Rate 2 2 2 03/02/25 17:45 03/02/25 18:45 03/02/25 18:45 Temperature 97.6 F Pulse Rate 84 86 Pulse Rate [Right Pulse Oximeter] 86 Respiratory Rate 14 14 Blood Pressure 123/76 126/76 Blood Pressure [Le ft Arm] 126/76 Pulse Oximetry 90 93 93 Oxygen Delivery Me thod Oxygen Flow Rate 1 03/02/25 19:45 03/02/25 20:45 03/02/25 21:45 Temperature 97.9 F 97.6 F Pulse Rate 86 86 87 Pulse Rate [Right Pulse Oximeter] Respiratory Rate 16 16 16 Blood Pressure 121/77 115/64 114/70 Blood Pressure [Le ft Arm] Pulse Oximetry 94 90 95 Oxygen Delivery Me thod Nasal Cannula Oxygen Flow Rate 0.5 03/02/25 21:45 03/02/25 23:00 03/03/25 00:45 Temperature 97.6 F Pulse Rate Pulse Rate [Right Pulse Oximeter] 87 Respiratory Rate 16 16 Blood Pressure Blood Pressure [Le ft Arm] 114/70 Pulse Oximetry 95 95 86 L Oxygen Delivery Me thod Room Air Room Air Room Air Oxygen Flow Rate 0.5 03/03/25 00:47 03/03/25 03:43 03/03/25 07:00 Temperature 98 F Pulse Rate Pulse Rate [Right Pulse Oximeter] 84 Respiratory Rate 16 16 Blood Pressure Blood Pressure [Le ft Arm] 128/76 Pulse Oximetry 90 97 94 Oxygen Delivery Me thod Nasal Cannula Nasal Cannula Nasal Cannula Oxygen Flow Rate 1 1 1 03/03/25 08:00 Temperature 97.8 F Pulse Rate Pulse Rate [Right Pulse Oximeter] 86 Respiratory Rate 16 Blood Pressure Blood Pressure [Le ft Arm] 128/76 Pulse Oximetry 94 Oxygen Delivery Me thod Nasal Cannula Oxygen Flow Rate 1 Labs/Imaging Labs Labs: No leukocytosis. Hemoglobin 10.7. Creatinine 0.9 Progress Note:A&P Assessment and plan (1) Diverticular disease: Status: Chronic Assessment and Plan: patient is status post laparoscopic sigmoidectomy with diverting loop ileostomy. Postop day 1. Expected pain postoperatively. Continue to encourage ambulation. Womack is now removed. Ileostomy with gas and liquid bag. 425 output recorded so far. Continue to monitor closely. Will continue with IV fluids. Okay for sips and ice chips. - IV and p.o. pain meds as needed, Dilaudid and [place] - IV Zofran for nausea p.r.n. - okay for sips of clear liquids and ice chips. Await advancement of diet - close monitoring of ileostomy output. If output is greater than 1500 mL/24 hours please contact on-call surgeon. - ostomy nurse consult - Continue IV fluids, 100 mL LR - Womack removed - encourage ambulation, at least 6 times per day - SCDs and Lovenox for DVT prophylaxis
--- NOTE | 2025-03-03 14:51 | PC.NURSE ---
[id number]: Pt. AOX4. Calm and cooperative. Pain rated 3/10, elevating to 7/10 with movement. Pain meds given with noted improvement verbalized by the pt. [place] being managed with ice and small sips of caffeine. Womack removed without complications. Pt voided independently after removal. Pt. ambulated 1X in the hallway and to and from the w/ [facility] assist. Ileostomy care and teaching performed. Pt. verbalized understanding.
[2025-03-03] MEDS: KETOROLAC 15 MG/ML inj IVP ×2 (16:52→22:39)
[2025-03-03] MEDS: ENOXAPARIN 40 MG/0.4 ML INJ SUBCUT (20:43)
--- NOTE | 2025-03-03 23:32 | PC.NURSE ---
Patient up with walker in room, Ileostomy is patent and draining green liquid. PIV in Right hand patent. Patient utilizing prn medications for pain. incisions and lap sites clean dry, and intact.
[2025-03-04] VITALS (8 sets, daily range): BP systolic 106–175; BP diastolic 55–83; PULSE 72–88; RESP 16–18; TEMP 36.6–36.9; O2SAT 90–96
[2025-03-04] MEDS: MELATONIN 3 MG TABLET PO (01:32)
[2025-03-04] MEDS: LACTATED RINGERS 1000 ML 1,000 ML 100 ML IV ×3 (04:09→23:48)
[2025-03-04] MEDS: KETOROLAC 15 MG/ML inj IVP (04:52)
[2025-03-04] MEDS: ONDANSETRON 2 MG/ML inj IVP (04:58)
--- NOTE | 2025-03-04 06:05 | PC.NURSE ---
End of shift note [id number]: Pt A&Ox4 and able to make needs known. She is transferring/ambulating with SBA and continues on LR per order. Pt tolerating CL diet though requested PRN Zofran stating that PRN Toradol has a tendency to cause nausea for her. VSS- pt has been afebrile and on RA throughout the shift. Ileostomy in place. Pt passing gas though bowel sounds noted to be slightly hypoactive to RUQ and RLQ. PRN Toradol given for pain control. No vomiting noted this shift. 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 Pt continent of bladder. Pt slept part of shift in recliner this shift though was then assisted into bed. She has been declining to wear SCDs this morning despite education though has TOM stockings in place to BLEs. Call light within reach.
[2025-03-04 06:35] LABS: Basophils Absolute Auto 0.02 K/uL (0.00-0.30); Basophils Percent Auto 0.2 % (0.0-3.0); Eosinophils Absolute Auto 0.09 K/uL (0.00-0.50); Hematocrit 32.5 % (33.0-51.0); Hemoglobin* 10.5 gm/dL (12.0-16.0); Immature Granulocytes Abs Auto 0.04 K/uL (0.00-0.30); Immature Granulocytes Pct Auto 0.5 %; Lymphocytes Percent Auto 14.4 % (20-44); Mean Corpuscular HGB Conc 32 gm/dL (32-36); Mean Corpuscular Hemoglobin 30 pg (26-34); Mean Corpuscular Volume 92 fL (80-100); Monocytes Percent Auto 5.8 % (0.0-11.0); Neutrophils Percent Auto 78.1 % (42.0-72.0); Platelet Count* 191 K/uL (140-440); RDW Coefficient of Variation % 15.2 % (11.5-15.5); Red Blood Count 3.55 m/uL (4.00-5.20); White Blood Count* 8.69 K/uL (4.50-11.00)
[2025-03-04 06:36] LABS: Slide Review Reflex No
[2025-03-04 06:47] LABS: Chloride* 107 mmol/L (96-114); Sodium* 137 mmol/L (135-149)
[2025-03-04 06:50] LABS: Anion Gap 6 mEq/L (7-15); Blood Urea Nitrogen* 9 mg/dL (7-30); Carbon Dioxide* 24 mmol/L (20-32); Creatinine* 0.9 mg/dL (0.5-1.5); Est. Creatinine Clearance* 58.84; Estimated Glomerular Filt Rate 74 ml/min
[2025-03-04 06:51] LABS: Calcium* 8.4 mg/dL (8.4-10.6); Glucose* 117 mg/dL (60-115)
[2025-03-04] MEDS: HYDROCODONE-ACETAMIN 5-325 MG 1 TAB PO ×3 (11:11→20:25)
--- NOTE | 2025-03-04 16:10 | PM.GSPN ---
Subjective Subjective Date Seen: 03/04/25 Interval history: Yesenia is doing well today. She had some nausea yesterday, but has not had any today. She is tolerating full liquids so far. Stoma output has been a bit high with 800 out so far this shift. Pain is controlled on hydrocodone. She has been walking in the hallways. She is worried about the fact that she has not started her home meds again yet. Exam Narrative: Exam Narrative: General: No acute distress CV: Regular rate Respiratory: Breathing nonlabored on room air Abdomen: Protuberant. Incisions are clean and dry. Small amount ecchymosis around the Pfannenstiel incision. Stoma with effluent in the bag Const: Vital Signs, click to edit/add: Vital Signs - 24 hr 03/03/25 19:00 03/03/25 23:00 03/03/25 23:26 Temperature 98.1 F Pulse Rate [Right Pulse Oximeter] 85 85 Respiratory Rate 16 16 16 Blood Pressure [Le ft Arm] 115/73 Pulse Oximetry 93 92 Oxygen Delivery Me thod Room Air Room Air 03/03/25 23:30 03/04/25 04:00 03/04/25 08:00 Temperature 98.2 F 98.2 F Pulse Rate [Right Pulse Oximeter] 78 88 Respiratory Rate 16 18 18 Blood Pressure [Le ft Arm] 110/65 111/75 Pulse Oximetry 92 94 94 Oxygen Delivery Me thod Room Air Room Air 03/04/25 08:00 03/04/25 11:15 Temperature 98.5 F Pulse Rate [Right Pulse Oximeter] 78 74 Respiratory Rate 18 18 Blood Pressure [Le ft Arm] 131/69 Pulse Oximetry 96 Oxygen Delivery Me thod Room Air Labs/Imaging Labs Labs: Hemoglobin is stable today at 10. White blood cell count is normal Electrolytes within normal limits Blood glucose has been essentially normal on panel. Progress Note:A&P Assessment and plan (1) GERD (gastroesophageal reflux disease): Status: Chronic (2) Fatty liver: Status: Chronic (3) Metabolic syndrome: Status: Chronic (4) Pre-diabetes: Status: Chronic (5) Morbid obesity: Status: Chronic (6) Ileostomy in place: Status: Acute (7) S/P laparoscopic-assisted sigmoidectomy: Status: Acute Plan The patient is a 51-year-old female who is postop day 2 status post laparoscopic assisted sigmoidectomy with diverting loop ileostomy. -overall she is doing well. -full liquid diet today -stoma output is borderline and therefore will continue IV fluids today. Will advance to regular diet tomorrow and add loperamide p.r.n. and potentially DC IV fluids -continue ambulation, SCDs an IS -patient is on Lovenox for DVT prophylaxis -stoma teaching to commence with floor nurses. Stoma nurse to see patient hopefully prior to DC otherwise as outpatient next week -nutrition consult prior to discharge
--- NOTE | 2025-03-04 18:34 | PC.NURSE ---
Pt has been very pleasant. she is alert x4. she is eating and drinking and voiding. ostomy was emptied by staff. Ambulated with assist of one. she is having abd pain and po norco was given. ostomy site look WNL, lab sites are patent. BS are active. was here will update her on ostomy out put.
[2025-03-04] MEDS: ENOXAPARIN 40 MG/0.4 ML INJ SUBCUT (20:25)
[2025-03-05] VITALS (8 sets, daily range): BP systolic 92–129; BP diastolic 64–84; PULSE 74–83; RESP 16–18; TEMP 36.5–36.9; O2SAT 91–95
[2025-03-05] MEDS: HYDROCODONE-ACETAMIN 5-325 MG 1 TAB PO ×3 (04:56→20:35)
[2025-03-05] MEDS: OMEPRAZOLE 20 MG CAPSULE DR PO (06:14)
--- NOTE | 2025-03-05 06:20 | PC.NURSE ---
Addendum entered by Kim Skinner RN 03/05/25 06:23: Pt refusing SCDs when educated though ambulated in room frequently throughout the shift. Original Note: End of shift note [id number]: Pt A&Ox4 and able to make needs known. She is transferring/ambulating with SBA. Pt passing gas though bowel sounds noted to be hypoactive x 4. Pt has been denying nausea when asked and 2-4 abd pain has been controlled with PRN [place]. Pt remains on LR per order and she is tolerating [place] diet. New IV placed due to previous IV to R hand noted to be leaking and site appearing puffy. Call light within reach. Abdominal incisions/lap sites intact with steri strips in place and no s/s of infection observed. Ileostomy emptied frequently throughout the shift as pt continues to have liquid stool. She has been continent of bladder.
[2025-03-05 07:03] LABS: Chloride* 107 mmol/L (96-114); Potassium* 3.8 mmol/L (3.6-5.1); Sodium* 139 mmol/L (135-149)
[2025-03-05 07:06] LABS: Anion Gap 7 mEq/L (7-15); Blood Urea Nitrogen* 8 mg/dL (7-30); Carbon Dioxide* 25 mmol/L (20-32); Creatinine* 0.9 mg/dL (0.5-1.5); Est. Creatinine Clearance* 58.84; Estimated Glomerular Filt Rate 74 ml/min
[2025-03-05 07:07] LABS: Calcium* 8.6 mg/dL (8.4-10.6); Glucose* 108 mg/dL (60-115)
[2025-03-05] MEDS: SERTRALINE 100 MG TABLET PO (08:53)
[2025-03-05] MEDS: ATORVASTATIN CALCIUM 10 MG TABLET 20 MG PO (08:53)
[2025-03-05] MEDS: LOPERAMIDE HCL 2 MG CAPSULE PO (09:52)
--- NOTE | 2025-03-05 11:40 | PM.GSPN ---
Subjective Subjective Date Seen: 03/05/25 Interval history: Yesenia is feeling better today even than yesterday. Denies nausea. She tolerated full liquids yesterday. She has been ambulating. She feels as though her pain is controlled. Stoma output was almost 2 L yesterday, however has slowed down overnight. She has no new concerns today. Exam Narrative: Exam Narrative: General: No acute distress CV: Regular rate Respiratory: Breathing nonlabored on room air Abdomen: Protuberant. Incisions are clean and dry without erythema. Stoma is in place with bilious output. One thousand five hundred charted in the last 24 hours, however per nursing it may be more like 1900. Const: Vital Signs, click to edit/add: Vital Signs - 24 hr 03/04/25 15:30 03/04/25 15:30 03/04/25 15:35 Temperature 97.8 F Pulse Rate [Right Pulse Oximeter] 78 78 Respiratory Rate 18 18 18 Blood Pressure [Le ft Arm] 175/82 H Pulse Oximetry 94 90 Oxygen Delivery Me thod Room Air Room Air Oxygen Flow Rate 03/04/25 20:13 03/04/25 23:00 03/04/25 23:57 Temperature 98.0 F Pulse Rate [Right Pulse Oximeter] 72 72 Respiratory Rate 16 16 16 Blood Pressure [Le ft Arm] 106/55 L Pulse Oximetry 92 92 Oxygen Delivery Me thod Room Air Room Air Oxygen Flow Rate 03/04/25 23:57 03/05/25 04:00 03/05/25 07:30 Temperature 97.9 F 97.9 F Pulse Rate [Right Pulse Oximeter] 72 74 Respiratory Rate 16 18 18 Blood Pressure [Le ft Arm] 120/83 120/84 Pulse Oximetry 92 95 91 Oxygen Delivery Me thod Room Air Room Air Room Air Oxygen Flow Rate 03/05/25 07:30 03/05/25 07:30 03/05/25 11:26 Temperature 97.9 F 98.4 F Pulse Rate [Right Pulse Oximeter] 74 74 81 Respiratory Rate 18 18 18 Blood Pressure [Le ft Arm] 120/84 129/64 Pulse Oximetry 95 94 Oxygen Delivery Me thod Room Air Room Air Oxygen Flow Rate 1 Labs/Imaging Labs Labs: Electrolytes within normal limits Progress Note:A&P Assessment and plan (1) S/P laparoscopic-assisted sigmoidectomy: Status: Acute (2) Ileostomy in place: Status: Acute (3) GERD (gastroesophageal reflux disease): Status: Chronic (4) Metabolic syndrome: Status: Chronic Plan The patient is a 51-year-old female who is postop day 2 status post laparoscopic assisted sigmoidectomy with diverting loop ileostomy. -overall she is doing well. -regular diet -stoma output is stable. Will DC IV fluids today. Have ordered p.r.n. loperamide if stoma output increases with increased diet. -continue ambulation, SCDs and IS -patient is on Lovenox for DVT prophylaxis -stoma teaching to commence with floor nurses. Stoma nurse to see patient hopefully prior to DC otherwise as outpatient next week -nutrition consult prior to discharge
--- NOTE | 2025-03-05 18:06 | PC.NURSE ---
End of shift. pt has been very pleasant,. Pt A&Ox4 and using the call light. Fluids where d/c and she can be up on her own. ostomy was charged as it was leaking. she is passing gas she is eating, drinking and voiding with no problems. abd pain has been controlled with PRN [place]. Abdominal incisions/lap sites intact with steri strips in place no redness noted. . Ileostomy emptied by pt this the shift. she had Imodium once this SL is patent.
[2025-03-05] MEDS: ENOXAPARIN 40 MG/0.4 ML INJ SUBCUT (20:35)
[2025-03-05] MEDS: SODIUM CHLORIDE 0.9 % (FLUSH) 10 ML SYRINGE 5 ML IVF (20:35)
[2025-03-06 04:10] VITALS: BP 115/71; PULSE 68; RESP 16; TEMP 37; O2SAT 95
[2025-03-06] MEDS: OMEPRAZOLE 20 MG CAPSULE DR PO (06:01)
--- NOTE | 2025-03-06 06:45 | PC.NURSE ---
End of shift note [id number]: Pt A&Ox4 and able to make needs known. She is independent with transferring and ambulation. She has been denying nausea throughout the shift and is tolerating regular diet. Pt continent of bladder and has been emptying ileostomy bag independently with staff measuring output. 4/10 back pain reported controlled with PRN [employer]- see EMAR. Stool noted to be softer in consistency this shift when compared to previous shifts. VSS- pt has been afebrile and on RA throughout the shift. Pt passing gas and bowel sounds active x 4. Pt declining to wear SCDs upon education though is up ambulating frequently and is Lovenox. 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 Call light within reach.
[2025-03-06 06:56] LABS: Chloride* 105 mmol/L (96-114); Sodium* 138 mmol/L (135-149)
[2025-03-06 06:59] LABS: Blood Urea Nitrogen* 11 mg/dL (7-30); Est. Creatinine Clearance* 52.95; Estimated Glomerular Filt Rate 65 ml/min
[2025-03-06 07:00] VITALS: RESP 16; O2SAT 93
[2025-03-06 07:00] LABS: Anion Gap 7 mEq/L (7-15); Calcium* 8.8 mg/dL (8.4-10.6); Carbon Dioxide* 26 mmol/L (20-32); Glucose* 113 mg/dL (60-115)
[2025-03-06 08:55] VITALS: BP 119/72; PULSE 80; PULSE 88; RESP 16; TEMP 36.3; O2SAT 93
[2025-03-06] MEDS: METFORMIN ER 500 MG PO (09:03)
[2025-03-06] MEDS: SERTRALINE 100 MG TABLET PO (09:03)
[2025-03-06] MEDS: ATORVASTATIN CALCIUM 10 MG TABLET 20 MG PO (09:04)
[2025-03-06] MEDS: SODIUM CHLORIDE 0.9 % (FLUSH) 10 ML SYRINGE 5 ML IVF (09:04)
[2025-03-06] MEDS: LOPERAMIDE HCL 2 MG CAPSULE PO (09:24)
--- NOTE | 2025-03-06 10:37 | P.DS_ITS ---
DS: Providers Provider Date Seen: 03/06/25 Date of admission: 03/02/25 07:36 Primary care physician: Not a Local Provider Admitting Clinician: Latricia Davis MD Consults: 03/02/25 18:19 Consult to Wound Care [CONS] Routine Comment: new ileostomy Consulting Provider: [facility] 03/03/25 12:40 Consult to Wound Care [CONS] Routine Comment: Consulting Provider: [facility] 03/03/25 15:20 Consult to Hospital Housekeeper [CONS] Routine Comment: Home Care Reason for Consult:: Discharge Planning Needs 03/04/25 16:04 Consult to Nutrition [CONS] Routine Comment: Reason for consult:: Miscellaneous Comment: Ileostomy Attending Physician on discharge: Latricia Davis MD DS: Summary Hospital Course Hospital Course: Patient underwent a laparoscopic sigmoidectomy. A diverting ileostomy was created to help protect the new anastomosis. Postoperatively patient did well. She did have a functioning stoma. Initially outputs were high (greater than 1500 mL), but improving with her advancing to a regular diet and loperamide as needed. Her pain was well controlled. She was ambulating without difficulty. She received nursing Education regarding her stoma cares and at the time of discharge did feel comfortable emptying the bag and caring for her stoma. An order was placed for home health. Patient is also scheduled to see the wound ostomy nurse later this week. She is voiding independently. Patient cleared for discharge to home. Will follow up with the patient in surgery clinic in 2 weeks. Time Spent with Patient Time attestation: Total time spent providing and/or coordinating discharge services: Exam Narrative: Exam Narrative: General: Alert and oriented, no acute distress. Respiratory: Equal breath rise bilaterally, maintained on room air CV: Well perfused Abdomen: Soft, nondistended. Appropriate tenderness over incision sites. Steri-Strips in place clean/dry/intact. Right-sided stoma with gas and liquid stool in ostomy bag. Const: Vital Signs, click to edit/add: Vital Signs - 24 hr 03/05/25 11:26 03/05/25 15:30 03/05/25 15:30 Temperature 98.4 F 97.9 F Pulse Rate [Right Pulse Oximeter] 81 83 Respiratory Rate 18 18 18 Blood Pressure [Le ft Arm] 129/64 121/77 Blood Pressure [Ri ght Arm] Pulse Oximetry 94 92 92 Oxygen Delivery Me thod Room Air Room Air Room Air Oxygen Flow Rate 1 1 03/05/25 15:30 03/05/25 19:28 03/05/25 23:00 Temperature 98.0 F Pulse Rate [Right Pulse Oximeter] 83 80 80 Respiratory Rate 18 16 16 Blood Pressure [Le ft Arm] 92/77 Blood Pressure [Ri ght Arm] Pulse Oximetry 94 Oxygen Delivery Me thod Room Air Oxygen Flow Rate 03/05/25 23:53 03/05/25 23:54 03/06/25 04:10 Temperature 97.7 F 98.6 F Pulse Rate [Right Pulse Oximeter] 77 68 Respiratory Rate 18 18 16 Blood Pressure [Le ft Arm] 115/71 Blood Pressure [Ri ght Arm] 128/80 Pulse Oximetry 94 94 95 Oxygen Delivery Me thod Room Air Room Air Room Air Oxygen Flow Rate DS: Data Data Completed and Pending Completed studies during hospitalization: Procedures Insertion of Infusion Device into Superior Vena Cava, Percutaneous Approach (09/11/24) Labs on day of discharge: Labs from last 24 hours 03/06/25 06:27 Sodium 138 Potassium 4.0 Chloride 105 Carbon Dioxide 26 Anion Gap 7 BUN 11 Creatinine 1.0 Estimated Creat Clear 52.95 Estimated GFR 65 Glucose 113 Calcium 8.8 Discharge Plan Discharge Disposition: Home, Self-Care Date of Admission: 03/02/25 07:36 Attending Provider on Discharge: Latricia Davis Consulting Providers: Dacia Jamison; Cate Cartwright Primary Care Provider: Provider,Not a Local Condition: Improved Anticipated Discharge Date/Time: 03/06/25 12:00 Discharge Medications: New hydrocodone-acetaminophen 5-325 mg tablet 1 tab PO Q6H PRN (Reason: pain) Qty: 20 0RF loperamide-simethicone 2-125 mg tablet 1 tab PO Q2H PRN (Reason: loose stool) Qty: 90 0RF Continued sertraline 100 mg tablet 100 mg PO DAILY exemestane [Aromasin] 25 mg tablet 25 mg PO DAILY Rx Instructions: must administer after a meal atorvastatin 20 mg tablet 20 mg PO DAILY omeprazole 20 mg capsule,delayed release(DR/EC) 20 mg PO DAILY metformin 500 mg tablet extended release 24 hr 500 mg PO DAILY alendronate 70 mg tablet 70 mg PO QWEEK Discharge Orders: Discharge Order (Routine); Ordered 03/06/25 Ordered By: Latricia Davis Patient Education: Ileostomy Care (DC), Ileostomy Diet (DC) Additional Instructions: You were prescribed a narcotic pain medication. In addition you may supplement with Tylenol and/or ibuprofen. Be sure to not exceed greater than 4 g of Tylenol in a 24 hour period. You have been prescribed loperamide. This can be used to help with high ostomy outputs. Considering trying some when your output is more than 1500 mL in a 24 hour period. Loperamide should be taken 20 to 30 minutes before a meal. The medicine starts to work within half an hour of taking it and is effective for 8 to 12 hours. This means that doses taken after lunch are not likely to help much if your problems are in the morning. However, a dose last thing at night may help with mental retardation nurse frequency. Loperamide is not addictive. It can be taken in doses of up to 8 tablets/capsules (16 mg) per day over long periods of time. Do not take more than 16 milligrams per day. You have Steri-Strips dressings in place, allow these to fall off on their own. Okay to shower. Do not soak in a bath or swim for 2 weeks. Follow-up with Dr. Davis in 2-3 weeks. Please call if you are experiencing severe pain, nausea, vomiting, difficulty urinating, fever or not had a bowel movement in 4 days after surgery. Activity Level: No strenuous activity Activity Detail: Activity as tolerated. Avoid strenuous activity. No lifting greater than 20 lb for 6 weeks. Discharge Diet: Low Fiber Follow Up Appointments: Latricia Davis MD [Staff Physician, General Surgery] Provider,Not a Local [Primary Care Provider, Family Practice] Forms: [employer] Info Instructions
--- NOTE | 2025-03-06 10:58 | NUTR.NU ---
RDN with MD consult for diet education related to ileostomy placement. Patient POD#3 laparoscopic assisted sigmoidectomy with diverting loop ileostomy. Medical history includes diverticulosis episodes with extensive disease. Current weight 204lb 5.89oz; height 5ft 4.02in; BMI 35.1 kg/m2. Weight has been stable recently. Current diet is Low fiber and low sugar. RDN visited with patient with , Max, present. Patient eating applesauce during visit. She reports tolerating solids foods at this time. Patient was provided diet education related to new ileostomy.? Education provided on following a low fiber diet for the next ~4 weeks or per MD recommendation.? Education included recommendations on following a low-fiber diet of less than 8 grams of fiber per day and gradually increasing over the next few weeks. Discussed foods to include and foods to avoid.? Discussed foods that may cause blockages, gas/odors, and diarrhea. Also discussed fluid recommendations and use of oral rehydration drinks such as pedialyte and signs and symptoms of dehydration. Verbal and written information as well as sample menus provided from [facility] on nutrition therapy for ileostomy and low-fiber diet.? Patient verbalized understanding and had no questions or concerns.? RDN's contact information was provided and patient was encouraged to contact RDN with questions.
--- NOTE | 2025-03-06 11:28 | PC.SOCIAL ---
Addendum entered and electronically signed by Shayna Brown LCSW 03/06/25 16:09: SW received denials from [facility], [facility], and [facility]. SW to follow-up with [facility] on 03/07 and send more referrals. Original Note: Discharge planning: SW received consult to assist with setting up home care services for patient. SW met with patient to verify PCP and informed that SW would be sending out Home Care referrals to multiple agencies, due to a lot of agencies being full and will contact patient when an agency has been found. Patient expressed understanding and was agreeable. Patient had no questions or concerns at this time. SW faxed referrals to [facility], [facility], [facility], and [facility]. SW is awaiting responses.
[2025-03-06 11:32] VITALS: BP 135/74; PULSE 86; RESP 20; TEMP 36.7; O2SAT 95
--- NOTE | 2025-03-06 14:35 | PC.NURSE ---
patient questions answered, ostomy education resources reinforced and how to get help provided. Patient is enrolled in [facility] and both her and husbands felt comfortable going home with the plan that is set up. Home care process started, to see wound care on . Patient left on wheel care comfortable and in good spirits. Medications sent to preferred pharmacy.
--- NOTE | 2025-03-07 15:50 | PC.SOCIAL ---
Social Service Consult: LEIGH called [facility] for an update on the referral and they state that they are waiting for a response on insurance and will call when they hear. LEIGH called [facility] and they state that they do not take patient's with an Ostomy. LEIGH faxed a referral to Home Health Care. LEIGH called patient and updated that her referral has been sent 5 places and that three couldn't accept due to being full, one is pending insurance, and one we are still waiting to hear back from. SW to update patient again tomorrow.
--- NOTE | 2025-03-08 13:38 | PC.SOCIAL ---
Discharge planning: SW received voicemail from Daily at [facility] who states that they aren't able to accept as patient has commercial insurance. SW called [facility], who state they can't accept due to insurance. SW called [facility] who state that they can't accept as they are at capacity for commerical insurance. SW called [facility] who states they have openings and asked that a referral be sent. SW sent the referral and received a call back stating that they don't [place] patient's insurance as it [place]. LEIGH spoke with the wound clinic who states they will notify the provider who is meeting with the patient tomorrow that SW has contacted 8 agencies and all can't accept patient. SW called patient and updated her about not being able to secure home care yet. SW encouraged patient to call her insurance and obtain a list from them of in-network Home Care Agencies. Patient states she will do this and expressed she is not too concerned at this time as she is unsure if she will even need it until she has her appt tomorrow. SW states that if she does get a list to bring it to her appt and then if it is needed, we can continue to send referrals to her insurance specific locations. Patient was agreeable to this plan.
--- NOTE | 2025-03-10 14:56 | PC.SOCIAL ---
Discharge planning: [employer] checked in with the Wound Clinic today in regard to pt's appointment yesterday and if the pt was able to get a list of home care agencies that contract with her insurance company. Pt had not had a chance to call her insurance before her appointment at the [facility] Clinic yesterday, but did acknowledge to the provider that she knew she needed to make the call. The provider from the wound clinic thought it would be a good idea for social work to check-in with the pt next week to see if she had a chance to call her insurance to get the list. The provider from the wound clinic also shared that home care might not even be needed for this pt given the situation and that she does have assistance from her at home. Social work will plan to check-in with the pt sometime next week.
--- NOTE | 2025-03-14 11:05 | PC.SOCIAL ---
Discharge planning: SW spoke with patient to see how she is feeling about home care and if this is a service she would like SW to keep pursuing. Patient states that she feels she and her can manage this as they have learned how to do it correctly. SW states that if anything changes patient can talk with her PCP to obtain a new order. Patient had no questions or concerns for SW at this time.
== END 2025-03-06 13:15 | disposition home or self-care (01) | DRG 221 ==
PROVIDERS: Surgery; Admitting Provider Surgery; Visit Provider Surgery
PROC: 0DTN0ZZ Resection of Sigmoid Colon, Open Approach (ICD-10-PCS; CPT 44204; principal; 2025-03-02 09:00)
PROC: 0DTN4ZZ Resection of Sigmoid Colon, Percutaneous Endoscopic Approach (ICD-10-PCS; 2025-03-02 09:00)
DX: K57.32 Diverticulitis of large intestine without perforation or abscess without bleeding (principal); G89.18 Other acute postprocedural pain; K21.9 Gastro-esophageal reflux disease without esophagitis; K76.0 Fatty (change of) liver, not elsewhere classified; E88.810 Metabolic syndrome; E66.01 Morbid (severe) obesity due to excess calories; Z68.35 Body mass index [BMI] 35.0-35.9, adult; Z79.84 Long term (current) use of oral hypoglycemic drugs
CPT/HCPCS: 00790; 00840; 36415; 64488; 76942; 80048; 85025; 88304; A4314; A9270; C1758; C1769; J0330; J0665; J0666; J1100; J1171; J1335; J1650; J1885; J2405; J2704; J3475; J3490; J7120

== ENCOUNTER 2025-06-07 10:00 | Outpatient (CLI) | payer BC, SELFPAY ==
--- NOTE | 2025-06-07 10:15 | CRLHL7_ITS ---
For Patients: As a result of the Century Cures Act, medical imaging exams and procedure reports are released immediately into your electronic medical record. You may view this report before your referring provider. If you have questions, please contact your health care provider. INDICATION Ileostomy. TECHNIQUE Retrograde contrast administration with visualization of the colon. Contrast introduced Gastrografin through a balloon rectal catheter. Fluoroscopy time 1 minute 10 seconds. FINDINGS Colonic Structures: There is diverticulosis of the sigmoid with no signs of stricture. No extravasation of contrast. The hepatic and splenic flexures are mildly tortuous. The entire colon was retrograde filled. The cecum is located superiorly in the right upper quadrant. There is filling of the appendix but no reflux into the terminal ileum. The images were somewhat limited due to patient condition. IMPRESSION Diverticulosis of the sigmoid. Visualization of the entire colon. No additional areas of stricture identified. The appendix appeared normal in caliber. No reflux was identified into the ileum. JONATHAN AVENDAÑO MD FACR Pediatric/Diagnostic Radiologist Cardiothoracic Imaging Transcribed: 11:04 a.m. [email or web address] jj/Dictated by: Jonathan Avendaño MD @ 06/08/2025 10:54:00 AM (Electronically Signed)
== END 2025-06-07 10:01 | disposition home or self-care (01) ==
LOC: RAD 10:01
PROVIDERS: Visit Provider Surgery
DX: Z93.2 Ileostomy status (principal); K57.30 Diverticulosis of large intestine without perforation or abscess without bleeding
CPT/HCPCS: 74270

== ENCOUNTER 2025-06-20 08:40 | Inpatient (IN) | payer BC, SELFPAY ==
[2025-06-20] VITALS (19 sets, daily range): BP systolic 99–132; BP diastolic 55–86; PULSE 75–95; RESP 12–21; TEMP 36.1–37.2; O2SAT 89–97; BMI 34.2
[2025-06-20] MEDS: LACTATED RINGERS 1000 ML 1,000 ML 100 ML IV ×2 (08:55→10:46)
[2025-06-20] MEDS: SODIUM CHLORIDE 0.9 % (FLUSH) 10 ML SYRINGE IVF (09:33)
[2025-06-20] MEDS: PIPERACILLIN/TAZOBACTAM 3.375 GM INJ IVPB (10:12)
[2025-06-20] MEDS: BUPIVACAINE 0.25% 30 ML INJECTION (10:29)
--- NOTE | 2025-06-20 12:28 | W.PM.H&PU ---
History & Physical Update History & Physical Update H&P Reviewed and patient assessed: No changes noted
--- NOTE | 2025-06-20 12:28 | PM.GSPRC ---
Operative Note Date of procedure: 06/20/25 Pre-op diagnosis: Diverting loop ileostomy Post-op diagnosis: Same Type of Procedure: Ileostomy takedown Indications: Patient is a 59-year-old female who underwent a laparoscopic-assisted sigmoidectomy for diverticular disease. Due to concern for possible leak a diverting loop ileostomy was performed to protect the new anastomosis. Patient is now greater than 3 months out from her initial procedure. She did have a Gastrografin enema done preoperatively which demonstrated a patent anastomosis of the colon, no evidence of stricture or leak. Risks and benefits of taking down her loop ileostomy were discussed at length with the patient. Risks included, but were not limited to: Bleeding, infection, risk of leak of her new anastomosis, possible need for additional procedures and risk of incisional hernia in the future. All questions and concerns were addressed with patient agreeing to proceed. Procedure Description: After discussing the risks and benefits of the procedure, the patient signed informed consent.? The operative site was marked and the patient was brought to the operating room and placed on the operating table in supine position.? Care was taken to pad the patient's pressure points.?? The patient was then intubated by anesthesia.?? A 2-0 Vicryl stitch was used to close both lumens of her diverting loop ileostomy. The operative site was then prepped and draped in the usual sterile fashion.? A time-out was then performed. Using cautery and starting about 2 mm out from her ostomy opening the stoma was dissected circumferentially down to subcutaneous fat. There were some adhesions surrounding the ostomy, that were taken down sharply with scissors and cautery when appropriate. Approximately 1 hour of time was spent freeing up the adhesions of the distal ileum down to the abdominal wall. The abdominal wall was then entered and the hernia sac surrounding the loop ileostomy cauterized circumferentially. Once the bowel was completely free I was able to be bring it into the operative field easily. Using my finger I palpated intra-abdominally along the anterior abdominal wall, with no evidence of any intra-abdominal adhesions. The small bowel was carefully examined and appeared intact with no evidence of any injuries. A point of transection was determined on each limb of the loop of small bowel. Using cautery a mesenteric window was created. A 100 mm NORIS hand-held stapler was then used to transect the small bowel on the distal and proximal limbs. The staple lines were inspected. A pinpoint area of bleeding on the distal limb was controlled with 2 interrupted 3-0 Vicryl stitches. The mesentery for the specimen was scored with cautery. The mesentery was sequentially divided with 3-0 silk ties. The specimen was passed off to the back table and labeled as distal ileum. I then created my side to side, functional end to end anastomosis. The small bowel was lined up anti mesenteric. An enterotomy was created in each limb, approximately 1 cm away from the staple lines. An 100 mm NORIS hand-held stapler was then used to create the anastomosis. A 70 mm anastomosis was made. As the stapler was removed I inspected the staple line for any bleeding. A small pinpoint area of bleeding was controlled with an interrupted 3-0 Vicryl stitch. The common enterotomy was then closed with 3-0 silk sutures via Lembert stitches. The anastomosis was palpated and widely patent. Two crotch stitch sutures were placed of 3-0 silk to relieve any tension in this area. The mesenteric defect was closed with a running 3-0 Vicryl stitch. In order to place the anastomosis into the abdomen I did have to extend the abdominal opening approximately 1 cm medially. This allowed me to easily place the anastomosis intra-abdominally. The peritoneum was closed with a running 3-0 Vicryl suture. The subcutaneous fat overlying the abdominal wall opening was cleared circumferentially to allow for adequate closure of the anterior fascia. The fascia was then closed with two running 1 PDS suture. The wound was irrigated with normal saline. Hemostasis was assured. Local anesthetic was placed into the fascia and surrounding subcutaneous tissue. Several 3-0 Vicryl stitches were used to bring together deep subcutaneous fat over the fascial suture. The ostomy opening was partially closed with a pursestring suture of 2-0 Vicryl. A wet-to-dry dressing was placed. The patient was then woken and transported to the recovery area in stable condition. ? The patient tolerated the procedure well. Findings: Diverting loop ileostomy, taken down. Anesthesia: GETA Surgeon: Latricia Davis MD Estimated blood loss (mL): 25 Additional Specimen Information: Distal ileum Condition: stable Disposition: PACU
--- NOTE | 2025-06-20 12:47 | P.ANES_ITS ---
Anesthesia Charges Start Date/Time Anesthesia Start Date: 06/20/25 Anesthesia Start Time: 09:52 Stop Date/Time Anesthesia Stop Date: 06/20/25 Anesthesia Stop Time: 12:35 Coding CPT Codes CPT Codes: ANESTH SURG UPPER ABDOMEN - 58112 ([id number]) P2 - PATIENT W/MILD SYST DISEASE, QK - INTERMODAL OWNER OPERATOR TRUCK DRIVER 2-4 CNCRNT ANES PROC, QX - CREMATORIUM OPERATOR SVC W/ MD MED DIRECTION
--- NOTE | 2025-06-20 12:47 | W.ANESCHARGE ---
Anesthesia Charges Start Date/Time Anesthesia Start Date: 06/20/25 Anesthesia Start Time: 09:52 Stop Date/Time Anesthesia Stop Date: 06/20/25 Anesthesia Stop Time: 12:35 Coding CPT Codes CPT Codes: ANESTH SURG UPPER ABDOMEN - 13208 ([id number]) P2 - PATIENT W/MILD SYST DISEASE, QK - CRANE ENGINEER 2-4 CNCRNT ANES PROC, QX - TITLE INSPECTOR SVC W/ MD MED DIRECTION
--- NOTE | 2025-06-20 13:17 | SUR.PHASEI ---
patient met discharge criteria per anesthesia
[2025-06-20] MEDS: ONDANSETRON 2 MG/ML inj IVP (13:22)
[2025-06-20] MEDS: SCOPOLAMINE 1 MG/3 DAY PATCH 1 PATCH TRANSDERMA (14:10)
[2025-06-20] MEDS: PROCHLORPERAZINE 5 MG/ML VIAL IVP (14:25)
--- NOTE | 2025-06-20 14:54 | PC.NURSE ---
Pt arrived to the unit @ 1310, accompanied by . LSCTA on RA. VSS. Pt reports moderate nausea. Surgeon updated on nausea. See MAR for interventions. EKG completed per MD order for PRN medication. Tolerating sips of water okay. Emesis bag at bedside. HOB elevated. Op site remains CDI. Active ice to the site. Bowel sounds hypoactive. Denies pain at this time and reports more uncomfortable than anything. Call light within reach. at bedside. SCDs in place. SL to L hand.
--- NOTE | 2025-06-20 18:59 | PC.NURSE ---
The patient VSS are stable throughout 6 hr post op assessment, reported that her nausea is under control. The patient got up to the bathroom and noted that the pain level went up to 3/10, PRN medication was given.... The patient is having broth and juice for dinner. Voided 75 when we were up to the BR. R surgical dressing is CDI, bowel sounds hypoactive and lung sounds are clear. SCDS are in place. Call light within reach. Gricelda GUILLEN BSN
[2025-06-21] VITALS (8 sets, daily range): BP systolic 98–115; BP diastolic 54–68; PULSE 72–78; RESP 16–18; TEMP 36.6–37.1; O2SAT 90–97
--- NOTE | 2025-06-21 04:51 | PC.NURSE ---
Shift note: Patient is alert and oriented. Vitally stable. Doing well with clear liquid diet. Hypoactive ethan sound. Patient has no BM today. PAin has been moderate, rated at 2 to 4. 1X PRN pain medication requested. Dressing intact, clean and dry.
[2025-06-21 07:05] LABS: Hematocrit* 37.3 % (33.0-51.0); Hemoglobin* 11.8 gm/dL (12.0-16.0); Immature Granulocytes Pct Auto 0.3 %; Mean Corpuscular HGB Conc 32 gm/dL (32-36); Mean Corpuscular Hemoglobin 28 pg (26-34); Mean Corpuscular Volume 89 fL (80-100); RDW Coefficient of Variation % 15.2 % (11.5-15.5); Red Blood Count* 4.17 m/uL (4.00-5.20); White Blood Count* 11.96 K/uL (4.50-11.00)
[2025-06-21 07:14] LABS: Immature Granulocytes Abs Auto 0.00 K/uL (0.00-0.30); Lymphocytes Absolute Auto 1.40 K/uL (0.90-2.90); Slide Review Reflex No
[2025-06-21 07:28] LABS: Chloride* 103 mmol/L (96-114); Potassium* 3.7 mmol/L (3.6-5.1); Sodium* 137 mmol/L (135-149)
[2025-06-21 07:31] LABS: Anion Gap 7 mEq/L (7-15); Blood Urea Nitrogen* 13 mg/dL (7-30); Calcium* 8.2 mg/dL (8.4-10.6); Carbon Dioxide* 27 mmol/L (20-32); Creatinine* 1.0 mg/dL (0.5-1.5); Est. Creatinine Clearance* 50.73; Estimated Glomerular Filt Rate 65 ml/min; Glucose* 114 mg/dL (60-115)
--- NOTE | 2025-06-21 11:49 | PM.GSPN ---
Subjective Subjective Date Seen: 06/21/25 Interval history: Patient is doing well this morning. She had some nausea after surgery, this has resolved. Her pain has been controlled best with the IV Toradol and she was able to get some sleep last night. She is tolerating clear liquids and feeling really hungry today. She has passed some gas and had some liquidy stools. Ambulating without difficulty. Exam Narrative: Exam Narrative: General: Alert oriented, nontoxic Abdomen: Moderate distention, soft. Right-sided dressings taking down, ostomy in place with no concern for infection. Some surrounding ecchymoses. Const: Vital Signs, click to edit/add: Vital Signs - 24 hr 06/20/25 12:30 06/20/25 12:35 06/20/25 12:40 Temperature 98.9 F 98.9 F 98.9 F Pulse Rate 95 89 88 Pulse Rate [Pulse Oximeter] Respiratory Rate 21 17 19 Blood Pressure 132/69 121/74 125/71 Blood Pressure [Ri ght Arm] Pulse Oximetry 91 95 93 Oxygen Delivery Me thod Nasal Cannula Nasal Cannula Nasal Cannula Oxygen Flow Rate 3 3 3 06/20/25 12:45 06/20/25 12:50 06/20/25 12:55 Temperature 98.9 F 98.9 F 97.5 F L Pulse Rate 90 88 90 Pulse Rate [Pulse Oximeter] Respiratory Rate 19 19 19 Blood Pressure 103/86 120/80 125/78 Blood Pressure [Ri ght Arm] Pulse Oximetry 92 93 92 Oxygen Delivery Me thod Nasal Cannula Room Air Room Air Oxygen Flow Rate 3 06/20/25 13:00 06/20/25 13:10 06/20/25 13:25 Temperature 97.5 F L Pulse Rate 92 Pulse Rate [Pulse Oximeter] 83 86 Respiratory Rate 12 14 16 Blood Pressure 128/68 Blood Pressure [Ri ght Arm] 132/73 129/73 Pulse Oximetry 91 91 92 Oxygen Delivery Me thod Room Air Room Air Room Air Oxygen Flow Rate 06/20/25 13:40 06/20/25 13:55 06/20/25 14:10 Temperature 96.9 F L 97.7 F 97.7 F Pulse Rate Pulse Rate [Pulse Oximeter] 80 78 82 Respiratory Rate 16 16 18 Blood Pressure Blood Pressure [Ri ght Arm] 126/78 128/80 111/74 Pulse Oximetry 96 93 94 Oxygen Delivery Me thod Room Air Room Air Room Air Oxygen Flow Rate 06/20/25 14:40 06/20/25 15:15 06/20/25 15:15 Temperature 97.1 F L 97.3 F L Pulse Rate Pulse Rate [Pulse Oximeter] 82 80 Respiratory Rate 16 16 16 Blood Pressure Blood Pressure [Ri ght Arm] 130/75 124/77 Pulse Oximetry 97 93 93 [facility] Oxygen Flow Rate 06/20/25 16:10 06/20/25 17:55 06/20/25 19:00 Temperature 97.3 F L 97.9 F 98 F Pulse Rate Pulse Rate [Pulse Oximeter] 75 83 83 Respiratory Rate 16 18 18 Blood Pressure Blood Pressure [Ri ght Arm] 123/75 123/75 99/55 L Pulse Oximetry 93 95 89 [facility] Room Air Room Air Oxygen Flow Rate 06/20/25 22:40 06/20/25 22:40 06/20/25 22:40 Temperature 98.1 F Pulse Rate Pulse Rate [Pulse Oximeter] 84 84 Respiratory Rate 18 18 18 Blood Pressure Blood Pressure [Ri ght Arm] 99/66 Pulse Oximetry 89 89 [facility] Room Air Oxygen Flow Rate 06/21/25 03:00 06/21/25 07:00 06/21/25 08:04 Temperature 98.8 F Pulse Rate Pulse Rate [Pulse Oximeter] 74 77 Respiratory Rate 18 18 18 Blood Pressure Blood Pressure [Ri ght Arm] 98/58 L 115/68 Pulse Oximetry 90 97 97 [facility] Room Air Room Air Oxygen Flow Rate Labs/Imaging Labs Labs: Mild leukocytosis (11), hemoglobin 11.8. All other labs within normal limits. Progress Note:A&P Assessment and plan (1) Status post reversal of ileostomy: Status: Acute Assessment and Plan: Patient is postop day 1 loop ileostomy reversal. Doing well postoperatively. Nausea yesterday was likely secondary to the anesthesia, with no concerns today and tolerating clear liquids. She has had some passage of gas and small liquidy stools. Okay for slow advancement of diet. Continue to recommend ambulation. Possible discharge in next 1-2 days. Plan -advance diet as tolerated to low-fiber -IV and p.o. pain meds as needed -encourage ambulation -SCDs and Lovenox for DVT prophylaxis
[2025-06-21] MEDS: HYDROCODONE-ACETAMIN 5-325 MG 1 TAB PO ×2 (13:06→21:25)
[2025-06-21] MEDS: SERTRALINE 100 MG TABLET PO (14:36)
--- NOTE | 2025-06-21 19:22 | PC.NURSE ---
The patient reports moderate pain intermittently throughout the day, worsened with movement and coughing. Ambulated in the halls, VSS on RA. Tolerated advancing diet today. R incision sight is CDI and was changed earlier today. Voiding and had a BM today. Call light within reach. Gricelda GUILLEN BSN
[2025-06-21] MEDS: SODIUM CHLORIDE 0.9 % (FLUSH) 10 ML SYRINGE IVF (19:33)
[2025-06-21] MEDS: ENOXAPARIN 40 MG/0.4 ML INJ SUBCUT (21:24)
[2025-06-22 03:00] VITALS: BP 123/71; PULSE 66; RESP 16; TEMP 36.3; O2SAT 95
--- NOTE | 2025-06-22 05:22 | PC.NURSE ---
Shift Note : Pt moving independently throughout her room. VS WNL and LS COA. Afebrile. Pt is tolerating regular diet and reports having some flatus overnight. Pt also c/o a headache 02/21. Repositioning and Aqua-K helped minimally. Pt given a PRN dose of Toradol and verbalizes significant relief.
[2025-06-22 07:00] VITALS: BP 127/69; PULSE 65; RESP 18; TEMP 36.5; O2SAT 94
[2025-06-22] MEDS: ATORVASTATIN CALCIUM 10 MG TABLET 20 MG PO (08:20)
[2025-06-22] MEDS: SERTRALINE 100 MG TABLET PO (08:20)
--- NOTE | 2025-06-22 09:11 | W.PC.NUTR.NO ---
Nutrition Progress Note Progress Note Progress Note: RDN with diet education related to stoma reversal. Patient is postop day 1 loop ileostomy reversal. History of diverticulosis episodes with extensive disease requiring sigmoidectomy on 03/02/25 with diverting loop ileostomy. Current weight 199lb 7oz; height 5ft 3.78in; BMI 34.5 kg/m2. Weight has been stable recently. Current diet is Regular. Patient is tolerating current diet. She is passing gas and having loose bowel movements. RDN visited with patient and . She reports doing well today. Offered diet education related to low fiber diet. She declined at this time. She reports having educational materials from February when she has her stoma placed. She is aware of the diet recommendations moving forward. She has RDN's contact information if she has questions or concerns. Plan is for discharge today.
--- NOTE | 2025-06-22 10:07 | PM.DS1 ---
DS: Providers Provider Date Seen: 06/22/25 Date of admission: 06/20/25 08:40 Primary care physician: Not a Local Provider Admitting Clinician: Latricia Davis MD Attending Physician on discharge: Latricia Davis MD DS: Summary Hospital Course Hospital Course: Patient was admitted postoperatively after undergoing a loop ileostomy reversal. She did well. On postop day 2 she had return of bowel function. She was able to advance to a low-fiber diet. No acute events. At the time of discharge she was ambulating independently, voiding without difficulty and pain was well controlled with oral medications. Time Spent with Patient Time attestation: Total time spent providing and/or coordinating discharge services: Exam Narrative: Exam Narrative: General: Alert and oriented, no acute distress Abdomen: Soft, nontender nondistended. Right-sided stoma with dressings removed, granulation tissue within wound bed. No concern for infection. Const: Vital Signs, click to edit/add: Vital Signs - 24 hr 06/21/25 11:00 06/21/25 14:35 06/21/25 15:00 Temperature 98.2 F Pulse Rate [Pulse Oximeter] 74 78 Respiratory Rate 18 16 Blood Pressure [Ri ght Arm] 107/59 L 114/65 Pulse Oximetry 94 94 94 Oxygen Delivery Me thod Room Air Room Air Room Air 06/21/25 19:00 06/21/25 23:00 06/21/25 23:00 Temperature 98 F Pulse Rate [Pulse Oximeter] 78 72 Respiratory Rate 16 16 16 Blood Pressure [Ri ght Arm] 113/54 L Pulse Oximetry 94 94 Oxygen Delivery Me thod Room Air Room Air 06/21/25 23:00 06/22/25 03:00 06/22/25 07:00 Temperature 98.5 F 97.4 F L Pulse Rate [Pulse Oximeter] 72 66 Respiratory Rate 16 16 18 Blood Pressure [Ri ght Arm] 115/68 123/71 Pulse Oximetry 94 95 94 Oxygen Delivery Me thod Room Air Room Air Room Air 06/22/25 07:00 Temperature 97.7 F Pulse Rate [Pulse Oximeter] 65 Respiratory Rate 18 Blood Pressure [Ri ght Arm] 127/69 Pulse Oximetry 94 Oxygen Delivery Me thod Room Air DS: Data Data Completed and Pending Completed studies during hospitalization: Procedures Bypass Ileum to Cutaneous, Percutaneous Endoscopic Approach (03/02/25) Insertion of Infusion Device into Superior Vena Cava, Percutaneous Approach (09/11/24) Resection of Sigmoid Colon, Percutaneous Endoscopic Approach (03/02/25) Discharge Plan Discharge Disposition: Home, Self-Care Date of Admission: 06/20/25 08:40 Attending Provider on Discharge: Latricia Davis Primary Care Provider: Provider,Not a Local Condition: Stable Anticipated Discharge Date/Time: 06/22/25 10:00 Discharge Medications: New hydrocodone-acetaminophen 5-325 mg tablet 1 tab PO Q6H PRN (Reason: pain) Qty: 15 0RF Continued loperamide-simethicone 2-125 mg tablet 1 tab PO Q2H PRN (Reason: loose stool) Qty: 90 0RF sertraline 100 mg tablet 100 mg PO DAILY exemestane [Aromasin] 25 mg tablet 25 mg PO DAILY Rx Instructions: must administer after a meal atorvastatin 20 mg tablet 20 mg PO DAILY omeprazole 20 mg capsule,delayed release(DR/EC) 20 mg PO DAILY metformin 500 mg tablet extended release 24 hr 500 mg PO DAILY alendronate 70 mg tablet 70 mg PO QWEEK Discharge Orders: Discharge Order (Routine); Ordered 06/22/25 Ordered By: Latricia Davis Patient Education: Hydrocodone/Acetaminophen (By mouth), Low Fiber Diet (DC) Additional Instructions: You were prescribed a narcotic pain medication. In addition you may supplement with Tylenol and/or ibuprofen. Be sure to not exceed greater than 4 g of Tylenol in a 24 hour period. Continue to change your incision dressings once a day. Okay to shower. Do not soak in a bath or swim for 2 weeks. Follow-up with Dr. Davis in 2-3 weeks. Please call if you are experiencing severe pain, nausea, vomiting, difficulty urinating, fever or not had a bowel movement in 4 days after surgery. Activity Level: No strenuous activity Activity Detail: Activity as tolerated. Avoid strenuous activity. No lifting greater than 20 lb for 6 weeks. Discharge Diet: Low Fiber Follow Up Appointments: Latricia Davis MD [Staff Physician, General Surgery] - 07/13/25 1:00 pm Referral Note: [facility] for hospital follow-up. Provider,Not a Local [Primary Care Provider, Family Practice] Forms: [facility] Bel[facility], [facility] Instructions
--- NOTE | 2025-06-22 11:40 | PC.NURSE ---
Discharge - Pt alert, oriented, cooperative. Spouse at bedside, pt up independently in room. Tolerating RA and regular diet/fluids. Rates abdominal pain as 1-10 and headache pain as 4/10. Refused medication per MAR to increase comfort. RN provided wound care education to pt. Pt able to demonstrate wound care back to RN, verbalized understanding of instruction. IV removed with catheter intact. D/C education provided to pt and spouse regarding wound care, diet, and follow up. Both parties verbalized understanding. Pt d/c to home with spouse via wheelchair at approximately 1025.
== END 2025-06-22 10:25 | disposition home or self-care (01) | DRG 223 ==
PROVIDERS: Admitting Provider Surgery; Visit Provider Surgery
PROC: 0DBE0ZZ Excision of Large Intestine, Open Approach (ICD-10-PCS; CPT 44620; principal; 2025-06-20 10:00)
DX: Z43.2 Encounter for attention to ileostomy (principal); E66.01 Morbid (severe) obesity due to excess calories; R73.03 Prediabetes; K21.9 Gastro-esophageal reflux disease without esophagitis; K76.0 Fatty (change of) liver, not elsewhere classified; E78.5 Hyperlipidemia, unspecified; Z68.34 Body mass index [BMI] 34.0-34.9, adult; Z79.84 Long term (current) use of oral hypoglycemic drugs
CPT/HCPCS: 00790; 36415; 80048; 85025; 93005; A9270; J0665; J0780; J1100; J1171; J1650; J1885; J2250; J2371; J2405; J2543; J2704; J3010; J3490; J7120

== ENCOUNTER 2025-06-25 22:11 | Emergency (ER) | payer BC, SELFPAY ==
--- OUTSIDE RECORDS SUMMARY | 2025-06-25 22:13 | XMS_ITS | Encounter Summary ---
Author Organization [facility] Address [address] [place] [address]. [place] [address] Care Team Providers Care Miner Helper Name Role Phone Cassidy Lindo MD Primary Care Provider [phone] Cassidy Lindo MD Unavailable [phone] Renetta Lal Unavailable Unavailable Berlin Andrews MD Unavailable Xena Camara MD Unavailable [phone] Tracy Hsieh RN Unavailable [phone] Constance Henry PA-C Unavailable Encounter Details Date Type Department Care Team (Late st Contact Info) Description 11/10/2019 [facility] Medical Advice [facility] [address] [place] [address] [place] [address] [place] [address] Social History Tobacco Use Types [...] Answer Date Recorded PHQ-2 Score 0 09/21/2018 [facility] - [...] degree (e.g., MA, MS, Jose Guadalupe, MEd, CHEMISTRY FACULTY MEMBER, DENISSE) 10/24/2019 Comments No Sex and Gender Information Value Date Recorded Sex Assigned at Female 09/19/2019 11:34 AM MEDICAL NURSE Legal Sex Female 3:19 AM MEDICAL NURSE Gender Identity Female 09/19/2019 11:34 AM MEDICAL NURSE Sexual Orientation Straight 09/19/2019 11 :34 AM MEDICAL NURSE 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 Dinora Morrison CMA CAL NURSE documented in this encounter Plan of Treatment Upcoming Encounters Date Type Department Care Team (Late st Contact Info) Description 07/10/2025 10:00 AM CDT Office Visit [facility] [id number] [place] [phone] [place] Lind[place] [id number] [place] [address] [phone] documented as of this encounter Visit Diagnoses Not on filedocumented in this encounter Additional Health Concerns Infection Onset Date Last Indicated Resolved Time Rule Out COVID-19 06/11/2020 06/11/2020 06/12/2020 3:31 PM CDT documented as of this encounter Care Teams Miner Helper Relationship Specialty [place] [address] [place], [place] [phone] PCP - General Family Practice 06/28/18 [place] [address] [place] [address] Assigned PCP 06/27/18 Renetta Lal Personal Advocate & Liaison (PAL) Family Practice 10/24/19 08/13/20 Berlin Andrews MD Assigned Cancer Care Provider 07/06/20 01/04/24 Xena Camara MD [facility] [address] [facility] [address] [place], [place] [address] Assigned Surgical Provider 07/06/20 04/20/21 Tracy Hsieh, RN Specialty Shipping Technician Hematology & Oncology 11/02/23 Constance Henry, PA-C [address] [facility] [address] [place] [address] Assigned Cancer Care Provider 09/05/24 documented as of this encounter
--- OUTSIDE RECORDS SUMMARY | 2025-06-25 22:13 | XMS_ITS | Clinical Summary ---
Author Organization [facility] Address [address] [place] [address]. [place] [address] Care Team Providers Care Learning Designer Name Role Phone Cassidy Lindo MD Primary Care Provider [phone] Cassidy Lindo MD Unavailable [phone] Tracy Hsieh RN Unavailable [phone] Constance Henry PA-C Unavailable Allergies Active Allergy [...] allergic rhinitis due to other allergic trigger [place] 1 spray into both nostrils 2 times daily 30 mL 11 02/18/2023 Active olopatadine (PATANOL) 0.1 % ophthalmic solutionIndicat ions:Allergic conjunctivitis, bilateral Place 1 drop into both eyes 2 times daily 5 mL 3 02/18/2023 Active alendronate (FOSAMAX) 70 MG tabletIndicatio ns:Ductal carcinoma in situ of left breast Take 1 tablet (70 mg) by mouth every 7 days. 24 tablet 3 06/29/2024 Active metFORMIN (GLUCOPHAGE XR) 500 MG 24 hr tabletIndicatio ns:Prediabetes Take 1 tablet (500 mg) by mouth daily (with dinner). 90 tablet 4 06/29/2024 Active sertraline (ZOLOFT) 100 MG tabletIndicatio ns:Anxiety Take 1 tablet (100 mg) by mouth daily. TAKE 1 TABLET DAILY (LAST REFILL UNTIL VISIT) 90 tablet 2 08/30/2024 Active exemestane (AROMASIN) 25 MG tabletIndicatio ns:Ductal carcinoma in situ of left breast TAKE 1 TABLET DAILY 60 tablet 04/27/2025 Active omeprazole (PRILOSEC) [address] capsuleIndicati ons:Esophageal dysphagia TAKE 1 CAPSULE DAILY 90 capsule 3 04/26/2025 Active atorvastatin (LIPITOR) 20 MG tabletIndicatio ns:Hyperlipidem ia LDL goal <130 TAKE 1 TABLET DAILY (LAST REFILL UNTIL VISIT) 90 tablet 04/25/2025 Active Active Problems Problem Noted Date Diagnosed Date Morbid obesity 02/18/2023 Hyperlipidemia LDL goal <130 08/20/2020 Family history of diabetes mellitus 08/20/2020 Esophageal dysphagia 08/20/2020 Ductal carcinoma in situ (DCIS) of left breast 0 10/21/2019 Overview (10/21/2019): Added automatically from request for surgery [id number] DCIS (ductal carcinoma in situ) 10/19/2019 Overview [...] Encounters Date Type Department Care Team Description 05/01/2025 [facility] Medical Advice [address] [facility] [place] [address] Annamarie Fernández RN 04/24/[address] [phone] Cassidy Lindo MD Medication Refill 04/24/[address] [facility] [place] [address] Constance Henry, PAHalC Medication Refill from Last 3 Months Immunizations Immunization Administration Dates Next Due COVID-19 12+ (Pfizer) 06/29/2024,09/30/2023 COVID-19 Bivalent 18+ (Moderna) 02/18/2023 COVID-19 Monovalent 18+ (Moderna) 12/06/2020, COVID-19 Monovalent Booster 18+ (Moderna) 09/09/2021 Influenza Vaccine 18-64 (Flublok) 2020,08/13/2020,10/24/2019,2017 Influenza Vaccine >6 months,quad, PF 09/30/2023 Influenza [...] re latives? Once a week 06/29/2024 Attends [employer] Services Not on file 06/29 Active Member [...] Answer Date Recorded PHQ-2 Score 0 06/29/2024 [facility] - [...] permanent housing and does not include staying outside in a car, in a tent, in an abandoned building, in an overnight usp, or couch-surfing.) Yes 06/29/2024 Are you worried [...] degree (e.g., MA, MS, Jose Guadalupe, MEd, LAP WELDER, DENISSE) 10/24/2019 Comments No Sex and Gender Information Value Date Recorded Sex Assigned at Female 09/19/2019 11:34 AM MATERIAL ASSEMBLER Legal Sex Female 3:19 AM MATERIAL ASSEMBLER Gender Identity Female 09/19/2019 11:34 AM MATERIAL ASSEMBLER Sexual Orientation Straight 09/19/2019 11 :34 AM MATERIAL ASSEMBLER 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 Not on file Last Filed Vital Signs Vital Sign Reading Time Taken Comments Blood Pressure 130/84 08/23/2024 3:33 PM MATERIAL ASSEMBLER Pulse 88 08/23/2024 3:33 PM MATERIAL ASSEMBLER Temperature 36.4 C (97.6 F) 08/23/2024 3:33 PM MATERIAL ASSEMBLER Respiratory Rate 16 08/23/2024 3:33 PM MATERIAL ASSEMBLER Oxygen Saturation 96% 08/23/2024 3:33 PM MATERIAL ASSEMBLER Inhaled Oxygen Concentration - - Weight 91 kg (200 lb 9.6 oz) 08/23/2024 3:33 PM MATERIAL ASSEMBLER Height 162.6 cm (5' 4) 08/23/2024 3:33 PM MATERIAL ASSEMBLER Body Mass Index 34.43 08/23/2024 3:33 PM MATERIAL ASSEMBLER Plan of Treatment Upcoming Encounters Date Type Department Care Team (Late st Contact Info) Description 07/10/2025 10:00 AM CDT Office Visit [facility] [address] [place] [phone] [place]o [place] [address] [place] [address] Health Maintenance Due Date Last Done Comments CT COLONOGRAPHY 1965 FIT 1965 FLEX SIG 1965 sDNA (Cologuard) 1965 PNEUMOCOCCAL VACCINE 50+ YEARS (1 of 1 - PCV) 2016 ZOSTER VACCINE (1 of 2) 2016 PHQ-2 (once per calendar year) 2024 06/29/2024, 06/29/2024, 09/30/2023, Additional history exists COVID-19 VACCINE ( season) 2025 06/29/2024, 09/30/2023, 02/18/2023, Additional history exists INFLUENZA VACCINE (#1) 2025 , 09/30/2023, 08/02/2022, Additional history exists ANNUAL REVIEW OF HM ORDERS 06/29/202506/29, 02/18/2023, 05/15/2021, Additional history exists LIPID 06/29/2025 06/29/2024, 06/0 03/2023, 01/01/2022, Additional history exists YEARLY PREVENTIVE VISIT 06/29/2025 06/29/20 24, 02/18/2023, 01/01/2022, Additional history exists MAMMO SCREENING 09/05/2026 09/05/2024, 11/2 09/2022, 10/25/2021, Additional history exists DTAP/TDAP/TD VACCINE (2 - Td or Tdap) 05/15/2027 05/15/2017, 12/13/2002, 12/13/2002, Additional history exists DIABETES SCREENING 02/18/2028 02/17/2025, 1 , 06/29/2024, Additional history exists HPV TEST 02/19/2028 02/18/2023, 0 11/2017, 12/30/2013 PAP 02/19/2028 02/18/2023, 11/2017, 12/30/2013, Additional history exists ADVANCE CARE PLANNING 06/29/2029 06/29/2024, 022 COLONOSCOPY 01/24/2035 01/24/2025, 01/12, 07/13/2018, Additional history exists COLORECTAL CANCER SCREENING 01/24/2035 HEPATITIS C SCREENING Completed 01/01/2022 HIV SCREENING Completed 01/01/2022 HEPATITIS B VACCINE Discontinued HPV VACCINE (No Doses Required) Completed MENINGITIS VACCINE Aged Out No longer eligible based on patient's age to complete this topic Procedures Procedure Name Priority Date/Time Associated Diagnosis Comments COMPREHENSIVE METABOLIC PANEL Routine 02/17/2025 8:18 AM CDT Ductal carcinoma in situ (DCIS) of left breast MA SCREENING BILATERAL W/ SAÚL Routine 09/05/2024 10:09 AM MATERIAL ASSEMBLER Encounter for screening mammogram for breast cancer LIPID REFLEX TO DIRECT LDL PANEL Routine [...] Recently Relevant to Health Maintenance Results * (ABNORMAL) COMPREHENSIVE METABOLIC PANEL (02/17/2025 8:18 AM CDT) Sodium 139 135 - 145 mmol/L 02/17/2025 7:24 PM CDT [facility] Potassium 4.5 3.4 - 5.3 mmol/L 02/17/2025 7:24 PM CDT [facility] Carbon Dioxide (CO2) 21(L) 22 - 29 mmol/L 02/17/2025 7:24 PM CDT [facility] Anion Gap 12 7 - 15 mmol/L 02/17/2025 7:24 PM CDT [facility] Urea Nitrogen 15.7 6.0 - 20.0 mg/dL 02/17/2025 7:24 PM CDT [facility] Creatinine 0.95 0.51 - 0.95 mg/dL 02/17/2025 7:24 PM CDT [facility] GFR Estimate 69 >60 mL/min/1.7 3m2 02/17/2025 7:24 PM CDT [facility] Comment:eGFR calculated usin 2020 CKD-EPI equation. Calcium 9.3 8.8 - 10.4 mg/dL 02/17/2025 7:24 PM CDT [facility] Chloride 106 98 - 107 mmol/L 02/17/2025 7:24 PM CDT [facility] Glucose 117(H) 70 - 99 mg/dL 02/17/2025 7:24 PM CDT [facility] Alkaline Phosphatase 92 40 - 150 U/L 02/17/2025 7:24 PM CDT [facility] AST 40 0 - 45 U/L 02/17/2025 7:24 PM CDT [facility] ALT 53(H) 0 - 50 U/L 02/17/2025 7:24 PM CDT [facility] Protein Total 7.6 6.4 - 8.3 g/dL 02/17/2025 7:24 PM CDT [facility] Albumin 4.3 3.5 - 5.2 g/dL 02/17/2025 7:24 PM CDT [facility] Bilirubin Total 0.4 <=1.2 mg/dL 02/17/2025 7:24 PM CDT [facility] Blood BLOOD SPECIMEN / Unknown Venipuncture / Unknown 02/17/2025 8:18 AM CDT 02/17/2025 8:18 AM CDT Cahta Mosqueda MD LAB - BLOOD ORDERABLES Smita l Result [facility] [place] [facility] [address] [facility], [address] [place] [address] * MA Screen Bilateral w/Saúl (09/05/2024 10:09 AM MATERIAL ASSEMBLER) Anatomical Region Laterality Modality Breast Bilateral Mammography Impressions 09/05/2024 10:21 AM MATERIAL ASSEMBLER IMPRESSION: ACR BI-RADS Category 2: Benign BREAST CANCER SCREENING RECOMMENDATION: Routine yearly mammography beginning at age 40 or as discussed with your provider. The results and recommendations of this examination will be communicated to the patient. Todd Blanc MD Narrative 09/05/2024 10:21 AM MATERIAL ASSEMBLER BILATERAL FULL FIELD DIGITAL SCREENING MAMMOGRAM WITH [...] BLOOD ORDERABLES Final Re sult [facility] [place] [facility] [address] [facility], [address] [place] [address] * Pap Screen with HPV - recommended age 30 - 65 years (02/18/2023 8:45 AM CDT) Interpretation Negative for Intraepithelial Lesion or Malignancy (NILM) 02/23/2023 9:16 AM CDT [facility] at 0916 CDT Comment Papanicolaou Test Limitations: Cervical cytology is [...] component of this testing was completed at [facility] 02/23/2023 9:16 AM CDT [facility] Brushing CERVIX UTERI STRUCTURE / Unknown 02/18/2023 8:45 AM CDT 02/18/2023 9:11 AM CDT Cassidy Lindo MD LAB - DAVY AP Final Result [facility] Specialty Lab [address] [facility], [address] [address], [facility] [phone] * HPV High Risk Types DNA Cervical (02/18/2023 8:45 AM CDT) Other HR HPV Negative Negative 02/24/2023 3:33 PM CDT [facility] HPV16 DNA Negative Negative 02/24/2023 3:33 PM CDT [facility] HPV18 DNA Negative Negative 02/24/2023 3:33 PM CDT [facility] FINAL DIAGNOSIS This patient's sample is negative for HPV DNA. This test was developed and its performance characteristics determined by the [facility], Molecular Diagnostics Laboratory. It has not [...] ORDERABLES Final Re sult Performing Organization Address City/[facility]/ZIP Co de Phone Number [facility]LEC[facility]NOST[facility] Molecular Diagnostics [address] [facility], [address] [phone], [facility] [phone] * HIV Antigen Antibody Combo (01/01/2022 9:40 AM CDT) Pathologist [facility] HIV Antigen Antibody Combo Nonreactive Nonreactive 01/01/2022 11:11 PM CDT [facility]TY C[facility]/PROT/EN DO Comment:HIV-1 p24 Ag & HIV-1 /HIV-2 Ab Not Detected Blood BLOOD SPECIMEN / Unknown Venipuncture / Unknown 01/01/2022 9:40 AM CDT 01/01/2022 9:40 AM CDT Cassidy Lindo MD LAB - BLOOD ORDERABLES Final Re sult SPECIALTY CORE/PROT/ENDO Specialty Core/Prot/Endo [address] [facility], [address] [phone] * Hepatitis C Screen Reflex to HCV [...] UM SPECIALTY CORE/PROT/ENDO [facility] Specialty Core/Prot/Endo [address] [facility], [address] [phone] * COLONOSCOPY (07/13/2018 11:53 AM CDT) COLONOSCOPY [facility] Patient Name: Yesenia Collazo Procedure Date: 07/13/2018 [...] # [id number], [place] # [id number], SN # [id number] was introduced through the anus and advanced [...] malignant neoplasm of colon CPT copyright 2017 [employer]. All rights reserved. The codes documented in this report are preliminary and upon strike off machine operator review may be revised to [...] BCBS OUT OF STATE BCBS OUT OF [facility] Advance Directives For more information, please contact: [phone] * Full Code (Latest Code Status on File) Date Activated Date Inactivated Comments 10/22/2016 9:51 AM 11/02/2019 10:00 AM * Full Code Date Activated Date Inactivated Comments 10/21/2016 11:45 PM 10/22/2016 9:51 AM Care Teams Learning Designer Relationship Specialty [place] [address] [place] [address] PCP - General Family Practice 06/28/18 [place] [address] [place] [address] Assigned PCP 06/27/18 Tracy Hsieh, RN Specialty Legal Administrative Secretary Hematology & Oncology 11/02/23 Consatnce Henry PA-C [address] [place], [place] [address] Assigned Cancer Care Provider 09/05/24
--- OUTSIDE RECORDS SUMMARY | 2025-06-25 22:13 | XMS_ITS ---
Author Organization [facility] Address [address] [place] [address]. [place] [address] Care Team Providers Care Support Team Assoc Name Role Phone Cassidy Lindo MD Primary Care Provider [phone] Cassidy Lindo MD Unavailable [phone] Tracy Hsieh RN Unavailable [phone] Constance Henry PA-C Unavailable Active Problems Problem Noted Date Diagnosed Date Morbid obesity 02/18/2023 Hyperlipidemia LDL goal <130 08/20/2020 Family history of diabetes mellitus 08/20/2020 Esophageal dysphagia 08/20/2020 Ductal carcinoma in situ (DCIS) of left breast 0 10/21/2019 Overview (10/21/2019): Added automatically from request for surgery [id number] DCIS (ductal carcinoma in situ) 10/19/2019 Overview (07/17/2020): joshua Andrews- 08/15 Anxiety 06/16/2018 Fatty liver 09/14/2017 Splenic cyst, acquired 09/14/2017 Overview (12/29/2018): 3 cm GERD (gastroesophageal reflux disease) 1 CARDIOVASCULAR SCREENING; LDL GOAL LESS THAN 160 10/24/2009 Allergic state Overview (06/14/2015): Problem list name updated by automated process. Provider to review Current Treatment and Therapy Plans No current plan information found. Past Treatment and Therapy Plans No past plan information found. Treatment Summaries DCIS (ductal carcinoma in situ)* Cancer Treatment Plan and Summary - Breast Provided by [facility] Information Patient Name Yesenia Collazo Patient 1965 Patient phone [phone] (home) [phone] (work) Email [email or web address] Care Team Primary Care Provider Cassidy Lindo [...] posterior margin: Negative for residual intraductal carcinoma. [facility] 5256 cGy in 20 [...] maintain optimal health. Possible late and/or intermodal owner operator truck driver effects that someone with this type of cancer and treatment may experience: bone effects heart effects fertility effects memory and concentration pain lymphedema nervous system changes If you would like to discuss specific late and/or senior care effects related to your treatment, please use the following website to make an appointment in the Cancer Survivor Program: [email or web address].org/c are/[facility]/fqkcay-wgue-dluan/support-services OR call These symptoms should be brought [...] Advanced Directive- Link to the short form https://www.honoringchoices.org/ydjeoo-iapr-gzaknatgkl/amharic/61-ghoauteads-byj oldwvg-7-wjzdf-fillable/file Here are some resources in survivorship that [...] and find support from groups like these: [employer] Cancer Society, . CancerCare, 917-834-NBYC (4673) National Cancer Truchas, 943-7-VDXPZJ (181-274-7430) Online Resources [employer] Association for Cancer Research: www.aacr.org [place] [employer] for Cancer Research- Food Facts Association of Cancer Online Resources: www.acor.org Breast Cancer specific: fireflysisterhood.org Cancer Care, Inc.: www.cancercare.org [place] Society of Clinical Oncologists (ASCO): www.cancer.net Cancer Survivors Network ([place] Cancer Society): www.acscsn.org From Cancer Patient to Cancer Survivor: Lost in Transition Life After Cancer Treatment (National Cancer Truchas): www.cancer.gov/cancertopics/coping/mnrv-xnevt-godegtozm Live Strong: www.livestrong.org [facility]: mskcc.org (herbal facts) National Coalition for Cancer Survivorship: www.canceradvocacy.org Patient Advocate Foundation: www.patientadvocate.org People Living With Cancer: www.uicc.org/membership/xiegpc-qqjkds-tqxudk-plwc MHealth www.mhealth.org/care/overarching-care/bwjptb-tixy-mxgjo/support-services Phone Resources [place] Cancer Society: National Cancer Truchas: National Coalition for Cancer Survivorship: 9-133-LZRW-YES (386-339-9260) Patient Advocate Foundation: Books After Cancer Treatment: Heal Faster, Better, Stronger (2006, 2nd Ed. 2015) by Tracy Gray Cancer Fitness: Exercise Programs for Patients and Survivors (2004) by Ashlie Adame Eating Well, Staying Well During and After Cancer (2004, 2nd Ed. 2010) by the [place] Cancer Society LiveStrong: Inspirational Stories from Cancer Survivors-from Diagnosis to Treatment and Beyond (2004) by Jens Penn Picking up the Pieces: Moving Forward After Surviving Cancer (2006) by Kyar Lucero and Ce Emmanuel The Cancer Survivor's Guide: The Essential Handbook to Life After Cancer (2005) by Zachary Hurtado and Rianna Morillo Nutrition After Cancer: The Role of Diet in Cancer Survivorship (2001) by the [place] [employer] for Cancer Research Anticancer: A New Way of Life (2006, 2nd Ed. 2011) by Jeffery Gardner [facility]'s guide to Cancer Survivorship: A Road Map [...] not within this range, recommend seeing a auto body service mechanic to discuss way to get into this [...]
--- OUTSIDE RECORDS SUMMARY | 2025-06-25 22:13 | XMS_ITS | Encounter Summary ---
Author Organization [facility] Address [address] [place] [address]. [place] [address] Care Team Providers Care Vendor Relationship Manager Name Role Phone Cassidy Lindo MD Primary Care Provider [phone] Cassidy Lindo MD Unavailable [phone] Renetta Lal Unavailable Unavailable Berlin Andrews MD Unavailable [phone] Xena Camara MD Unavailable [phone] Tracy Hsieh RN Unavailable [phone] Constance Henry PA-C Unavailable Encounter Details Date Type Department Care Team (Late st Contact Info) Description 08/03/2020 [facility] [address] [place] [phone] Lamar Buchanan, MINDY Social History Tobacco Use [...] and Family Once a week 10/24/2019 Attends [employer] Services More than 4 times per year [...] Answer Date Recorded PHQ-2 Score 0 09/21/2018 [facility]at ional [facility] [...] degree (e.g., MA, MS, Jose Guadalupe, MEd, PARTS INSPECTOR, DENISSE) 10/24/2019 Comments No Sex and Gender Information Value Date Recorded Sex Assigned at Female 09/19/2019 11:34 AM BOBBIN WASHER Legal Sex Female 3:19 AM BOBBIN WASHER Gender Identity Female 09/19/2019 11:34 AM BOBBIN WASHER Sexual Orientation Straight 09/19/2019 11 :34 AM BOBBIN WASHER 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 Not on file documented as of this encounter Plan of Treatment Upcoming Encounters Date Type Department Care Team (Late st Contact Info) Description 07/10/2025 10:00 AM CDT Office Visit [facility] [address] [place] [phone] [place] [address] [place], [place] [phone] documented as of this encounter Visit Diagnoses Not on filedocumented in this encounter Care Teams Vendor Relationship Manager Relationship Specialty Start Date [place] [id number] [place] [phone] PCP - General Family Practice 06/28/18 [place] Lind[place] [id number] [place] [address] [phone] Assigned PCP 06/27/18 Renetta Lal Personal Advocate & Liaison (PAL) Family Practice 10/24/19 08/13/20 Berlin Andrews MD Assigned Cancer Care Provider 07/06/20 01/04/24 Xena Camara MD SURGICAL CONSULTS, [place] [address] [address] Assigned Surgical Provider 07/06/20 04/20/21 Tracy Hsieh RN Specialty Social Media Manager Hematology & Oncology 11/02/23 Constance Henry, PA-C [address] [place] [address] Assigned Cancer Care Provider 09/05/24 documented as of this encounter
--- OUTSIDE RECORDS SUMMARY | 2025-06-25 22:13 | XMS_ITS | Encounter Summary ---
Author Organization [place] Address [address] [place] [address]. [place] [address] Care Team Providers Care Filter Helper Name Role Phone Cassidy Lindo MD Primary Care Provider [phone] Cassidy Lindo MD Unavailable [phone] Tracy Hsieh RN Unavailable [phone] Constance Henry PA-C Unavailable Encounter Details Date Type Department Care Team (Late st Contact Info) Description 05/01/2025 MyC Medical Advice [facility] [address] [facility] [place] [phone] Annamarie Fernández, MINDY Social History Tobacco Use Types Packs/Day [...] re latives? Once a week 06/29/2024 Attends Buddhist Services Not on file 06/29 Active Member [...] Answer Date Recorded PHQ-2 Score 0 06/29/2024 [facility] - [...] in an abandoned building, in an overnight [place] [facility] [place], or couch-surfing.) Yes 06/29/2024 Are you worried [...] degree (e.g., MA, MS, Jose Guadalupe, MEd, TERRITORY SALES MANAGER MEDICAL, DENISSE) 10/24/2019 Comments No Sex and Gender Information Value Date Recorded Sex Assigned at Female 09/19/2019 11:34 AM CIVIL ENGINEERING SPECIALIST Legal Sex Female 3:19 AM CIVIL ENGINEERING SPECIALIST Gender Identity Female 09/19/2019 11:34 AM CIVIL ENGINEERING SPECIALIST Sexual Orientation Straight 09/19/2019 11 :34 AM CIVIL ENGINEERING SPECIALIST 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 Not on file documented as of this encounter Plan of Treatment Upcoming Encounters Date Type Department Care Team (Late st Contact Info) Description 07/10/2025 10:00 AM CDT Office Visit [address] [phone] [place] [address] [place] [address] documented as of this encounter Visit Diagnoses Not on filedocumented in this encounter Additional Health Concerns Assessment Noted Time PHQ-9 Depression Total Score: 1 06/29/20 24 1:25 PM CDT documented as of this encounter Care Teams Filter Helper Relationship Specialty Start Date [place] [id number] [place] [address] [phone] PCP - General Family Practice 06/28/18 Cassidy Lindo [place] [id number] [place] [address] Assigned PCP 06/27/18 Tracy Hsieh, RN Specialty Community Association Manager Hematology & Oncology 11/02/23 Constance Henry PA-C [address] [place], [place] [id number] Assigned Cancer Care Provider 09/05/24 documented as of this encounter
--- OUTSIDE RECORDS SUMMARY | 2025-06-25 22:13 | XMS_ITS | Encounter Summary ---
Author Organization [place] Address [address] [place] [address]. [place] [address] Care Team Providers Care Instrument And Controls Technician Name Role Phone Cassidy Lindo MD Primary Care Provider [phone] Cassidy Lindo MD Unavailable [phone] Renetta Lal Unavailable Unavailable Berlin Andrews MD Unavailable Xena Camara MD Unavailable [phone] Tracy Hsieh RN Unavailable [phone] Constance Henry PA-C Unavailable Encounter Details Date Type Department Care Team (Late st Contact Info) Description 01/09/2020 [facility] Medical Advice [facility] [address] [facility] [place] [phone] Jailene Aggarwal Social History Tobacco Use Types [...] Answer Date Recorded PHQ-2 Score 0 09/21/2018 [facility] - Occupational [...] degree (e.g., MA, MS, Jose Guadalupe, MEd, DIESEL ROLLER OPERATOR, DENISSE) 10/24/2019 Comments No Sex and Gender Information Value Date Recorded Sex Assigned at Female 09/19/2019 11:34 AM HOOP DRIVING MACHINE OPERATOR HELPER Legal Sex Female 3:19 AM HOOP DRIVING MACHINE OPERATOR HELPER Gender Identity Female 09/19/2019 11:34 AM HOOP DRIVING MACHINE OPERATOR HELPER Sexual Orientation Straight 09/19/2019 11 :34 AM HOOP DRIVING MACHINE OPERATOR HELPER Occupation Industry Job Start Date Job End [...] Description 07/10/2025 10:00 AM CDT Office Visit [facility] [id number] [place] [phone] Cassidy Lindo MD [address] [place] [address] [phone] documented as of this encounter Visit Diagnoses Not on filedocumented in this encounter Additional Health Concerns Infection Onset Date Last Indicated Resolved Time Rule Out COVID-19 06/11/2020 06/11/2020 06/12/2020 3:31 PM CDT documented as of this encounter Care Teams Instrument And Controls Technician Relationship Specialty Start [place] [id number] [place] [address] PCP - General Family Practice 06/28/18 Cassidy Lindo [place] [id number] [place] [address] Assigned PCP 06/27/18 Renetta Lal Personal Advocate & Liaison (PAL) Family Practice 10/24/19 08/13/20 Berlin Andrews MD Assigned Cancer Care Provider 07/06/20 01/04/24 Xena Camara MD [facility] [address] [place] [address] Assigned Surgical Provider 07/06/20 04/20/21 Tracy Hsieh RN Specialty Powerhouse Operator Hematology & Oncology 11/02/23 Constance Henry, LACY [address] [place] [address] Assigned Cancer Care Provider 09/05/24 documented as of this encounter
--- OUTSIDE RECORDS SUMMARY | 2025-06-25 22:13 | XMS_ITS | Encounter Summary ---
Author Organization [place] Address [address] [place] [address]. [place] [address] Care Team Providers Care Baggage Agent Supervisor Name Role Phone Cassidy Lindo MD Primary Care Provider [phone] Cassidy Lindo MD Unavailable [phone] Berlin Andrews MD Unavailable Tracy Hsieh RN Unavailable [phone] Constance Henry PA-C Unavailable Encounter Details Date Type Department Care Team (Late st Contact Info) Description 11/28/2022 [facility] Medical Advice [facility] [address] [facility] [place] [phone] Tracy Hsieh, RN Social History Tobacco Use [...] week 01/01/2022 How often do you attend [facility] or hindu services? More than 4 times per year 01/01/2022 Do you belong to any clubs o r organizations such as yarsanism groups, unions, fraternal or athletic groups, or [...] Answer Date Recorded PHQ-2 Score 0 01/01/2022 [facility] [place] [facility] Occupat ional Health - Occupational Stress [...] place to sleep or slept in a residential (including now)? No 01/01/2022 Education Answer Date Recorded What is the highest level of school you have completed or the highest degree you have received? 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 Not on file documented as of this encounter Plan of Treatment Upcoming Encounters Date Type Department Care Team (Late st Contact Info) Description 07/10/2025 10:00 AM CDT Office Visit [address] [phone] [place] [address] [place], [place] [phone] documented as of this encounter Visit Diagnoses Not on filedocumented in this encounter Additional Health Concerns Assessment Noted Time PHQ-9 Depression Total Score: 1 08/14/20 20 7:02 AM ACCOUNT INSTALLATION SPECIALIST documented as of this encounter Care Teams Baggage Agent Supervisor Relationship Specialty [place] [address] [place] [address] PCP - General Family Practice 06/28/18 [place] [address] [place] [address] Assigned PCP 06/27/18 [place] [address] [place] [address] Assigned Cancer Care Provider 07/06/20 01/04/24 Tracy Hsieh, RN Specialty Spindle Carver Hematology & Oncology 11/02/23 Constance Henry, PAHalC [address] [facility] [address] Assigned Cancer Care Provider 09/05/24 documented as of this encounter
--- OUTSIDE RECORDS SUMMARY | 2025-06-25 22:13 | XMS_ITS | Encounter Summary ---
Author Organization [place] Address [address] [place] [address]. [place] [address] Care Team Providers Care Cashier Assistant Name Role Phone [facility] Primary Care Provider Cassidy Lindo MD Primary Care Provider [phone] Cassidy Lindo MD Unavailable [phone] Cassidy Lindo MD Unavailable [phone] Renetta Lal Unavailable Unavailable Berlin Andrews MD Unavailable Xena Camara MD Unavailable [phone] Tracy Hsieh RN Unavailable [phone] Constance Henry PA-C Unavailable Reason for Visit * Reason Onset Date Comments MyChart Communication 06/22/2018 Encounter Details Date Type Department Care Team (Latest Contact Info) Description 06/22/2018 MyC Medical Advice [facility] [address] [place] [address] [place] [address] [place] [address] MyChart Communication Social History Tobacco Use Types Packs/Day Years Used Date Smoking Tobacco: Never Smokeless Tobacco: Never Alcohol Use Standard Drinks/Week Comments Yes 0 (1 standard drink = 0.6 oz pur e alcohol) couple per month Comments No Sex and Gender Information Value Date Recorded Sex Assigned at Female 09/19/2019 11:34 AM INSPECTOR RUBBER STAMP DIE Legal Sex Female 3:19 AM INSPECTOR RUBBER STAMP DIE Gender Identity Female 09/19/2019 11:34 AM INSPECTOR RUBBER STAMP DIE Sexual Orientation Straight 09/19/2019 11 :34 AM INSPECTOR RUBBER STAMP DIE 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 Not on file documented as of this encounter Plan of Treatment Upcoming Encounters Date Type Department Care Team (Late st Contact Info) Description 07/10/2025 10:00 AM CDT Office Visit [facility] [id number] [place] [phone] [place] [id number] [place] [address] documented as of this encounter Visit Diagnoses Not on filedocumented in this encounter Additional Health Concerns Infection Onset Date Last Indicated Resolved Time Rule Out COVID-19 06/11/2020 06/11/2020 06/12/2020 3:31 PM CDT documented as of this encounter Care Teams Cashier Assistant Relationship Specialty Start Date End Date [facility] [id number] [place] [address] PCP - General 05/14/17 06/27/18 [place] [address] [place] [address] PCP - General Family Practice 06/28/18 [place] [address] [place] [address] PCP - Assigned PCP 06/27/18 11/16/18 [place] [address] [place] [address] Assigned PCP 06/27/18 Renetta Lal Personal Advocate & Liaison (PAL) Family Practice 10/24/19 08/13/20 Berlin Andrews MD Assigned Cancer Care Provider 07/06/20 01/04/24 Xena Camara MD SURGICAL CONSULTS, ELVIN Cardona [address] [facility] [address] [place] [address] Assigned Surgical Provider 07/06/20 04/20/21 Tracy Hsieh RN Specialty Sock And Stocking Ironer Hematology & Oncology 11/02/23 Constance Henry PAHalC [address] [facility] [address] [place], [place] [phone] Assigned Cancer Care Provider 09/05/24 documented as of this encounter
[2025-06-25 22:20] VITALS: BP 123/80; PULSE 81; RESP 16; TEMP 35.8; O2SAT 95; BMI 34.7
--- NOTE | 2025-06-25 22:28 | CRLHL7_ITS ---
For Patients: As a result of the Century Cures Act, medical imaging exams and procedure reports are released immediately into your electronic medical record. You may view this report before your referring provider. If you have questions, please contact your health care provider. Indication: Left arm swelling, pain, recent IV Technique: DVT ultrasound of the left upper extremity. Grayscale and color Doppler imaging utilized. Duplex/spectral analysis used. Compression and augmentation as clinically warranted. Comparison: None Findings: All deep vessels are grossly compressible without evidence of filling defect to suggest DVT. Superficial venous thrombosis noted throughout the basilic vein. Mild soft tissue edema. Impression: Superficial basilic venous thrombosis present with no evidence of DVT. Dictated by Larry Bernal MD @ 06/25/2025 11:34:05 PM (Electronically Signed)
--- NOTE | 2025-06-25 22:35 | ED.GENADULT ---
HPI - General Adult General Chief complaint: Unspecified Complaint, Adult Stated complaint: swollen, pain L arm Time Seen by Provider: 06/25/25 22:30 History of Present Illness HPI narrative: Pt was released from hospital on and had her IV removed, left hand. Pt now has pain to her left arm. Pt is worried about a possible clot in her arm. Pain is rated 4 /10. CMS intact, some numbness to thumb of left hand. This started a couple hours ago 59-year-old woman presenting to the emergency department with concern of a blood clot in her left arm. Five days ago had reversal of ileostomy a. Was hospitalized for 2 days and discharged 3 days ago IV removed from her left hand at that time. Seemed already initially and then over the course of today, this evening has started to have more swelling and soreness in the left forearm in particular. She began to worry that maybe has a blood clot. She is not short of breath. Not having chest pain. Some tingling anus or numbness to the thumb of her left hand. Painful bowel movements she notes but otherwise this reversal appears to be going well. Related Data Home Medications ?Medication ?Instructions ?Recorded ?Confirmed exemestane 25 mg tablet (Aromasin) 25 mg PO DAILY 09/11/24 06/20/25 sertraline 100 mg tablet 100 mg PO DAILY 09/11/24 06/20/25 atorvastatin 20 mg tablet 20 mg PO DAILY 09/12/24 06/20/25 metformin 500 mg tablet,extended 500 mg PO DAILY 09/12/24 06/20/25 release 24 hr omeprazole 20 mg capsule,delayed 20 mg PO DAILY 09/12/24 06/20/25 release alendronate 70 mg tablet 70 mg PO QWEEK 02/21/25 06/19/25 Previous Rx's ?Medication ?Instructions ?Recorded loperamide 2 mg-simethicone 125 mg 1 tab PO Q2H PRN loose stool #90 03/06/25 tablet tabs hydrocodone 5 mg-acetaminophen 325 1 tab PO Q6H PRN pain #15 tabs 06/21/25 mg tablet aspirin 325 mg tablet,delayed 325 mg PO DAILY 30 days #30 tabs 06/26/25 release (Ecotrin) Allergies Allergy/AdvReac Type Severity Reaction Status Date / Time No Known Drug Allergies Allergy Verified 06/20/25 09:01 Review of Systems Status of ROS: Reports: 6 or more systems reviewed and unremarkable except as noted in History and below [facility] Medical History Diverticular disease ?K57.90 - Diverticulosis of intestine, part unspecified, without perforation or abscess without bleeding (ICD-10) Hyperlipidemia ?E78.5 - Hyperlipidemia, unspecified (ICD-10) Morbid obesity ?E66.01 - Morbid (severe) obesity due to excess calories (ICD-10) Pre-diabetes ?R73.03 - Prediabetes (ICD-10) Metabolic syndrome ?E88.810 - Metabolic syndrome (ICD-10) Anxiety ?F41.9 - Anxiety disorder, unspecified (ICD-10) Fatty liver ?K76.0 - Fatty (change of) liver, not elsewhere classified (ICD-10) GERD (gastroesophageal reflux disease) ?K21.9 - Gastro-esophageal reflux disease without esophagitis (ICD-10) Splenic cyst ?D73.4 - Cyst of spleen (ICD-10) History of adenomatous polyp of colon ?Z86.0101 - Personal history of adenomatous and serrated colon polyps (ICD-10) History of osteopenia ?Z87.39 - Personal history of other diseases of the musculoskeletal system and connective tissue (ICD-10) History of ductal carcinoma in situ (DCIS) of left breast (2019) ?Z86.000 - Personal history of in-situ neoplasm of breast (ICD-10) Perforation of sigmoid colon due to diverticulitis (09/11/24) ?K57.20 - Diverticulitis of large intestine with perforation and abscess without bleeding (ICD-10) Surgical History History of lumpectomy of left breast (2019) ?Z98.890 - Other specified postprocedural states (ICD-10) Family History Mother High blood pressure High cholesterol Father High blood pressure High cholesterol Maternal Grandmother Diabetes Social History What is your current living situation?: I presently have a place to live Problems where you live: no known problems Problems where you live details: none In the past 12 months, utilities in danger of being shut off: no In past 12 months, lack of transportation kept you from medical appts, meetings, work, or getting things needed for daily living: no In the past 12 mos, have been you worried that your food would run out before you had money to buy more?: never true In the past 12 mos, the food you bought just didn't last and you didn't have money to buy more?: never true Highest level of school completed/degree received: Master's degree Smoking Status: Never smoker Do you use any of these nicotine containing products: None Second hand tobacco smoke exposure: No How often do you have a drink containing alcohol: 2-4 times a month How many standard drinks containing alcohol do you have on a typical day: 1 or 2 How often do you have six or more drinks on one occasion: Never AUDIT-C Alcohol total score: 2 Non-prescribed substance use: denies use Caffeine: Yes How often does anyone, including family, friends and others, physically hurt you: never How often does anyone, including family, friends and others, insult or talk down to you: never How often does anyone, including family, friends and others, threaten you with harm: never How often does anyone, including family, friends and others, scream or curse at you: never service: No Exam Narrative: Exam Narrative: Pleasant. NAD. Breathing easily. Lungs are clear. Heart in regular rate and rhythm without murmur gallop. Examination of the left arm in question does show general soft puffiness in the forearm through the wrist. A little tender to palpation. Good peripheral pulses and capp refill. Abdomen is soft and full and nontender. Take down site is without inflammatory change. Packed with moist gauze. Const: Vital Signs, click to edit/add: Vital Signs - 24 hr 06/25/25 22:20 06/26/25 00:42 Temperature 96.5 F L 98.7 F Pulse Rate [Left P ulse Oximeter] 81 75 Respiratory Rate 16 18 Blood Pressure [Ri ght Upper Arm] 123/80 122/78 Pulse Oximetry 95 94 Oxygen Delivery Me thod Room Air Room Air Documenting provider has reviewed patient's vital signs: yes Course Vital Signs Vital signs: Initial Vital Signs Temperature 96.5 F L 06/25/25 22:20 Temperature Source Temporal Artery Scan 10/12/25 22:20 Pulse Rate 81 06/25/25 22:20 Pulse Rhythm Regular 06/25/25 22:20 Respiratory Rate 16 06/25/25 22:20 Blood Pressure 123/80 06/25/25 22:20 Blood Pressure Mean 94 06/25/25 22:20 Blood Pressure Position Sitting 06/25/25 22:20 Pulse Oximetry 95 06/25/25 22:20 Oxygen Delivery Method Room Air 06/25/25 22:20 Vital Signs Temperature 96.5 F L 06/25/25 22:20 Pulse Rate 81 06/25/25 22:20 Respiratory Rate 16 06/25/25 22:20 Blood Pressure 123/80 06/25/25 22:20 Pulse Oximetry 95 06/25/25 22:20 Oxygen Delivery Method Room Air 06/25/25 22:20 Temperature 98.7 F 06/26/25 00:42 Pulse Rate 75 06/26/25 00:42 Respiratory Rate 18 06/26/25 00:42 Blood Pressure 122/78 06/26/25 00:42 Pulse Oximetry 94 06/26/25 00:42 Oxygen Delivery Method Room Air 06/26/25 00:42 Medications Administered Medications: Generic Name Dose Route Start Last Admin Trade Name Freq PRN Reason Stop Dose Admin Aspirin 325 mg 06/26/25 00:47 06/26/25 01:03 Aspirin Ec 325 Mg Tablet PO 06/26/25 00:48 325 mg ONCE ONE Administration Medical Decision Making MDM Narrative Medical decision making narrative: Anticipating need for imaging in did request an ultrasound prior to my seeing Yesenia. Otherwise appears well with reassuring vitals. Did discuss venous ultrasound of the left upper extremity with meter reader inspector. They note superficial venous thrombus through the entirety of the basilic vein. It is unclear to me how close this verges on deep venous at this point. Might warrant anticoagulation. Complicated though by recent surgery. Anticipate discussion with Radiology. Indication: Left arm swelling, pain, recent IV Technique: DVT ultrasound of the left upper extremity. Grayscale and color Doppler imaging utilized. Duplex/spectral analysis used. Compression and augmentation as clinically warranted. Comparison: None Findings: All deep vessels are grossly compressible without evidence of filling defect to suggest DVT. Superficial venous thrombosis noted throughout the basilic vein. Mild soft tissue edema. Impression: Superficial basilic venous thrombosis present with no evidence of DVT. Dictated by Larry Bernal MD @ 06/25/2025 11:34:05 PM Unable to clarify after conversation with radiology and again with meter reader inspector how close this basilic gets to the subclavian. In lower extremity with this extensive clot in the superficial system, encroaching on the deep system, would often initiate anticoagulation but is relatively fresh postoperative in this case. Discussed this case with colleague. Will be initiating aspirin full dose daily for 1 month per historical recommendations of hematology. Given initial dosing here. See patient discharge plan for further discussion Can take up to 800 mg of ibuprofen or up to 1000 mg of acetaminophen per dose for discomfort. Can apply warm moist packs 1-2 times daily to your arm over the next 1-2 weeks. Recommendations are to take daily 325 mg of aspirin which I have prescribed for you. Take for 1 month. Be seen for marked increase in pain, tense swelling, fever, any indication of chest pain or difficulty breathing. Medical Records Medical records reviewed: Yes I reviewed the patient's medical records Discharge Plan Discharge Clinical Impression: Superficial venous thrombosis of left arm Patient Disposition: Home w/ Parent or Adult Condition: Stable Additional Instructions: Can take up to 800 mg of ibuprofen or up to 1000 mg of acetaminophen per dose for discomfort. Can apply warm moist packs 1-2 times daily to your arm over the next 1-2 weeks. Recommendations are to take daily 325 mg of aspirin which I have prescribed for you. Take for 1 month. Be seen for marked increase in pain, tense swelling, fever, any indication of chest pain or difficulty breathing. Activity Level: No Restrictions Discharge Diet: Regular Prescriptions: New aspirin [Ecotrin] 325 mg tablet,delayed release (DR/EC) 325 mg PO DAILY 30 Days Qty: 30 0RF No Action loperamide-simethicone 2-125 mg tablet 1 tab PO Q2H PRN (Reason: loose stool) Qty: 90 0RF hydrocodone-acetaminophen 5-325 mg tablet 1 tab PO Q6H PRN (Reason: pain) Qty: 15 0RF sertraline 100 mg tablet 100 mg PO DAILY exemestane [Aromasin] 25 mg tablet 25 mg PO DAILY Rx Instructions: must administer after a meal atorvastatin 20 mg tablet 20 mg PO DAILY omeprazole 20 mg capsule,delayed release(DR/EC) 20 mg PO DAILY metformin 500 mg tablet extended release 24 hr 500 mg PO DAILY alendronate 70 mg tablet 70 mg PO QWEEK Follow Up/Referrals: Provider,Not a Local [Primary Care Provider, Family Practice] Stand Alone Forms: [facility] Info Instructions
[2025-06-26 00:42] VITALS: BP 122/78; PULSE 75; RESP 18; TEMP 37.1; O2SAT 94
[2025-06-26] MEDS: ASPIRIN EC 325 MG TABLET PO (01:03)
== END 2025-06-26 01:09 | disposition home or self-care (01) ==
PROVIDERS: Emergency Provider Family Medicine
DX: I82.612 Acute embolism and thrombosis of superficial veins of left upper extremity (principal); Z98.890 Other specified postprocedural states
CPT/HCPCS: 93971; 99284; A9270